=== PATIENT | female | born 1995 | race African-American/Black ===

== ENCOUNTER 2018-08-11 07:23 | Emergency (ER) | payer SELFPAY ==
[2018-08-11] MEDS ORDERED: KETOROLAC 30 MG/ML INJ ONE (07:48)
[2018-08-11] MEDS ORDERED: DEXAMETHASONE 10 MG/ML VIAL ONE (07:48)
[2018-08-11] MEDS ORDERED: CEFTRIAXONE/SWI 1gm 1 GM/10 ML SYR ONE (07:49)
[2018-08-11] MEDS ORDERED: CLINDAMYCIN 600MG/D5W 0 MG/0 ML BAG IV ONE (08:31)
[2018-08-11] MEDS ORDERED: CLINDAMYCIN 900MG/D5W 900 MG/50 ML BAG IV ONE (08:33)
[2018-08-11] MEDS ORDERED: LIDOCAINE VISCOUS 2% SOLN 15 ML UDC ONE (08:53)
--- NOTE | 2018-08-11 09:53 | EDPHYS ---
Physician Documentation [facility] Name: Dilma Royal Age: 23 yrs Sex: Female : 1995 Arrival Date: 08/11/2018 Time: 07:25 Bed 13 Private MD: None, None ED Physician Tai Pastrana HPI: 08/11 07:38 This 23 yrs old Black Female presents to ER via Ambulatory with complaints of Sore wa Throat. 07:38 The patient presents with sore throat. The patient describes throat pain as constant, wa the patient is unable to open their mouth due to pain worse on L side. Onset: The symptoms/episode began/occurred 2 day(s) ago. Severity of symptoms: At their worst the symptoms were moderate, in the emergency department the symptoms are actually worse, markedly. Modifying factors: The symptoms are alleviated by nothing, the symptoms are aggravated by swallowing. Associated signs and symptoms: Pertinent positives: Sore throat Pertinent negatives cough, fever, rhinorrhea, shortness of breath. The patient has experienced a previous episode, approximately 6 months ago. The patient has been recently seen by a physician: ER in [facility]. had abscess drained from the left side and given abx. 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 - Social history:: Smoking status: Patient/guardian denies using tobacco. - Ebola Screening: : No symptoms or risks identified at this time. - Family history:: not pertinent. - Hospitalizations: : No recent hospitalization is reported. ROS: 07:43 Constitutional: Negative for fever, chills, and weight loss, Eyes: Negative for injury, wa pain, redness, and discharge, Neck: Negative for injury, pain, and swelling, Cardiovascular: Negative for chest pain, palpitations, and edema, Respiratory: Negative for shortness of breath, cough, wheezing, and pleuritic chest pain, Abdomen/GI: Negative for abdominal pain, nausea, vomiting, diarrhea, and constipation, Back: Negative for injury and pain, : Negative for injury, bleeding, discharge, and swelling, MS/Extremity: Negative for injury and deformity, Skin: Negative for injury, rash, and discoloration, Neuro: Negative for headache, weakness, numbness, tingling, and seizure. 07:43 ENT: Positive for difficulty handling secretions, sore throat, mild trismus. . 07:43 All other systems are negative. Exam: 07:44 Constitutional: This is a well developed, well nourished patient who is awake, alert, wa and in no acute distress. Head/Face: Normocephalic, atraumatic. Eyes: Pupils equal round and reactive to light, extra-ocular motions intact. Lids and lashes normal. Conjunctiva and sclera are non-icteric and not injected. Cornea within normal limits. Periorbital areas with no swelling, redness, or edema. Neck: Trachea midline, no thyromegaly or masses palpated, and no cervical lymphadenopathy. Supple, full range of motion without nuchal rigidity, or vertebral point tenderness. No Meningismus. Chest/axilla: Normal chest wall appearance and motion. Nontender with no deformity. No lesions are appreciated. Cardiovascular: Regular rate and rhythm with a normal S1 and S2. No gallops, murmurs, or rubs. Normal PMI, no JVD. No pulse deficits. Respiratory: Lungs have equal breath sounds bilaterally, clear to auscultation and percussion. No rales, rhonchi or wheezes noted. No increased work of breathing, no retractions or nasal flaring. Abdomen/GI: Soft, non-tender, with normal bowel sounds. No distension or tympany. No guarding or rebound. No evidence of tenderness throughout. Back: No spinal tenderness. No costovertebral tenderness. Full range of motion. Skin: Warm, dry with normal turgor. Normal color with no rashes, no lesions, and no evidence of cellulitis. MS/ Extremity: Pulses equal, no cyanosis. Neurovascular intact. Full, normal range of motion. Neuro: Awake and alert, GCS 15, oriented to person, place, time, and situation. Cranial nerves II-XII grossly intact. Motor strength 5/5 in all extremities. Sensory grossly intact. Cerebellar exam normal. Normal gait. Psych: Awake, alert, with orientation to person, place and time. Behavior, mood, and affect are within normal limits. 07:44 ENT: External ear(s): are unremarkable, Ear canal(s): are normal, TM's: are normal, Mouth: drooling, that is mild, noted mild trismus, Posterior pharynx: Uvula: normal, erythema, that is marked, L side, peritonsillar mass, is noted on left, Dental exam: normal. Vital Signs: 07:36 BP 107 / 60; Pulse 98; Resp 16 S; Temp 99.4(O); Pulse Ox 100% on R/A; Pain 10/10; jl7 08:33 BP 112 / 74; Pulse 53; Resp 16 S; Pulse Ox 98% on R/A; jl7 10:00 BP 115 / 76; Pulse 78; Resp 16 S; Pulse Ox 100% on R/A; jl7 Procedures: 09:50 I \T\ D: Incision and drainage was performed for an abscess of the left peritonsillar wa area. Prepped with alcohol, Anesthetized with 1 ml's 1% Lidocaine w/ Epi. Incised with 18 gauge needle. Drained large amount purulent fluid. the patient tolerated the procedure well, 10 cc's. MDM: 07:30 Patient medically screened. wa 07:45 Differential diagnosis: exam consistent with re-accumulation of peritonsillar abscess. wa will treat. consider bedside I\T\D. 09:51 Data reviewed: vital signs, nurses notes. Special discussion: 100 cc's pus drained. pt wa tolerated well. speaking in full sentences. great relief. improved. 08/11 07:36 Order name: IV Start; Complete Time: 08:03 wa Administered Medications: 07:45 Drug: TORadol 30 mg Route: IVP; Site: right antecubital; [facility] 08:06 Follow up: Response: No adverse reaction; Pain is decreased jl 07:48 Drug: Rocephin - (cefTRIAXone) 1 grams {Note: Administered over 3 minutes per 7 protocol.} Route: IVPB; Infused Over: 30 mins; Site: right antecubital; 07:51 Follow up: Response: No adverse reaction; IV Status: Completed infusion [facility] 07:58 Drug: Decadron - Dexamethasone 10 mg Route: IVP; Site: right antecubital; 7 08:32 Follow up: Response: No adverse reaction; Pain is decreased jl 08:31 Drug: Clindamycin 900 mg Route: IVPB; Infused Over: 30 mins; Site: right antecubital; jl7 09:01 Follow up: Response: No adverse reaction; IV Status: Completed infusion jl7 Disposition: 08/11/18 09:53 Discharged to Home. Impression: Left Peritonsilar abscess. - Condition is Stable. - Discharge Instructions: Peritonsillar Abscess, [id number]. - Medication Reconciliation Form, Thank You Letter, Antibiotic Education, Prescription Opioid Use form. - Follow up: Lu Madrigal MD; When: 1 - 2 days; Reason: Recheck today's complaints. - Problem is new. - Symptoms have improved. - Notes: continue your antibiotic and pain medicines as prescribed. follow up with the ENT doctor as discussed Signatures: Josafat Houston RN RN jl7 Tai Pastrana MD MD wa Corrections: (The following items were deleted from the chart) 10:27 09:53 08/11/2018 09:53 Discharged to Home. Impression: Left Peritonsilar abscess. jl7 Condition is Stable. Forms are Medication Reconciliation Form, Thank You Letter, Antibiotic Education, Prescription Opioid Use. Follow up: Lu Madrigal; When: 1 - 2 days; Reason: Recheck today's complaints. Problem is new. Symptoms have improved. wa
--- NOTE | 2018-08-11 09:53 | ER ---
Nurse's Notes [facility] Name: Dilma Royal Age: 23 yrs Sex: Female : 1995 Arrival Date: 08/11/2018 Time: 07:25 Bed 13 Private MD: None, None Diagnosis: Left Peritonsilar abscess Presentation: 08/11 07:30 Presenting complaint: Patient states: Went to [place] [facility] 2 days ago, dx with strep and jl7 had an abscess drained from the left tonsil. C/o increased pain and swelling to the left side of throat. Transition of care: patient was not received from another setting of care. Onset of symptoms was August 09, 2018. Risk Assessment: Do you want to hurt yourself or someone else? Patient reports no desire to harm self or others. Initial Sepsis Screen: Does the patient meet any 2 criteria? No. Patient's initial sepsis screen is negative. Does the patient have a suspected source of infection? No. Patient's initial sepsis screen is negative. Care prior to arrival: None. 07:30 Method Of Arrival: Ambulatory [facility] 07:30 Acuity: GRANT 3 jl7 Triage Assessment: 07:36 General: Appears in no apparent distress. uncomfortable, Behavior is cooperative. Pain: jl7 Complains of pain in throat Pain does not radiate. Pain currently is 10 out of 10 on a pain scale. EENT: Throat is reddened has enlarged tonsils on left with gag reflex present. Neuro: Level of Consciousness is awake, alert, obeys commands. Cardiovascular: Patient's skin is warm and dry. Respiratory: Airway is patent Respiratory effort is even, unlabored, Respiratory pattern is regular, symmetrical. Derm: Skin is dry, Skin is normal, Skin temperature is warm. 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 - Social history:: Smoking status: Patient/guardian denies using tobacco. - Ebola Screening: : No symptoms or risks identified at this time. - Family history:: not pertinent. - Hospitalizations: : No recent hospitalization is reported. Screenin:39 Abuse screen: Denies threats or abuse. Denies injuries from another. Nutritional jl7 screening: No deficits noted. Tuberculosis screening: No symptoms or risk factors identified. Fall Risk IV access (20 points). Total [place] Fall Scale indicates No Risk (0-24 pts). Assessment: 07:39 General: See triage assessment. Respiratory: Airway is patent Respiratory effort is jl7 even, unlabored, Respiratory pattern is regular, symmetrical, Breath sounds are clear bilaterally. 08:34 Reassessment: Patient and/or family updated on plan of care and expected duration. Pain jl7 level reassessed. Patient is alert, oriented x 3, equal unlabored respirations, skin warm/dry/pink. Patient states feeling better. Patient states symptoms have improved. 09:52 Reassessment: Patient and/or family updated on plan of care and expected duration. Pain jl7 level reassessed. Patient is alert, oriented x 3, equal unlabored respirations, skin warm/dry/pink. Patient states symptoms have improved. Vital Signs: 07:36 BP 107 / 60; Pulse 98; Resp 16 S; Temp 99.4(O); Pulse Ox 100% on R/A; Pain 10/10; jl7 08:33 BP 112 / 74; Pulse 53; Resp 16 S; Pulse Ox 98% on R/A; jl7 10:00 BP 115 / 76; Pulse 78; Resp 16 S; Pulse Ox 100% on R/A; jl7 ED Course: 07:25 Patient arrived in ED. mr 07:25 None, None is Private Physician. mr 07:27 Josafat Houston RN is Primary Nurse. jl7 07:30 Tai Pastrana MD is Attending Physician. wa 07:30 Arm band placed on right wrist. Patient placed in an exam room, on a stretcher. jl7 07:36 Triage completed. jl7 07:39 Patient has correct armband on for positive identification. Bed in low position. Call jl7 light in reach. Side rails up X 1. Pulse ox on. Sitter at bedside. 08:06 Inserted saline lock: 22 gauge in right antecubital area, using aseptic technique. jl7 09:30 Assist provider with I \T\ D: of an abscess on left peritonsillar area Set up I\T\D tray. jl 7 Performed by Tai Pastrana MD Patient tolerated well. 09:52 Lu Madrigal MD is Referral Physician. wa 10:05 IV discontinued, intact, bleeding controlled, No redness/swelling at site. Pressure jl7 dressing applied. Administered Medications: 07:45 Drug: TORadol 30 mg Route: IVP; Site: right antecubital; jl7 08:06 Follow up: Response: No adverse reaction; Pain is decreased jl7 07:48 Drug: Rocephin - (cefTRIAXone) 1 grams {Note: Administered over 3 minutes per jl7 protocol.} Route: IVPB; Infused Over: 30 mins; Site: right antecubital; 07:51 Follow up: Response: No adverse reaction; IV Status: Completed infusion jl7 07:58 Drug: Decadron - Dexamethasone 10 mg Route: IVP; Site: right antecubital; jl7 08:32 Follow up: Response: No adverse reaction; Pain is decreased jl7 08:31 Drug: Clindamycin 900 mg Route: IVPB; Infused Over: 30 mins; Site: right antecubital; jl7 09:01 Follow up: Response: No adverse reaction; IV Status: Completed infusion jl7 Outcome: 09:53 Discharge ordered by . wa 10:05 Discharged to home ambulatory, with family. jl7 10:05 Condition: stable 10:05 Discharge instructions given to patient, family, Instructed on discharge instructions, follow up and referral plans. Demonstrated understanding of instructions, follow-up care. 10:15 Patient left the ED. jl7 Signatures: Tamica TatealJosafat RN RN jlTai Tran MD MD ga Corrections: (The following items were deleted from the chart) 10:27 10:27 Patient left the ED. jl7 jl7
[2018-08-11 10:34] VITALS: TEMP 99.4
[2018-08-11 10:36] VITALS: BP 115/76; O2SAT 100
== END 2018-08-11 10:27 | disposition home or self-care (01) ==
LOC: ER 07:23
PROC: 0C9PXZZ Drainage of Tonsils, External Approach (ICD-10-PCS; principal; 2018-08-11)
DX: J36 Peritonsillar abscess (principal)
CPT/HCPCS: 96365; 96375; 99284; J0696; J1100

== ENCOUNTER 2019-03-17 08:50 | Emergency (ER) | payer OTHER, SELFPAY ==
--- NOTE | 2019-03-17 09:51 | ER ---
Nurse's Notes [facility] Name: Dilma Royal Age: 23 yrs Sex: Female : 1995 Arrival Date: 03/17/2019 Time: 08:57 Bed 14 Private MD: None, None Diagnosis: Dental pain Presentation: 03/17 09:15 Presenting complaint: Patient states: Right lower molar pain 10/10 x 2 days. Transition hb of care: patient was not received from another setting of care. Onset of symptoms was March 16, 2019. Risk Assessment: Do you want to hurt yourself or someone else? Patient reports no desire to harm self or others. Initial Sepsis Screen: Does the patient meet any 2 criteria? No. Patient's initial sepsis screen is negative. Does the patient have a suspected source of infection? No. Patient's initial sepsis screen is negative. Care prior to arrival: None. 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 - Social history:: Smoking status: Patient/guardian denies using tobacco. - Ebola Screening: : No symptoms or risks identified at this time. Screenin:15 Abuse screen: Denies threats or abuse. Nutritional screening: No deficits noted. rb1 Tuberculosis screening: No symptoms or risk factors identified. Fall Risk None identified. Assessment: 09:15 General: Appears in no apparent distress. comfortable, obese, Behavior is calm, rb1 cooperative, Denies fever. Pain: Complains of pain in lower right second bicuspid (#29) Pain currently is 10 out of 10 on a pain scale. Pain began x 2 days. Neuro: Level of Consciousness is awake, alert, obeys commands, Oriented to person, place, time, situation. Cardiovascular: Capillary refill < 3 seconds is brisk in bilateral fingers. Respiratory: Airway is patent Respiratory effort is even, unlabored, Respiratory pattern is regular, symmetrical. GI: No signs and/or symptoms were reported involving the gastrointestinal system. : No signs and/or symptoms were reported regarding the genitourinary system. EENT: Reports pain in lower right second bicuspid (#29). Derm: Skin is dry, Skin is normal, Skin temperature is warm. Vital Signs: 09:14 BP 133 / 100; Pulse 69; Resp 16; Temp 98.2; Pulse Ox 99% on R/A; Pain 10/10; hb 10:08 BP 135 / 91; Pulse 73; Resp 16; Pulse Ox 100% on R/A; rb1 ED Course: 08:57 Patient arrived in ED. mr 08:57 None, None is Private Physician. mr 09:15 Patient has correct armband on for positive identification. Bed in low position. Call rb1 light in reach. Side rails up X 1. Pulse ox on. NIBP on. 09:16 Triage completed. hb 09:16 Warner Moulton PA is PHCP. cp 09:16 Warner Cottrell MD is Attending Physician. cp 09:16 Arm band placed on. hb 09:38 Kim Rooney, RN is Primary Nurse. rb1 09:50 Micky Paniagua DDS is Referral Physician. cp 10:09 No provider procedures requiring assistance completed. Patient did not have IV access rb1 during this emergency room visit. Administered Medications: 10:07 Drug: Tylenol 1000 mg Route: PO; rb1 10:08 Follow up: Response: Medication administered at discharge. rb1 10:07 Drug: Ibuprofen 800 mg Route: PO; rb1 10:07 Follow up: Response: Medication administered at discharge. rb1 Outcome: 09:51 Discharge ordered by MD. cp 10:09 Discharged to home ambulatory. rb1 10:09 Condition: stable 10:09 Discharge instructions given to patient, Instructed on discharge instructions, follow up and referral plans. medication usage, Demonstrated understanding of instructions, follow-up care, medications, Prescriptions given X 3. 10:10 Patient left the ED. rb1 Signatures: Kerry Tate mr Warner Moulton PA PA cp Kim Rooney, SHRADDHA RN rb1 Rosanna Wilburn RN RN
--- NOTE | 2019-03-17 09:52 | EDPHYS ---
Physician Documentation [facility] Name: Dilma Royal Age: 23 yrs Sex: Female : 1995 Arrival Date: 03/17/2019 Time: 08:57 Bed 14 Private MD: None, None ED Physician Warner Cottrell HPI: 03/17 09:30 This 23 yrs old Black Female presents to ER via Ambulatory with complaints of Toothache.cp 09:30 The patient presents with pain. cp 09:30 The problem is located in the right lower tooth. Onset: The symptoms/episode cp began/occurred yesterday. Duration: The symptoms are continuous. Associated signs and symptoms: Pertinent negatives: fever, inability to eat, swelling. Severity of symptoms: in the emergency department the symptoms are unchanged, despite home interventions. 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 - Social history:: Smoking status: Patient/guardian denies using tobacco. - Ebola Screening: : No symptoms or risks identified at this time. ROS: 09:30 Constitutional: Negative for body aches, chills, fever, poor PO intake. cp 09:30 Eyes: Negative for injury, pain, redness, and discharge. cp 09:30 ENT: Positive for dental pain, Negative for drainage from ear(s), ear pain, sinus pain, sore throat, difficulty swallowing, difficulty handling secretions. 09:30 Neck: Negative for pain with movement, pain at rest, stiffness. 09:30 Respiratory: Negative for cough, shortness of breath, wheezing. 09:30 Abdomen/GI: Negative for abdominal pain, nausea, vomiting, diarrhea. 09:30 Neuro: Negative for altered mental status, headache. 09:30 All other systems are negative. Exam: 09:30 Head/Face: Normocephalic, atraumatic. cp 09:30 Constitutional: The patient appears in no acute distress, alert, awake, non-toxic, well developed, well nourished. 09:30 Eyes: Periorbital structures: appear normal, Conjunctiva: normal, no exudate, no injection, Sclera: no appreciated abnormality, Lids and lashes: appear normal, bilaterally. 09:30 ENT: External ear(s): are unremarkable, Ear canal(s): are normal, clear, TM's: are normal, no evidence of bulging, no erythema, Nose: is normal, Mouth: Lips: moist, Oral mucosa: pink and intact, moist, Tongue: is normal, abscess, is not appreciated, drooling, is not appreciated, Posterior pharynx: Airway: no evidence of obstruction, patent, Tonsils: are normal in appearance, swelling, is not appreciated, erythema, is not appreciated, exudate, is not appreciated, Dental exam: dental caries, that is mild, diffusely, fractured teeth are noted, specifically the lower right second bicuspid (#29), gum swelling, not appreciated, pain, that is moderate, specifically in the lower right second bicuspid (#29), Voice: is normal. 09:30 Neck: ROM/movement: is normal, is supple, without pain, no range of motions limitations, no meningismus, no nuchal rigidity, Lymph nodes: no appreciated lymphadenopathy. 09:30 Chest/axilla: Inspection: normal. cp 09:30 Cardiovascular: Rate: normal. cp 09:30 Respiratory: the patient does not display signs of respiratory distress, Respirations: normal, no use of accessory muscles, no retractions, no splinting, no tachypnea, labored breathing, is not present. 09:30 Abdomen/GI: Inspection: abdomen appears normal. Vital Signs: 09:14 BP 133 / 100; Pulse 69; Resp 16; Temp 98.2; Pulse Ox 99% on R/A; Pain 10/10; hb 10:08 BP 135 / 91; Pulse 73; Resp 16; Pulse Ox 100% on R/A; rb1 MDM: 09:17 Patient medically screened. cp 09:40 Differential diagnosis: dental caries, dental abscess, pericoronitis. cp 09:50 Data reviewed: vital signs, nurses notes, and as a result, I will discharge patient. cp 09:50 Counseling: I had a detailed discussion with the patient and/or guardian regarding: the cp historical points, exam findings, and any diagnostic results supporting the discharge/admit diagnosis, the need for outpatient follow up, for definitive care, a dentist, maxillary facial surgery, to return to the emergency department if symptoms worsen or persist or if there are any questions or concerns that arise at home. Response to treatment: the patient's symptoms have mildly improved after treatment. Administered Medications: 10:07 Drug: Tylenol 1000 mg Route: PO; rb1 10:08 Follow up: Response: Medication administered at discharge. rb1 10:07 Drug: Ibuprofen 800 mg Route: PO; rb1 10:07 Follow up: Response: Medication administered at discharge. rb1 Disposition: 03/18 08:03 Co-signature as Attending Physician, Warner Cottrell MD I agree with the assessment and eloise plan of care. Disposition: 03/17/19 09:51 Discharged to Home. Impression: Dental pain. - Condition is Stable. - Discharge Instructions: Dental Pain. - Prescriptions for Amoxicillin 875 mg Oral Tablet - take 1 tablet by ORAL route every 12 hours for 10 days; 20 tablet. Ibuprofen 800 mg Oral Tablet - take 1 tablet by ORAL route every 8 hours As needed take with food; 30 tablet. Tramadol 50 mg Oral Tablet - take 1 tablet by ORAL route every 8 hours as needed; 12 tablet. - Medication Reconciliation Form, Thank You Letter, Antibiotic Education, Prescription Opioid Use, Work release form form. - Follow up: Micky Paniagua DDS; When: 2 - 3 days; Reason: tooth pain. - Problem is new. - Symptoms have improved. Signatures: Warner Cottrell MD MD cha Page, Corey, PA PA cp Barber, Rebecca, RN RN rb1 Rosanna Wilburn RN RN Corrections: (The following items were deleted from the chart) 03/17 10:10 09:51 03/17/2019 09:51 Discharged to Home. Impression: Dental pain. Condition is rb1 Stable. Forms are Medication Reconciliation Form, Thank You Letter, Antibiotic Education, Prescription Opioid Use. Follow up: Micky Paniagua; When: 2 - 3 days; Reason: tooth pain. Problem is new. Symptoms have improved. cp
[2019-03-17] MEDS ORDERED: ACETAMINOPHEN 500 MG TAB ONE (10:13)
[2019-03-17] MEDS ORDERED: IBUPROFEN 400 MG TAB ONE (10:13)
[2019-03-17 10:35] VITALS: TEMP 98.2
[2019-03-17 10:36] VITALS: BP 135/91; O2SAT 100
== END 2019-03-17 10:10 | disposition home or self-care (01) ==
LOC: ER 08:50
DX: K08.89 Other specified disorders of teeth and supporting structures (principal)
CPT/HCPCS: 99283

== ENCOUNTER 2019-06-10 03:58 | Emergency (ER) | payer OTHER ==
--- OUTSIDE RECORDS SUMMARY | 2019-06-10 04:00 | XMS REPORT ---
:1995 [facility] Address [address] [place] [address] Care Team Providers Name Role Phone Unavailable Unavailable Unavailable Problems This patient has no known problems. Allergies, Adverse Reactions, Alerts This patient has no known allergies or adverse reactions. Medications This patient has no known medications.
--- NOTE | 2019-06-10 04:17 | ER ---
Nurse's Notes [facility] Name: Dilma Royal Age: 23 yrs Sex: Female : 1995 Arrival Date: 06/10/2019 Time: 04:01 Bed 7 Private MD: Diagnosis: Dental pain Presentation: 06/10 04:07 Presenting complaint: Patient states: R lower toothache x 2 days. Transition of care: aa1 patient was not received from another setting of care. Onset of symptoms was June 08, 2019. Risk Assessment: Do you want to hurt yourself or someone else? Patient reports no desire to harm self or others. Initial Sepsis Screen: Does the patient meet any 2 criteria? No. Patient's initial sepsis screen is negative. Does the patient have a suspected source of infection? No. Patient's initial sepsis screen is negative. Care prior to arrival: None. 04:07 Method Of Arrival: Ambulatory aa1 04:07 Acuity: GRANT 4 aa1 Triage Assessment: 04:11 General: Appears in no apparent distress. comfortable, Behavior is calm, cooperative, aa1 appropriate for age. 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 - Social history:: Smoking status: Patient/guardian denies using tobacco. - Ebola Screening: : No symptoms or risks identified at this time. Screenin:11 Abuse screen: Denies threats or abuse. Denies injuries from another. Nutritional lp1 screening: No deficits noted. Tuberculosis screening: No symptoms or risk factors identified. Fall Risk None identified. Assessment: 04:10 General: Appears in no apparent distress. Behavior is appropriate for age. Pain: lp1 Complains of pain in lower right second bicuspid Pain currently is 8 out of 10 on a pain scale. Neuro: Level of Consciousness is awake, alert, obeys commands, Oriented to person, place, time, situation. Cardiovascular: Patient's skin is warm and dry. Respiratory: No deficits noted. GI: No signs and/or symptoms were reported involving the gastrointestinal system. : No signs and/or symptoms were reported regarding the genitourinary system. EENT: Oral mucosa is moist. Dental caries noted in lower right second bicuspid (#29) Reports pain in lower right second bicuspid. Derm: Skin is intact, Skin is dry, Skin is normal. Musculoskeletal: No deficits noted. 04:26 Reassessment: Patient states immediate relief after dental nerve block. lp1 Vital Signs: 04:11 BP 117 / 69; Pulse 74; Resp 18; Temp 98.4; Pulse Ox 99% on R/A; Weight 109.77 kg; aa1 Height 5 ft. 5 in. (165.10 cm); Pain 8/10; 04:11 Body Mass Index 40.27 (109.77 kg, 165.10 cm) aa1 ED Course: 04:01 Patient arrived in ED. ds1 04:08 Fabian Shultz MD is Attending Physician. ps1 04:10 Barbara Nolen RN is Primary Nurse. lp1 04:10 Triage completed. aa1 04:11 Arm band placed on right wrist. aa1 04:12 Patient has correct armband on for positive identification. lp1 04:26 Assist provider with nerve block (dental) Performed by Fabian Shultz MD. lp1 04:27 Patient did not have IV access during this emergency room visit. lp1 Administered Medications: 04:27 Drug: Bupivacaine (0.5 %) 10 ml Volume: 10 ml; Route: Infiltration; lp1 04:36 Follow up: Response: Marked relief of symptoms lp1 04:27 Drug: Lidocaine-Epinephrine -2 % (1:100,000) 10 ml Route: Infiltration; lp1 04:36 Follow up: Response: Marked relief of symptoms lp1 Outcome: 04:15 Discharge ordered by . ps1 04:37 Discharged to home ambulatory, with family. lp1 04:37 Condition: good 04:37 Discharge instructions given to patient, Instructed on discharge instructions, follow up and referral plans. medication usage, Demonstrated understanding of instructions, follow-up care, medications, Prescriptions given X 3. 04:37 Patient left the ED. lp1 Signatures: Luanne Gill RN RN aa1 Beronica Damon ds1 Barbara Nolen RN RN lp1 Fabain Shultz MD MD ps1 Corrections: (The following items were deleted from the chart) 04:13 04:10 EENT: Oral mucosa is moist. Dental caries noted in lower right second bicuspid lp1 (#29) lp1
--- NOTE | 2019-06-10 04:17 | EDPHYS ---
Physician Documentation [facility] Name: Dilma Royal Age: 23 yrs Sex: Female : 1995 Arrival Date: 06/10/2019 Time: 04:01 Bed 7 Private MD: ED Physician Fabian Shultz HPI: 06/10 04:08 This 23 yrs old Black Female presents to ER via Unassigned with complaints of Toothache ps1 - 8 Wks Preg. 04:08 onset was 2 days ago. No fever or abscess. Has known crown that fell out from tooth. No ps1 dentist appt. Took PCN from previous rx. Pain moderate to severe. Worst with hot and cold. . 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 - Social history:: Smoking status: Patient/guardian denies using tobacco. - Ebola Screening: : No symptoms or risks identified at this time. ROS: 04:08 Constitutional: Negative for fever, chills, and weight loss, Eyes: Negative for injury, ps1 pain, redness, and discharge, Cardiovascular: Negative for chest pain, palpitations, and edema, Respiratory: Negative for shortness of breath, cough, wheezing, and pleuritic chest pain, Abdomen/GI: Negative for abdominal pain, nausea, vomiting, diarrhea, and constipation, MS/Extremity: Negative for injury and deformity, Skin: Negative for injury, rash, and discoloration, Neuro: Negative for headache, weakness, numbness, tingling, and seizure. 04:08 ENT: Positive for dental pain. Exam: 04:08 Constitutional: This is a well developed, well nourished patient who is awake, alert, ps1 and in no acute distress. Head/Face: Normocephalic, atraumatic. Eyes: Pupils equal round and reactive to light, extra-ocular motions intact. Lids and lashes normal. Conjunctiva and sclera are non-icteric and not injected. Cardiovascular: Regular rate and rhythm. No gallops, murmurs, or rubs. Normal PMI, no JVD. No pulse deficits. Respiratory: Lungs have equal breath sounds bilaterally, clear to auscultation and percussion. No rales, rhonchi or wheezes noted. No increased work of breathing, no retractions or nasal flaring. Abdomen/GI: Soft, non-tender, with normal bowel sounds. No distension or tympany. No guarding or rebound. No evidence of tenderness throughout. Skin: Warm, dry with normal turgor. Normal color with no rashes, no lesions, and no evidence of cellulitis. MS/ Extremity: Pulses equal, no cyanosis. Neurovascular intact. Full, normal range of motion. 04:08 ENT: Mouth: is normal, Dental exam: abscess, is not appreciated, dental caries, that is mild. Vital Signs: 04:11 BP 117 / 69; Pulse 74; Resp 18; Temp 98.4; Pulse Ox 99% on R/A; Weight 109.77 kg; aa1 Height 5 ft. 5 in. (165.10 cm); Pain 8/10; 04:11 Body Mass Index 40.27 (109.77 kg, 165.10 cm) aa1 Procedures: 04:14 Nerve block: (dental) of left inferior alveolar nerve, periapical block, Medication: ps1 Lidocaine 2% with epinephrine, Marcaine 0.5%, Amount: 5 mls were injected, Effect: the patient has resolution of the pain, Performed by Fabian Shultz MD Patient tolerated well. MDM: 04:15 Patient medically screened. ps1 Administered Medications: 04:27 Drug: Bupivacaine (0.5 %) 10 ml Volume: 10 ml; Route: Infiltration; lp1 04:36 Follow up: Response: Marked relief of symptoms lp1 04:27 Drug: Lidocaine-Epinephrine -2 % (1:100,000) 10 ml Route: Infiltration; lp1 04:36 Follow up: Response: Marked relief of symptoms lp1 Disposition: 06/10/19 04:15 Discharged to Home. Impression: Dental pain. - Condition is Stable. - Discharge Instructions: Dental Caries, Adult. - Prescriptions for chlorhexidine gluconate 0.12 % Mucous Membrane mouthwash - place 15 milliliter by MUCOUS MEMBRANE route 2 times per day after brushing teeth, swish in mouth for 30 seconds then spit out; 1 bottle. Clindamycin HCl 150 mg Oral Capsule - take 1 capsule by ORAL route every 6 hours for 10 days; 40 capsule. Tylenol- Codeine #3 300-30 mg Oral Tablet - take 2 tablet by ORAL route every 6 hours As needed; 30 tablet. - Medication Reconciliation Form, Thank You Letter, Antibiotic Education, Prescription Opioid Use form. - Follow up: Private Physician; When: Tomorrow; Reason: Further diagnostic work-up, Recheck today's complaints, Continuance of care. Follow up: Emergency Department; When: As needed; Reason: Worsening of condition. - Problem is new. - Symptoms have improved. Signatures: Luanne Gill RN RN aa1 Barbara Nolen RN RN lp1 Harinder Carlton RN RN jd3 Fabian Shultz MD MD ps1 Corrections: (The following items were deleted from the chart) 04:37 04:15 06/10/2019 04:15 Discharged to Home. Impression: Dental pain. Condition is lp1 Stable. Forms are Medication Reconciliation Form, Thank You Letter, Antibiotic Education, Prescription Opioid Use. Follow up: Private Physician; When: Tomorrow; Reason: Further diagnostic work-up, Recheck today's complaints, Continuance of care. Follow up: Emergency Department; When: As needed; Reason: Worsening of condition. Problem is new. Symptoms have improved. ps1
[2019-06-10] MEDS ORDERED: BUPIVACAINE 0.5% PF 10 ML VIAL ONE (04:26)
[2019-06-10] MEDS ORDERED: LIDOCAINE 2% W/EPI 1:200,000 MPF 20 ML VIAL IM ONE (04:26)
[2019-06-10 05:13] VITALS: BP 117/69; TEMP 98.4; O2SAT 99
== END 2019-06-10 04:37 | disposition home or self-care (01) ==
LOC: ER 03:58
DX: O26.891 Other specified pregnancy related conditions, first trimester (principal); Z3A.08 8 weeks gestation of pregnancy
CPT/HCPCS: 99283

== ENCOUNTER 2019-06-12 02:14 | Emergency (ER) | payer OTHER ==
--- OUTSIDE RECORDS SUMMARY | 2019-06-12 02:16 | XMS REPORT ---
:1995 [facility] Address [address] [place] [address] Care Team Providers Name Role Phone Unavailable Unavailable Unavailable Problems This patient has no known problems. Allergies, Adverse Reactions, Alerts This patient has no known allergies or adverse reactions. Medications This patient has no known medications.
[2019-06-12] MEDS ORDERED: MEPERIDINE HCL 50 MG/ML AMP ONE (03:11)
[2019-06-12] MEDS ORDERED: ONDANSETRON 4 MG/2 ML VIAL ONE (03:12)
[2019-06-12] MEDS ORDERED: NA CHLORIDE 0.9% 1,000 ML ONE (03:12)
[2019-06-12] MEDS ORDERED: CLINDAMYCIN 900MG/D5W 900 MG/50 ML IVPB IV ONE (03:12)
[2019-06-12 03:56] LABS: Basophils % 0.9 % (0-1.3); Eosinophils % 0.8 % (0-4.4); Hematocrit 39.1 % (36.0-45.0); Lymphocytes % 18.5 % (15.3-44.8); RBC Red Blood Cell Count 4.38 M/uL (3.86-4.86)
--- NOTE | 2019-06-12 04:10 | EDPHYS ---
Physician Documentation [facility] Name: Dilma Royal Age: 23 yrs Sex: Female : 1995 Arrival Date: 06/12/2019 Time: 02:15 Bed 7 Private MD: ED Physician Pablo Galvan HPI: 06/12 02:51 This 23 yrs old Black Female presents to ER via Ambulatory with complaints of Toothache.pkl 02:51 The patient presents with pain, swelling. The problem is located in the right jaw. pkl Onset: The symptoms/episode began/occurred 3 day(s) ago. The patient has been recently seen at the [facility], last week, for similar complaints was given a prescription for antibiotics. 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 - Social history:: Smoking status: Patient/guardian denies using tobacco. - Ebola Screening: : No symptoms or risks identified at this time. ROS: 02:51 Eyes: Negative for injury, pain, redness, and discharge. pkl 02:51 ENT: Positive for dental pain, of the right molar. 02:51 Neck: Negative for stiffness. 02:51 Cardiovascular: Negative for chest pain. 02:51 Respiratory: Negative for cough, shortness of breath. 02:51 Abdomen/GI: Negative for abdominal pain, nausea, vomiting, and diarrhea. 02:51 Back: Negative for acute changes. 02:51 : Negative for urinary symptoms. 02:51 MS/extremity: Negative for acute changes. 02:51 Skin: Negative for rash. 02:51 Neuro: Negative for altered mental status. Exam: 02:51 Eyes: Pupils equal round and reactive to light, extra-ocular motions intact. Lids and pkl lashes normal. Conjunctiva and sclera are non-icteric and not injected. Cornea within normal limits. Periorbital areas with no swelling, redness, or edema. 02:51 Head/face: Noted is swelling, that is moderate, of the right jaw. 02:51 ENT: Dental exam: abscess, that is moderate, specifically in the right mandible, gum swelling, that is moderate, pain, that is moderate. 02:51 Neck: Exam negative for nuchal rigidity. 02:51 Chest/axilla: Exam negative for acute changes. 02:51 Cardiovascular: Rate: normal, Rhythm: regular. 02:51 Respiratory: the patient does not display signs of respiratory distress, Respirations: normal, Breath sounds: are clear throughout. 02:51 Abdomen/GI: Bowel sounds: normal, Palpation: abdomen is soft and non-tender, in all quadrants. 02:51 Back: Exam negative for acute changes. 02:51 : Exam negative for acute changes. 02:51 Musculoskeletal/extremity: Exam is negative for acute changes. 02:51 Skin: Exam negative for rash. 02:51 Neuro: Orientation: is normal, Mentation: is normal, Cranial nerves: grossly normal, Motor: is normal. Vital Signs: 02:26 BP 124 / 80; Pulse 83; Resp 20; Temp 99.3; Pulse Ox 100% ; Weight 108.86 kg; Height 5 aa1 ft. 5 in. (165.10 cm); Pain 10/10; 04:17 BP 118 / 57; Pulse 71; Resp 19; Pulse Ox 100% on R/A; tr5 02:26 Body Mass Index 39.94 (108.86 kg, 165.10 cm) aa1 MDM: 02:40 Patient medically screened. pkl 04:05 Data reviewed: vital signs, nurses notes, lab test result(s). ED course: Patient pkl feeling better. Advised to follow up with a dentist in the morning. Patient understood instructions.. 07 02:48 Order name: CBC with Diff; Complete Time: 04:02 pkl 07 02:48 Order name: Chem 7; Complete Time: 04:30 pkl 06/12 02:48 Order name: Quantitative Hcg; Complete Time: 04:30 pkl Administered Medications: 03:06 Drug: NS 0.9% 1000 ml Route: IV; Rate: 1000 ml; Site: right antecubital; aa1 04:00 Follow up: IV Status: Completed infusion; IV Intake: 1000ml tr5 03:07 Drug: Demerol 50 mg Route: IVP; Site: right antecubital; aa1 03:28 Follow up: Response: Pain is decreased tr5 03:07 Drug: Zofran 4 mg Route: IVP; Site: right antecubital; aa1 03:28 Follow up: Response: Nausea is decreased tr5 03:07 Drug: Clindamycin 900 mg Route: IVPB; Infused Over: 30 mins; Site: right antecubital; aa1 03:28 Follow up: Response: No adverse reaction; IV Status: Completed infusion tr5 04:24 Drug: Moore 5 mg-325 mg 1 tabs Route: PO; tr5 04:25 Follow up: Response: Medication administered at discharge. tr5 Disposition: 06/12/19 04:08 Discharged to Home. Impression: Dental abscess. Swelling right jaw. 1 st trimester . - Condition is Stable. - Prescriptions for Clindamycin HCl 300 mg Oral Capsule - take 1 capsule by ORAL route every 6 hours for 7 days; 28 capsule. - Medication Reconciliation Form, Thank You Letter, Antibiotic Education, Prescription Opioid Use form. - Follow up: Private Physician; When: Tomorrow; Reason: Re-evaluation by your physician. - Problem is new. - Symptoms are unchanged. Signatures: Dispatcher [employer] EDLuanne Teran RN RN aa1 Pablo Galvan MD MD pkl Jewel Hinds RN RN tr5 Corrections: (The following items were deleted from the chart) 04:27 04:08 06/12/2019 04:08 Discharged to Home. Impression: Dental abscess. Swelling right tr5 jaw. 1 st trimester . Condition is Stable. Forms are Medication Reconciliation Form, Thank You Letter, Antibiotic Education, Prescription Opioid Use. Follow up: Private Physician; When: Tomorrow; Reason: Re-evaluation by your physician. Problem is new. Symptoms are unchanged. pkl
--- NOTE | 2019-06-12 04:10 | ER ---
Nurse's Notes [facility] Name: Dilma Royal Age: 23 yrs Sex: Female : 1995 Arrival Date: 06/12/2019 Time: 02:15 Bed 7 Private MD: Diagnosis: Dental abscess. Swelling right jaw. 1 st trimester Presentation: 06/12 02:24 Presenting complaint: Mother states: pt was seen here 2 days ago for a toothache and aa1 was started on antibiotics but the pain and swelling has gotten significantly worse. States pt is also 8 weeks . Transition of care: patient was not received from another setting of care. Onset of symptoms was June 09, 2019. Risk Assessment: Do you want to hurt yourself or someone else? Patient reports no desire to harm self or others. Initial Sepsis Screen: Does the patient meet any 2 criteria? No. Patient's initial sepsis screen is negative. Does the patient have a suspected source of infection? No. Patient's initial sepsis screen is negative. Care prior to arrival: None. 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 - Social history:: Smoking status: Patient/guardian denies using tobacco. - Ebola Screening: : No symptoms or risks identified at this time. Screenin:27 Abuse screen: Denies threats or abuse. Denies injuries from another. Nutritional aa1 screening: No deficits noted. Tuberculosis screening: No symptoms or risk factors identified. Fall Risk None identified. Assessment: 02:27 General: Appears in no apparent distress. uncomfortable, Behavior is calm, cooperative, aa1 appropriate for age. Pain: Complains of pain in mouth Pain currently is 10 out of 10 on a pain scale. Is continuous. Neuro: Level of Consciousness is awake, alert, obeys commands, Oriented to person, place, time, situation, Gait is steady. Respiratory: Airway is patent Respiratory effort is even, unlabored, Respiratory pattern is regular, symmetrical. GI: No signs and/or symptoms were reported involving the gastrointestinal system. : No signs and/or symptoms were reported regarding the genitourinary system. EENT: Reports pain in mouth. Derm: Skin is intact, is healthy with good turgor, Skin is pink, warm \T\ dry. Musculoskeletal: Circulation, motion, and sensation intact. Capillary refill < 3 seconds. Musculoskeletal: Swelling present in right zygomatic area, right cheek and right mandible. 03:20 Reassessment: Patient appears in no apparent distress at this time. Patient is alert, tr5 oriented x 3, equal unlabored respirations, skin warm/dry/pink. Patient states feeling better. 04:18 Reassessment: Patient appears in no apparent distress at this time. Patient and/or tr5 family updated on plan of care and expected duration. Pain level reassessed. Patient is alert, oriented x 3, equal unlabored respirations, skin warm/dry/pink. Vital Signs: 02:26 BP 124 / 80; Pulse 83; Resp 20; Temp 99.3; Pulse Ox 100% ; Weight 108.86 kg; Height 5 aa1 ft. 5 in. (165.10 cm); Pain 10/10; 04:17 BP 118 / 57; Pulse 71; Resp 19; Pulse Ox 100% on R/A; tr5 02:26 Body Mass Index 39.94 (108.86 kg, 165.10 cm) aa1 ED Course: 02:15 Patient arrived in ED. ds1 02:26 Triage completed. aa1 02:26 Arm band placed on right wrist. aa1 02:27 Patient has correct armband on for positive identification. Bed in low position. Call aa1 light in reach. Pulse ox on. NIBP on. 02:40 Pablo Galvan MD is Attending Physician. pkl 03:05 Initial lab(s) drawn, by ED staff, sent to lab. Inserted saline lock: 22 gauge in right aa1 antecubital area, using aseptic technique. ,using aseptic technique. by Jewel Hinds RN Blood collected. 03:07 Jewel Hinds RN is Primary Nurse. tr5 04:25 No provider procedures requiring assistance completed. tr5 04:25 IV discontinued. tr5 Administered Medications: 03:06 Drug: NS 0.9% 1000 ml Route: IV; Rate: 1000 ml; Site: right antecubital; aa1 04:00 Follow up: IV Status: Completed infusion; IV Intake: 1000ml tr5 03:07 Drug: Demerol 50 mg Route: IVP; Site: right antecubital; aa1 03:28 Follow up: Response: Pain is decreased tr5 03:07 Drug: Zofran 4 mg Route: IVP; Site: right antecubital; aa1 03:28 Follow up: Response: Nausea is decreased tr5 03:07 Drug: Clindamycin 900 mg Route: IVPB; Infused Over: 30 mins; Site: right antecubital; aa1 03:28 Follow up: Response: No adverse reaction; IV Status: Completed infusion tr5 04:24 Drug: Lavon 5 mg-325 mg 1 tabs Route: PO; tr5 04:25 Follow up: Response: Medication administered at discharge. tr5 Intake: 04:00 IV: 1000ml; Total: 1000ml. tr5 Outcome: 04:08 Discharge ordered by . va 04:24 Discharged to home ambulatory. tr5 04:24 Condition: stable 04:24 Discharge instructions given to patient, Instructed on discharge instructions, follow up and referral plans. medication usage, Demonstrated understanding of instructions, follow-up care, medications, Prescriptions given X 1. 04:27 Patient left the ED. tr5 Signatures: Luanne Gill RN RN aa1 Pablo Galvan MD MD pkl Sanford, Demi ds1 Rodriguez, Tommie, RN RN tr5
[2019-06-12 04:15] LABS: BUN Blood Urea Nitrogen 4 mg/dL (7-18); Bicarbonate 26 mmol/L (21-32); Glucose Level 91 mg/dL (74-106); Potassium 3.9 mmol/L (3.5-5.1); Sodium Level 139 mmol/L (136-145)
[2019-06-12 04:22] LABS: HCG, Quantitative 64129 mIU/mL (1-3)
[2019-06-12] MEDS ORDERED: HYDROCODONE/APAP 5/325 MG TAB ONE (04:36)
[2019-06-12 04:40] VITALS: TEMP 99.3; O2SAT 100
[2019-06-12 04:42] VITALS: BP 118/57
== END 2019-06-12 04:27 | disposition home or self-care (01) ==
LOC: ER 02:14
DX: O26.891 Other specified pregnancy related conditions, first trimester (principal); K04.7 Periapical abscess without sinus; Z3A.00 Weeks of gestation of pregnancy not specified
CPT/HCPCS: 36415; 80048; 84702; 85025; 96361; 96365; 96375; 99284; J2175; J2405; J7030

== ENCOUNTER 2019-11-24 15:54 | Emergency (ER) | payer OTHER ==
--- OUTSIDE RECORDS SUMMARY | 2019-11-24 15:57 | XMS REPORT | Summary of Care ---
:1995 Author Organization [facility] Address [address] [place] [address] Care Team Providers Name Role Phone [facility] Reason for Referral (Routine) Status Reason Specialty Diagnoses / Referred By Referred To Procedures Contact Contact New Request Maternal Diagnoses Supervision of high risk in first trimester Carlota, Medicine Procedures CONSULT MATERNAL MEDICINE ULTRASOUND Preferred Location: BENITA Briceno [address] [place] [address] Reason for Visit Reason Comments Care Encounter Details Date Type Department Care Team Description 06/21/2019 Routine [facility]- [place], Supervision of high risk in first trimester (Primary Dx); Visit BENITA Briceno Obesity in [address] [facility] [address] [facility] [phone] [place] [id number] Allergies No Known Allergiesdocumented as of this encounter (statuses as of 06/21/2019) Medications Medication Sig Dispensed Refills Start Date End Date Status loratadine (CLARITIN) 10 Take 10 mg by 0 Active mg tablet mouth daily. ibuprofen 800 mg tablet Take 1 tablet by 21 tablet 0 06/21/2018 Active mouth every 8 (eight) hours as needed (PAIN). methylPREDNISolone Take by mouth 21 Each 0 08/09/2018 Active (MEDROL, JOSHUA,) 4 mg SEE-INSTRUCTIONS tablets . follow package directions acetaminophen-codeine Take 1 tablet by 20 tablet 0 08/09/2018 Active (TYLENOL-CODEINE #3) mouth every 4 300-30 mg tablet (four) hours as needed for Pain (scale 7-10). ondansetron 4 mg Take 1 tablet by 20 tablet 0 08/09/2018 Active disintegrating tablet mouth every 8 (eight) hours as needed for Nausea and Vomiting (N/V). chlorhexidine 0.12 % Swish and spit 473 mL 0 08/09/2018 Active mouthwash out 15 mL 2 (two) times daily. vit/iron Take by mouth. 0 Active fum/folic ac ( 1 + 1 ORAL) amoxicillin-clavulanate Take 1 tablet by 20 tablet 0 06/16/2019 Active (AUGMENTIN) 875-125 mg mouth 2 (two) 9 per tabletIndications: times daily for Abscess 10 days. documented as of this encounter (statuses as of 06/21/2019) Active Problems Problem Noted Date Supervision of high-risk 05/24/2019 Obesity in 05/24/2019 Chest pain 09/11/2013 Overview: ICD10 Diagnosis Term Documentation Consultant Utility Estimated Date of Delivery Comments Yes 01/17/2020 Based on last menstrual period of 04/12/2019 (Approximate) documented as of this encounter (statuses as of 06/21/2019) Resolved Problems Problem Noted Date Resolved Date Well woman exam 10/04/2018 05/24/2019 Contraception management 10/04/2018 05/24/2019 Obesity (BMI 30-39.9) 10/04/2018 05/24/2019 SOB (shortness of breath) 09/11/2013 05/24/2019 documented as of this encounter (statuses as of 06/21/2019) Immunizations Name Administration Dates Next Due HPV 06/03/2018, 02/01/2018, 12/04/2010 TDAP (ADACEL) VACCINE 06/15/2014 documented as of this encounter Social History Tobacco Use Types Packs/Day Years Used Date Never Smoker Smokeless Tobacco: Never Used Alcohol Use Drinks/Week oz/Week Comments No Estimated Date of Delivery Comments Yes 01/17/2020 Based on last menstrual period of 04/12/2019 (Approximate) Sex Assigned at Date Recorded Not on file Job Start Date Occupation Industry Not on file Not on file Not on file Travel History Travel Start Travel End No recent travel history available. documented as of this encounter Last Filed Vital Signs Vital Sign Reading Time Taken Comments Blood Pressure 119/83 06/21/2019 10:07 AM CDT Pulse 83 06/21/2019 10:07 AM CDT Temperature 36.9 C (98.5 F) 06/21/2019 10:07 AM CDT Respiratory Rate 16 06/21/2019 10:07 AM CDT Oxygen Saturation - - Inhaled Oxygen Concentration - - Weight 108.1 kg (238 lb 6 oz) 06/21/2019 10:07 AM CDT Height 165.1 cm (5' 5") 06/21/2019 10:07 AM CDT Body Mass Index 39.67 06/21/2019 10:07 AM CDT documented in this encounter Progress Notes Lina Van, WHCNP - 06/21/2019 9:45 AM CDT Chief complaint: Chief Complaint Patient presents with Care HPI CC: Follow Up Visit Dilma Royal is a 23 year old, , Black or female. Patient's last menstrual period was 04/12/2019 (approximate). She is 10w0d with an intrauterine . Her estimated date of delivery is 01/17/2020, by Last Menstrual Period. She has no complaints today. Histories OB History Para Term AB Living 1 0 0 0 0 0 SAB TAB Ectopic Multiple Live Births 0 0 0 0 0 # Outcome Date GA Lbr Amandeep/2nd Weight Sex Delivery Anes PTL Lv 1 Current Past Medical History: Diagnosis Date Family History Problem Relation Age of Onset Asthma Brother Asthma Maternal Uncle Diabetes Maternal Uncle Asthma Maternal Grandmother Arthritis NoFHx defects NoFHx Breast Cancer NoFHx Colon Cancer NoFHx Ovarian Cancer NoFHx Uterine Cancer NoFHx Cancer NoFHx Depression NoFHx Genetic NoFHx Heart NoFHx High cholesterol NoFHx Hypertension NoFHx Mental retardation NoFHx Neurological NoFHx Osteoporosis NoFHx Psychiatry NoFHx Family Status Relation Name Status Bro (Not Specified) MUnc (Not Specified) MGMo (Not Specified) NoFHx (Not Specified) No past surgical history on file. Social History Socioeconomic History Marital status: Single Spouse name: Not on file Number of children: Not on file Years of education: Not on file Highest education level: Not on file Occupational History Not on file Social Needs Financial resource strain: Not on file Food insecurity: Worry: Not on file Inability: Not on file Transportation needs: Medical: Not on file Non-medical: Not on file Tobacco Use Smoking status: Never Smoker Smokeless tobacco: Never Used Substance and Sexual Activity Alcohol use: No Drug use: No Sexual activity: Yes Partners: Male Comment: last sexual intercourse 05/22/2019 Lifestyle Physical activity: Days per week: Not on file Minutes per session: Not on file Stress: Not on file Relationships Social connections: Talks on phone: Not on file Gets together: Not on file Attends adventism service: Not on file Active member of club or organization: Not on file Attends meetings of clubs or organizations: Not on file Relationship status: Not on file Intimate partner violence: Fear of current or ex partner: Not on file Emotionally abused: Not on file Physically abused: Not on file Forced sexual activity: Not on file Other Topics Concern Not on file Social History Narrative Patient lives with boyfriend, patient feels safe at home. Patient has 2 cats, educated on cat litter. Social History Substance and Sexual Activity Sexual Activity Yes Partners: Male Comment: last sexual intercourse 05/22/2019 Labs No new labs and Admission on 06/15/2019, Discharged on 06/16/2019 Component Date Value NA 06/15/2019 138 K 06/15/2019 4.1 CL 06/15/2019 104 CO2 TOTAL 06/15/2019 25 AGAP 06/15/2019 9 BUN 06/15/2019 5* GLUCOSE 06/15/2019 110 CREATININE 06/15/2019 0.55 CALCIUM 06/15/2019 9.4 eGFR Calculation (Non-Af* 06/15/2019 138.2 eGFR Calculation (Shana* 06/15/2019 167.5 WBC 06/15/2019 9.97 RBC 06/15/2019 4.32 HGB 06/15/2019 12.6 HCT 06/15/2019 39.3 MCV 06/15/2019 91.0 MCH 06/15/2019 29.2 MCHC 06/15/2019 32.1 RDW-SD 06/15/2019 46.4 RDW-CV 06/15/2019 13.7 PLT 06/15/2019 422* MPV 06/15/2019 8.8* NRBC/100 WBC 06/15/2019 0.0 NRBC x10^3 06/15/2019 <0.01 GRAN MAT (NEUT) % 06/15/2019 69.6 IMM GRAN % 06/15/2019 0.20 LYMPH % 06/15/2019 21.8 MONO % 06/15/2019 7.4 EOS % 06/15/2019 0.7 BASO % 06/15/2019 0.3 GRAN MAT x10^3(ANC) 06/15/2019 6.94 IMM GRAN x10^3 06/15/2019 <0.03 LYMPH x10^3 06/15/2019 2.17 MONO x10^3 06/15/2019 0.74 EOS x10^3 06/15/2019 0.07 BASO x10^3 06/15/2019 0.03 Wound Culture 06/16/2019 1+ Streptococcus anginosus Gram stain 06/16/2019 No Organisms seen Gram stain 06/16/2019 No Polymorphonuclear leukocytes Gridcap Machine Operator Visit on 05/31/2019 Component Date Value BETA HCG 05/31/2019 16,127.00 Routine Visit on 05/29/2019 Component Date Value POCT U SP GRAV 05/29/2019 . POCT PH U 05/29/2019 . POCT U LEUK EST 05/29/2019 . POCT U NIT 05/29/2019 . POCT U PROT 05/29/2019 Trace POCT U GLU 05/29/2019 Neg POCT U KETONE 05/29/2019 . POCT U UROBILI 05/29/2019 . POCT U BILI 05/29/2019 . POCT U BLD 05/29/2019 . BETA HCG 05/29/2019 11,701.00 Initial Visit on 05/24/2019 Component Date Value GLUC 1 HR 05/24/2019 119* POCT PREG 05/24/2019 Positive On board controls accept* 05/24/2019 Yes POCT PH U 05/24/2019 6 POCT U LEUK EST 05/24/2019 Neg POCT U NIT 05/24/2019 Neg POCT U PROT 05/24/2019 Trace POCT U GLU 05/24/2019 Neg POCT U KETONE 05/24/2019 Small POCT U BLD 05/24/2019 Neg C. trachomatis Nucleic A* 05/24/2019 Negative N. gonorrhoeae Nucleic A* 05/24/2019 Negative HBsAg 05/24/2019 Negative HBsAg Semi-Quantitative 05/24/2019 0.06 ABO & RH 05/24/2019 O POSITIVE IAT 05/24/2019 Negative Rubella screen IgG 05/24/2019 Positive Syphilis IgG/IgM 05/24/2019 Non-reactive URINE CULTURE 05/24/2019 > 100,000 CFU/mL mixed aerobic organisms - suggests endogenous microbial contamination VZV IgG antibody 05/24/2019 Positive WBC 05/24/2019 7.26 RBC 05/24/2019 4.47 HGB 05/24/2019 12.8 HCT 05/24/2019 41.8 MCV 05/24/2019 93.5 MCH 05/24/2019 28.6 MCHC 05/24/2019 30.6* RDW-SD 05/24/2019 47.2 RDW-CV 05/24/2019 13.8 PLT 05/24/2019 414* MPV 05/24/2019 9.2* NRBC/100 WBC 05/24/2019 0.0 NRBC x10^3 05/24/2019 <0.01 GRAN MAT (NEUT) % 05/24/2019 67.3 IMM GRAN % 05/24/2019 0.10 LYMPH % 05/24/2019 24.9 MONO % 05/24/2019 5.9 EOS % 05/24/2019 1.4 BASO % 05/24/2019 0.4 GRAN MAT x10^3(ANC) 05/24/2019 4.88 IMM GRAN x10^3 05/24/2019 <0.03 LYMPH x10^3 05/24/2019 1.81 MONO x10^3 05/24/2019 0.43 EOS x10^3 05/24/2019 0.10 BASO x10^3 05/24/2019 0.03 SICKLE SCR 05/24/2019 Negative HIV 1/2 Ag-Ab with Reflex 05/24/2019 Negative HIV Semi-quantitative 05/24/2019 0.20 Radiology Radiology pending. Allergies Dilma has No Known Allergies. Medications Dilma has a current medication list which includes the following prescription( s): amoxicillin-clavulanate, vit/iron fum/folic ac, acetaminophen- codeine, chlorhexidine, methylprednisolone, ondansetron, ibuprofen, and loratadine. Review of Systems Constitutional: Negative. HENT: Negative. Eyes: Negative. Respiratory: Negative. Breasts: Negative. Cardiovascular: Negative. Gastrointestinal: Negative. Genitourinary: Negative. Musculoskeletal: Negative. Skin: Negative. Neurological: Negative. Psychiatric/Behavioral: Negative. Endocrine: Endocrine negative BP 119/83 (BP Location: Right arm, Patient Position: Sitting, BP CUFF SIZE: Adult Medium) | Pulse 83 | Temp 36.9 C (98.5 F) (Oral) | Resp 16 | Ht 5 ' 5" (1.651 m) | Wt 238 lb 6 oz (108.1 kg) |LMP 04/12/2019 (Approximate) | BMI 39.67 kg/m Pregravid BMI: Could not be calculated Physical Exam PHYSICAL: General Exam: Neurological: Normal Abdomen: Normal gravid Extremities: Normal Pelvic Exam: Uterus: 10 Weeks Assessment/Plan Return to clinic in 4 weeks. Denies zika virus risk, signs and symptoms such as fever,rash,joint pain, conjunctivitis (red eyes),muscle pain, headaches; outside [place] travel to areas affected by zika, and FOB exposure to zika. Educated on use of mosquito repellent. Supervision of high risk in first trimester (primary encounter diagnosis) Comment: routine Plan: POCT URINALYSIS W SPECIFIC GRAVITY, CYSTIC FIBROSIS GENE SEQUENCING, CONSULT MATERNAL MEDICINE ULTRASOUND Preferred Location: [place] Obesity in Comment: see bmi Plan: limit weight gain and sensible diet. This visit did not involve counseling and coordination that comprised more than 50% of the visit time. BENITA Nieto 06/21/2019 10:49 AM documented in this encounter Plan of Treatment Date Type Specialty Care Team Description 07/19/2019 Routine Visit OB Satellites Lina Van WHCNP [address] [place] [address] [phone] Name Type Priority Associated Diagnoses Date/Time CYSTIC FIBROSIS GENE LAB Routine Supervision of high risk 06/21/2019 10:12 AM SEQUENCING in first CDT trimester Health Maintenance Due Date Last Done Comments MENINGOCOCCAL B VACCINES (1 of 2006 2 - Risk Bexsero 2-dose series) INFLUENZA VACCINE 07/28/2019 CHLAMYDIA SCREENING 05/24/2020 05/24/2019, 10/04/2018, 10/06/2011 PAP SMEAR 10/04/2021 10/04/2018 DTaP,Tdap,and Td Vaccines (2 - 06/15/2024 06/15/2014 Td) HPV VACCINES Completed 06/03/2018, 02/01/2018, 12/04/2010 MENINGOCOCCAL VACCINE Aged Out No longer eligible based on patient's age to complete this topic PNEUMOCOCCAL 0-64 YEARS Aged Out No longer eligible based COMBINED SERIES on patient's age to complete this topic documented as of this encounter Procedures Procedure Name Priority Date/Time Associated Diagnosis Comments POCT URINALYSIS Routine 06/21/2019 10:15 AM Supervision of high Results for this CDT risk in procedure are in first trimester the results section. documented in this encounter Results POCT URINALYSIS W SPECIFIC GRAVITY (06/21/2019 10:15 AM CDT) POCT U SP GRAV . 1.005 - 1.025 mg/dl POCT PH U . 5 - 8 mg/dl POCT U LEUK EST . Negative - Negative POCT U NIT . Negative - Negative POCT U PROT Trace Negative - Negative POCT U GLU neg Negative - Negative POCT U KETONE . Negative - Negative POCT U UROBILI . 0.2 - 1 mg/dl POCT U BILI . Negative - Negative POCT U BLD . Negative - Negative POCT U COLOR POCT U APPEAR Specimen Urine - URINE, CLEAN CATCH documented in this encounter Visit Diagnoses Diagnosis Supervision of high risk in first trimester - Primary Unspecified high-risk Obesity in Obesity complicating , childbirth, or the puerperium, unspecified as to episode of care or not applicable documented in this encounter Insurance Payer Benefit Plan / Subscriber ID Effective Phone Address Type Group Dates [facility] xxxxxxxxx 2019-Cassy P.OMaame RAMOS Medicaid HEALTH CHOICE - HEALTH [employer] nt [id number] MANAGED MEDICAID [place], [place] MEDICA[place] [address] documented as of this encounter Advance Directives Name Relationship Healthcare Agent Communication Relationship Kasie Royal Mother Primary healthcare agent
--- OUTSIDE RECORDS SUMMARY | 2019-11-24 15:57 | XMS REPORT | Summary of Care ---
:1995 Author Organization [facility] Address [address] [place] [address] Care Team Providers Name Role Phone Lina Van [facility] Primary Care Provider Encounter Details Date Type Department Care Team Description 06/25/2019 Patient Secure [facility]- Lina Van, [facility] [address] [facility] [address] [place] [address] [facility] [phone] [place] [address] Allergies No Known Allergiesdocumented as of this encounter (statuses as of 06/25/2019) Medications Medication Sig Dispensed Refills Start Date [...] as of this encounter (statuses as of 06/25/2019) Active Problems Problem Noted Date Supervision of high-risk 05/24/2019 Obesity in 05/24/2019 Chest pain 09/11/2013 Overview: ICD10 Diagnosis Term Spring Winder Utility Estimated Date of Delivery Comments Yes 01/17/2020 Based on last menstrual period of 04/12/2019 (Approximate) documented as of this encounter (statuses as of 06/25/2019) Resolved Problems Problem Noted Date Resolved Date Well woman exam 10/04/2018 05/24/2019 Contraception management 10/04/2018 05/24/2019 Obesity (BMI 30-39.9) 10/04/2018 05/24/2019 SOB (shortness of breath) 09/11/2013 05/24/2019 documented as of this encounter (statuses as of 06/25/2019) Immunizations Name Administration Dates Next Due HPV [...] of this encounter Last Filed Vital Signs Not on filedocumented in this encounter Plan of Treatment Date Type Specialty Care Team Description 07/19/2019 Routine Visit OB Satellites Lina Van, WHCNP [address] [place] [address] [phone] 08/22/2019 Drum Tester Visit Maternal Medicine Health Maintenance Due Date Last Done Comments [...] this topic documented as of this encounter Results Not on filedocumented in this encounter Insurance Payer Benefit Plan / Subscriber ID Effective Phone Address Type Group [facility] xxxxxxxxx 2019-Cassy RAMOS Medicaid HEALTH CHOICE - HEALTH CHOICE nt [id number] [place] MEDICAID [place], [place] MEDICAID [phone] documented as of this encounter Advance Directives Name Relationship Healthcare Agent Communication Relationship Kasie Royal Mother Primary healthcare agent
--- OUTSIDE RECORDS SUMMARY | 2019-11-24 15:57 | XMS REPORT | Summary of Care ---
:1995 Author Organization [facility] Address [address] [place] [address] Care Team Providers Name Role Phone Lina Van [facility] Primary Care Provider Encounter Details Date Type Department Care Team Description 06/25/2019 Patient Secure [facility]- Lina Van, [facility] [address] [facility] [address] [place] [address] [facility] [phone] [place] [address] Allergies No Known Allergiesdocumented as [...] Chest pain 09/11/2013 Overview: ICD10 Diagnosis Term Wine Master Utility Estimated Date of Delivery Comments Yes [...] OB Satellites Lina Van, WHCNP [address] [place] [address] [phone] 08/22/2019 Airborne Weapons Technical Manager Visit Maternal Medicine Health Maintenance Due Date [...] Subscriber ID Effective Phone Address Type Group [facility] xxxxxxxxx 2019-Cassy RAMOS Medicaid HEALTH CHOICE - HEALTH CHOICE nt [id number] [facility] MEDICAID [place], [place] [phone] documented as of this encounter Advance Directives Name Relationship Healthcare Agent Communication Relationship Kasie Royal Mother Primary healthcare agent
--- OUTSIDE RECORDS SUMMARY | 2019-11-24 15:57 | XMS REPORT | Summary of Care ---
:1995 Author Organization [facility] Address [address] [place] [address] Care Team Providers Name Role Phone Lina Van [facility] Primary Care Provider Encounter Details Date Type Department Care Team Description 06/25/[address] [facility]- Lina Van, [facility] [address] [facility] [address] [place] [address] [facility] [phone] [place] [address] Allergies No Known Allergiesdocumented as [...] Chest pain 09/11/2013 Overview: ICD10 Diagnosis Term Infertility Nurse Utility Estimated Date of Delivery Comments Yes [...] OB Satellites Lina Van, WHCNP [address] [place] [address] [phone] 08/22/2019 Switchboard And Control Room Operator Visit Maternal Medicine Health Maintenance Due Date [...] Subscriber ID Effective Phone Address Type Group [facility] xxxxxxxxx 2019-Cassy RAMOS Medicaid HEALTH CHOICE - HEALTH CHOICE nt [id number] [facility] MEDICAID [place], [place] MEDICAID [phone] documented as of this encounter Advance Directives Name Relationship Healthcare Agent Communication Relationship Kasie Royal Mother Primary healthcare agent
--- OUTSIDE RECORDS SUMMARY | 2019-11-24 15:57 | XMS REPORT ---
:1995 Author Organization [facility] Address [address] [place] [address] Care Team Providers Name Role Phone Unavailable Unavailable Unavailable Problems This patient has no known problems. Allergies, Adverse Reactions, Alerts This patient has no known allergies or adverse reactions. Medications This patient has no known medications.
--- OUTSIDE RECORDS SUMMARY | 2019-11-24 15:57 | XMS REPORT | Summary of Care ---
:1995 Author Organization [facility] Address [address] [place] [address] Care Team Providers Name Role Phone Lina Van [facility] Primary Care Provider Encounter Details Date Type Department Care Team Description 06/25/2019 Patient Secure [facility]- Lina Van, [facility] [address] [facility] [address] [place] [address] [facility] [phone] [place] [address] Allergies No Known Allergiesdocumented as [...] Chest pain 09/11/2013 Overview: ICD10 Diagnosis Term Multimedia Programmer Utility Estimated Date of Delivery Comments Yes [...] OB Satellites Lina Van, WHCNP [address] [place] [address] [phone] 08/22/2019 Registered Nurse Renal Visit Maternal Medicine Health Maintenance Due Date [...] ID Effective Phone Address Type Group [facility] xxxxxxxxx 2019-Cassy RAMOS Medicaid HEALTH CHOICE - [place] [id number] [facility] MEDICAID [place], [place] MEDICA[place] [phone] documented as of this encounter Advance Directives Name Relationship Healthcare Agent Communication Relationship Kasie Royal Mother Primary healthcare agent
--- OUTSIDE RECORDS SUMMARY | 2019-11-24 15:57 | XMS REPORT | Summary of Care ---
:1995 Author Organization [facility] Address [address] [place] [address] Care Team Providers Name Role Phone Lina Van [facility] Primary Care Provider Encounter Details Date Type Department Care Team Description 06/25/2019 Patient Secure [facility]- Lina Van, [facility] [address] [facility] [address] [place] [address] [facility] [phone] [place] [address] Allergies No Known Allergiesdocumented as [...] Chest pain 09/11/2013 Overview: ICD10 Diagnosis Term 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 Utility Estimated Date of Delivery Comments Yes [...] OB Satellites Lina Van, WHCNP [address] [place] [address] [phone] 08/22/2019 Director Of Strategic Sourcing Visit Maternal Medicine Health Maintenance Due Date [...] Subscriber ID Effective Phone Address Type Group [facility] xxxxxxxxx 2019-Cassy RAMOS Medicaid HEALTH CHOICE - HEALTH CHOICE nt [id number] [facility] MEDICAID [place], [place] MEDICAID [phone] documented as of this encounter Advance Directives Name Relationship Healthcare Agent Communication Relationship Kasie Royal Mother Primary healthcare agent
--- OUTSIDE RECORDS SUMMARY | 2019-11-24 15:58 | XMS REPORT | Summary of Care ---
:1995 Author Organization [facility] Address [address] [place] [address] Care Team Providers Name Role Phone Lina Van [facility] Primary Care Provider Encounter Details Date Type Department Care Team Description 07/03/2019 Letter (Out) [facility]- Lina Van [facility] [address] [facility] [address] [place] [address] [facility] [phone] [place] [address] Allergies No Known Allergiesdocumented as of this encounter (statuses as of 07/03/2019) Medications Medication Sig Dispensed Refills Start Date [...] fum/folic ac ( 1 + 1 ORAL) documented as of this encounter (statuses as of 07/03/2019) Active Problems Problem Noted Date Supervision of high-risk 05/24/2019 Obesity in 05/24/2019 Chest pain 09/11/2013 Overview: ICD10 Diagnosis Term Medical Or Surgical Instrument Maker Utility Estimated Date of Delivery Comments Yes 01/17/2020 Based on last menstrual period of 04/12/2019 (Approximate) documented as of this encounter (statuses as of 07/03/2019) Resolved Problems Problem Noted Date Resolved Date Well woman exam 10/04/2018 05/24/2019 Contraception management 10/04/2018 05/24/2019 Obesity (BMI 30-39.9) 10/04/2018 05/24/2019 SOB (shortness of breath) 09/11/2013 05/24/2019 documented as of this encounter (statuses as of 07/03/2019) Immunizations Name Administration Dates Next Due HPV [...] OB Satellites Lina Van, WHCNP [address] [place] [address] [phone] 08/22/2019 Police Clerk Visit Maternal Medicine Health Maintenance Due Date [...] Subscriber ID Effective Phone Address Type Group [facility] xxxxxxxxx 2019-Cassy P.Anup RAMOS Medicaid HEALTH CHOICE - HEALTH CHOICE nt [id number] MANAGED MEDICAID [place], [place] [phone] documented as of this encounter Advance Directives Name Relationship Healthcare Agent Communication Relationship Kasie Roayl Mother Primary healthcare agent
--- OUTSIDE RECORDS SUMMARY | 2019-11-24 15:58 | XMS REPORT | Summary of Care ---
:1995 Author Organization [facility] Address [address] [place] [address] Care Team Providers Name Role Phone Lina Van [facility] Primary Care Provider Reason for Visit Reason Comments Letters Encounter Details Date Type Department Care Team Description 08/07/2019 Telephone [facility] [place], Letters [address] [place] [address] [address] [facility] [phone] [place] [address] Allergies No Known Allergiesdocumented as of this encounter (statuses as of 08/07/2019) Medications Medication Sig Dispensed Refills Start Date [...] as of this encounter (statuses as of 08/07/2019) Active Problems Problem Noted Date Supervision of high-risk 05/24/2019 Obesity in 05/24/2019 Chest pain 09/11/2013 Overview: ICD10 Diagnosis Term Director Of Operations For Therapy Utility Estimated Date of Delivery Comments Yes 01/17/2020 Based on last menstrual period of 04/12/2019 (Approximate) documented as of this encounter (statuses as of 08/07/2019) Resolved Problems Problem Noted Date Resolved Date Well woman exam 10/04/2018 05/24/2019 Contraception management 10/04/2018 05/24/2019 Obesity (BMI 30-39.9) 10/04/2018 05/24/2019 SOB (shortness of breath) 09/11/2013 05/24/2019 documented as of this encounter (statuses as of 08/07/2019) Immunizations Name Administration Dates Next Due HPV [...] Treatment Date Type Specialty Care Team Description 08/22/2019 Internet Sales Representative Visit Maternal Medicine 08/22/2019 Routine Visit OB Satellites Lina Van, CNP [address] [place] [address] [phone] Health Maintenance Due Date Last Done Comments MENINGOCOCCAL B VACCINES (1 of 2006 2 - Risk Bexsero 2-dose series) INFLUENZA VACCINE (#1) 2019 CHLAMYDIA SCREENING 05/24/2020 05/24/2019, 10/04/2018, 10/06/2011 PAP SMEAR 10/04/2021 10/04/2018 DTaP,Tdap,and Td Vaccines (2 - 06/15/2024 06/15/2014 Td) HPV VACCINES Completed 06/03/2018, 02/01/2018, 12/04/2010 PNEUMOCOCCAL 0-64 YEARS Aged Out No longer eligible based COMBINED SERIES on patient's age to complete this topic documented as of this encounter Results Not on filedocumented in this encounter Insurance Payer Benefit Plan / Subscriber ID Effective Phone Address Type Group [facility] xxxxxxxxx 2019-Cassy POksana RAMOS Medicaid HEALTH CHOICE - HEALTH Vtap nt [id number] [facility] MEDICAID [place] MEDICA[place] [address] documented as of this encounter Advance Directives Name Relationship Healthcare Agent Communication Relationship Kasie Royal Mother Primary healthcare agent
--- OUTSIDE RECORDS SUMMARY | 2019-11-24 15:58 | XMS REPORT | Summary of Care ---
:1995 Author Organization [facility] Address [address] [place] [address] Care Team Providers Name Role Phone Lina Van GONZALEZ Primary Care Provider Reason for Visit Reason Comments Forms pt needs proof of form and work restrictions Encounter Details Date Type Department Care Team Description [facility] Forms (pt needs proof BENITA Farias of form and [address] work restrictions) [facility] [address] [place], [place] [id number] Allergies No Known Allergiesdocumented as of this encounter (statuses as of 07/25/2019) Medications Medication Sig Dispensed Refills Start Date [...] as of this encounter (statuses as of 07/25/2019) Active Problems Problem Noted Date Supervision of high-risk 05/24/2019 Obesity in 05/24/2019 Chest pain 09/11/2013 Overview: ICD10 Diagnosis Term Grill Cook Utility Estimated Date of Delivery Comments Yes 01/17/2020 Based on last menstrual period of 04/12/2019 (Approximate) documented as of this encounter (statuses as of 07/25/2019) Resolved Problems Problem Noted Date Resolved Date Well woman exam 10/04/2018 05/24/2019 Contraception management 10/04/2018 05/24/2019 Obesity (BMI 30-39.9) 10/04/2018 05/24/2019 SOB (shortness of breath) 09/11/2013 05/24/2019 documented as of this encounter (statuses as of 07/25/2019) Immunizations Name Administration Dates Next Due HPV [...] Date Type Specialty Care Team Description 08/22/2019 Claim Representative Visit Maternal Medicine 08/22/2019 Routine Visit OB Satellites Lina Van, WHCNP [address] [place] [address] [phone] Health Maintenance Due Date Last Done Comments [...] Subscriber ID Effective Phone Address Type Group [facility] xxxxxxxxx 2019-Cassy [address] Medicaid HEALTH CHOICE - HEALTH CHOICE nt [id number] MANAGED MEDICAID [place] [address] documented as of this encounter Advance Directives Name Relationship Healthcare Agent Communication Relationship Kasie Royal Mother Primary healthcare agent
--- OUTSIDE RECORDS SUMMARY | 2019-11-24 15:58 | XMS REPORT | Summary of Care ---
:1996 Author Organization [facility] Address [address] [place] [address] Care Team Providers Name Role Phone Lina Van [facility] Primary Care Provider Reason for Visit Reason Comments Letters Encounter Details Date Type Department Care Team Description 08/08/2019 Telephone [facility] [place] Holcomb, Letters [address] [place] [address] [address] [facility] [phone] [place] [address] Allergies No Known Allergiesdocumented as of this encounter (statuses as of 08/08/2019) Medications Medication Sig Dispensed Refills Start Date [...] as of this encounter (statuses as of 08/08/2019) Active Problems Problem Noted Date Supervision of high-risk 05/24/2019 Obesity in 05/24/2019 Chest pain 09/11/2013 Overview: ICD10 Diagnosis Term Casing Grader Utility Estimated Date of Delivery Comments Yes 01/17/2020 Based on last menstrual period of 04/12/2019 (Approximate) documented as of this encounter (statuses as of 08/08/2019) Resolved Problems Problem Noted Date Resolved Date Well woman exam 10/04/2018 05/24/2019 Contraception management 10/04/2018 05/24/2019 Obesity (BMI 30-39.9) 10/04/2018 05/24/2019 SOB (shortness of breath) 09/11/2013 05/24/2019 documented as of this encounter (statuses as of 08/08/2019) Immunizations Name Administration Dates Next Due HPV [...] Date Type Specialty Care Team Description 08/22/2019 Logistics Engineer Visit Maternal Medicine 08/22/2019 Routine Visit OB Satellites Lina Van, CNP [address] [place] [address] [phone] Health Maintenance Due Date Last Done Comments [...] Subscriber ID Effective Phone Address Type Group [facility] xxxxxxxxx 2019-Cassy POksana RAMOS Medicaid HEALTH CHOICE - HEALTH [email or web address] nt [id number] [facility] MEDICAID [place] [phone] documented as of this encounter Advance Directives Name Relationship Healthcare Agent Communication Relationship Kasie Royal Mother Primary healthcare agent
--- OUTSIDE RECORDS SUMMARY | 2019-11-24 15:58 | XMS REPORT | Summary of Care ---
:1996 Author Organization [facility] Address [address] [place] [address] Care Team Providers Name Role Phone Lina Van [facility] Primary Care Provider Reason for Visit Reason Comments Letters Encounter Details Date Type Department Care Team Description 08/07/2019 Telephone [facility] [place], Letters [address] [place] [address] [address] [facility] [phone] [place] [address] Allergies No Known Allergiesdocumented as [...] Chest pain 09/11/2013 Overview: ICD10 Diagnosis Term Assistant Scientist Utility Estimated Date of Delivery Comments Yes [...] Date Type Specialty Care Team Description 08/22/2019 Vaccines Solutions Specialist Visit Maternal Medicine 08/22/2019 Routine Visit OB Satellites Lina Van, CNP [address] [place] [address] [phone] Health Maintenance Due Date Last Done Comments [...] Effective Phone Address Type Group [facility] xxxxxxxxx 2019-Cassy POksana RAMOS Medicaid HEALTH CHOICE - HEALTH Mashed jobs nt [id number] [facility] MEDICAID [place], [place] [phone] documented as of this encounter Advance Directives Name Relationship Healthcare Agent Communication Relationship Kasie Royal Mother Primary healthcare agent
--- OUTSIDE RECORDS SUMMARY | 2019-11-24 15:58 | XMS REPORT | Summary of Care ---
:1996 Author Organization [facility] Address [address] [place] [address] Care Team Providers Name Role Phone Lina Van [facility] Primary Care Provider Reason for Visit Reason Comments Letters Encounter Details Date Type Department Care Team Description 08/08/2019 Telephone [facility] [place], Letters [address] [place] [address] [address] [facility] [phone] [place] [address] Allergies No Known Allergiesdocumented as [...] Chest pain 09/11/2013 Overview: ICD10 Diagnosis Term Preparation Supervisor Utility Estimated Date of Delivery Comments Yes [...] Date Type Specialty Care Team Description 08/22/2019 Watch And Clock Repairer Visit Maternal Medicine 08/22/2019 Routine Visit OB Satellites Lina Van, CNP [address] [place] [address] [phone] Health Maintenance Due Date Last Done Comments [...] Subscriber ID Effective Phone Address Type Group [facility] xxxxxxxxx 2019-Cassy POksana RAMOS Medicaid HEALTH CHOICE - HEALTH ArtBinder nt [id number] [facility] MEDICAID [place], [place] [phone] documented as of this encounter Advance Directives Name Relationship Healthcare Agent Communication Relationship Kasie Royal Mother Primary healthcare agent
--- OUTSIDE RECORDS SUMMARY | 2019-11-24 15:58 | XMS REPORT | Summary of Care ---
:1996 Author Organization [facility] Address [address] [place] [address] Care Team Providers Name Role Phone Lina Van [facility] Primary Care Provider Reason for Visit Reason Comments Care Encounter Details Date Type Department Care Team Description 07/19/[address] [facility] [place], Supervision of high risk in second trimester (Primary Dx); Visit Dana Perez [facility] Obesity in [address] [facility] [address] [facility] [address] [facility] [phone] [place] [address] Allergies No Known Allergiesdocumented as of this encounter (statuses as of 07/19/2019) Medications Medication Sig Dispensed Refills Start Date [...] as of this encounter (statuses as of 07/19/2019) Active Problems Problem Noted Date Supervision of high-risk 05/24/2019 Obesity in 05/24/2019 Chest pain 09/11/2013 Overview: ICD10 Diagnosis Term Dean Of Admissions Utility Estimated Date of Delivery Comments Yes 01/17/2020 Based on last menstrual period of 04/12/2019 (Approximate) documented as of this encounter (statuses as of 07/19/2019) Resolved Problems Problem Noted Date Resolved Date Well woman exam 10/04/2018 05/24/2019 Contraception management 10/04/2018 05/24/2019 Obesity (BMI 30-39.9) 10/04/2018 05/24/2019 SOB (shortness of breath) 09/11/2013 05/24/2019 documented as of this encounter (statuses as of 07/19/2019) Immunizations Name Administration Dates Next Due HPV [...] Sign Reading Time Taken Comments Blood Pressure 115/76 07/19/2019 11:25 AM CDT Pulse 74 07/19/2019 11:25 AM CDT Temperature 36.4 C (97.6 F) 07/19/2019 11:25 AM CDT Respiratory Rate 16 07/19/2019 11:25 AM CDT Oxygen Saturation - - Inhaled Oxygen Concentration - - Weight 107.2 kg (236 lb 4 oz) 07/19/2019 11:25 AM CDT Height 165.1 cm (5' 5") 07/19/2019 11:25 AM CDT Body Mass Index 39.31 07/19/2019 11:25 AM CDT documented in this encounter Progress Notes Lina Van, WHCNP - 07/19/2019 11:00 AM CDT Chief complaint: Chief Complaint Patient presents with Care HPI CC: Follow Up Visit Dilma Royal is a 24 year old, , Black or female. Patient's last menstrual period was 04/12/2019 (approximate). She is 14w0d with an intrauterine . Her estimated date [...] file Gets together: Not on file Attends yazdanism service: Not on file Active member of [...] intercourse 05/22/2019 Labs No new labs and Routine Visit on 06/21/2019 Component Date Value POCT U SP GRAV 06/21/2019 . POCT PH U 06/21/2019 . POCT U LEUK EST 06/21/2019 . POCT U NIT 06/21/2019 . POCT U PROT 06/21/2019 Trace POCT U GLU 06/21/2019 neg POCT U KETONE 06/21/2019 . POCT U UROBILI 06/21/2019 . POCT U BILI 06/21/2019 . POCT U BLD 06/21/2019 . CFTR Sequencing 06/21/2019 Negative - See Comment CFTR INDICATIONS 06/21/2019 Obstetric carrier screening: report only CF- causing mutations. Admission on 06/15/2019, Discharged on 06/16/2019 Component [...] seen Gram stain 06/16/2019 No Polymorphonuclear leukocytes Buyer Grain Visit on 05/31/2019 Component Date Value BETA [...] 05/24/2019 Negative HIV Semi-quantitative 05/24/2019 0.20 Radiology No new radiology. Allergies Dilma has No Known Allergies. Medications Dilma has a current medication list which includes the following prescription( s): vit/iron fum/folic ac, acetaminophen-codeine, chlorhexidine, methylprednisolone, ondansetron, ibuprofen, andloratadine. Review of Systems Constitutional: Negative. HENT: Negative. Eyes: Negative. Respiratory: Negative. Breasts: Negative. Cardiovascular: Negative. Gastrointestinal: Negative. Genitourinary: Negative. Musculoskeletal: Negative. Skin: Negative. Neurological: Negative. Psychiatric/Behavioral: Negative. Endocrine: Endocrine negative BP 115/76 (BP Location: Right arm, Patient Position: Sitting, BP CUFF SIZE: Adult Medium) | Pulse 74 | Temp 36.4 C (97.6 F) (Oral) | Resp 16 | Ht 5 ' 5" (1.651 m) | Wt 236 lb 4 oz (107.2 kg) |LMP 04/12/2019 (Approximate) | BMI 39.31 kg/m Pregravid BMI: Could not be calculated Physical Exam PHYSICAL: General Exam: Neurological: Normal Abdomen: Normal gravid Extremities: Normal Pelvic Exam: Uterus: 14 Weeks Assessment/Plan Return to clinic in 4 weeks. Denies zika virus risk, signs and symptoms such as fever,rash,joint pain, conjunctivitis (red eyes),muscle pain, headaches; outside [place] travel to areas affected by zika, and FOB exposure to zika. Educated on use of mosquito repellent. Supervision of high risk in second trimester (primary encounter diagnosis) Comment: routine Plan: POCT URINALYSIS W SPECIFIC GRAVITY Obesity in Comment: see bmi Plan: limit weight gain and sensible diet. This visit did not involve counseling and coordination that comprised more than 50% of the visit time. BENITA Nieto 07/19/2019 11:56 AM documented in this encounter Plan of Treatment Date Type Specialty Care Team Description 08/22/2019 Buyer Grain Visit Maternal Medicine 08/22/2019 Routine Visit OB Satellites Lina Van WHCNP [address] [place] [address] [phone] Health Maintenance Due Date Last Done Comments [...] Date/Time Associated Diagnosis Comments POCT URINALYSIS Routine 07/19/2019 1:44 PM Supervision of high Results for this CDT risk in procedure are in second trimester the results section. documented in this encounter Results POCT URINALYSIS W SPECIFIC GRAVITY (07/19/2019 1:44 PM CDT) POCT U SP GRAV . 1.005 - 1.025 mg/dl POCT PH U . 5 - 8 mg/dl POCT U LEUK EST . Negative - Negative POCT U NIT . Negative - Negative POCT U PROT . Negative - Negative POCT U GLU . Negative - Negative POCT U KETONE . Negative - Negative POCT U UROBILI . 0.2 - 1 mg/dl POCT U BILI . Negative - Negative POCT U BLD .. Negative - Negative POCT U COLOR POCT U APPEAR Specimen Urine - URINE, CLEAN CATCH documented in this encounter Visit Diagnoses Diagnosis Supervision of high risk in second trimester - Primary Unspecified high-risk Obesity in Obesity complicating , childbirth, or the puerperium, unspecified as to episode of care or not applicable documented in this encounter Insurance Payer Benefit Plan / Subscriber ID Effective Phone Address Type Group [facility] xxxxxxxxx 2019-Cassy P.Anup RAMOS Medicaid HEALTH CHOICE - HEALTH [email or web address] nt [id number] MANAGED MEDICAID [place] [phone] documented as of this encounter Advance Directives Name Relationship Healthcare Agent Communication Relationship Kasie Royal Mother Primary healthcare agent
--- OUTSIDE RECORDS SUMMARY | 2019-11-24 15:59 | XMS REPORT | Summary of Care ---
:1995 Author Organization [facility] Address [address] [place] [address] Care Team Providers Name Role Phone [facility] Reason for Visit Reason Comments Forms needs a new letter Encounter Details Date Type Department Care Team Description 08/08/2019 Telephone [facility] Lina Van Forms (needs a new Dana Perez GONZALEZ letter) [address] [address] [place], [place] [address] Allergies No Known Allergiesdocumented as of this [...] Chest pain 09/11/2013 Overview: ICD10 Diagnosis Term Gasoline Catalyst Operator Utility Estimated Date of Delivery Comments [...] Date Type Specialty Care Team Description 08/22/2019 Music Library Assistant Visit Maternal Medicine 08/22/2019 Routine Visit OB Satellites Lina Van, WHCNP [address] [place] [address] [phone] Health Maintenance Due Date Last Done Comments [...] Subscriber ID Effective Phone Address Type Group [facility] xxxxxxxxx 2019-Cassy RAMOS Medicaid HEALTH CHOICE - HEALTH CHOICE nt [id number] MANAGED MEDICAID [place] [phone] documented as of this encounter Advance Directives Name Relationship Healthcare Agent Communication Relationship Kasie Royal Mother Primary healthcare agent
--- OUTSIDE RECORDS SUMMARY | 2019-11-24 15:59 | XMS REPORT | Summary of Care ---
:1996 Author Organization [facility] Address [address] [place] [address] Care Team Providers Name Role Phone Lina Van [facility] Primary Care Provider Encounter Details Date Type Department Care Team Description 08/09/2019 Patient Secure [facility] Lina Van, [facility] [address] [place] [facility] [address] [place] [address] [facility] [phone] [place] [address] Allergies No Known Allergiesdocumented as of this encounter (statuses as of 08/09/2019) Medications Medication Sig Dispensed Refills Start Date [...] as of this encounter (statuses as of 08/09/2019) Active Problems Problem Noted Date Supervision of high-risk 05/24/2019 Obesity in 05/24/2019 Chest pain 09/11/2013 Overview: ICD10 Diagnosis Term Neuropsychiatrist Utility Estimated Date of Delivery Comments Yes 01/17/2020 Based on last menstrual period of 04/12/2019 (Approximate) documented as of this encounter (statuses as of 08/09/2019) Resolved Problems Problem Noted Date Resolved Date Well woman exam 10/04/2018 05/24/2019 Contraception management 10/04/2018 05/24/2019 Obesity (BMI 30-39.9) 10/04/2018 05/24/2019 SOB (shortness of breath) 09/11/2013 05/24/2019 documented as of this encounter (statuses as of 08/09/2019) Immunizations Name Administration Dates Next Due HPV [...] Date Type Specialty Care Team Description 08/22/2019 Director Corporate Compliance Visit Maternal Medicine 08/22/2019 Routine Visit OB Satellites Lina Van, CNP [address] [place] [address] [phone] Health Maintenance Due Date Last Done Comments [...] Subscriber ID Effective Phone Address Type Group [facility] xxxxxxxxx 2019-Cassy RAMOS Medicaid HEALTH CHOICE - HEALTH CHOICE nt [id number] [facility] MEDICAID [place], [place] [phone] documented as of this encounter Advance Directives Name Relationship Healthcare Agent Communication Relationship Kasiekuldip Royal Mother Primary healthcare agent
--- OUTSIDE RECORDS SUMMARY | 2019-11-24 15:59 | XMS REPORT | Summary of Care ---
:1996 Author Organization [facility] Address [address] [place] [address] Care Team Providers Name Role Phone Lina Van [facility] Primary Care Provider Reason for Visit Reason Comments Letters Encounter Details Date Type Department Care Team Description 08/09/2019 Telephone [facility] [place] Holcomb, Letters [address] [place] [address] [address] [facility] [phone] [place] [address] Allergies No Known Allergiesdocumented as [...] Chest pain 09/11/2013 Overview: ICD10 Diagnosis Term Crepe Box Tender Utility Estimated Date of Delivery Comments Yes [...] Date Type Specialty Care Team Description 08/22/2019 Aircraft Electrician Visit Maternal Medicine 08/22/2019 Routine Visit OB Satellites Lina Van, CNP [address] [place] [address] [phone] Health Maintenance Due Date Last Done Comments [...] Phone Address Type Group [facility] xxxxxxxxx 2019-Cassy POksana RAMOS Medicaid HEALTH CHOICE - HEALTH Smule nt [id number] [place] MEDICAID [place] [phone] documented as of this encounter Advance Directives Name Relationship Healthcare Agent Communication Relationship Kasie Royal Mother Primary healthcare agent
--- OUTSIDE RECORDS SUMMARY | 2019-11-24 15:59 | XMS REPORT | Summary of Care ---
:1996 Author Organization [facility] Address [address] [place] [address] Care Team Providers Name Role Phone Lina Van [facility] Primary Care Provider Encounter Details Date Type Department Care Team Description 08/08/2019 Patient Secure [facility] Lina Van, [facility] [address] [facility] [address] [place] [address] [facility] [phone] [place] [address] Allergies No Known Allergiesdocumented as [...] Chest pain 09/11/2013 Overview: ICD10 Diagnosis Term Parts Counter Sales Person Utility Estimated Date of Delivery Comments Yes [...] Date Type Specialty Care Team Description 08/22/2019 Cloth Trimmer Hand Visit Maternal Medicine 08/22/2019 Routine Visit OB Satellites Lina Van, CNP [address] [place] [address] [phone] Health Maintenance Due Date Last Done Comments [...] Subscriber ID Effective Phone Address Type Group [facility] xxxxxxxxx 2019-Cassy RAMOS Medicaid HEALTH CHOICE - HEALTH CHOICE nt [id number] [facility] MEDICAID [place], [place] MED[place] [phone] documented as of this encounter Advance Directives Name Relationship Healthcare Agent Communication Relationship Kasiekuldip Royal Mother Primary healthcare agent
--- OUTSIDE RECORDS SUMMARY | 2019-11-24 15:59 | XMS REPORT | Summary of Care ---
:1996 Author Organization [facility] Address [address] [place] [address] Care Team Providers Name Role Phone Lina Van [facility] Primary Care Provider Encounter Details Date Type Department Care Team Description 08/09/2019 Patient Secure [facility] Lina Van, [facility] [address] [facility] [address] [place] [address] [facility] [phone] [place] [address] Allergies No Known Allergiesdocumented as [...] Chest pain 09/11/2013 Overview: ICD10 Diagnosis Term Transport Tech Utility Estimated Date of Delivery Comments Yes [...] Date Type Specialty Care Team Description 08/22/2019 Radiation Oncology Manager Visit Maternal Medicine 08/22/2019 Routine Visit OB Satellites Lina Van, CNP [address] [place] [address] [phone] Health Maintenance Due Date Last Done Comments [...] Phone Address Type Group [facility] xxxxxxxxx 2019-Cassy RAMOS Medicaid HEALTH CHOICE - HEALTH CHOICE nt [id number] [facility] MEDICAID [place], [place] [phone] documented as of this encounter Advance Directives Name Relationship Healthcare Agent Communication Relationship Kasiekuldip Royal Mother Primary healthcare agent
--- OUTSIDE RECORDS SUMMARY | 2019-11-24 15:59 | XMS REPORT | Summary of Care ---
:1995 Author Organization [facility] Address [address] [place] [address] Care Team Providers Name Role Phone Lina Van [facility] Primary Care Provider Encounter Details Date Type Department Care Team Description 08/09/2019 Patient Secure [facility] Lina Van, [facility] [address] [facility] [address] [place] [address] [facility] [phone] [place] [address] Allergies No Known Allergiesdocumented as [...] Chest pain 09/11/2013 Overview: ICD10 Diagnosis Term Education Nurse Utility Estimated Date of Delivery Comments [...] Date Type Specialty Care Team Description 08/22/2019 Hot Mill Shearer Visit Maternal Medicine 08/22/2019 Routine Visit OB Satellites Lina Van, CNP [address] [place] [address] [phone] Health Maintenance Due Date Last Done Comments [...] Effective Phone Address Type [facility] xxxxxxxxx 2019-Cassy RAMOS Medicaid HEALTH CHOICE - HEALTH CHOICE nt [id number] [facility] MEDICAID [place], [place] MEDICA[place] [phone] documented as of this encounter Advance Directives Name Relationship Healthcare Agent Communication Relationship Kasiekuldip Royal Mother Primary healthcare agent
--- OUTSIDE RECORDS SUMMARY | 2019-11-24 15:59 | XMS REPORT | Summary of Care ---
:1995 Author Organization [facility] Address [address] [place] [address] Care Team Providers Name Role Phone Lina Van [facility] Primary Care Provider Encounter Details Date Type Department Care Team Description 08/08/2019 Patient Secure [facility]- Lina Van, [facility] [address] [facility] [address] [place] [address] 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
--- NOTE | 2019-11-24 17:10 | ER ---
Nurse's Notes [facility] Name: Dilma Royal Age: 24 yrs Sex: Female : 1995 Arrival Date: 11/24/2019 Time: 15:55 Bed 7 Private MD: Diagnosis: state;Person with feared health complaint in whom no diagnosis is made Presentation: 11/24 16:44 Presenting complaint: Patient states: Bilateral leg numbness and pain 5/10 x 2 days. Pt rb1 is 32 weeks . Transition of care: patient was not received from another setting of care. Onset of symptoms was November 22, 2019. 16:44 Method Of Arrival: Ambulatory rb1 16:44 Acuity: GRANT 3 rb1 17:00 Risk Assessment: Do you want to hurt yourself or someone else? Patient reports no ca1 desire to harm self or others. Initial Sepsis Screen: Does the patient meet any 2 criteria? No. Patient's initial sepsis screen is negative. Does the patient have a suspected source of infection? No. Patient's initial sepsis screen is negative. Care prior to arrival: None. Triage Assessment: 16:49 Neuro: Level of Consciousness is awake, alert, obeys commands, Oriented to person, rb1 place, time, situation, Reports numbness in right leg and left leg. Respiratory: Airway is patent Respiratory effort is even, unlabored, Respiratory pattern is regular, symmetrical. Derm: Skin is dry, Skin is normal, Skin temperature is warm. Musculoskeletal: Range of motion: intact in all extremities. 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 pt. reports being 32 weeks rb1 Historical: - Allergies: 16:49 NKA; rb1 - Home Meds: 16:49 None [Active]; rb1 - PMHx: 16:49 None; rb1 - PSHx: 16:49 None; rb1 - Immunization history:: Adult Immunizations up to date. - Social history:: Smoking status: Patient/guardian denies using tobacco. - Ebola Screening: : Patient negative for fever greater than or equal to 101.5 degrees Fahrenheit, and additional compatible Ebola Virus Disease symptoms Patient denies exposure to infectious person Patient denies travel to an Ebola-affected area in the 21 days before illness onset No symptoms or risks identified at this time. Screenin:00 Abuse screen: Denies threats or abuse. Denies injuries from another. Nutritional ca1 screening: No deficits noted. Tuberculosis screening: No symptoms or risk factors identified. Fall Risk None identified. Assessment: 17:00 General: Appears in no apparent distress. comfortable, Behavior is calm, cooperative, ca1 appropriate for age. Pain: Complains of pain in right quadriceps and left quadriceps Pain currently is 3 out of 10 on a pain scale. Quality of pain is described as numb, Is intermittent. Pain: Aggravated by weight bearing. Neuro: Level of Consciousness is awake, alert, obeys commands, Oriented to person, place, time, situation. Cardiovascular: Heart tones S1 S2 present Capillary refill < 3 seconds Patient's skin is warm and dry. Cardiovascular: Pulses are all present. Respiratory: Airway is patent Trachea midline Respiratory effort is even, unlabored, Respiratory pattern is regular, symmetrical. GI: Abdomen is round non-distended, Bowel sounds present X 4 quads. Abd is soft and non tender X 4 quads. : No deficits noted. No signs and/or symptoms were reported regarding the genitourinary system. EENT: No deficits noted. No signs and/or symptoms were reported regarding the EENT system. Derm: Skin is intact, is healthy with good turgor, Skin is pink, warm \T\ dry. Musculoskeletal: Circulation, motion, and sensation intact. Capillary refill < 3 seconds, Range of motion: intact in all extremities. 17:24 Reassessment: Patient appears in no apparent distress at this time. Patient is alert, ca1 oriented x 3, equal unlabored respirations, skin warm/dry/pink. Vital Signs: 16:49 BP 143 / 81; Pulse 87; Resp 19; Temp 98.0(TE); Pulse Ox 100% on R/A; Weight 113.4 kg rb1 (R); Height 5 ft. 6 in. (167.64 cm) (R); Pain 5/10; 17:24 BP 145 / 83; Pulse 77; Resp 16 S; Pulse Ox 100% on R/A; ca1 16:49 Body Mass Index 40.35 (113.40 kg, 167.64 cm) rb1 Vitals: 17:41 Heart Tones 137. ca1 ED Course: 15:55 Patient arrived in ED. as 16:48 Triage completed. rb1 16:49 Arm band placed on right wrist. rb1 16:53 Kristina Yoder FNP-C is [facility]. kb 16:53 Warner Cottrell MD is Attending Physician. kb 17:00 Patient has correct armband on for positive identification. Bed in low position. Call ca1 light in reach. Side rails up X 1. Pulse ox on. NIBP on. Warm blanket given. 17:00 No provider procedures requiring assistance completed. ca1 17:00 Patient did not have IV access during this emergency room visit. ca1 17:19 Kacy Layton, RN is Primary Nurse. ca1 Administered Medications: No medications were administered Outcome: 17:10 Discharge ordered by MD. kb 17:46 Discharged to home ambulatory. ca1 17:46 Condition: stable 17:46 Discharge instructions given to patient, Instructed on discharge instructions, follow up and referral plans. Demonstrated understanding of instructions, follow-up care. 17:46 Patient left the ED. ca1 Signatures: Kristina Yoder FNP-C FNP-Ckb Martinez, Amelia as Barber, Rebecca RN RN rb1 Kacy Layton, SHRADDHA RN ca1 Corrections: (The following items were deleted from the chart) 17:24 17:00 Maintain EMS IV. ca1 ca1
--- NOTE | 2019-11-24 17:11 | EDPHYS ---
Physician Documentation [facility] Name: Dilma Royal Age: 24 yrs Sex: Female : 1995 Arrival Date: 11/24/2019 Time: 15:55 Bed 7 Private MD: BABAK Physician Warner Cottrell HPI: 11/24 17:05 This 24 yrs old Black Female presents to ER via Ambulatory with complaints of Leg kb Swelling, Feet Swelling, Numbness. 17:05 The patient presents with weakness. The complaints affect the left quadriceps, right kb quadriceps. Context: The problem was sustained at home, resulted from an unknown cause, the patient can fully bear weight, the patient is able to ambulate, without difficulty, Problem is a result from a previous injury: No. Onset: The symptoms/episode began/occurred 2 day(s) ago. Modifying factors: The symptoms are alleviated by nothing. the symptoms are aggravated by nothing. Associated signs and symptoms: The patient has no apparent associated signs or symptoms. Treatment prior to arrival includes: no previous treatment. Severity of symptoms: At their worst the symptoms were mild, in the emergency department the symptoms are unchanged. The patient has not experienced similar symptoms in the past. The patient has not recently seen a physician. Pt reports when she sits on something low or on the floor she has to have help to get up. "it's like my thighs are too weak to get me up." Pt is 32 weeks . Pt ambulates with steady gait, states she has no problem standing from higher sitting position. Moves legs up and down from stretcher without difficulty. Foot press equal and strong. Slight swelling to lower extremities noted. . 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 pt. reports being 32 weeks rb1 Historical: - Allergies: 16:49 NKA; rb1 - Home Meds: 16:49 None [Active]; rb1 - PMHx: 16:49 None; rb1 - PSHx: 16:49 None; rb1 - Immunization history:: Adult Immunizations up to date. - Social history:: Smoking status: Patient/guardian denies using tobacco. - Ebola Screening: : Patient negative for fever greater than or equal to 101.5 degrees Fahrenheit, and additional compatible Ebola Virus Disease symptoms Patient denies exposure to infectious person Patient denies travel to an Ebola-affected area in the 21 days before illness onset No symptoms or risks identified at this time. ROS: 17:08 Constitutional: Negative for fever, chills, and weight loss, ENT: Negative for injury, kb pain, and discharge, Neck: Negative for injury, pain, and swelling, Cardiovascular: Negative for chest pain, palpitations, and edema, Respiratory: Negative for shortness of breath, cough, wheezing, and pleuritic chest pain, Abdomen/GI: Negative for abdominal pain, nausea, vomiting, diarrhea, and constipation, Back: Negative for injury and pain, MS/Extremity: Negative for injury and deformity, Skin: Negative for injury, rash, and discoloration, Neuro: Negative for headache, weakness, numbness, tingling, and seizure. Exam: 17:08 Constitutional: This is a well developed, well nourished patient who is awake, alert, kb and in no acute distress. Head/Face: Normocephalic, atraumatic. ENT: Nares patent. No nasal discharge, no septal abnormalities noted. Tympanic membranes are normal and external auditory canals are clear. Oropharynx with no redness, swelling, or masses, exudates, or evidence of obstruction, uvula midline. Mucous membranes moist. Neck: Trachea midline, no thyromegaly or masses palpated, and no cervical lymphadenopathy. Supple, full range of motion without nuchal rigidity, or vertebral point tenderness. No Meningismus. Chest/axilla: Normal chest wall appearance and motion. Nontender with no deformity. No lesions are appreciated. Cardiovascular: Regular rate and rhythm with a normal S1 and S2. No gallops, murmurs, or rubs. Normal PMI, no JVD. No pulse deficits. Respiratory: Lungs have equal breath sounds bilaterally, clear to auscultation and percussion. No rales, rhonchi or wheezes noted. No increased work of breathing, no retractions or nasal flaring. Abdomen/GI: Soft, non-tender, with normal bowel sounds. No distension or tympany. No guarding or rebound. No evidence of tenderness throughout. Back: No spinal tenderness. No costovertebral tenderness. Full range of motion. Skin: Warm, dry with normal turgor. Normal color with no rashes, no lesions, and no evidence of cellulitis. MS/ Extremity: Pulses equal, no cyanosis. Neurovascular intact. Full, normal range of motion. Neuro: Awake and alert, GCS 15, oriented to person, place, time, and situation. Cranial nerves II-XII grossly intact. Motor strength 5/5 in all extremities. Sensory grossly intact. Cerebellar exam normal. Normal gait. Vital Signs: 16:49 BP 143 / 81; Pulse 87; Resp 19; Temp 98.0(TE); Pulse Ox 100% on R/A; Weight 113.4 kg rb1 (R); Height 5 ft. 6 in. (167.64 cm) (R); Pain 5/10; 17:24 BP 145 / 83; Pulse 77; Resp 16 S; Pulse Ox 100% on R/A; ca1 16:49 Body Mass Index 40.35 (113.40 kg, 167.64 cm) rb1 MDM: 16:54 Patient medically screened. kb 17:05 Data reviewed: vital signs, nurses notes. Data interpreted: Pulse oximetry: on room air kb is 100 %. Interpretation: normal. Counseling: I had a detailed discussion with the patient and/or guardian regarding: the historical points, exam findings, and any diagnostic results supporting the discharge/admit diagnosis, the need for outpatient follow up, an OB/Gyne specialist, to return to the emergency department if symptoms worsen or persist or if there are any questions or concerns that arise at home. 17:10 ED course: Physical exam normal. Pt ambulates with steady gait. Only complains of kb needing help getting up from low position. Educated on changes the body goes through during and that this is something that could be due to that. Educated on need to follow up with OB (next appt 11/28/19). 11/24 16:55 Order name: FHT's; Complete Time: 17:41 kb Administered Medications: No medications were administered Disposition: 11/24/19 17:10 Discharged to Home. Impression: state, Person with feared health complaint in whom no diagnosis is made. - Condition is Stable. - Discharge Instructions: Third Trimester of , [id number]. - Medication Reconciliation Form, Thank You Letter, Antibiotic Education, Prescription Opioid Use form. - Follow up: Emergency Department; When: As needed; Reason: Worsening of condition. Follow up: Private Physician; When: 2 - 3 days; Reason: Recheck today's complaints, Continuance of care, Re-evaluation by your physician. Addendum: 12/02/2019 11:12 Co-signature as Attending Physician, Warner Cottrell MD I agree with the assessment and c hollis plan of care. Signatures: Kristina Yoder, LULA-Ana MENDOZAP-Warner Aguiar MD MD cha Barber, Rebecca, RN RN rb1 Acob, Kacy RN RN ca1 Corrections: (The following items were deleted from the chart) 11/24 17:46 17:10 11/24/2019 17:10 Discharged to Home. Impression: state; Person with ca1 feared health complaint in whom no diagnosis is made. Condition is Stable. Discharge Instructions: Third Trimester of , [id number]. Forms are Medication Reconciliation Form, Thank You Letter, Antibiotic Education, Prescription Opioid Use. Follow up: Emergency Department; When: As needed; Reason: Worsening of condition. Follow up: Private Physician; When: 2 - 3 days; Reason: Recheck today's complaints, Continuance of care, Re-evaluation by your physician. kb
[2019-11-24 19:38] VITALS: TEMP 98; O2SAT 100
[2019-11-24 19:39] VITALS: BP 145/83
== END 2019-11-24 17:46 | disposition home or self-care (01) ==
LOC: ER 15:54
DX: Z71.1 Person with feared health complaint in whom no diagnosis is made (principal); Z3A.32 32 weeks gestation of pregnancy
CPT/HCPCS: 99283

== ENCOUNTER 2020-01-26 07:13 | Inpatient (IN) | payer OTHER ==
--- OUTSIDE RECORDS SUMMARY | 2020-01-26 07:15 | XMS REPORT ---
:1995 [facility] Address [address] [place] [address] Care Team Providers Name Role Phone Unavailable Unavailable Unavailable Problems This patient has no known problems. Allergies, Adverse Reactions, Alerts This patient has no known allergies or adverse reactions. Medications This patient has no known medications.
--- OUTSIDE RECORDS SUMMARY | 2020-01-26 07:20 | XMS REPORT | Summary of Care ---
:1995 Author Organization [facility] Address [address] [place] [address] Care Team Providers Name Role Phone Lina Van [facility] Primary Care Provider Encounter Details Date Type Department Care Team Description 12/13/2019 Abstract [facility] [place] Lina Van, [address] [place] [address] [address] [facility] [phone] [place] [address] Allergies No Known Allergiesdocumented as of this encounter (statuses as of 12/13/2019) Medications Medication Sig Dispensed Refills Start Date End Date Status loratadine (CLARITIN) Take 10 mg by 0 Active 10 mg tablet mouth daily. ondansetron 4 mg Take 1 tablet by 20 tablet 0 08/09/2018 Active disintegrating tablet mouth every 8 (eight) hours as needed for Nausea and Vomiting (N/V). KCL 10 mEq Take 1 tablet by 10 tablet 0 11/28/2019 Active tabletIndications: mouth daily. Hypokalemia magnesium oxide 420 mg Take 400 mg by 14 tablet 0 11/28/2019 Active TabIndications: mouth 2 (two) Hypokalemia times daily. vitamin w/FA Take 1 tablet by 30 tablet 4 11/29/2019 Active tabletIndications: mouth daily. 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 Date of Delivery Comments Yes 01/17/2020 Based on last menstrual period of 04/12/2019 (Approximate) documented as of this encounter (statuses as of 12/13/2019) Resolved Problems Problem Noted Date Resolved Date Well woman exam 10/04/2018 05/24/2019 Contraception management 10/04/2018 05/24/2019 Obesity (BMI 30-39.9) 10/04/2018 05/24/2019 SOB (shortness of breath) 09/11/2013 05/24/2019 documented as of this encounter (statuses as of 12/13/2019) Immunizations Name Administration Dates Next Due HPV 06/03/2018, 02/01/2018, 12/04/2010 TDAP (ADACEL) VACCINE 06/15/2014 Tdap 10/31/2019 documented as of this encounter Social History [...] Treatment Date Type Specialty Care Team Description 12/19/2019 Routine Visit OB Satellites Lina Van, WHCNP [address] [place] [address] [phone] Health Maintenance Due Date Last Done Comments CHLAMYDIA SCREENING 05/24/2020 05/24/2019, 10/04/2018, 10/06/2011 MENINGOCOCCAL B VACCINES (1 10/30/2020 Postponed from 2006 of 2 - Risk Bexsero 2-dose ( or series) ) INFLUENZA VACCINE (#1) 2020 Postponed from 07/28/2019 (Refused) PAP SMEAR 10/04/2021 10/04/2018 DTaP,Tdap,and Td Vaccines (3 10/31/2029 10/31/2019, - Td) 06/15/2014 HPV VACCINES Completed 06/03/2018, 02/01/2018, 12/04/2010 PNEUMOCOCCAL 0-64 YEARS Aged Out No longer eligible based COMBINED SERIES on patient's age to complete this topic documented as of this encounter Results Not on filedocumented in this encounter Insurance Payer Benefit Plan / Subscriber ID Effective Phone Address Type Group [facility] xxxxxxxxx 2019-Pres [address] Medicaid HEALTH CHOICE - HEALTH CHOICE [facility] [id number] MANAGED MEDICAID [place], [place] MEDICAID [id number] documented as of this encounter Advance Directives Name Relationship Healthcare Agent Communication Relationship Kasiekuldip Royal Mother Primary healthcare agent
--- OUTSIDE RECORDS SUMMARY | 2020-01-26 07:20 | XMS REPORT | Summary of Care ---
:1995 Author Organization [facility] [employer] Address [address] [place] [address] Care Team Providers Name Role Phone Lina Van [facility] Primary Care Provider Reason for Visit Reason Comments Care Encounter Details Date Type Department Care Team Description 12/19/2019 Routine [facility] RMP- Carlota, Supervision of high risk in third trimester (Primary Dx); [facility] ; [address] [place] [address] Elevated blood pressure reading without diagnosis of hypertension [facility] [phone] [facility] [phone] [place] [address] Allergies No Known Allergiesdocumented as of this encounter (statuses as of 12/19/2019) Medications Medication Sig Dispensed Refills Start Date [...] as of this encounter (statuses as of 12/19/2019) Active Problems Problem Noted Date Elevated blood pressure reading without diagnosis of hypertension 12/19/2019 32 week prematurity 11/25/2019 Weakness of both lower extremities 11/25/2019 Hypokalemia 11/25/2019 Weakness of both legs 11/25/2019 Echogenic bowel of fetus 08/22/2019 Overview: Noted on usg follow up scheduled for 08/2019 Resolved Supervision of high-risk 05/24/2019 Obesity in 05/24/2019 Chest pain 09/11/2013 Overview: ICD10 Diagnosis 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 Estimated Date of Delivery Comments Yes 01/17/2020 Based on last menstrual period of 04/12/2019 (Approximate) documented as of this encounter (statuses as of 12/19/2019) Resolved Problems Problem Noted Date Resolved Date Well woman exam 10/04/2018 05/24/2019 Contraception management 10/04/2018 05/24/2019 Obesity (BMI 30-39.9) 10/04/2018 05/24/2019 SOB (shortness of breath) 09/11/2013 05/24/2019 documented as of this encounter (statuses as of 12/19/2019) Immunizations Name Administration Dates Next Due HPV [...] Sign Reading Time Taken Comments Blood Pressure 127/88 12/19/2019 1:26 PM HYDRAMATIC SPECIALIST Pulse 91 12/19/2019 1:07 PM HYDRAMATIC SPECIALIST Temperature 36.1 C (97 F) 12/19/2019 1:07 PM HYDRAMATIC SPECIALIST Respiratory Rate 16 12/19/2019 1:07 PM HYDRAMATIC SPECIALIST Oxygen Saturation - - Inhaled Oxygen Concentration - - Weight 122.1 kg (269 lb 2 oz) 12/19/2019 1:07 PM HYDRAMATIC SPECIALIST Height 162.6 cm (5' 4") 12/19/2019 1:07 PM HYDRAMATIC SPECIALIST Body Mass Index 46.2 12/19/2019 1:07 PM HYDRAMATIC SPECIALIST documented in this encounter Progress Notes Barbara John RN - 12/19/2019 12:45 PM CSTPatient CD has been scheduled for IOL on 01/12/2020 @ 39.2wks, 0730. [facility] - 12/19/2019 12:45 PM CST Chief complaint: Chief Complaint Patient presents with Care HPI CC: Follow Up Visit Dilma Royal is a 24 year old, , Black or female. Patient's last menstrual period was 04/12/2019 (approximate). She is 35w6d with an intrauterine . Her estimated date of delivery is 01/17/2020, by Last Menstrual Period. She has no complaints today. She reports +FM and denies contractions, LOF and bleeding today. Histories OB History Para Term AB [...] file Gets together: Not on file Attends baptism service: Not on file Active member of [...] last sexual intercourse 05/22/2019 Labs No new labs, Labs are pending. and No results displayed because visit has over 200 results. Routine Visit on 10/31/2019 Component Date Value HIV 1/2 Ag-Ab with Reflex 10/31/2019 Negative HIV Semi-quantitative 10/31/2019 0.13 Syphilis IgG/IgM 10/31/2019 Non-reactive POCT U SP GRAV 10/31/2019 . POCT PH U 10/31/2019 . POCT U LEUK EST 10/31/2019 . POCT U NIT 10/31/2019 . POCT U PROT 10/31/2019 Trace POCT U GLU 10/31/2019 Neg POCT U KETONE 10/31/2019 . POCT U UROBILI 10/31/2019 . POCT U BILI 10/31/2019 . POCT U BLD 10/31/2019 . Routine Visit on 10/17/2019 Component Date Value POCT U SP GRAV 10/17/2019 . POCT PH U 10/17/2019 . POCT U LEUK EST 10/17/2019 . POCT U NIT 10/17/2019 . POCT U PROT 10/17/2019 Trace POCT U GLU 10/17/2019 Neg POCT U KETONE 10/17/2019 . POCT U UROBILI 10/17/2019 . POCT U BILI 10/17/2019 . POCT U BLD 10/17/2019 . GLUC 1 HR 10/17/2019 102* WBC 10/17/2019 10.23 RBC 10/17/2019 3.76* HGB 10/17/2019 11.0* HCT 10/17/2019 34.2* MCV 10/17/2019 91.0 MCH 10/17/2019 29.3 MCHC 10/17/2019 32.2 RDW-SD 10/17/2019 49.1 RDW-CV 10/17/2019 14.6 PLT 10/17/2019 342 MPV 10/17/2019 9.7 NRBC/100 WBC 10/17/2019 0.0 NRBC x10^3 10/17/2019 <0.01 GRAN MAT (NEUT) % 10/17/2019 75.4 IMM GRAN % 10/17/2019 0.70 LYMPH % 10/17/2019 15.9 MONO % 10/17/2019 7.2 EOS % 10/17/2019 0.5 BASO % 10/17/2019 0.3 GRAN MAT x10^3(ANC) 10/17/2019 7.71* IMM GRAN x10^3 10/17/2019 0.07* LYMPH x10^3 10/17/2019 1.63 MONO x10^3 10/17/2019 0.74 EOS x10^3 10/17/2019 0.05 BASO x10^3 10/17/2019 0.03 Routine Visit on 09/19/2019 Component Date Value POCT U SP GRAV 09/19/2019 . POCT PH U 09/19/2019 . POCT U LEUK EST 09/19/2019 . POCT U NIT 09/19/2019 . POCT U PROT 09/19/2019 Trace POCT U GLU 09/19/2019 Neg. POCT U KETONE 09/19/2019 . POCT U UROBILI 09/19/2019 . POCT U BILI 09/19/2019 . POCT U BLD 09/19/2019 . Radiology No new radiology. Allergies Dilma has No Known Allergies. Medications Dilma has a current medication list which includes the following prescription( s): kcl, magnesium oxide, vitamin w/fa, ondansetron, and loratadine. Review of Systems Constitutional: Negative. HENT: Negative. Eyes: Negative. Respiratory: Negative. Breasts: Negative. Cardiovascular: Negative. Gastrointestinal: Negative. Genitourinary: Negative. Musculoskeletal: Negative. Skin: Negative. Neurological: Negative. Psychiatric/Behavioral: Negative. Endocrine: Endocrine negative BP (!) 133/91 | Pulse 91 | Temp 36.1 C (97 F) (Oral) | Resp 16 | Ht 5' 4 " (1.626 m) | Wt 269 lb 2 oz (122.1 kg) | LMP 04/12/2019 (Approximate) | BMI 46.20 kg/m Pregravid BMI: 41.7 Physical Exam PHYSICAL: General Exam: Neurological: Normal Abdomen: Normal gravid Extremities: Normal Pelvic Exam: Uterus: 36 Weeks Assessment/Plan Return to clinic in 36 weeks. This visit did not involve counseling and coordination that comprised more than 50% of the visit time Supervision of high risk in third trimester (primary encounter diagnosis) Comment: routine Plan: POCT URINALYSIS GLUCOSE & PROTEIN Obesity in Comment: see bmi Plan: limit weight gain and sensible diet. Elevated blood pressure reading without diagnosis of hypertension Comment: bp elevated, asymptomatic Plan: continue to monitor BP, l&D warning signs given , patient verbalized understanding BENITA Nieto 12/19/2019 1:19 PM . documented in this encounter Plan of Treatment Date Type Specialty Care Team Description 12/26/2019 Routine Visit OB Satellites Lina Van WHCNP [address] [place] [address] [phone] Health Maintenance Due Date Last Done Comments [...] Date/Time Associated Diagnosis Comments POCT URINALYSIS Routine 12/19/2019 1:05 Supervision of high Results for this GLUCOSE & PROTEIN PM HYDRAMATIC SPECIALIST risk in procedure are in third trimester the results section. documented in this encounter Results POCT URINALYSIS GLUCOSE & PROTEIN (12/19/2019 1:05 PM HYDRAMATIC SPECIALIST) POCT U PROT neg Negative - Negative POCT U GLU neg Negative - Negative Specimen Urine - URINE, CLEAN CATCH documented in this encounter Visit Diagnoses Diagnosis Supervision of high risk in third trimester - Primary Unspecified high-risk Obesity in Obesity complicating , childbirth, or the puerperium, unspecified as to episode of care or not applicable Elevated blood pressure reading without diagnosis of hypertension documented in this encounter Insurance Payer Benefit Plan / Subscriber ID Effective Phone Address Type Group [facility] xxxxxxxxx 2019-Pres [address] Medicaid HEALTH CHOICE - HEALTH CHOICE ent [id number] MANAGED MEDICAID [place], [place] MEDICAID [phone] documented as of this encounter Advance Directives Name Relationship Healthcare Agent Communication Relationship Kasie Royal Mother Primary healthcare agent
--- OUTSIDE RECORDS SUMMARY | 2020-01-26 07:20 | XMS REPORT | Summary of Care ---
:1995 Author Organization [facility] Address [address] [place] [address] Care Team Providers Name Role Phone Robertokatyabaldev Lina Perez [facility] Primary Care Provider Encounter Details Date Type Department Care Team Description 11/14/2019 Orders Only [facility] Doctor Unassigned, No [address] [facility] [place] [address] [address] [place] [phone] Allergies No Known Allergiesdocumented as of this encounter (statuses as of 12/11/2019) Medications Medication Sig Dispensed Refills Start Date End Date Status loratadine (CLARITIN) Take 10 mg by 0 Active 10 mg tablet mouth daily. ondansetron 4 mg Take 1 tablet by 20 tablet 0 08/09/2018 Active disintegrating tablet mouth every 8 (eight) hours as needed for Nausea and Vomiting (N/V). 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 Estimated Date of Delivery Comments Yes 01/17/2020 Based on last menstrual period of 04/12/2019 (Approximate) documented as of this encounter (statuses as of 12/11/2019) Resolved Problems Problem Noted Date Resolved Date Well woman exam 10/04/2018 05/24/2019 Contraception management 10/04/2018 05/24/2019 Obesity (BMI 30-39.9) 10/04/2018 05/24/2019 SOB (shortness of breath) 09/11/2013 05/24/2019 documented as of this encounter (statuses as of 12/11/2019) Immunizations Name Administration Dates Next Due HPV [...] Treatment Date Type Specialty Care Team Description 12/12/2019 Instrument Maker And Repairer Visit Maternal Lina Van [facility]NP [address] [facility] [place] [place] [place], [place] [address] Medicine Willie Rodrigues MD [id number] [place], [place] [id number] 12/19/2019 Routine Visit OB Satellites Lina Van [facility]NP [address] [employer] [place], [place] [id number] Health Maintenance Due Date Last Done Comments [...] Procedure Name Priority Date/Time Associated Diagnosis Comments [id number] CONSENT Routine 11/14/2019 12:01 AM 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 Medicaid HEALTH CHOICE - HEALTH CHOICE [facility] [id number] MANAGED MEDICAID [place], [place] [phone] documented as of this encounter Advance Directives Name Relationship Healthcare Agent Communication Relationship Kasie Royal Mother Primary healthcare agent
--- OUTSIDE RECORDS SUMMARY | 2020-01-26 07:20 | XMS REPORT | Summary of Care ---
:1995 Author Organization [facility] Address [address] [place] [address] Care Team Providers Name Role Phone Lina Van [facility] Primary Care Provider Reason for Visit Reason Comments Assessment still having B/P issues after giving Rx Concern/Question medication given in hospital was working better, can patient get that? Encounter Details Date Type Department Care Team Description 01/06/2020 Telephone [facility]- Lina Van Assessment ( still Dana Perez [facility] having B/P issues [address] [place] [address] after giving ); [facility] A Rx Concern/Question [phone] [place] [address] (medication given in [phone] hospital was working better, can patient get that?) Allergies No Known Allergiesdocumented as of this encounter (statuses as of 01/06/2020) Medications Medication Sig Dispensed Refills Start Date End Date Status ondansetron 4 mg Take 1 tablet 20 tablet 0 08/09/2018 Active disintegrating tablet by mouth every 8 (eight) hours as needed for Nausea and Vomiting (N/V). magnesium oxide 420 mg Take 400 mg by 14 tablet 0 11/28/2019 Active TabIndications: mouth 2 (two) Hypokalemia times daily. vitamin w/FA Take 1 tablet 100 tablet 3 12/30/2019 Active tabletIndications: by mouth daily. Supervision of high risk in third trimester, Obesity in , 36 weeks gestation of , Hypokalemia, Pre-eclampsia, severe, antepartum, Morbid obesity with body mass index of 40.0-49.9, Hypomagnesemia, Liveborn infant, of zimmerman , born in hospital by vaginal delivery, Chorioamnionitis in third trimester, single or unspecified fetus docusate calcium 240 mg Take 1 capsule 30 capsule 1 12/30/2019 Active capsuleIndications: by mouth once Supervision of high daily as needed risk in third for trimester, Obesity in Constipation. , 36 weeks gestation of , Hypokalemia, Pre-eclampsia, severe, antepartum, Morbid obesity with body mass index of 40.0-49.9, Hypomagnesemia, Liveborn infant, of zimmerman , born in hospital by vaginal delivery, Chorioamnionitis in third trimester, single or unspecified fetus ferrous sulfate 325 mg Take 1 tablet 60 tablet 2 12/30/2019 Active (65 mg iron) by mouth 2 tabletIndications: (two) times Supervision of high daily. risk in third trimester, Obesity in , 36 weeks gestation of , Hypokalemia, Pre-eclampsia, severe, antepartum, Morbid obesity with body mass index of 40.0-49.9, Hypomagnesemia, Liveborn infant, of zimmerman , born in hospital by vaginal delivery, Chorioamnionitis in third trimester, single or unspecified fetus NIFEdipine ER 30 mg Take 1 tablet 42 tablet 0 12/30/2019 Active tabletIndications: by mouth daily. Pre-eclampsia, severe, antepartum butalbital-acetaminophe Take 1 tablet 20 tablet 0 01/04/2020 Active n-caff 50-325-40 mg by mouth every tabletIndications: 6 (six) hours Severe pre-eclampsia, as needed condition or (Headache). complication acetaminophen 325 mg Take 2 tablets 0 01/04/2020 01/03/2021 Active tabletIndications: by mouth every Severe pre-eclampsia, 6 (six) hours condition or as needed complication (headache). documented as of this encounter (statuses as of 01/06/2020) Active Problems Problem Noted Date Severe pre-eclampsia, condition or complication 01/03/2020 Morbid obesity with body mass index of 40.0-49.9 12/26/2019 documented as of this encounter (statuses as of 01/06/2020) Resolved Problems Problem Noted Date Resolved Date Pre-eclampsia 01/02/2020 01/03/2020 Liveborn , of zimmerman , born in hospital by 12/29/201901/03 vaginal delivery Chorioamnionitis in third trimester 12/29/2019 01/03/2020 Hypomagnesemia 12/26/2019 01/03/2020 Pre-eclampsia, severe, antepartum 12/19/2019 01/03/2020 37 weeks gestation of 11/25/2019 01/03/2020 Weakness of both lower extremities 11/25/2019 12/26/2019 Hypokalemia 11/25/2019 01/03/2020 Weakness of both legs 11/25/2019 12/26/2019 Echogenic bowel of fetus 08/22/2019 01/03/2020 Overview: Noted on usg follow up scheduled for 08/2019 Resolved Supervision of high-risk 05/24/2019 01/03/2020 Obesity in 05/24/2019 01/03/2020 Well woman exam 10/04/2018 05/24/2019 Contraception management 10/04/2018 05/24/2019 Obesity (BMI 30-39.9) 10/04/2018 05/24/2019 Chest pain 09/11/2013 01/03/2020 Overview: ICD10 Diagnosis Term 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 SOB (shortness of breath) 09/11/2013 05/24/2019 documented as of this encounter (statuses as of 01/06/2020) Immunizations Name Administration Dates Next Due HPV 06/03/2018, 02/01/2018, 12/04/2010 TDAP (ADACEL) VACCINE 06/15/2014 Tdap 10/31/2019 documented as of this encounter Social History Tobacco Use Types Packs/Day Years Used Date Never Smoker Smokeless Tobacco: Never Used Alcohol Use Drinks/Week oz/Week Comments No Sex Assigned at Date Recorded Not on file Job Start Date Occupation Industry Not on file Not on file Not on file Travel History Travel Start Travel End No recent travel history available. documented as of this encounter Last Filed Vital Signs Not on filedocumented in this encounter Plan of Treatment Date Type Specialty Care Team Description 01/13/2020 Office Visit Cardiology Дмитрий Allison MD [address] [place] [address] [place] [address] 01/20/2020 Routine Visit OB Satellites RobertokatyaLina de paz, CNP [address] [place] [address] [phone] Health Maintenance Due Date Last Done Comments [...] ID Effective Phone Address Type Group Dates [employer] xxxxxxxxx 2019-Pres [address] Medicaid HEALTH CHOICE - HEALTH CHOICE ent [id number] [facility] MEDICAID [place], [place] MEDICAID [phone] documented as of this encounter Advance Directives Name Relationship Healthcare Agent Communication Relationship Kasie Royal Mother Primary healthcare agent [email or web address]
--- OUTSIDE RECORDS SUMMARY | 2020-01-26 07:21 | XMS REPORT | Summary of Care ---
:1995 Author Organization [facility] [employer] Address [address] [place] [address] Care Team Providers Name Role Phone Lina Van [facility] Primary Care Provider Reason for Visit Reason Comments Care Encounter Details Date Type Department Care Team Description 12/19/2019 Routine [facility] RMP- Carlota, Supervision of high risk in third trimester (Primary Dx); [facility] ; [address] [place] [address] Elevated blood pressure reading without diagnosis of hypertension [facility] [address] [facility] [phone] [place] [address] Allergies No Known Allergiesdocumented as [...] Chest pain 09/11/2013 Overview: ICD10 Diagnosis Term Non Destructive Evaluation Specialist Utility Estimated Date of Delivery Comments Yes [...] Comments Blood Pressure 127/88 12/19/2019 1:26 PM JUICE STANDARDIZER Pulse 91 12/19/2019 1:07 PM JUICE STANDARDIZER Temperature 36.1 C (97 F) 12/19/2019 1:07 PM JUICE STANDARDIZER Respiratory Rate 16 12/19/2019 1:07 PM JUICE STANDARDIZER Oxygen Saturation - - Inhaled Oxygen Concentration - - Weight 122.1 kg (269 lb 2 oz) 12/19/2019 1:07 PM JUICE STANDARDIZER Height 162.6 cm (5' 4") 12/19/2019 1:07 PM JUICE STANDARDIZER Body Mass Index 46.2 12/19/2019 1:07 PM JUICE STANDARDIZER documented in this encounter Progress Notes Barbara John RN - 12/19/2019 12:45 PM CSTPatient CD has been scheduled for IOL on 01/12/2020 @ 39.2wks, 0730. [facility] - 12/19/2019 12:45 PM CST Chief [...] file Gets together: Not on file Attends worship service: Not on file Active member of [...] Visit OB Satellites Lina Van WHCNP [address] [place] [address] [phone] Health Maintenance Due Date Last Done Comments [...] Results for this GLUCOSE & PROTEIN PM JUICE STANDARDIZER risk in procedure are in third trimester the results section. documented in this encounter Results POCT URINALYSIS GLUCOSE & PROTEIN (12/19/2019 1:05 PM JUICE STANDARDIZER) POCT U PROT neg Negative - Negative [...] ID Effective Phone Address Type Group [facility] xxxxxxxxx 2019-Pres [address] Medicaid HEALTH CHOICE - HEALTH CHOICE ent [id number] MANAGED MEDICAID [place], [place] MED[place] [phone] documented as of this encounter Advance Directives Name Relationship Healthcare Agent Communication Relationship Kasie Royal Mother Primary healthcare agent
--- OUTSIDE RECORDS SUMMARY | 2020-01-26 07:23 | XMS REPORT | Summary of Care ---
:1995 Author Organization [facility] - [facility] Address [address] [place] [id number] Care Team Providers Name Role Phone Lina Van [facility] Primary Care Provider Reason for Referral (Routine) Status Reason Specialty Diagnoses / Referred By Referred To Procedures Contact Contact New Request Diagnoses Supervision of high risk in third trimester Obesity in 36 weeks gestation of Hypokalemia Pre-eclampsia, severe, antepartum Morbid obesity with body mass index of 40.0-49.9 Hypomagnesemia Sneha Galvan MD Liveborn infant, of zimmerman , born in hospital by vaginal delivery Chorioamnionitis in third trimester, single or unspecified fetus [address] [place] [address] Procedures DISCHARGE FOLLOW-UP: FOOD PREP [facility] [address] [place] [address] Reason for Visit Auth/Cert Status Reason Specialty Diagnoses / Procedures Referred By Contact Referred To Contact Obstetrics [facility] Labor And Delivery [address] [place] [address] Encounter Details Date Type Department Care Team Description 12/25/2019 - Hospital Encounter [facility] Labor and Sneha Galvan Liveborn , of 12/30/2019 Delivery Unit z[place]erman [address] [place] [address] , [facility] [place] [address] [facility] 208 delivery [phone] [place] [id number] Allergies No Known Allergiesdocumented as of this encounter (statuses as of 12/30/2019) Medications Medication Sig Dispensed Refills Start End Date Status Date loratadine (CLARITIN) 10 Take 10 mg 0 Active mg tablet by mouth daily. ondansetron 4 mg Take 1 20 tablet 0 Active disintegrating tablet tablet by 8 mouth every 8 (eight) hours as needed for Nausea and Vomiting (N/V). KCL 10 mEq Take 1 10 tablet 0 Active tabletIndications: tablet by 0 Hypokalemia mouth daily. magnesium oxide 420 mg Take 400 mg 14 tablet 0 Active TabIndications: by mouth 2 0 Hypokalemia (two) times daily. vitamin w/FA Take 1 100 tablet 3 Active tabletIndications: tablet by 0 Supervision of high risk mouth daily. in third trimester, Obesity in , 36 weeks gestation of , Hypokalemia, Pre-eclampsia, severe, antepartum, Morbid obesity with body mass index of 40.0-49.9, Hypomagnesemia, Liveborn , of zimmerman , born in hospital by vaginal delivery, Chorioamnionitis in third trimester, single or unspecified fetus docusate calcium 240 mg Take 1 30 capsule 1 Active capsuleIndications: capsule by 0 Supervision of high risk mouth once in third daily as trimester, Obesity in needed for , 36 weeks Constipation gestation of , . Hypokalemia, Pre-eclampsia, severe, antepartum, Morbid obesity with body mass index of 40.0-49.9, Hypomagnesemia, Liveborn infant, of zimmerman , born in hospital by vaginal delivery, Chorioamnionitis in third trimester, single or unspecified fetus ferrous sulfate 325 mg Take 1 60 tablet 2 Active (65 mg iron) tablet by 0 tabletIndications: mouth 2 Supervision of high risk (two) times in third daily. trimester, Obesity in , 36 weeks gestation of , Hypokalemia, Pre-eclampsia, severe, antepartum, Morbid obesity with body mass index of 40.0-49.9, Hypomagnesemia, Liveborn , of zimmerman , born in hospital by vaginal delivery, Chorioamnionitis in third trimester, single or unspecified fetus ibuprofen 600 mg Take 1 30 tablet 1 Active tabletIndications: tablet by 0 Supervision of high risk mouth every in third 6 (six) trimester, Obesity in hours as , 36 weeks needed gestation of , (Pain). Take Hypokalemia, with food or Pre-eclampsia, severe, milk. antepartum, Morbid obesity with body mass index of 40.0-49.9, Hypomagnesemia, Liveborn , of zimmerman , born in hospital by vaginal delivery, Chorioamnionitis in third trimester, single or unspecified fetus hydroCHLOROthiazide 25 Take 1 42 tablet 0 Active mg tabletIndications: tablet by 0 Supervision of high risk mouth daily. in third trimester, Obesity in , 36 weeks gestation of , Hypokalemia, Pre-eclampsia, severe, antepartum, Morbid obesity with body mass index of 40.0-49.9, Hypomagnesemia, Liveborn , of zimmerman , born in hospital by vaginal delivery, Chorioamnionitis in third trimester, single or unspecified fetus vitamin w/FA Take 1 30 tablet 4 12/30/19 Discontinued tabletIndications: tablet by 0 20 Hypokalemia mouth daily. documented as of this encounter (statuses as of 12/30/2019) Active Problems Problem Noted Date Liveborn , of zimmerman , born in hospital by vaginal 2019 delivery Chorioamnionitis in third trimester 12/29/2019 Morbid obesity with body mass index of 40.0-49.9 12/26/2019 Hypomagnesemia 12/26/2019 Pre-eclampsia, severe, antepartum 12/19/2019 36 weeks gestation of 11/25/2019 Hypokalemia 11/25/2019 Echogenic bowel of fetus 08/22/2019 Overview: Noted on usg follow up scheduled for 08/2019 Resolved Supervision of high-risk 05/24/2019 Obesity in 05/24/2019 Chest pain 09/11/2013 Overview: ICD10 Diagnosis 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 Yes documented as of this encounter (statuses as of 12/30/2019) Resolved Problems Problem Noted Date Resolved Date Weakness of both lower extremities 11/25/2019 12/26/2019 Weakness of both legs 11/25/2019 12/26/2019 Well woman exam 10/04/2018 05/24/2019 Contraception management 10/04/2018 05/24/2019 Obesity (BMI 30-39.9) 10/04/2018 05/24/2019 SOB (shortness of breath) 09/11/2013 05/24/2019 documented as of this encounter (statuses as of 12/30/2019) Immunizations Name Administration Dates Next Due HPV 06/03/2018, 02/01/2018, 12/04/2010 TDAP (ADACEL) VACCINE 06/15/2014 Tdap 10/31/2019 documented as of this encounter Social History Tobacco Use Types Packs/Day Years Used Date Never Smoker Smokeless Tobacco: Never Used Alcohol Use Drinks/Week oz/Week Comments No Comments Yes Sex Assigned at Date Recorded Not on file Job Start Date Occupation Industry Not on file Not on file Not on file Travel History Travel Start Travel End No recent travel history available. documented as of this encounter Last Filed Vital Signs Vital Sign Reading Time Taken Comments Blood Pressure 145/88 12/30/2019 11:30 AM PRIVATE INQUIRY AGENT Pulse 73 12/30/2019 11:30 AM PRIVATE INQU[employer]Y AGENT Temperature 36.8 C (98.3 F) 12/30/2019 11:30 AM PRIVATE INQUIRY AGENT Respiratory Rate 16 12/30/2019 11:30 AM PRIVATE INQUIRY AGENT Oxygen Saturation 100% 12/30/2019 11:30 AM PRIVATE INQUIRY AGENT Inhaled Oxygen Concentration - - Weight 121.1 kg (267 lb) 12/25/2019 10:23 PM PRIVATE INQUIRY AGENT Height 165.1 cm (5' 5") 12/25/2019 10:23 PM PRIVATE INQUIRY AGENT Body Mass Index 44.43 12/25/2019 10:23 PM PRIVATE INQUIRY AGENT documented in this encounter Discharge Instructions Va Eckert RN - 12/30/2019RETURN TO HOSPITAL FOR ANY CONCERNS 1. Follow up appointment scheduled on 01/20/[address] Daigle [phone] [facility] [address] 2. Follow up appointment scheduled on 01/13/[address] Allison (cardiology) [phone] [place] [address] [facility] NEW PARENT [employer]WNERS MANUAL GIVEN FOLLOW UP 3-5 DAYS FOR BP CHECK, THEN AGAIN IN 4-6 WEEKS WITH YOUR DOCTOR DISCUSS CONTROL OPTIONS WITH YOUR DOCTOR IF NEEDED NO SEX, NO TAMPONS, NO DOUCHING NO SWIMMING OR TUB BATHS, TAKE SHOWERS INSTEAD NO HEAVY LIFTING, PULLING, OR PUSHING (>10LBS) DRINK AT LEAST EIGHT (8oz) GLASSES WATER DAILY EAT HEALTHY DIET INCLUDING FRESH FRUITS, VEGETABLES, AND PROTEINS AVOID FRIED, GREASY, FATTY, SUGARY, AND SPICY FOODS TAKE MEDICATIONS PRESCRIBED AND FOLLOW LABEL PRECAUTIONS & INSTRUCTIONS DO NOT DRIVE WHILE TAKING PAIN MEDICINE TAKE OVER THE COUNTER STOOL SOFTENERS TO HELP PREVENT CONSTIPATION [facility] REFERRAL HANDOUT GIVEN [employer] TEACHING HANDOUTS GIVEN X8: DVT, POST CARE, , DEPRESSION, VAGINAL , HYPO MAGNESIUM, WHEN TO CALL THE DOCTOR, HYDROCHLOROTHIAZIDE AND MOTRIN AttachmentsThe following attachments cannot be sent through Care Everywhere.Deep Vein Thrombosis (DVT) (Dutch)When to Call the Healthcare Provider, After Delivery (Dutch)Vaginal , Incision Care After (Dutch) Vaginal , After a (Dutch) Depression, Understanding (Dutch) Problems - VIDEO (Dutch)Ibuprofen tablets and capsules (Dutch) Hypomagnesemia, Discharge Instructions (Dutch)Hydrochlorothiazide, HCTZ capsules or tablets (Dutch)documented in this encounter Progress Notes Sneha Galvan MD - 12/28/2019 8:54 AM CST INTRAPARTUM PROGRESS NOTE Subjective: Doing well without issues this morning. Denies chest pain, SOB, palpitations, dizziness, muscle weakness. Reports a yellowish productive that started yesterday evening. Objective: Labs: HCT (%) Date Value 12/28/2019 32.7 (L) HGB (g/dL) Date Value 12/28/2019 11.0 (L) PLT (10*3/L) Date Value 12/28/2019 282 ABO & RH (no units) Date Value 12/26/2019 O Positive Vital Signs: BP: (112-181)/(58-106) Temp: [36.7 C (98.1 F)-37.2 C (99 F)] Temp source: Temporal Artery (12/28 0400) Pulse: [67-103] Resp: [16-20] SpO2: [96 %-100 %] Height: -- Weight: -- BMI (calculated): -- NAD RRR CTAB Soft, NTTP, gravid No edema Heart Rate: Cat I strip Assessment/Plan: Dilma Royal is a 24 year [id number] 37w1d who presents with epigastric pain that has resolved but noted to have mild ranging BPs, HD#4 Pre-eclampsia without severe features - based on BPs and Pr/Cr 0.3 - asymptomatic - BP normal to mild ranging. She had severe range likely due to pain as decreased to normal or mildranging when not in pain Induction - s/p Cervidil and FB - Pit per protocol - GBS pending: On PCN G - AROM, clear without complications. IUPC placed without complications. Hypokalemia and Hypomagnesemia - patient was hospitalized at [facility] on 11/24-11/28/2019 for hypokalemia and rhabdomyolysis secondary to severe hypokalemia. Patient was seen by Neurology and Nephrology during her stay and workup for hypokalemia was negative including MR abdomen and pelvis. During her stay her symptoms improved and her electrolytes were replaced.Patient was discharged home on KCL 10 mEq tablet and magnesium oxide 400 mg tablet and to follow-up with nephrology outpatient. Have not seen nephrology outpatient - patient asymptomatic - potassium 3.1 and magnesium 1.5 this morning. Will replace Dysrhythmia - Telemetry overnight showed "4 sec run of Vtach, SR with occasional PVCs, and PJCs". Patient denies symptoms. - EKG obtained and Hospitalist consulted this am. We both think that the brief abnormal rhythm is due to electrolytes abnormalities. - will continue to monitor. Discussed all findings with patient and patient was given the option of continuing to proceed with delivery here versus transferring to [place] for delivery. Patient desires to stay here. Cephalic confirmed EFW 6# on 12/12/2019 care at [facility] Sneha Galvan MD 12/28/2019 9:23 AM neha Galvan MD - 12/27/2019 9:19 AM CST INTRAPARTUM PROGRESS NOTE Subjective: Denies PIH symptoms or muscle weakness. Objective: Labs: HCT (%) Date Value 12/26/2019 33.2 (L) HGB (g/dL) Date Value 12/26/2019 10.8 (L) PLT (10*3/L) Date Value 12/26/2019 287 ABO & RH (no units) Date Value 12/26/2019 O Positive Vital Signs: BP: (113-149)/(65-88) Temp: [36.5 C (97.7 F)-37 C (98.6 F)] Temp source: Oral (12/27 0145) Pulse: [70-92] Resp: [16-18] SpO2: [98 %-100 %] Height: -- Weight: -- BMI (calculated): -- NAD RRR CTAB Soft, NTTP, gravid SVE ft/th/high, cervidil in placed. No edema Heart Rate: Cat I [place]: quiescent Assessment/Plan: Dilma Royal is a 24 year old at 37w0d who presents with epigastric pain that has resolved but noted to have mild ranging BPs, HD#3 Pre-eclampsia without severe features - based on BPs and Pr/Cr 0.3 - asymptomatic - BP normal to mild ranging Induction - Cervidil placed at 0100 on 12/27/2019. Removed this morning. SVE ft/th/high. FB placed. Will start low dose pit 1 hr after cervidil removed - GBS pending Hypokalemia and Hypomagnesemia - patient was hospitalized at [facility] on 11/24-11/28/2019 for hypokalemia and rhabdomyolysis secondary to severe hypokalemia. Patient was seen by Neurology and Nephrology during her stay and workup for hypokalemia was negative including MR abdomen and pelvis. During her stay her symptoms improved and her electrolytes were replaced. Patient was discharged home on KCL 10 mEq tablet and magnesiumoxide 400 mg tablet and to follow-up with nephrology outpatient. Have not seen nephrology outpatient - potassium on presentation 2.9 and magnesium level 1.5. Replacements ordered. Patient placed on telemetry. - repeat potassium 2.8 and magnesium 1.6. KCl 40 mEq IV and 40 mEq PO and magnesium sulfate 2 gramsgiven. Will repeat BMP and magnesium level now - patient asymptomatic Cephalic confirmed EFW 6# on 12/12/2019 care at [facility] Sneha Galvan MD 12/27/2019 9:28 AM Katy Fernandez RN - 12/25/2019 10:46 PM [id number] 36w5d with complaints of epigastric pain since 1900 after eating Gumbo for dinner. She describes the pain as sharp and constant and states pain has now subsided since arriving here. Pt denies vaginal bleeding/LOF, +FM. Slighty elevated BPs noted. Pt denies CORBIN, Visual disturbances and Right upper quadrant pain. Cat 1 strip and 2 contractions noted. SVE closed/thick/high. Update given to Dr Galvan. O/R to keep patient overnight for 24 hours and monitor BPs q30 mins X4 hours. If BPs normalize then monitor q4h. Collect GBS swab for culture. Patient may have water. BPs normalized to 120s/60-70s. Pt states epigastric pain has not returned. Report given to oncoming shift.Electronically signed by Sneha Galvan MD at 8:38 PM PRIVATE INQUIRY AGENT Associated attestation - Sneha Galvan MD - 12/26/2019 8:38 PM CSTAgreed with RN Sneha Galvan MD 12/26/2019 8:38 PM documented in this encounter Plan of Treatment Date Type Specialty Care Team Description 01/13/2020 Office Visit Cardiology Дмитрий Allison MD [address] [place] [address] [place] [id number] Name Type Priority Associated Diagnoses Order Schedule EKG-12 LEAD ROUTINE HEART STATION STAT ONCE for 1 Occurrences starting 12/28/2019 until 12/28/2019 Health Maintenance Due Date Last Done Comments [...] encounter Procedures Procedure Name Priority Date/Time Associated Comments Diagnosis BASIC METABOLIC PANEL Routine 12/30/2019 4:21 Results for this (NA, K, CL, CO2, AM PRIVATE INQUIRY AGENT procedure are in GLUCOSE, BUN, the results CREATININE, CA) section. MAGNESIUM Routine 12/30/2019 4:21 Results for this AM [employer]IVATE INQUIRY AGENT procedure are in the results section. BASIC METABOLIC PANEL Routine 12/29/2019 4:35 Results for this (NA, K, CL, CO2, PM [employer]IVATE INQUIRY AGENT procedure are in GLUCOSE, BUN, the results CREATININE, CA) section. CBC WITH DIFFERENTIAL Routine 12/29/2019 5:07 Results for this AM PRIVATE INQUIRY AGENT procedure are in the results section. CBC WITH DIFFERENTIAL Routine 12/29/2019 5:07 Results for this AM PRIVATE INQUIRY AGENT procedure are in the results section. BASIC METABOLIC PANEL Routine 12/29/2019 5:07 Results for this (NA, K, CL, CO2, AM PRIVATE INQUIRY AGENT procedure are in GLUCOSE, BUN, the results CREATININE, CA) section. MAGNESIUM Routine 12/29/2019 5:07 Results for this AM PRIVATE INQUIRY AGENT procedure are in the results section. VENOUS CORD GAS Routine 12/28/2019 11:33 Results for this PM [employer]IVATE INQUIRY AGENT procedure are in the results section. ARTERIAL CORD GAS Routine 12/28/2019 11:33 Results for this PM [employer]IVATE INQUIRY AGENT procedure are in the results section. BASIC METABOLIC PANEL Routine 12/28/2019 7:55 Results for this (NA, K, CL, CO2, PM PRIVATE INQUIRY AGENT procedure are in GLUCOSE, BUN, the results CREATININE, CA) section. MAGNESIUM Routine 12/28/2019 7:55 Results for this PM PRIVATE INQUIRY AGENT procedure are in the results section. BASIC METABOLIC PANEL Routine 12/28/2019 2:20 Results for this (NA, K, CL, CO2, PM PRIVATE INQUIRY AGENT procedure are in GLUCOSE, BUN, the results CREATININE, CA) section. MAGNESIUM Routine 12/28/2019 12:38 Results for this PM PRIVATE INQUIRY AGENT procedure are in the results section. CBC WITH DIFFERENTIAL STAT 12/28/2019 8:21 Results for this AM PRIVATE INQUIRY AGENT procedure are in the results section. CBC WITH DIFFERENTIAL STAT 12/28/2019 8:21 Results for this AM PRIVATE INQUIRY AGENT procedure are in the results section. URIC ACID STAT 12/28/2019 8:21 Results for this AM PRIVATE INQUIRY AGENT procedure are in the results section. LACTATE DEHYDROGENASE STAT 12/28/2019 8:21 Results for this AM PRIVATE INQUIRY AGENT procedure are in the results section. EKG-12 LEAD Routine 12/28/2019 7:43 AM PRIVATE INQUIRY AGENT BASIC METABOLIC PANEL Routine 12/28/2019 6:06 Results for this (NA, K, CL, CO2, AM PRIVATE INQUIRY AGENT procedure are in GLUCOSE, BUN, the results CREATININE, CA) section. MAGNESIUM Routine 12/28/2019 6:06 Results for this AM PRIVATE INQUIRY AGENT procedure are in the results section. ALANINE AMINO STAT Add-On 12/28/2019 6:06 Results for this TRANSFERASE(SGPT AM PRIVATE INQUIRY AGENT procedure are in the results section. SGOT (ASPARTATE AMINO STAT Add-On 12/28/2019 6:06 Results for this TRANSFER) AM PRIVATE INQUIRY AGENT procedure are in the results section. BASIC METABOLIC PANEL Routine 12/27/2019 7:39 Results for this (NA, K, CL, CO2, PM PRIVATE INQUIRY AGENT procedure are in GLUCOSE, BUN, the results CREATININE, CA) section. MAGNESIUM Routine 12/27/2019 7:39 Results for this PM PRIVATE INQUIRY AGENT procedure are in the results section. BASIC METABOLIC PANEL Routine 12/27/2019 12:04 Results for this (NA, K, CL, CO2, PM PRIVATE INQUIRY AGENT procedure are in GLUCOSE, BUN, the results CREATININE, CA) section. MAGNESIUM Routine 12/27/2019 12:04 Results for this PM PRIVATE INQUIRY AGENT procedure are in the results section. BASIC METABOLIC PANEL JUAN 12/27/2019 2:25 Results for this (NA, K, CL, CO2, AM PRIVATE INQUIRY AGENT procedure are in GLUCOSE, BUN, the results CREATININE, CA) section. MAGNESIUM JUAN 12/27/2019 2:25 Results for this AM PRIVATE INQUIRY AGENT procedure are in the results section. PROTEIN CREAT RATIO STAT 12/26/2019 9:33 Results for this URINE RANDOM AM PRIVATE INQUIRY AGENT procedure are in the results section. URINALYSIS STAT 12/26/2019 9:33 Results for this AM PRIVATE INQUIRY AGENT procedure are in the results section. HIV 1/2 AG-AB WITH Routine 12/26/2019 8:42 Results for this REFLEX AM PRIVATE INQUIRY AGENT procedure are in the results section. CBC WITH DIFFERENTIAL STAT 12/26/2019 8:42 Results for this AM PRIVATE INQUIRY AGENT procedure are in the results section. ADC OR NITHIN ONLY - JUAN 12/26/2019 8:42 Results for this RPR AM PRIVATE INQUIRY AGENT procedure are in the results section. HEPATITIS B SURFACE JUAN 12/26/2019 8:42 Results for this ANTIGEN AM PRIVATE INQUIRY AGENT procedure are in the results section. CBC WITH DIFFERENTIAL STAT 12/26/2019 8:42 Results for this AM PRIVATE INQUIRY AGENT procedure are in the results section. BASIC METABOLIC PANEL Add-on 12/26/2019 8:42 Results for this (NA, K, CL, CO2, AM PRIVATE INQUIRY AGENT procedure are in GLUCOSE, BUN, the results CREATININE, CA) section. MAGNESIUM Add-on 12/26/2019 8:42 Results for this AM PRIVATE INQUIRY AGENT procedure are in the results section. URIC ACID STAT 12/26/2019 8:42 Results for this AM PRIVATE INQUIRY AGENT procedure are in the results section. LACTATE DEHYDROGENASE STAT 12/26/2019 8:42 Results for this AM PRIVATE INQUIRY AGENT procedure are in the results section. ALANINE AMINO STAT 12/26/2019 8:42 Results for this TRANSFERASE(SGPT AM PRIVATE INQUIRY AGENT procedure are in the results section. CREATININE STAT 12/26/2019 8:42 Results for this AM PRIVATE INQUIRY AGENT procedure are in the results section. SGOT (ASPARTATE AMINO STAT 12/26/2019 8:42 Results for this TRANSFER) AM PRIVATE INQUIRY AGENT procedure are in the results section. HB ABO GROUPING STAT 12/26/2019 8:40 Results for this AM PRIVATE INQUIRY AGENT procedure are in the results section. GROUP B STREPTOCOCCUS Routine 12/25/2019 11:28 Results for this BY PCR PM PRIVATE INQUIRY AGENT procedure are in the results section. ASSIGNMENT OF Routine 12/25/2019 10:10 BENEFITS PM PRIVATE INQUIRY AGENT CONSENT/REFUSAL FOR Routine 12/25/2019 10:10 DIAGNOSIS AND PM [employer]IVATE INQUIRY AGENT TREATMENT documented in this encounter Results BASIC METABOLIC PANEL (NA, K, CL, CO2, GLUCOSE, BUN, CREATININE, CA) (2019 4:21 AM PRIVATE INQUIRY AGENT) NA 136 135 - 145 [facility] mmol/L [facility] K 3.6 3.5 - 5.0 [facility] mmol/L [facility] CL 103 98 - 108 mmol/L [facility] CO2 TOTAL 27 23 - 31 mmol/L [facility] AGAP 6 2 - 16 [facility] BUN 2 (L) 7 - 23 mg/dL [facility] GLUCOSE 86 70 - 110 mg/dL [facility] CREATININE 0.45 (L) 0.50 - 1.04 [facility] mg/dL [facility] CALCIUM 8.4 (L) 8.6 - 10.6 [facility] mg/dL [facility] eGFR Calculation 172.7 mL/min/1.73m2 [facility] ([facility] [place]) eGFR Calculation 209.3 mL/min/1.73m2 [facility] ([facility]) [facility] Specimen Blood - VENOUS Narrative Performed At [facility] Glomerular Filtration Rate (GFR) [facility] and Staging of Kidney Disease* + + +- + | GFR (mL/min/1.73 m2) | With Kidney Damage | Without Kidney Damage + + +- + | >90 | Stage one | Normal + + +- + | 60-89 | Stage two | Decreased GFR + + +- + | 30-59 | Stage three | Stage three + + +- + | 15-29 | Stage four | Stage four + + +- + | <15 (or dialysis) | Stage five | Stage five + + +- + *Each stage assumes the associated GFR level has been in effect for at least three months. Stages 1 to 5, with or without kidney disease, indicate chronic kidney disease. Notes: Determination of stages one and two (with eGFR >59mL/min/1.73 m2) requires estimation of kidney damage for at least three months as defined by structural or functional abnormalities of the kidney, manifested by either: Pathological abnormalities or Markers of kidney damage (including abnormalities in the composition of the blood or urine or abnormalities in imaging tests). Performing Organization Address City/[facility]/Zipcode Phone Number [facility] CLIA: [id number], [address] [place] [address] MAGNESIUM (12/30/2019 4:21 AM PRIVATE INQUIRY AGENT) MAGNESIUM 2.3 1.7 - 2.4 mg/dL [facility] Specimen Blood - VENOUS Performing Organization Address City/[facility] Phone Number [facility] CLIA: [id number], [address] [place] [address] BASIC METABOLIC PANEL (NA, K, CL, CO2, GLUCOSE, BUN, CREATININE, CA) (2019 4:35 PM PRIVATE INQUIRY AGENT) NA 136 135 - 145 [facility] mmol/L [facility] K 3.5 3.5 - 5.0 [facility] mmol/L [facility] CL 104 98 - 108 mmol/L [facility] CO2 TOTAL 27 23 - 31 mmol/L [facility] AGAP 5 2 - 16 [facility] BUN 2 (L) 7 - 23 mg/dL [facility] GLUCOSE 99 70 - 110 mg/dL [facility] CREATININE 0.44 (L) 0.50 - 1.04 [facility] mg/dL [facility] CALCIUM 8.2 (L) 8.6 - 10.6 [facility] mg/dL HOSPITAL LABORATORY eGFR Calculation 177.2 mL/min/1.73m2 [facility] ([facility] [place]) eGFR Calculation 214.8 mL/min/1.73m2 [facility] () [facility] Specimen Blood - VENOUS Narrative Performed At [facility] Glomerular Filtration Rate (GFR) [facility] [facility] and Staging of Kidney Disease* + + +- + | GFR (mL/min/1.73 m2) | With Kidney Damage | Without Kidney Damage + + +- + | >90 | Stage one | Normal + + +- + | 60-89 | Stage two | Decreased GFR + + +- + | 30-59 | Stage three | Stage three + + +- + | 15-29 | Stage four | Stage four + + +- + | <15 (or dialysis) | Stage five | Stage five + + +- + *Each stage assumes the associated GFR level has been in effect for at least three months. Stages 1 to 5, with or without kidney disease, indicate chronic kidney disease. Notes: Determination of stages one and two (with eGFR >59mL/min/1.73 m2) requires estimation of kidney damage for at least three months as defined by structural or functional abnormalities of the kidney, manifested by either: Pathological abnormalities or Markers of kidney damage (including abnormalities in the composition of the blood or urine or abnormalities in imaging tests). Performing Organization Address City/State/Zipcode Phone Number [facility] CLIA: [id number], [address] [place] [address] CBC WITH DIFFERENTIAL (12/29/2019 5:07 AM PRIVATE INQUIRY AGENT) WBC 28.67 (H) 4.30 - 11.10 [facility] 10*3/L [facility] RBC 3.40 (L) 3.93 - 5.25 [facility] 10*6/L [facility] HGB 10.1 (L) 11.6 - 15.0 [facility] g/dL [facility] HCT 29.9 (L) 35.7 - 45.2 % [facility] MCV 87.9 80.6 - 95.5 fL [facility] MCH 29.7 25.9 - 32.8 pg [facility] MCHC 33.8 31.6 - 35.1 [facility] g/dL HOSPITAL [facility] RDW-SD 46.9 39.0 - 49.9 fL [facility] RDW-CV 14.6 12.0 - 15.5 % [facility] PLT 329 166 - 358 [facility] 10*3/L [facility] MPV 10.3 9.5 - 12.9 fL [facility] NRBC/100 WBC 0.0 0.0 - 10.0 /100 [facility] WBCs [facility] NRBC x10^3 <0.01 10*3/L [facility] GRAN MAT (NEUT) % 84.5 % [facility] IMM GRAN % 1.10 % [facility] LYMPH % 7.0 % [facility] MONO % 7.3 % [facility] EOS % 0.0 % [facility] BASO % 0.1 % [facility] GRAN MAT x10^3(ANC) 24.22 (H) 1.88 - 7.09 [facility] 10*3/uL [facility] IMM GRAN x10^3 0.31 (H) 0.00 - 0.06 [facility] 10*3/uL [facility] LYMPH x10^3 2.02 1.32 - 3.29 [facility] 10*3/uL [facility] MONO x10^3 2.08 (H) 0.33 - 0.92 [facility] 10*3/uL [facility] EOS x10^3 <0.03 (L) 0.03 - 0.39 [facility] 10*3/uL [facility] BASO x10^3 0.04 0.01 - 0.07 [facility] 10*3/uL [facility] Specimen Blood - ARM, LEFT Performing Organization Address City/State/Zipcode Phone Number [facility] CLIA: [id number], [address] [place] [address] MAGNESIUM (12/29/2019 5:07 AM PRIVATE INQUIRY AGENT) MAGNESIUM 3.6 (H) 1.7 - 2.4 mg/dL [facility] Specimen Blood - ARM, LEFT Performing Organization Address City/State/Zipcode Phone Number [facility] CLIA: [id number], [address] [place] [address] BASIC METABOLIC PANEL (NA, K, CL, CO2, GLUCOSE, BUN, CREATININE, CA) (2019 5:07 AM PRIVATE INQUIRY AGENT) NA 137 135 - 145 [facility] mmol/L [facility] K 3.5 3.5 - 5.0 [facility] mmol/L [facility] CL 107 98 - 108 mmol/L [facility] CO2 TOTAL 22 (L) 23 - 31 mmol/L [facility] AGAP 8 2 - 16 [facility] BUN <2 (L) 7 - 23 mg/dL [facility] GLUCOSE 156 (H) 70 - 110 mg/dL [facility] CREATININE 0.38 (L) 0.50 - 1.04 [facility] mg/dL [facility] CALCIUM 8.3 (L) 8.6 - 10.6 [facility] mg/dL [facility] eGFR Calculation 209.9 mL/min/1.73m2 [facility] ([facility] [place]) eGFR Calculation 254.4 mL/min/1.73m2 [facility] () [facility] Specimen Blood - ARM, LEFT Narrative Performed At [facility] of Glomerular Filtration Rate (GFR) [facility] and Staging of Kidney Disease* + + +- + | GFR (mL/min/1.73 m2) | With Kidney Damage | Without Kidney Damage + + +- + | >90 | Stage one | Normal + + +- + | 60-89 | Stage two | Decreased GFR + + +- + | 30-59 | Stage three | Stage three + + +- + | 15-29 | Stage four | Stage four + + +- + | <15 (or dialysis) | Stage five | Stage five + + +- + *Each stage assumes the associated GFR level has been in effect for at least three months. Stages 1 to 5, with or without kidney disease, indicate chronic kidney disease. Notes: Determination of stages one and two (with eGFR >59mL/min/1.73 m2) requires estimation of kidney damage for at least three months as defined by structural or functional abnormalities of the kidney, manifested by either: Pathological abnormalities or Markers of kidney damage (including abnormalities in the composition of the blood or urine or abnormalities in imaging tests). Performing Organization Address City/State/Zipcode Phone Number [facility] CLIA: [id number], [address] [place] [address] Venous Cord Gas (12/28/2019 11:33 PM PRIVATE INQUIRY AGENT) VENOUS BASE EXCESS, -1.8 mEq/L [facility] VENOUS PH, CORD 7.40 7.25 - 7.45 [facility] VENOUS PC02, CORD 38 27 - 49 mmHg [facility] VENOUS PO2, CORD 39 17 - 41 mmHg [facility] VENOUS BICARBONATE, 23 12 - 29 mEq/L [facility] Specimen Blood - VENOUS Performing Organization Address City/[facility]/Zipcode Phone Number [facility] CLIA: [id number], [address] [place] [address] Arterial Cord Gas (12/28/2019 11:33 PM PRIVATE INQUIRY AGENT) BASE EXCESS, CORD -1.5 mEq/L [facility] AC PH, CORD (BEAKER) 7.38 7.18 - 7.38 [facility] PC02, CORD 41 32 - 66 mmHg [facility] PO2, CORD 38 (H) 10 - 30 mmHg [facility] BICARBONATE, CORD 24 17 - 27 mEq/L [facility] Specimen Blood - VENOUS Performing Organization Address City/[facility] Phone Number [facility] CLIA: [id number], [address] [place] [address] BASIC METABOLIC PANEL (NA, K, CL, CO2, GLUCOSE, BUN, CREATININE, CA) (2019 7:55 PM PRIVATE INQUIRY AGENT) NA 140 135 - 145 [facility] mmol/L [facility] K 3.1 (L) 3.5 - 5.0 [facility] mmol/L [facility] CL 109 (H) 98 - 108 mmol/L [facility] CO2 TOTAL 25 23 - 31 mmol/L [facility] AGAP 6 2 - 16 [facility] BUN <2 (L) 7 - 23 mg/dL [facility] GLUCOSE 84 70 - 110 mg/dL [facility] CREATININE 0.45 (L) 0.50 - 1.04 [facility] mg/dL [facility] CALCIUM 8.7 8.6 - 10.6 [facility] mg/dL [facility] eGFR Calculation 172.7 mL/min/1.73m2 [facility] ([facility]ORY [place]) eGFR Calculation 209.3 mL/min/1.73m2 [facility] () [facility] Specimen Blood - ARM, LEFT Narrative Performed At Association of Glomerular Filtration Rate (GFR) [facility] and Staging of Kidney Disease* + + +- + | GFR (mL/min/1.73 m2) | With Kidney Damage | Without Kidney Damage + + +- + | >90 | Stage one | Normal + + +- + | 60-89 | Stage two | Decreased GFR + + +- + | 30-59 | Stage three | Stage three + + +- + | 15-29 | Stage four | Stage four + + +- + | <15 (or dialysis) | Stage five | Stage five + + +- + *Each stage assumes the associated GFR level has been in effect for at least three months. Stages 1 to 5, with or without kidney disease, indicate chronic kidney disease. Notes: Determination of stages one and two (with eGFR >59mL/min/1.73 m2) requires estimation of kidney damage for at least three months as defined by structural or functional abnormalities of the kidney, manifested by either: Pathological abnormalities or Markers of kidney damage (including abnormalities in the composition of the blood or urine or abnormalities in imaging tests). Performing Organization Address City/[facility]/Zipcode Phone Number [facility] CLIA: [id number], [address] [place] [address] MAGNESIUM (12/28/2019 7:55 PM PRIVATE INQUIRY AGENT) MAGNESIUM 2.8 (H) 1.7 - 2.4 mg/dL [facility] Specimen Blood - ARM, LEFT Performing Organization Address [facility]/Zipcode Phone Number [facility] CLIA: [id number], [address] [place] [address] [address] [facility] [address] BASIC METABOLIC PANEL (NA, K, CL, CO2, GLUCOSE, BUN, CREATININE, CA) (2019 2:20 PM PRIVATE INQUIRY AGENT) NA 142 135 - 145 [facility] mmol/L [facility] K 4.2 3.5 - 5.0 [facility] mmol/L [facility] CL 108 98 - 108 mmol/L [facility] CO2 TOTAL 28 23 - 31 mmol/L [facility] AGAP 6 2 - 16 [facility] BUN <2 (L) 7 - 23 mg/dL [facility] GLUCOSE 75 70 - 110 mg/dL [facility] CREATININE 0.45 (L) 0.50 - 1.04 [facility] mg/dL [facility] CALCIUM 9.1 8.6 - 10.6 [facility] mg/dL [facility] eGFR Calculation 172.7 mL/min/1.73m2 [facility] ([facility]ORY [place]) eGFR Calculation 209.3 mL/min/1.73m2 [facility] () [facility] Specimen Blood - VENOUS Narrative Performed At Association of Glomerular Filtration Rate (GFR) [facility] and Staging of Kidney Disease* + + +- + | GFR (mL/min/1.73 m2) | With Kidney Damage | Without Kidney Damage + + +- + | >90 | Stage one | Normal + + +- + | 60-89 | Stage two | Decreased GFR + + +- + | 30-59 | Stage three | Stage three + + +- + | 15-29 | Stage four | Stage four + + +- + | <15 (or dialysis) | Stage five | Stage five + + +- + *Each stage assumes the associated GFR level has been in effect for at least three months. Stages 1 to 5, with or without kidney disease, indicate chronic kidney disease. Notes: Determination of stages one and two (with eGFR >59mL/min/1.73 m2) requires estimation of kidney damage for at least three months as defined by structural or functional abnormalities of the kidney, manifested by either: Pathological abnormalities or Markers of kidney damage (including abnormalities in the composition of the blood or urine or abnormalities in imaging tests). Performing Organization Address City/[facility] Corporation[facility] Phone Number [facility] CLIA: [id number], [address] [place] [address] MAGNESIUM (12/28/2019 12:38 PM PRIVATE INQUIRY AGENT) MAGNESIUM 1.5 (L) 1.7 - 2.4 mg/dL [facility] Specimen Blood - VENOUS Performing Organization Address [facility]/Zipcode Phone Number [facility] CLIA: [id number], [address] [place] [address] CBC WITH DIFFERENTIAL (12/28/2019 8:21 AM PRIVATE INQUIRY AGENT) WBC 10.56 4.30 - 11.10 [facility] 10*3/L [facility] RBC 3.74 (L) 3.93 - 5.25 [facility] 10*6/L [facility] HGB 11.0 (L) 11.6 - 15.0 [facility] g/dL [facility] HCT 32.7 (L) 35.7 - 45.2 % [facility] MCV 87.4 80.6 - 95.5 fL [facility] MCH 29.4 25.9 - 32.8 pg [facility] MCHC 33.6 31.6 - 35.1 [facility] g/dL [facility] RDW-SD 46.8 39.0 - 49.9 fL [facility] RDW-CV 14.6 12.0 - 15.5 % [facility] PLT 282 166 - 358 [facility] 10*3/L [facility] MPV 10.0 9.5 - 12.9 fL [facility] NRBC/100 WBC 0.0 0.0 - 10.0 /100 [facility] WBCs [facility] NRBC x10^3 <0.01 10*3/L [facility] GRAN MAT (NEUT) % 70.9 % [facility] IMM GRAN % 0.50 % [facility] LYMPH % 18.6 % [facility] MONO % 8.7 % [facility] EOS % 1.1 % [facility] BASO % 0.2 % [facility] GRAN MAT x10^3(ANC) 7.49 (H) 1.88 - 7.09 [facility] 10*3/uL [facility]OSPITAL [facility] IMM GRAN x10^3 0.05 0.00 - 0.06 [facility] 10*3/uL [facility] LYMPH x10^3 1.96 1.32 - 3.29 [facility] 10*3/uL [facility] MONO x10^3 0.92 0.33 - 0.92 [facility] 10*3/uL [facility]ITAL [facility] EOS x10^3 0.12 0.03 - 0.39 [facility] 10*3/uL [facility] BASO x10^3 <0.03 0.01 - 0.07 [facility] 10*3/uL [facility] Specimen Blood - VENOUS Performing Organization Address [facility] Phone Number [facility] CLIA: [id number], [address] [place] [address] Lactate Dehydrogenase (12/28/2019 8:21 AM PRIVATE INQUIRY AGENT) LDH 419 300 - 600 U/L [facility] Specimen Blood - VENOUS Performing Organization Address [facility] Phone Number [facility] CLIA: [id number], [address] [place] [address] Uric Acid Serum (12/28/2019 8:21 AM PRIVATE INQUIRY AGENT) URIC ACID 5.9 2.9 - 6.0 mg/dL [facility] Specimen Blood - VENOUS Performing Organization Address [facility] Phone Number [facility] CLIA: [id number], [address] [place] [address] Alanine Amino Transferase (SGPT) (12/28/2019 6:06 AM PRIVATE INQUIRY AGENT) ALTv 11 5 - 35 U/L [facility] Specimen Blood - ARM, RIGHT Performing Organization Address [facility] Phone Number [facility] CLIA: [id number], [address] [place] [address] SGOT (Asparate Amino Transfer) (12/28/2019 6:06 AM PRIVATE INQUIRY AGENT) AST(SGOT) 20 13 - 40 U/L [facility] Specimen Blood - ARM, RIGHT Performing Organization Address [facility] Phone Number [facility] CLIA: [id number], [address] [place] [address] MAGNESIUM (12/28/2019 6:06 AM PRIVATE INQUIRY AGENT) MAGNESIUM 1.5 (L) 1.7 - 2.4 mg/dL [facility] Specimen Blood - ARM, RIGHT Performing Organization Address [facility] Phone Number [facility] CLIA: [id number], [address] [place] [address] BASIC METABOLIC PANEL (NA, K, CL, CO2, GLUCOSE, BUN, CREATININE, CA) (2019 6:06 AM PRIVATE INQUIRY AGENT) NA 139 135 - 145 [facility] mmol/L [facility] K 3.1 (L) 3.5 - 5.0 [facility] mmol/L [facility] CL 108 98 - 108 mmol/L [facility] CO2 TOTAL 25 23 - 31 mmol/L [facility] AGAP 6 2 - 16 [facility] BUN <2 (L) 7 - 23 mg/dL [facility] GLUCOSE 89 70 - 110 mg/dL [facility] CREATININE 0.41 (L) 0.50 - 1.04 [facility] mg/dL [facility] CALCIUM 8.3 (L) 8.6 - 10.6 [facility] mg/dL [facility] eGFR Calculation 192.2 mL/min/1.73m2 [facility] [place] eGFR Calculation 233.0 mL/min/1.73m2 [facility] () [facility] Specimen Blood - ARM, RIGHT Narrative Performed At Association of Glomerular Filtration Rate (GFR) [facility] and Staging of Kidney Disease* + + +- + | GFR (mL/min/1.73 m2) | With Kidney Damage | Without Kidney Damage + + +- + | >90 | Stage one | Normal + + +- + | 60-89 | Stage two | Decreased GFR + + +- + | 30-59 | Stage three | Stage three + + +- + | 15-29 | Stage four | Stage four + + +- + | <15 (or dialysis) | Stage five | Stage five + + +- + *Each stage assumes the associated GFR level has been in effect for at least three months. Stages 1 to 5, with or without kidney disease, indicate chronic kidney disease. Notes: Determination of stages one and two (with eGFR >59mL/min/1.73 m2) requires estimation of kidney damage for at least three months as defined by structural or functional abnormalities of the kidney, manifested by either: Pathological abnormalities or Markers of kidney damage (including abnormalities in the composition of the blood or urine or abnormalities in imaging tests). Performing Organization Address City/State/Zipcode Phone Number [facility] CLIA: [id number], [address] [place] [address] MAGNESIUM (12/27/2019 7:39 PM PRIVATE INQUIRY AGENT) MAGNESIUM 1.5 (L) 1.7 - 2.4 mg/dL [facility] Specimen Blood - ARM, RIGHT Performing Organization Address City/State/Zipcode Phone Number [facility] CLIA: [id number], [address] [place] [id number] [address] BASIC METABOLIC PANEL (NA, K, CL, CO2, GLUCOSE, BUN, CREATININE, CA) (2019 7:39 PM PRIVATE INQUIRY AGENT) NA 137 135 - 145 [facility] mmol/L [facility] K 3.5 3.5 - 5.0 [facility] mmol/L [facility] CL 108 98 - 108 mmol/L [facility] CO2 TOTAL 23 23 - 31 mmol/L [facility] AGAP 6 2 - 16 [facility] BUN <2 (L) 7 - 23 mg/dL [facility] GLUCOSE 106 70 - 110 mg/dL [facility] CREATININE 0.38 (L) 0.50 - 1.04 [facility] mg/dL [facility] CALCIUM 8.2 (L) 8.6 - 10.6 [facility] mg/dL [facility] eGFR Calculation 209.9 mL/min/1.73m2 [facility] ([facility] LABORATORY [place]) eGFR Calculation 254.4 mL/min/1.73m2 [facility] () [facility] Specimen Blood - ARM, RIGHT Narrative Performed At Association of Glomerular Filtration Rate (GFR) [facility] and Staging of Kidney Disease* + + +- + | GFR (mL/min/1.73 m2) | With Kidney Damage | Without Kidney Damage + + +- + | >90 | Stage one | Normal + + +- + | 60-89 | Stage two | Decreased GFR + + +- + | 30-59 | Stage three | Stage three + + +- + | 15-29 | Stage four | Stage four + + +- + | <15 (or dialysis) | Stage five | Stage five + + +- + *Each stage assumes the associated GFR level has been in effect for at least three months. Stages 1 to 5, with or without kidney disease, indicate chronic kidney disease. Notes: Determination of stages one and two (with eGFR >59mL/min/1.73 m2) requires estimation of kidney damage for at least three months as defined by structural or functional abnormalities of the kidney, manifested by either: Pathological abnormalities or Markers of kidney damage (including abnormalities in the composition of the blood or urine or abnormalities in imaging tests). Performing Organization Address City/[facility]/Zipcode Phone Number [facility] CLIA: [id number], [address] [place] [address] MAGNESIUM (12/27/2019 12:04 PM PRIVATE INQUIRY AGENT) MAGNESIUM 1.6 (L) 1.7 - 2.4 mg/dL [facility] Specimen Blood - VENOUS Performing Organization Address [facility] Phone Number [facility] CLIA: [id number], [address] [place] [address] BASIC METABOLIC PANEL (NA, K, CL, CO2, GLUCOSE, BUN, CREATININE, CA) (2019 12:04 PM PRIVATE INQUIRY AGENT) NA 143 135 - 145 [facility] mmol/L [facility] K 3.6 3.5 - 5.0 [facility] mmol/L [facility] CL 110 (H) 98 - 108 mmol/L [facility] CO2 TOTAL 28 23 - 31 mmol/L [facility] AGAP 5 2 - 16 [facility] BUN <2 (L) 7 - 23 mg/dL [facility] GLUCOSE 84 70 - 110 mg/dL [facility] CREATININE 0.50 0.50 - 1.04 [facility] mg/dL [facility] CALCIUM 9.3 8.6 - 10.6 [facility] mg/dL [facility] eGFR Calculation 152.9 mL/min/1.73m2 [facility] ([facility] [place]) eGFR Calculation 185.3 mL/min/1.73m2 [facility] () [facility] Specimen Blood - VENOUS Narrative Performed At [facility] of Glomerular Filtration Rate (GFR) [facility] and Staging of Kidney Disease* + + +- + | GFR (mL/min/1.73 m2) | With Kidney Damage | Without Kidney Damage + + +- + | >90 | Stage one | Normal + + +- + | 60-89 | Stage two | Decreased GFR + + +- + | 30-59 | Stage three | Stage three + + +- + | 15-29 | Stage four | Stage four + + +- + | <15 (or dialysis) | Stage five | Stage five + + +- + *Each stage assumes the associated GFR level has been in effect for at least three months. Stages 1 to 5, with or without kidney disease, indicate chronic kidney disease. Notes: Determination of stages one and two (with eGFR >59mL/min/1.73 m2) requires estimation of kidney damage for at least three months as defined by structural or functional abnormalities of the kidney, manifested by either: Pathological abnormalities or Markers of kidney damage (including abnormalities in the composition of the blood or urine or abnormalities in imaging tests). Performing Organization Address [facility] Corporationcode Phone Number [facility] CLIA: [id number], [address] [place] [address] MAGNESIUM (12/27/2019 2:25 AM PRIVATE INQUIRY AGENT) MAGNESIUM 1.6 (L) 1.7 - 2.4 mg/dL [facility] LABORATORY Specimen Blood - WRIST, RIGHT Performing Organization Address [facility] Corporationcomd Phone Number [facility] CLIA: [id number], [address] [place] [address] BASIC METABOLIC PANEL (NA, K, CL, CO2, GLUCOSE, BUN, CREATININE, CA) (2019 2:25 AM PRIVATE INQUIRY AGENT) NA 139 135 - 145 [facility] mmol/L [facility] LABORAT[facility] K 2.8 (LL) 3.5 - 5.0 [facility] mmol/L [facility] CL 107 98 - 108 mmol/L [facility] LABOR[facility]ORY CO2 TOTAL 26 23 - 31 mmol/L [facility] LAB[facility] AGAP 6 2 - 16 [facility] BUN <2 (L) 7 - 23 mg/dL [facility] GLUCOSE 87 70 - 110 mg/dL [facility] LAB[facility] CREATININE 0.42 (L) 0.50 - 1.04 [facility] mg/dL [facility] CALCIUM 8.8 8.6 - 10.6 [facility] mg/dL [facility] eGFR Calculation 187.0 mL/min/1.73m2 [facility] ([facility] LABORATORY Gu[place]an) eGFR Calculation 226.6 mL/min/1.73m2 [facility] () [facility]OR[facility] Specimen Blood - WRIST, RIGHT Narrative Performed At Association of Glomerular Filtration Rate (GFR) [facility] LABORATORY and Staging of Kidney Disease* + + +- + | GFR (mL/min/1.73 m2) | With Kidney Damage | Without Kidney Damage + + +- + | >90 | Stage one | Normal + + +- + | 60-89 | Stage two | Decreased GFR + + +- + | 30-59 | Stage three | Stage three + + +- + | 15-29 | Stage four | Stage four + + +- + | <15 (or dialysis) | Stage five | Stage five + + +- + *Each stage assumes the associated GFR level has been in effect for at least three months. Stages 1 to 5, with or without kidney disease, indicate chronic kidney disease. Notes: Determination of stages one and two (with eGFR >59mL/min/1.73 m2) requires estimation of kidney damage for at least three months as defined by structural or functional abnormalities of the kidney, manifested by either: Pathological abnormalities or Markers of kidney damage (including abnormalities in the composition of the blood or urine or abnormalities in imaging tests). Performing Organization Address [facility] CorporationcoConsortiEX Phone Number [facility] CLIA: [id number], [address] [place], [place] [address] LABORATORY [address] Urinalysis (12/26/2019 9:33 AM PRIVATE INQUIRY AGENT) APPEARANCE Clear Clear [facility] LABORATORY COLOR Yellow Yellow [facility] LAB[facility] PH 7.0 4.8 - 8.0 [facility] LABOR[facility] SP GRAVITY 1.004 1.003 - 1.030 [facility] LABORATORY GLU U QUAL Normal Normal [facility] BLOOD Negative Negative [facility] LAB[facility] KETONES 20 mg/dL (A) Negative [facility] LAB[facility] PROTEIN Negative Negative [facility] UROBILIN Normal Normal [facility] BILIRUBIN Negative Negative [facility] NITRITE Negative Negative [facility] LEUK INGE Negative Negative [facility] RBC/HPF 2 0 - 3 HPF [facility] LAB[facility] WBC/HPF 3 0 - 5 HPF [facility] LABORATORY BACTERIA Few (A) Negative [facility] LABORAT[facility] SQ EPITH 4 HPF [facility] LABORATORY Specimen Urine - URINE, CLEAN CATCH Performing Organization Address [facility]/[employer] Phone Number [facility] CLIA: [id number], [address] [place] [address] Protein CREAT Ratio Urine Random (12/26/2019 9:33 AM PRIVATE INQUIRY AGENT) T. PROT U 19 mg/dL [facility] LABORATORY CREAT U 56.7 mg/dL [facility] LAB[facility] Protein/Creatinine 0.3 0.0 - 2.0 [facility] Urine HOSPITAL LABORATORY Specimen Urine - URINE, CLEAN CATCH Narrative Performed At Random Urine Total Protein Reference Ranges [facility] LABORATORY Random Specimen: Less than 10 mg/dL First Morning Specimen: Less than 20 mg/dL Performing Organization Address [facility] Corporationcomd Phone Number [facility] CLIA: [id number], [address] [place] [address] HIV 1/2 AG-AB WITH REFLEX (12/26/2019 8:42 AM PRIVATE INQUIRY AGENT) HIV 1/2 Ag-Ab with Negative Negative [facility] Reflex [facility] LABOR[facility] HIV Semi-quantitative 0.10 [facility] LABORATORY Specimen Blood Narrative Performed At Non-reactive for HIV-1 antigen and HIV-1/HIV-2 [facility] LABORATORY antibodies. No laboratory evidence of HIV infection. Repeat in 2-4 weeks if acute HIV infection is suspected. Performing Organization Address [facility] Corporationcomd Phone Number [facility] CLIA: [id number], [address] [place] [address] [address] MAGNESIUM (12/26/2019 8:42 AM PRIVATE INQUIRY AGENT) MAGNESIUM 1.5 (L) 1.7 - 2.4 mg/dL [facility] LABORATORY Specimen Blood - VENOUS Performing Organization Address [facility] Corporationcode Phone Number [facility] CLIA: [id number], [address] [place] [address] [address] BASIC METABOLIC PANEL (NA, K, CL, CO2, GLUCOSE, BUN, CREATININE, CA) (2019 8:42 AM PRIVATE INQUIRY AGENT) NA 138 135 - 145 [facility] mmol/L [facility] K 2.9 (LL) 3.5 - 5.0 [facility] mmol/L [facility] CL 106 98 - 108 mmol/L [facility] LABORATORY CO2 TOTAL 24 23 - 31 mmol/L [facility] LABORATORY AGAP 8 2 - 16 [facility] LABORATORY BUN <2 (L) 7 - 23 mg/dL [facility] LABORATORY GLUCOSE 76 70 - 110 mg/dL [facility] LABORATORY CREATININE 0.42 (L) 0.50 - 1.04 [facility] mg/dL [facility] CALCIUM 8.9 8.6 - 10.6 [facility] mg/dL [facility] LAB[facility] eGFR Calculation 187.0 mL/min/1.73m2 [facility] ([facility] LABORATORY Gu[place]an) eGFR Calculation 226.6 mL/min/1.73m2 [facility] () [facility]OR[facility] Specimen Blood - VENOUS Narrative Performed At [facility] of Glomerular Filtration Rate (GFR) [facility] LABORATORY and Staging of Kidney Disease* + + +- + | GFR (mL/min/1.73 m2) | With Kidney Damage | Without Kidney Damage + + +- + | >90 | Stage one | Normal + + +- + | 60-89 | Stage two | Decreased GFR + + +- + | 30-59 | Stage three | Stage three + + +- + | 15-29 | Stage four | Stage four + + +- + | <15 (or dialysis) | Stage five | Stage five + + +- + *Each stage assumes the associated GFR level has been in effect for at least three months. Stages 1 to 5, with or without kidney disease, indicate chronic kidney disease. Notes: Determination of stages one and two (with eGFR >59mL/min/1.73 m2) requires estimation of kidney damage for at least three months as defined by structural or functional abnormalities of the kidney, manifested by either: Pathological abnormalities or Markers of kidney damage (including abnormalities in the composition of the blood or urine or abnormalities in imaging tests). Performing Organization Address City/State/Zipcode Phone Number [facility] CLIA: [id number], [address] [place] [address] [facility] [place] ADC OR NITHIN ONLY - RPR (12/26/2019 8:42 AM PRIVATE INQUIRY AGENT) RPR (Qualitative) Nonreactive Nonreactive [facility] LABORATORY Specimen Blood Performing Organization Address [facility]/Zipcode Phone Number [facility] CLIA: [id number], [address] [place] [address] Hepatitis B Surface Antigen (12/26/2019 8:42 AM PRIVATE INQUIRY AGENT) HBsAg Negative Negative [facility] LABORATORY SERVICES HBsAg 0.04 [facility] LABORATORY Semi-Quantitative SERVICES Specimen Blood - VENOUS Performing Organization Address City/State/Zipcode Phone Number [facility] LABORATORY SERVICES CLIA: [id number], [address] [place] [address] [phone] [facility] CBC WITH DIFFERENTIAL (12/26/2019 8:42 AM PRIVATE INQUIRY AGENT) WBC 8.54 4.30 - 11.10 [facility] 10*3/L HOSPITAL LABORATORY RBC 3.79 (L) 3.93 - 5.25 [facility] 10*6/L HOSPITAL LABORATORY HGB 10.8 (L) 11.6 - 15.0 [facility] g/dL [facility] HCT 33.2 (L) 35.7 - 45.2 % [facility] LABORATORY MCV 87.6 80.6 - 95.5 fL [facility] LABORATORY MCH 28.5 25.9 - 32.8 pg [facility] LABORATORY MCHC 32.5 31.6 - 35.1 [facility] g/dL [facility] RDW-SD 46.0 39.0 - 49.9 fL [facility] LABORATORY RDW-CV 14.4 12.0 - 15.5 % [facility] LABORATORY PLT 287 166 - 358 [facility] 10*3/L [facility] LABORATORY MPV 9.8 9.5 - 12.9 fL [facility] LABORATORY NRBC/100 WBC 0.0 0.0 - 10.0 /100 [facility] WBCs [facility] LABORATORY NRBC x10^3 <0.01 10*3/L [facility] LABORATORY GRAN MAT (NEUT) % 70.6 % [facility] LABORATORY IMM GRAN % 0.70 % [facility] LABORATORY LYMPH % 16.9 % [facility] LABORATORY MONO % 10.8 % [facility] LABORATORY EOS % 0.9 % [facility] LABORATORY BASO % 0.1 % [facility] LABORATORY GRAN MAT x10^3(ANC) 6.03 1.88 - 7.09 [facility] 10*3/uL HOSPITAL LABORATORY IMM GRAN x10^3 0.06 0.00 - 0.06 [facility] 10*3/uL HOSPITAL LABORATORY LYMPH x10^3 1.44 1.32 - 3.29 [facility] 10*3/uL HOSPITAL LABORATORY MONO x10^3 0.92 0.33 - 0.92 [facility] 10*3/uL [facility] LAB[facility] EOS x10^3 0.08 0.03 - 0.39 [facility] 10*3/uL [facility] LAB[facility] BASO x10^3 <0.03 0.01 - 0.07 [facility] 10*3/uL [facility] LABOR[facility] Specimen Blood - VENOUS Performing Organization Address [facility] Corporationcomd Phone Number [facility] CLIA: [id number], [address] [place] [address] Lactate Dehydrogenase (12/26/2019 8:42 AM PRIVATE INQUIRY AGENT) LDH 488 300 - 600 U/L [facility] LABORATORY Specimen Blood - VENOUS Performing Organization Address [facility] Phone Number [facility] CLIA: [id number], [address] [place] [address] Alanine Amino Transferase (SGPT) (12/26/2019 8:42 AM PRIVATE INQUIRY AGENT) ALTv 22 5 - 35 U/L [facility] LABORATORY Specimen Blood - VENOUS Performing Organization Address [facility] Phone Number [facility] CLIA: [id number], [address] [place] [address] SGOT (Asparate Amino Transfer) (12/26/2019 8:42 AM PRIVATE INQUIRY AGENT) AST(SGOT) 106 (H) 13 - 40 U/L [facility] LABORATORY Specimen Blood - VENOUS Performing Organization Address [facility] Phone Number [facility] CLIA: [id number], [address] [place] [address] Serum Creatinine (12/26/2019 8:42 AM PRIVATE INQUIRY AGENT) CREATININE 0.41 (L) 0.50 - 1.04 [facility] mg/dL [facility] LABORATORY eGFR Calculation 192.2 mL/min/1.73m2 [facility] ([facility] LABORATORY [place]an) eGFR Calculation 233.0 mL/min/1.73m2 [facility] () [facility] LABORATORY Specimen Blood - VENOUS Narrative Performed At [facility] of Glomerular Filtration Rate (GFR) [facility] LABORATORY and Staging of Kidney Disease* + + +- + | GFR (mL/min/1.73 m2) | With Kidney Damage | Without Kidney Damage + + +- + | >90 | Stage one | Normal + + +- + | 60-89 | Stage two | Decreased GFR + + +- + | 30-59 | Stage three | Stage three + + +- + | 15-29 | Stage four | Stage four + + +- + | <15 (or dialysis) | Stage five | Stage five + + +- + *Each stage assumes the associated GFR level has been in effect for at least three months. Stages 1 to 5, with or without kidney disease, indicate chronic kidney disease. Notes: Determination of stages one and two (with eGFR >59mL/min/1.73 m2) requires estimation of kidney damage for at least three months as defined by structural or functional abnormalities of the kidney, manifested by either: Pathological abnormalities or Markers of kidney damage (including abnormalities in the composition of the blood or urine or abnormalities in imaging tests). Performing Organization Address City/[facility]/Zipcode Phone Number [facility] CLIA: [id number], [address] [place] [address] Uric Acid Serum (12/26/2019 8:42 AM PRIVATE INQUIRY AGENT) URIC ACID 6.3 (H) 2.9 - 6.0 mg/dL [facility] LABORATORY Specimen Blood - VENOUS Performing Organization Address [facility] Corporationcode Phone Number [facility] CLIA: [id number], [address] [place] [address] Type and Screen - ONCE STAT (12/26/2019 8:40 AM PRIVATE INQUIRY AGENT) ABO & RH O Positive LAB Comment: Performed at [facility] Laboratory Services - [facility] Blood Bank [address] [place] [phone] Toll Free: [phone] CLIA No. [id number] IAT Negative LAB Comment: Performed at [facility] Laboratory Services - [facility] Blood Bank [address] [place] [phone] Toll Free: [phone] CLIA No. [id number] Specimen Blood - VENOUS Performing Organization Address [facility]/Zipcode Phone Number BLD LAB GROUP B STREPTOCOCCUS BY PCR (12/25/2019 11:28 PM PRIVATE INQUIRY AGENT) Group B Streptococcus by Negative Negative [facility] LABORATORY PCR SERVICES Specimen Swab - ANAL/VAGINAL Performing Organization Address City/State/Zipcode Phone Number [facility] LABOR[facility]ORY SERVICES CLIA: [id number], [address] [place] [address] [phone] [facility] documented in this encounter Visit Diagnoses Diagnosis Liveborn infant, of zimmerman , born in hospital by vaginal delivery - Primary Supervision of high risk in third trimester Unspecified high-risk Obesity in Obesity complicating , childbirth, or the puerperium, unspecified as to episode of care or not applicable 36 weeks gestation of state, incidental Hypokalemia Hypopotassemia Pre-eclampsia, severe, antepartum Severe pre-eclampsia, antepartum Morbid obesity with body mass index of 40.0-49.9 Hypomagnesemia Disorders of magnesium metabolism Chorioamnionitis in third trimester, single or unspecified fetus documented in this encounter Administered Medications Medication Order MAR Action Action Date Dose Rate Site acetaminophen (TYLENOL) tablet Given 12/30/2019 11:29 AM PRIVATE INQUIRY AGENT 650 mg 650 mg 650 mg, Oral, Q6HPRN, Starting 12/29/19 at 0201, Until Discontinued, Routine, Pain (scale 1-3) benzocaine-menthol (DERMOPLAST) 20-0.5 % topical spray Topical, PRN, Starting 12/29/19 at 0201, Until Discontinued, Routine, Perineum discomfort calcium gluconate 100 mg/mL (10%) injection 1,000 mg 1,000 mg, Slow IV Push, PRN - SEE INSTRUCTIONS, Starting 12/28/19 at 1834, Until Discontinued, Routine, magnesium toxicity D5W 0.45% NaCl (1/2NS) IV New Bag 12/28/2019 6:55 PM PRIVATE INQUIRY AGENT 1,000 mL 100 mL/ hr infusion 1,000 mL at 100 mL/hr, 1,000 mL, IV Infusion, CONTINUOUS, Starting 12/28/19 at 1845, Until Discontinued, JUAN D5W-LR IV infusion 1,000 mL New Bag 12/28/2019 2:33 AM PRIVATE INQUIRY AGENT 1,000 mL 125 mL/hr at 125 mL/hr, IV Infusion, CONTINUOUS, Starting Jennifer 12/26/19 at 1330, Until Discontinued, Routine New Bag 12/27/2019 5:43 PM PRIVATE INQUIRY AGENT 1,000 mL 125 mL/hr New Bag 12/27/2019 9:46 AM PRIVATE INQUIRY AGENT 1,000 mL 125 mL/hr diphenhydrAMINE (BENADRYL) 25 mg in NaCl 0.9% (NS) piggyback 25 mg, IV Piggyback, Q6HPRN, Starting 12/29/19 at 0201, Until Discontinued, 50 mL diphenhydrAMINE (BENADRYL) tablet 25 mg 25 mg, Oral, Q6HPRN, Starting 12/29/19 at 0201, Until Discontinued, Routine, Sleep, Itching docusate calcium (SURFAK) capsule 240 mg Given 12/30/2019 8:02 AM PRIVATE INQUIRY AGENT 240 mg 240 mg, Oral, QDAILYPRN, Starting 12/29/19 at 0201, Until Discontinued, Routine, Constipation hydroCHLOROthiazide (ESIDRIX) tablet 25 mg Given 12/30/2019 9:19 AM PRIVATE INQUIRY AGENT 25 mg 25 mg, Oral, DAILY, First dose on 12/29/19 at 1930, Until Discontinued, Routine Given 12/29/2019 8:36 PM PRIVATE INQUIRY AGENT 25 mg ibuprofen (IBU) tablet 600 mg Given 12/30/2019 8:02 AM PRIVATE INQUIRY AGENT 600 mg 600 mg, Oral, Q6HPRN, Starting 12/29/19 at 0201, Until Discontinued, Routine, Pain (scale 4-6) Given 12/29/2019 11:43 PM PRIVATE INQUIRY AGENT 600 mg Given 12/29/2019 4:54 PM PRIVATE INQUIRY AGENT 600 mg lactated ringers IV infusion 500 New Bag 12/29/2019 3:02 PM PRIVATE INQUIRY AGENT 500 mL 999 mL/hr mL at 999 mL/hr, 500 mL, IV Infusion, PRN - SEE INSTRUCTIONS, Starting Jennifer 12/26/19 at 1316, Until Discontinued, Routine lidocaine 1% (PF) (XYLOCAINE) injection 0.3 mL 0.3 mL, Infiltration, PRN - SEE INSTRUCTIONS, Starting Jennifer 12/26/19 at 1316, Until Discontinued, Routine, Local anesthesia, For IV line placement only as a local anesthetic. magnesium hydroxide (MILK OF MAGNESIA) 400 mg/5 mL suspension 30 mL 30 mL, Oral, QDAILYPRN, Starting 12/29/19 at 0201, Until Discontinued, Routine, Constipation magnesium sulfate 4 mEq/mL (50 %) injection 16 mEq 16 mEq (2 g), Slow IV Push, PRN - SEE INSTRUCTIONS, 2 doses, Starting Sat at 1834, Until Discontinued, Routine, For seizure activity (patient already on magnesium sulfate) magnesium sulfate 4 mEq/mL (50 %) injection 32 mEq 32 mEq (4 g), Slow IV Push, PRN - SEE INSTRUCTIONS, Starting 12/28/19 at 1834 , Until Discontinued, Routine, For seizure activity (patient not on magnesium sulfate) ondansetron (ZOFRAN (PF)) injection 4 mg 4 mg, Slow IV Push, Q8HPRN, Starting 12/29/19 at 0201, Until Discontinued, Routine, Nausea and Vomiting (N/V) vitamin w/FA (PRENATABS RX) Given 12/30/2019 9:19 AM PRIVATE INQUIRY AGENT 1 tablet tablet 1 tablet 1 tablet, Oral, DAILY, First dose on [place] 12/29/19 at 0900, Until Discontinued, Routine Given 12/29/2019 8:13 AM PRIVATE INQUIRY AGENT 1 tablet proMETHazine (PHENERGAN) 25 mg in NaCl 0.9% Given 12/27/2019 12:59 PM PRIVATE INQUIRY AGENT 25 mg (NS) 50 mL piggyback 25 mg, IV Piggyback, Q6HPRN, Starting Jennifer 12/26/19 at 1318, Until Discontinued, 50 mL Given 12/26/2019 8:00 PM PRIVATE INQUIRY AGENT 25 mg simethicone (GAS RELIEF (SIMETHICONE)) Given 12/30/2019 9:19 AM PRIVATE INQUIRY AGENT 160 mg chewable tablet 160 mg 160 mg, Oral, PC+HSPRN, Starting 12/29/19 at 0201, Until Discontinued, Routine, Gas sodium citrate-citric acid (BICITRA) 500-334 mg/5 mL solution 30 mL 30 mL, Oral, PRE-PROCEDURE ONCE, 1 dose, Starting Jennifer 12/26/19 at 1316, Until Discontinued, Routine, Surgery/Procedure Medication Order MAR Action Action Date Dose Rate Site ampicillin (POLYCILLIN-N) 2,000 Given 12/28/2019 11:06 PM PRIVATE INQUIRY AGENT 2,000 mg mg in NaCl 0.9% (NS) 100 mL MINI-BAG 2,000 mg (2 g), IV Piggyback, Q6H ABX, First dose on 12/28/19 at 2315, Until Discontinued, 100 mL, Reason for Anti-Infective: Empiric Therapy for Suspected Infection dinoprostone (CERVIDIL) vaginal insert 10 mg Given 12/27/2019 1:02 AM PRIVATE INQUIRY AGENT 10 mg 10 mg, Vaginal, ONCE, 1 dose, Mon12/27/19 at 0000, Routine, Restricted use approved by: ADC Provider FENTanyl PF (SUBLIMAZE (PF)) injection 100 Given 12/27/2019 6:16 PM PRIVATE INQUIRY AGENT 100 mcg mcg 100 mcg, Slow IV Push, Q1HPRN, Starting Jennifer 12/26/19 at 1318, Until 12/29/19 at 1250, Routine, contraction pain without an epidural and SVE < 8 cm and Cat I strip Given 12/27/2019 12:58 PM PRIVATE INQUIRY AGENT 100 mcg Given 12/27/2019 10:31 AM PRIVATE INQUIRY AGENT 100 mcg gentamicin 40 mg/mL 280 mg in NaCl 0.9% (NS) Given 12/29/2019 1:14 AM PRIVATE INQUIRY AGENT 280 mg 250 mL IV infusion 280 mg (rounded from 285 mg=5 mg/kg 57 kg [place] weight), IV Infusion, Q24H ABX, First dose on [place] 12/29/19 at 0030, Until Discontinued, 250 mL, Reason for Anti-Infective: Empiric Therapy for Suspected Infection KCL (KLOR-CON M10) tablet 10 mEq Given 12/27/2019 3:20 PM PRIVATE INQUIRY AGENT 10 mEq 10 mEq, Oral, ONCE, 1 dose, Mon12/27/19 at 1400, Routine KCL (KLOR-CON M10) tablet 10 mEq Given 12/27/2019 9:21 PM PRIVATE INQUIRY AGENT 10 mEq 10 mEq, Oral, DAILY AT 1700, First dose on Mon12/27/19 at 2115, Until Discontinued, Routine KCL (KLOR-CON M20) tablet 40 mEq Given 12/27/2019 6:34 AM PRIVATE INQUIRY AGENT 40 mEq 40 mEq, Oral, ONCE, 1 dose, Mon12/27/19 at 0645, Routine KCL (KLOR-CON M20) tablet 40 mEq Given 12/28/2019 9:30 AM PRIVATE INQUIRY AGENT 40 mEq 40 mEq, Oral, BID, First dose on 12/28/19 at 0930, Until Discontinued, Routine KCL (KLOR-CON M20) tablet 40 mEq Given 12/29/2019 8:13 AM PRIVATE INQUIRY AGENT 40 mEq 40 mEq, Oral, BID, First dose on 12/28/19 at 2115, Until Discontinued, Routine Given 12/28/2019 9:10 PM PRIVATE INQUIRY AGENT 40 mEq magnesium oxide (MAG-OX 400) tablet 400 mg Given 12/28/2019 9:24 AM PRIVATE INQUIRY AGENT 400 mg 400 mg, Oral, BID, First dose on Mon12/27/19 at 1300, Until Discontinued, Routine Given 12/27/2019 8:35 PM PRIVATE INQUIRY AGENT 400 mg Given 12/27/2019 12:58 PM PRIVATE INQUIRY AGENT 400 mg magnesium sulfate 2,000 mg in D5W New Bag 12/27/2019 4:30 AM PRIVATE INQUIRY AGENT 2,000 mg piggyback 2,000 mg, IV Infusion, ONCE, 1 dose, Mon12/27/19 at 0430, 100 mL magnesium sulfate in LR 40 gram/500 New Bag 12/28/2019 6:55 PM PRIVATE INQUIRY AGENT 2 g/hr 25 mL/hr mL IV Solution 2 g/hr (25 mL/hr), at 25 mL/hr, IV Infusion, CONTINUOUS, Starting 12/28/19 at 1845, Until 12/29/19 at 0644, JUAN magnesium sulfate in LR 40 Dose/Rate Verify 12/29/2019 8:34 PM PRIVATE INQUIRY AGENT 2 g/hr 25 mL/hr gram/500 mL IV Solution 2 g/hr (25 mL/hr), at 25 mL/hr, IV Infusion, CONTINUOUS, Starting 12/29/19 at 1400, Until 12/30/19 at 0159, JUAN New Bag 12/29/2019 12:00 PM PRIVATE INQUIRY AGENT 2 g/hr 25 mL/hr magnesium sulfate in water 2 gram/50 mL (4 %) New Bag 12/26/2019 3:20 PM PRIVATE INQUIRY AGENT 2 g 2 g piggyback 2 g, IV Infusion, ONCE, 1 dose, Jennifer 12/26/19 at 1545 magnesium sulfate in water 2 gram/50 mL New Bag 12/28/2019 10:44 AM PRIVATE INQUIRY AGENT 2, 000 mg (4 %) 2,000 mg piggyback 2,000 mg, IV Infusion, ONCE, 1 dose, 12/28/19 at 1000 oxytocin (PITOCIN) 20 Rate Change 12/28/2019 4:11 1.333 kyle-units/min 4 mL/hr Units in lactated AM PRIVATE INQUIRY AGENT ringers 1,000 mL IV infusion 4 kyle-units/min (12 mL/hr), at 12 mL/hr, IV Infusion, CONTINUOUS, Starting Mon12/27/19 at 1030, Until 12/28/19 at 0920 New Bag 12/28/2019 3:50 AM PRIVATE INQUIRY AGENT 0.667 kyle-units/min 2 mL/hr Dose/Rate Verify 12/27/2019 3:00 PM PRIVATE INQUIRY AGENT 4 kyle-units/min 12 mL/hr oxytocin (PITOCIN) 20 New Bag 12/28/2019 10:16 PM 40 kyle-units/min 120 mL /hr Units in lactated ringers PRIVATE INQUIRY AGENT 1,000 mL IV infusion 2 kyle-units/min (6 mL/hr), at 6 mL/hr, IV Infusion, TITRATE, Starting 12/28/19 at 0345, Until [place]ner 12/29/19 at 1250 Rate Change 12/28/2019 8:00 PM PRIVATE INQUIRY AGENT 40 kyle-units/min 120 mL/hr Rate Change 12/28/2019 7:40 PM PRIVATE INQUIRY AGENT 38 kyle-units/min 114 mL/hr penicillin g pot in dextrose Given 12/28/2019 9:25 AM PRIVATE INQUIRY AGENT 3 Million Units 50 mL/hr 3 million unit/50 mL RTU iv piggyback 3 Million Units 3 Million Units, IV Piggyback, Q4H ABX, First dose on [facility] 12/28/19 at 1000, Until Discontinued, 50 mL, Reason for Anti-Infective: Empiric Non-Surgical Prophylaxis penicillin g potassium 5 Million Given 12/28/2019 5:15 AM PRIVATE INQUIRY AGENT 5 Million Units Units in NaCl 0.9% (NS) 100 mL piggyback 5 Million Units, IV Piggyback, ONCE, 1 dose, 12/28/19 at 0515, 100 mL potassium chloride 10 mEq in 100 mL Given 12/26/2019 7:18 PM PRIVATE INQUIRY AGENT 10 mEq 100 mL/hr RTU 10 mEq, IV Piggyback, Q1H, 4 doses, First dose on Jennifer 12/26/19 at 1600, Last dose on Jennifer 12/26/19 at 1900, 100 mL Given 12/26/2019 5:35 PM PRIVATE INQUIRY AGENT 10 mEq 100 mL/hr Given 12/26/2019 4:29 PM PRIVATE INQUIRY AGENT 10 mEq 100 mL/hr potassium chloride 10 mEq in 100 mL Given 12/27/2019 8:36 AM PRIVATE INQUIRY AGENT 10 mEq 100 mL/hr RTU 10 mEq, IV Piggyback, Q1H, 4 doses, First dose on Mon12/27/19 at 0530, Last dose on Mon12/27/19 at 0800, 100 mL Given 12/27/2019 7:44 AM PRIVATE INQUIRY AGENT 10 mEq 100 mL/hr Given 12/27/2019 6:37 AM PRIVATE INQUIRY AGENT 10 mEq 100 mL/hr documented in this encounter Insurance Payer Benefit Plan / Subscriber ID Effective Phone Address Type Group Dates [facility] [place] 2019- [address] Medicaid HEALTH CHOICE - HEALTH CHOICE ent [id number] MANAGED MEDICAID [place], [place] MEDICA[place] [phone] (Home) [place] [address] documented as of this encounter Advance Directives Name Relationship Healthcare Agent Communication Relationship Kasie Royal Mother Primary healthcare agent [email or web address]
--- OUTSIDE RECORDS SUMMARY | 2020-01-26 07:24 | XMS REPORT | Summary of Care ---
:1995 Author Organization [facility] Address [address] [place] [id number] Care Team Providers Name Role Phone Lina Van [facility] Primary Care Provider Reason for Referral (Routine) Status Reason Specialty Diagnoses / Referred By Referred To Procedures Contact Contact New Request Cardiology Diagnoses Severe pre-eclampsia, condition or complication Дмитрий Allison MD Procedures ECHO ROUTINE W/DOPPLER COLOR Preferred Location: [address] [place] [address] Reason for Visit Reason Comments New Patient Hospital Follow up Encounter Details Date Type Department Care Team Description 01/13/2020 Office Visit [facility] Дмитрий Allison MD Secondary hypertension (Primary Dx); Cardiology- [address] Severe pre-eclampsia, condition or complication; [address] [place] [address] Obesity (BMI 30-39.9) [facility], [facility] [address] [place] [id number] [phone] Allergies No Known Allergiesdocumented as of this encounter (statuses as of 01/13/2020) Medications Medication Sig Dispensed Refills Start End Date Status Date vitamin w/FA Take 1 100 tablet 3 Active tabletIndications: tablet by 0 Supervision of high mouth daily. risk in third trimester, Obesity in , 36 weeks gestation of , Hypokalemia, Pre-eclampsia, severe, antepartum, Morbid obesity with body mass index of 40.0-49.9, Hypomagnesemia, Liveborn , of zimmerman , born in hospital by vaginal delivery, Chorioamnionitis in third trimester, single or unspecified fetus docusate calcium 240 Take 1 30 capsule 1 Active mg capsule by 0 capsuleIndications: mouth once Supervision of high daily as risk in needed for third trimester, Constipation Obesity in , . 36 weeks gestation of , Hypokalemia, Pre-eclampsia, severe, antepartum, Morbid obesity with body mass index of 40.0-49.9, Hypomagnesemia, Liveborn infant, of zimmerman , born in hospital by vaginal delivery, Chorioamnionitis in third trimester, single or unspecified fetus ferrous sulfate 325 Take 1 60 tablet 2 Active mg (65 mg iron) tablet by 0 tabletIndications: mouth 2 Supervision of high (two) times risk in daily. third trimester, Obesity in , 36 weeks gestation of , Hypokalemia, Pre-eclampsia, severe, antepartum, Morbid obesity with body mass index of 40.0-49.9, Hypomagnesemia, Liveborn infant, of zimmerman , born in hospital by vaginal delivery, Chorioamnionitis in third trimester, single or unspecified fetus NIFEdipine ER 30 mg Take 1 42 tablet 0 Active tabletIndications: tablet by 0 Pre-eclampsia, mouth daily. severe, antepartum acetaminophen 325 mg Take 2 0 01/03/20 Active tabletIndications: tablets by 0 21 Severe pre-eclampsia, mouth every condition 6 (six) or complication hours as needed (headache). ondansetron 4 mg Take 1 20 tablet 0 01/13/20 Discontinued disintegrating tablet tablet by 8 20 (Therapy mouth every completed) 8 (eight) hours as needed for Nausea and Vomiting (N/V). magnesium oxide 420 Take 400 mg 14 tablet 0 01/13/20 Discontinued mg TabIndications: by mouth 2 0 20 (Therapy Hypokalemia (two) times completed) daily. butalbital-acetaminop Take 1 20 tablet 0 01/13/20 Discontinued hen-caff 50-325-40 mg tablet by 0 20 (Therapy tabletIndications: mouth every completed) Severe pre-eclampsia, 6 (six) condition hours as or complication needed (Headache). 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 SOB (shortness of breath) 09/11/2013 05/24/2019 documented as of this encounter (statuses as of 01/13/2020) Immunizations Name Administration Dates Next Due HPV [...] Sign Reading Time Taken Comments Blood Pressure 111/75 01/13/2020 2:06 PM CONCRETE MASON Pulse 81 01/13/2020 2:06 PM CONCRETE MASON Temperature - - Respiratory Rate 20 01/13/2020 2:06 PM CONCRETE MASON Oxygen Saturation 99% 01/13/2020 2:06 PM CONCRETE MASON Inhaled Oxygen Concentration - - Weight 108.8 kg (239 lb 12.8 oz) 01/13/2020 2:06 PM CONCRETE MASON Height 165.1 cm (5' 5") 01/13/2020 2:06 PM CONCRETE MASON Body Mass Index 39.9 01/13/2020 2:06 PM CONCRETE MASON documented in this encounter Patient Instructions Patient InstructionsCaДмитрий serrano MD - 01/13/2020 2:00 PM CSTCall if > 140/ 90 RETE MASON documented in this encounter Progress Notes Дмитрий Allison MD - 01/13/2020 2:00 PM CST CARDIOLOGY CLINIC NOTE 01/13/2020 Reason for Referral/Presenting Complaint: high blood pressure PCP: Lina Van History of Present Illness: Dilma Royal is a 24 years old female with history of obesity. She gave a few weeks ago. Atthe end of her she was noted to have preeclampsia. She was given nifedipine. Her BP has improved. Today she did not take it because BP was 130/72. Her weight is back to baseline. Cardiovascular testing: EKG: Normal sinus rhythm Possible Left atrial enlargement Nonspecific T wave abnormality Prolonged QT Review of Systems: General: (-) fever, (-) chills, (-) weight change, (-) dizziness, (-) fatigue Skin: (-) rash HEENT: (-) headache, (-) change in vision Neck: (-) difficulty swallowing Heme: negative Resp: (-) cough, (-) dyspnea on exertion Cardio: (-) chest pain, (-) palpitations, (-) syncope GI: (-) vomiting, (-) diarrhea : negative Endo: (-) diabetes, (-) thyroid disease Neuro: (-) numbness, (-) tingling, (-) weakness Back: (-) pain ANGELINE: (-) muscle pain, (-) claudication Psych: (-) anxiety, (-) depression Past Medical History: Past Medical History: Diagnosis Date Pre-eclampsia, mild, antepartum Current Medications: Current Outpatient Medications Medication Sig Dispense Refill acetaminophen 325 mg tablet Take 2 tablets by mouth every 6 (six) hours as needed (headache). docusate calcium 240 mg capsule Take 1 capsule by mouth once daily as needed for Constipation. 30 capsule 1 ferrous sulfate 325 mg (65 mg iron) tablet Take 1 tablet by mouth 2 (two) times daily. 60 tablet2 NIFEdipine ER 30 mg tablet Take 1 tablet by mouth daily. 42 tablet 0 vitamin w/FA tablet Take 1 tablet by mouth daily. 100 tablet 3 No current facility-administered medications for this visit. Social History: Social History Socioeconomic History Marital status: Single [...] file Gets together: Not on file Attends protestant service: Not on file Active member of [...] has 2 cats, educated on cat litter. Family History Family History Problem Relation Age of Onset Asthma Brother Asthma Maternal Uncle Diabetes Maternal Uncle Asthma Maternal Grandmother Arthritis NoFHx defects NoFHx Breast Cancer NoFHx Colon Cancer NoFHx Ovarian Cancer NoFHx Uterine Cancer NoFHx Cancer NoFHx Depression NoFHx Genetic NoFHx Heart NoFHx High cholesterol NoFHx Hypertension NoFHx Mental retardation NoFHx Neurological NoFHx Osteoporosis NoFHx Psychiatry NoFHx Physical Examination: BP 111/75 (BP Location: Left arm, Patient Position: Sitting, BP CUFF SIZE: Adult Large) | Pulse 81| Resp 20 | Ht 5' 5" (1.651 m) | Wt 239 lb 12.8 oz ( 108.8 kg) | LMP 04/12/2019 (Approximate) | SpO2 99% | BMI 39.90 kg/m Constitutional: alert and oriented x 3 (person, place and date/time); no apparent distress, obese ENT: normocephalic atraumatic, supple, no lymphadenopathy, no bruits, no JVD Lungs: clear to auscultation bilaterally Cardiovascular: S1, S2 normal, regular; no murmurs, rubs or gallops GI: soft; non-tender; non-distended; normoactive bowel sounds : not examined Musculoskeletal: Extremities: no clubbing, cyanosis, or edema Skin: no rashes Neuro: no focal deficits Assessment/Plan: ICD-10-CM ICD-9-CM 1. Secondary hypertension I15.9 405.99 2. Severe pre-eclampsia, condition or complication O14.15 642.54 3. Obesity (BMI 30-39.9) E66.9 278.00 Her BP issue is related. Currently much improved. Today her BP was normal even without taking nifedipine. Advised to check BP daily. If < 140/90 , can stay off antihypertensives. Will get ECHO to rule out structural heart disease. Patient was counseled for lifestyle modifications including: diet, exercise and weight loss Thank you for allowing us to participate in the care of your patient. Please feel free to contact usfor any questions or if we can be of further assistance. Дмитрий Allison MD, FAC, ILDAE Service Girl, Division of Cardiology [facility] documented in this encounter Plan of Treatment Date Type Specialty Care Team Description 01/20/2020 Routine Visit OB Satellites Lina Van, [facility] [address] [place] [address] [phone] 01/22/2020 Laboratory Only Cardiology Pc, Adc Echo Room 1 - Health Maintenance Due Date Last Done Comments [...] Results Not on filedocumented in this encounter Visit Diagnoses Diagnosis Secondary hypertension - Primary Other secondary hypertension, unspecified Severe pre-eclampsia, condition or complication Obesity (BMI 30-39.9) Obesity, unspecified documented in this encounter Insurance Payer Benefit Plan / Subscriber ID Effective Phone Address Type Group Dates [employer] xxxxxxxxx 2019- P.OMaame RAMOS Medicaid HEALTH CHOICE - HEALTH CHOICE [facility] [id number] MANAGED MEDICAID [place], [place] MEDICAID [phone] documented as of this encounter Advance Directives Name Relationship Healthcare Agent Communication Relationship Kasie Royal Mother Primary healthcare agent [email or web address]
--- OUTSIDE RECORDS SUMMARY | 2020-01-26 07:24 | XMS REPORT | Summary of Care ---
:1995 Author Organization [facility] Address [address] [place] [address] Care Team Providers Name Role Phone Lina Van [facility] Primary Care Provider Reason for Referral (Routine) Status Reason Specialty Diagnoses / Referred By Referred To Procedures Contact Contact New Request Cardiology Diagnoses Severe pre-eclampsia, condition or complication Дмитрий Allison MD Procedures ECHO ROUTINE W/DOPPLER COLOR Preferred Location: [address] [place] [address] Reason for Visit Reason Comments New Patient Hospital Follow up Encounter Details Date Type Department Care Team Description 01/13/[address] [facility] Дмитрий Allison MD Secondary hypertension (Primary Dx); Cardiology- [address] Severe pre-eclampsia, condition or complication; [address] [place] [address] Obesity (BMI 30-39.9) 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 SOB (shortness of breath) 09/11/2013 05/24/2019 [...] Comments Blood Pressure 111/75 01/13/2020 2:06 PM BUSINESS RULES ANALYST Pulse 81 01/13/2020 2:06 PM BUSINESS RULES ANALYST Temperature - - Respiratory Rate 20 01/13/2020 2:06 PM BUSINESS RULES ANALYST Oxygen Saturation 99% 01/13/2020 2:06 PM BUSINESS RULES ANALYST Inhaled Oxygen Concentration - - Weight 108.8 kg (239 lb 12.8 oz) 01/13/2020 2:06 PM BUSINESS RULES ANALYST Height 165.1 cm (5' 5") 01/13/2020 2:06 PM BUSINESS RULES ANALYST Body Mass Index 39.9 01/13/2020 2:06 PM BUSINESS RULES ANALYST documented in this encounter Patient Instructions Patient InstructionsCaДмитрий serrano MD - 01/13/2020 2:00 PM CSTCall if > 140/ 90 NESS RULES ANALYST documented in this encounter Progress Notes Дмитрий [...] file Gets together: Not on file Attends hinduism service: Not on file Active member of [...] further assistance. Дмитрий Allison MD, FAC, ILDAE Benefits Advisor, Division of Cardiology [facility] documented in this encounter Plan of Treatment Date Type Specialty Care Team Description 01/20/2020 Routine Visit OB Satellites [facility], [facility] [address] [place] [address] [phone] 01/22/2020 Laboratory Only Cardiology Pc, Adc Echo [...] RAMOS Medicaid HEALTH CHOICE - HEALTH CHOICE [facility] [id number] MANAGED MEDICAID [place], [place] [phone] documented as of this encounter Advance Directives Name Relationship Healthcare Agent Communication Relationship Kasie Royal Mother Primary healthcare agent [email or web address]
--- OUTSIDE RECORDS SUMMARY | 2020-01-26 07:24 | XMS REPORT | Summary of Care ---
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 MD Chuy [address] F & CHILD [facility] [place] [id number] [address] Phone: [place] [phone] [place] [address] Encounter Details Date Type Department Care Team Description 01/20/2020 Routine [facility], care and Visit Dana Perez GONZALEZ examination of [address] [place] [address] lactating mother [facility] (Primary Dx) [id number] [place] A [phone] [place] [address] Allergies No Known Allergiesdocumented as of this encounter (statuses as of 01/20/2020) Medications Medication Sig Dispensed Refills Start Date End Date Status vitamin w/FA Take 1 tablet 100 tablet 3 12/30/2019 Active tabletIndications: by mouth Supervision of high daily. risk in third [...] Supervision of high daily as risk in third needed for trimester, Obesity in Constipation. , 36 [...] tablet 0 12/30/2019 Active tabletIndications: by mouth Pre-eclampsia, severe, daily. antepartum acetaminophen 325 mg Take 2 tablets 0 01/04/2020 01/03/2021 Active tabletIndications: by mouth every Severe pre-eclampsia, 6 (six) hours condition or as needed complication (headache). 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 Utility SOB (shortness of breath) 09/11/2013 05/24/2019 documented as of this encounter (statuses as of 01/20/2020) Immunizations Name Administration Dates Next Due HPV [...] Sign Reading Time Taken Comments Blood Pressure 115/72 01/20/2020 10:53 AM MICRO PALEONTOLOGIST Pulse 90 01/20/2020 10:53 AM MICRO PALEONTOLOGIST Temperature 37.2 C (99 F) 01/20/2020 10:53 AM MICRO PALEONTOLOGIST Respiratory Rate 16 01/20/2020 10:53 AM MICRO PALEONTOLOGIST Oxygen Saturation - - Inhaled Oxygen Concentration - - Weight 109 kg (240 lb 6 oz) 01/20/2020 10:53 AM MICRO PALEONTOLOGIST Height 165.1 cm (5' 5") 01/20/2020 10:53 AM MICRO PALEONTOLOGIST Body Mass Index 40 01/20/2020 10:53 AM MICRO PALEONTOLOGIST documented in this encounter Patient Instructions Patient InstructionsTsering Ortiz, SHRADDHA - 01/20/2020 10:30 AM CST How to Breastfeed Babies use their lips, gums, and tongue to take milk from the breast (suckle). Your baby is born with an instinct for suckling. But it takes time for you and your baby to learn how to breastfeed. Thereare steps you can take to support your babys natural instincts. [id number] If possible, hold your baby bare against your skin ([id number]) just after giving and for a few hours after. You can also continue to do this in the first few weeks after . How often should I feed my baby? Nurse your 8 to 12 times every 24 hours. Feed your baby whenever he or she shows signs of hunger. When your baby is hungry, he or she will appear more awake and might root. Rooting means turning his or her head toward you when you stroke your babys cheek. Your baby might also make a suckingsound or suck on his or her hand. Crying is a late sign of hunger. If your baby is crying, it may behard for him or her to calm down to breastfeed.Infants will often eat at irregular times. But feedings will usually become more regular over time. Sometimes your baby might eat several times in a row(cluster feeding) and then take a break. Ifyour baby seems sleepy or too fussy to nurse,undress him or her and place your baby bare against your skin.Don't keep your baby swaddled tightly. This may keep him or her too sleepy to feed. Change which breast you offer first with each feeding. For example, if you started nursing on the right side with the last feeding, offer the left side first with this feeding. Always offer the other breast after your baby stops nursing on the first side. Ask your baby's healthcare provider about waking the baby for feeding. You may need to wake your baby and offer to nurse if it has been 4 hours since your baby 's last feeding. Offering your breast Hold your breast with your thumb on top and fingers underneathin a loose clinical manager home care. Gentlystrokeyour nippleon your babys lower lip.When you see your baby open his or her mouth wide, quickly bring the baby to your breast. Latching on The way your baby connects with the breast is called the latch. When your baby attaches, you should see more of the darker skin around the nipple (areola) above the baby's upper lip than below the lower lip. The front of your baby's entire body should be touching you. Your baby's nose and chin should be against the breast. Your baby's cheeks should be full and not sinking inward. You should be able to see your baby's lips. They should be slightly flared outward. As your baby suckles, his or her jaw should open wide. It should not be "munching" as if chewing. Listen for swallowing. It should not hurt when your baby latches on and suckles. If it does, try releasing the latch and starting over. Releasing the latch Let your baby nurse until satisfied. In most cases, when your baby is finished nursing, he or she will let go on his or her own. This tells you that your baby is done feeding on that breast. But you may need to release the latch sooner if you feel pain or for some other reason. To do this, slip your finger into the corner of your baby's mouth. You should feel the suction break. Only when the seal is broken, move your baby off your breast. Don't take the baby off your breast until you've felt a decrease in suction. Burping your baby Breastfed babies don't need to burp as much as bottle-fed babies. Bottles flow faster, and babies tend to swallow more air.Tryto burp your baby after each breast: Hold the baby at your upper chest or slightly over your shoulder. Gently rub or pat the babys back. Or hold the baby sitting up on your lap. Support your baby's head and chest in front and in back.Slowly rock your baby back and forth. Dont worry if your baby doesn't burp. He or she may not need to. [employer]y last reviewed this educational content on 01/25/201719991912-7822 [employer]. [address] [place] [address], [place] [address]. All rights reserved. This information is not intended as a substitute for professional medical care. Always follow your healthcare professional's instructions. After a Vaginal After having a baby, your body may be very tired. It can take time to recover from a vaginal delivery. You may stay in the hospital or center from 1 to 4 days.In some cases, you may be able to go home the same day. Right after the delivery Your temperature and blood pressure will be taken until they are stable. A nurse or other healthcareprovider will observe you as you rest. You may have afterbirth pains. These are cramps caused by theuterus shrinking. Sanitary pads are used to soak up the discharge of the uterine lining. To make sure that you arent bleeding too much, the pad will be checked. And the firmness of your uterus will be checked. To do this, a nurse will gently push down on your stomach. If you had anesthesia, youll be watched closely until you can feel and move your toes. If you have perineal pain (pain between the vagina and anus) , an ice pack can help. care While still in the hospital or center, youll learn how to hold and feed your baby. You willalso be given instructions on how to care for your baby. This includes bathing and feeding. Preparing to go home You may be anxious to go home as soon as possible. Before you and your baby go home, a healthcare provider will check to be sure you are healthy enough to take care of your baby and yourself. Youre ready to go home when: You can walk to the bathroom and use the bathroom without help. You can eat solid food and swallow pills (if needed). You have no sign of infection or other health problems, including fever. You have adequate pain control. Your bleeding isn't excessive. You are able to care for your and are emotionally stable. Before leaving the hospital or center, youll be given written instructions for home self-care after vaginal delivery. Be sure to follow these instructions carefully. If you have questions or concerns, talk about them now. If you have stitches You may have received stitches in the skin near your vagina. The stitches might have closed an episiotomy (an incision that enlarges the opening of the vagina) . Or you may have needed stitches to repair torn skin. Either way, your stitches should dissolve within weeks. Until then, you can help reduce discomfort, aid healing, and reduce your risk of infection by keeping the stitches clean. These tips can help: Gently wipe from front to back after you urinate or have a bowel movement. After wiping, spray warm water on the area. Or you can have a sitz bath. This means sitting in a tub with a few inches of water in it. Then pat the area dry or use a hairdryer on a cool setting. Do not use soap or any solution except water on the area. You can take a shower unless told not to. Change sanitary pads at least every [address] cold or heat packs on the area as directed by your healthcare providers or nurses. Keep a thin towel between the pack and your skin. Sit on firm seats so the stitches pull less. follow-up Schedule a follow-up exam with your healthcare provider for about 6 weeks after delivery. During this exam, your uterus and vaginal area will be checked. Contact your healthcare provider if you think you or your baby are having any problems. When to call your healthcare provider Call your healthcare provider right away if you have: A fever of 100.4F (38.0C) or higher Bleeding that needs a new sanitary pad after an hour, or large blood clots Pain in your vagina that gets worse and isn't relieved with medicine Swelling, discharge, or increased pain from vaginal tear or episiotomy Burning, pain, red streaks, or lumpy areas in your breasts that may be accompanied by flu-like symptoms Cracks, blisters, or blood on your nipples Burning or pain when you urinate Nausea or vomiting Dizziness or fainting Feelings of extreme sadness or anxiety, or a feeling that you dont want to be with your baby Belly pain that isnt relieved with medicine Vaginal discharge that has a bad odor No bowel movement for 5 days Painful urination, or inability to control urination Redness, warmth, or pain in the lower leg Chest pain [employer] last reviewed this educational content on 10/27/201719990725-4491 [employer]. [address] [place] [address], [place] [address]. All rights reserved. This information is not intended as a substitute for professional medical care. Always follow your healthcare professional's instructions. Understanding Depression Youve just had a baby. You expected to be excited and happy. But instead you find yourself cryingfor no reason. You may have trouble coping with your daily tasks. You feel sad, tired, and hopeless most of the time. You may even feel ashamed or guilty. But what youre going through is not your fault and you can feel better. Talk to your healthcare provider. He or she can help. What is depression? Depression is a mood disorder that affects the way you think and feel. The most common symptom is a feeling of deep sadness. You may also feel as if you just cant cope with life. Other symptoms include: Gaining or losing a lot of weight Sleeping too much or too little Feeling tired all the time Feeling restless Crying a lot Having too little or too much appetite. Withdrawing from friends and family Having headaches, aches and pains, or stomach problems that won't go away. Fears of harming your baby Lack of interest in your baby Feeling worthless or guilty No longer finding pleasure in things you used to Having trouble thinking clearly or making decisions Thinking about or suicide Depression after childbirth You may be weepy and tired right after giving . These feelings are normal. Theyre sometimes called the baby blues. These blues go away after 1 to 2 weeks. However, (meaning after ) depression lasts much longer and is more severe than the "baby blues." It can make you feel sad and hopeless. You may also fear that your baby will be harmed and worry about being a bad mother. What causes depression? The exact cause of depression is unknown. Changes in brain chemistry or structure are believed to play a big role in depression.It may be due to changes in your hormones during and after childbirth. You may also be tired from caring for your baby and adjusting to being a mother. All thesefactors may make you feel depressed. In some cases, your genes may also play a role. Depression can be treated There are many ways to treat depression. Talking to your healthcare provider is the firststep toward feeling better. When to call your healthcare provider Call your healthcare provider if you: Cry for no clear reason Have trouble sleeping, eating, and making choices Questions whether you can handle caring for a baby Have intense feelings of sadness, anxiety, or despair that prevent you from being able to do yourdaily tasks Resources [facility] [place] of Mental [phone].[facility].nih.gov National [place] on Mental Icbvxis589-667-4615axe.ahmet.org Mental Health Wwnucfn215-969-9492pmf.[facility].org National Suicide Pdcjqul110-330-7025 (800-SUICIDE) Fidel last reviewed this educational content on 05/27/201719998450-0093 [employer]. [address] [place] [address], [place] [address]. All rights reserved. This information is not intended as a substitute for professional medical care. Always follow your healthcare professional's instructions. O PALEONTOLOGIST documented in this encounter Progress Notes Lina Van, CNP - 01/20/2020 10:30 AM CST Chief complaint: Chief Complaint Patient presents with Care 3WK HPI: The patient is here for a routine PP visit. She has no complaints today. She states that she isbreastfeeding her , is bonding well, and coping well with less sleep. She reports that she hasno pain, small lochia, and denies all s/s of PP depression. She wants nexplanon for PP contraception. Histories OB History Para Term AB Living 1 1 1 0 0 1 SAB TAB Ectopic Multiple Live Births 0 0 0 0 1 # Outcome Date GA Lbr Amandeep/2nd Weight Sex Delivery Anes PTL Lv 1 Term 12/28/19 37w1d 7 lb 1.2 oz (3.21 kg) M NORMAL SPONT EPI N EVELIN Complications: Chorioamnionitis Past Medical History: Diagnosis Date Pre-eclampsia, mild, antepartum Family History Problem Relation Age of Onset [...] Specified) MGMo (Not Specified) NoFHx (Not Specified) Past Surgical History: Procedure Laterality Date DILATION OF CERVICAL CANAL 12/27/2019 Social History Socioeconomic History Marital status: Single [...] file Gets together: Not on file Attends hoahaoism service: Not on file Active member of [...] Labs No new labs and Admission on 01/02/2020, Discharged on 01/04/2020 Component Date Value APPEARANCE 01/02/2020 Hazy* COLOR 01/02/2020 Red* PH 01/02/2020 7.0 SP GRAVITY 01/02/2020 1.011 GLU U QUAL 01/02/2020 Normal BLOOD 01/02/2020 3+* KETONES 01/02/2020 Negative PROTEIN 01/02/2020 Negative UROBILIN 01/02/2020 Normal BILIRUBIN 01/02/2020 Negative NITRITE 01/02/2020 Negative LEUK INGE 01/02/2020 500/uL* RBC/HPF 01/02/2020 152* WBC/HPF 01/02/2020 73* BACTERIA 01/02/2020 Moderate* MUCOUS 01/02/2020 Slight* SQ EPITH 01/02/2020 14 NA 01/02/2020 137 K 01/02/2020 3.7 CL 01/02/2020 104 CO2 TOTAL 01/02/2020 28 AGAP 01/02/2020 5 BUN 01/02/2020 6* GLUCOSE 01/02/2020 101 CREATININE 01/02/2020 0.45* CALCIUM 01/02/2020 9.1 eGFR Calculation (Non-Af* 01/02/2020 172.7 eGFR Calculation (Shana* 01/02/2020 209.3 TOTAL BILI 01/02/2020 <0.1* BILI UNCON 01/02/2020 0.0* BILI CONJ 01/02/2020 0.0 T PROTEIN 01/02/2020 6.7 ALBUMIN 01/02/2020 3.6 ALK PHOS 01/02/2020 112 ALTv 01/02/2020 15 AST(SGOT) 01/02/2020 26 APTT Patient 01/02/2020 28 PROTIME PATIENT 01/02/2020 12.0 INR 01/02/2020 0.9 MAGNESIUM 01/02/2020 1.7 WBC 01/02/2020 16.18* RBC 01/02/2020 3.08* HGB 01/02/2020 8.9* HCT 01/02/2020 27.6* MCV 01/02/2020 89.6 MCH 01/02/2020 28.9 MCHC 01/02/2020 32.2 RDW-SD 01/02/2020 47.8 RDW-CV 01/02/2020 15.1 PLT 01/02/2020 444* MPV 01/02/2020 9.3* NRBC/100 WBC 01/02/2020 0.1 NRBC x10^3 01/02/2020 0.02 GRAN MAT (NEUT) % 01/02/2020 69.4 IMM GRAN % 01/02/2020 3.60 LYMPH % 01/02/2020 16.4 MONO % 01/02/2020 8.5 EOS % 01/02/2020 1.9 BASO % 01/02/2020 0.2 GRAN MAT x10^3(ANC) 01/02/2020 11.21* IMM GRAN x10^3 01/02/2020 0.58* LYMPH x10^3 01/02/2020 2.66 MONO x10^3 01/02/2020 1.38* EOS x10^3 01/02/2020 0.31 BASO x10^3 01/02/2020 0.04 NA 01/03/2020 137 K 01/03/2020 3.7 CL 01/03/2020 101 CO2 TOTAL 01/03/2020 28 AGAP 01/03/2020 8 BUN 01/03/2020 3* GLUCOSE 01/03/2020 96 CREATININE 01/03/2020 0.40* TOTAL BILI 01/03/2020 0.2 CALCIUM 01/03/2020 8.9 T PROTEIN 01/03/2020 7.1 ALBUMIN 01/03/2020 3.6 ALK PHOS 01/03/2020 133* ALTv 01/03/2020 15 AST(SGOT) 01/03/2020 25 eGFR Calculation (Non-Af* 01/03/2020 197.8 eGFR Calculation (Shana* 01/03/2020 239.7 WBC 01/03/2020 12.86* RBC 01/03/2020 3.32* HGB 01/03/2020 9.6* HCT 01/03/2020 30.1* MCV 01/03/2020 90.7 MCH 01/03/2020 28.9 MCHC 01/03/2020 31.9 RDW-SD 01/03/2020 49.2 RDW-CV 01/03/2020 15.4 PLT 01/03/2020 497* MPV 01/03/2020 9.0* NRBC/100 WBC 01/03/2020 0.2 NRBC x10^3 01/03/2020 0.02 GRAN MAT (NEUT) % 01/03/2020 74.3 IMM GRAN % 01/03/2020 2.30 LYMPH % 01/03/2020 13.4 MONO % 01/03/2020 7.5 EOS % 01/03/2020 2.2 BASO % 01/03/2020 0.3 GRAN MAT x10^3(ANC) 01/03/2020 9.55* IMM GRAN x10^3 01/03/2020 0.30* LYMPH x10^3 01/03/2020 1.72 MONO x10^3 01/03/2020 0.97* EOS x10^3 01/03/2020 0.28 BASO x10^3 01/03/2020 0.04 No results displayed because visit has over 200 results. Routine Visit on 12/19/2019 Component Date Value POCT U PROT 12/19/2019 neg POCT U GLU 12/19/2019 neg No results displayed because visit has over [...] 10/31/2019 . POCT U BLD 10/31/2019 . Radiology No new radiology. Allergies Dilma has No Known Allergies. Medications Dilma has a current medication list which includes the following prescription( s): vitaminw/fa, acetaminophen, docusate calcium, ferrous sulfate, and nifedipine er. Review of Systems Constitutional: Negative. HENT: Negative. Eyes: Negative. Respiratory: Negative. Breasts: Negative. Cardiovascular: Negative. Gastrointestinal: Negative. Genitourinary: Positive for vaginal bleeding. Musculoskeletal: Negative. Skin: Negative. Neurological: Negative. Psychiatric/Behavioral: Negative. Endocrine: Endocrine negative BP 115/72 (BP Location: Right arm, Patient Position: Sitting, BP CUFF SIZE: Adult Large) | Pulse 90 | Temp 37.2 C (99 F) (Oral) | Resp 16 | Ht 5' 5" (1.651 m) | Wt 240 lb 6 oz (109 kg) | LMP 04/12/2019 (Approximate) | BMI 40.00 kg/m Pregravid BMI: 40.4 Physical Exam Vitals reviewed. Constitutional: She is oriented to person, place, and time. She appears well- developed, well-nourished and well-groomed. Cardiovascular: Regular rate and rhythm. No peripheral edema present. Pulmonary/Chest: Normal inspiratory effort. Abdominal: Abdomen is soft. Normal appearance. No mass palpated. No tenderness present. There is no hepatosplenomegaly, splenomegaly or hepatomegaly. There is no rigidity and no guarding. No hernia palpated or inspected. Fundus firm Neuro/Psychiatric: She has a normal mood and affect. She is oriented to person, place, and time. Skin: Skin normal. Breast: Right breast exhibits nipple discharge. Right breast exhibits no mass and no tenderness. Left breast exhibits nipple discharge. Left breast exhibits no mass and no tenderness. Breasts are symmetrical. Lactating Normal left breast and normal right breast Rectal: Rectal exam with normal anal tone. No mass, no external hemorrhoid and no internal hemorrhoid palpated or inspected. normal rectum External genitalia: Normal external genitalia appropriate for age. Normal hair distribution. No labial lesion. Vagina:No lesion inspected. Normal estrogen effect. Normal support. Vaginal discharge found. Lochia WNL small rubra Uterus: Uterus is normal size, normal contour, normal position and non-tender. Involution WNLNormal uterus Assessment/Plan Return to clinic in 3 weeks. for WWE care and examination of lactating mother (primary encounter diagnosis) Comment: routine Plan: return to clinic in 3 weeks This visit did not involve counseling and coordination that comprised more than 50% of the visit time. BENITA Nieto 01/20/2020 11:17 AM Tsering Brice RN - 01/20/2020 10:30 AM CSTPt in clinic today for 3 wk pp visit. 1) Delivery method Vaginal 2) Patient delivered on 12/28/2019 at [facility] 3) Patient is currently 4) Desired BCM: none 5) Patient denies pp depression TSERING ORTIZ RN 01/20/2020 10:58 AM documented in this encounter Plan of Treatment Date Type Specialty Care Team Description 01/22/2020 Laboratory Only Cardiology Дмитрий Allison MD [address] [place] [address] [place] [id number] Pc, Adc Echo Room 1 - Health [...] filedocumented in this encounter Visit Diagnoses Diagnosis care and examination of lactating mother - Primary documented in this encounter Insurance Payer Benefit Plan / Subscriber ID Effective Phone Address Type Group Dates [facility] xxxxxxxxx 2019-Pres [address] Medicaid HEALTH CHOICE - HEALTH CHOICE [facility] [id number] MANAGED MEDICAID [place], [place]ICA[place] [id number] documented as of this encounter Advance Directives Name Relationship Healthcare Agent Communication Relationship Kasie Royal Mother Primary healthcare agent [email or web address]
--- OUTSIDE RECORDS SUMMARY | 2020-01-26 07:24 | XMS REPORT | Summary of Care ---
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 Chuy [facility] MATERNAL [address] [facility] & CHILD [facility] [place] [address] [address] [facility] Phone: [employer] [phone] [place] [address] Reason for Visit Reason Comments Hypertension 150/93 Headache Auth/Cert Status Reason Specialty Diagnoses / Referred By Referred To Procedures Contact Contact Emergency Medicine [facility] Emergency Dept [address] [place] [address] [place] [address] Encounter Details Date Type Department Care Team Description 01/02/2020 - [facility] ADC Labor and Kyle Goodrich MD [address] [facility] [address] [place], [place] [id number] Severe 01/04/2020 Encounter Delivery Unit Chuy Crowder MD [address] [place] [address] pre-eclampsia, [address] [facility] [address] or complication [place] [id number] Allergies No Known Allergiesdocumented as of this encounter (statuses as of 01/04/2020) Medications Medication Sig Dispensed Refills Start Date End Date Status ondansetron 4 mg Take 1 tablet 20 tablet 0 08/09/2018 Active disintegrating tablet by mouth every 8 (eight) hours as needed for Nausea and Vomiting (N/V). magnesium oxide 420 Take 400 mg 14 tablet 0 11/28/2019 Active mg TabIndications: by mouth 2 Hypokalemia (two) times daily. vitamin w/FA Take 1 tablet [...] calcium 240 Take 1 30 capsule 1 12/30/2019 Active mg capsule by capsuleIndications: mouth once Supervision of high daily as risk in needed for third trimester, Constipation. Obesity in , 36 weeks gestation of , Hypokalemia, Pre-eclampsia, severe, antepartum, Morbid obesity with body mass index of 40.0-49.9, Hypomagnesemia, Liveborn infant, of zimmerman , born in hospital by vaginal delivery, Chorioamnionitis in third trimester, single or unspecified fetus ferrous sulfate 325 Take 1 tablet 60 tablet 2 12/30/2019 Active mg (65 mg iron) by mouth 2 tabletIndications: [...] 0 12/30/2019 Active tabletIndications: by mouth Pre-eclampsia, daily. severe, antepartum butalbital-acetaminop Take 1 tablet 20 tablet 0 01/04/2020 Active hen-caff 50-325-40 mg by mouth tabletIndications: every 6 (six) Severe pre-eclampsia, hours as condition needed or complication (Headache). acetaminophen 325 mg Take 2 0 01/04/2020 Active tabletIndications: tablets by 1 Severe pre-eclampsia, mouth every 6 condition (six) hours or complication as needed (headache). loratadine (CLARITIN) Take 10 mg by 0 Discontinued 10 mg tablet mouth daily. 0 KCL 10 mEq Take 1 tablet 10 tablet 0 11/28/2019 Discontinued tabletIndications: by mouth 0 Hypokalemia daily. ibuprofen 600 mg Take 1 tablet 30 tablet 1 12/30/2019 Discontinued tabletIndications: by mouth 0 Supervision of high every 6 (six) risk in hours as third trimester, needed Obesity in , (Pain). Take 36 weeks gestation of with food or , milk. Hypokalemia, Pre-eclampsia, severe, antepartum, Morbid obesity with body mass index of 40.0-49.9, Hypomagnesemia, Liveborn infant, of zimmerman , born in hospital by vaginal delivery, Chorioamnionitis in third trimester, single or unspecified fetus documented as of this encounter (statuses as of 01/04/2020) Active Problems Problem Noted Date Severe pre-eclampsia, condition or complication 01/03/2020 Morbid obesity with body mass index of 40.0-49.9 12/26/2019 documented as of this encounter (statuses as of 01/04/2020) Resolved Problems Problem Noted Date Resolved Date [...] pain 09/11/2013 01/03/2020 Overview: ICD10 Diagnosis Term Clarification Operator Utility SOB (shortness of breath) 09/11/2013 05/24/2019 documented as of this encounter (statuses as of 01/04/2020) Immunizations Name Administration Dates Next Due HPV [...] Sign Reading Time Taken Comments Blood Pressure 132/99 01/04/2020 8:10 AM GAS ENGINEER Pulse 95 01/04/2020 8:10 AM GAS ENGINEER Temperature 37.3 C (99.2 F) 01/04/2020 8:10 AM GAS ENGINEER Respiratory Rate 18 01/04/2020 8:10 AM GAS ENGINEER Oxygen Saturation 99% 01/04/2020 4:35 AM GAS ENGINEER Inhaled Oxygen Concentration - - Weight 120.7 kg (266 lb) 01/02/2020 9:50 PM GAS ENGINEER Height - - Body Mass Index 44.26 12/25/2019 10:23 PM GAS ENGINEER documented in this encounter Discharge Summaries Chuy Crowder MD - 01/04/2020 10:02 AM CST DISCHARGE SUMMARY - Date of Service: 01/04/2020 ADMIT DATE: 01/02/2020 DISCHARGE DATE: 01/04/2020 ATTENDING MD: Dr. Crowder ATTENDING MD AT DISCHARGE: Dr. Crowder PCP: Lina Van REASON FOR ADMISSION For: She was admitted PPD#4 for a headache and mildly elevated BP c/ w clinically with preeclampsia. She received 24hrs of magnesium and HCTZ 12.5 mg in addition to her Nifedipine 30 mg XL. She improved clinically, her CORBIN resolved and she was able to be discharged on HD#3. FINAL DIAGNOSIS: (the reason, after study, for admitting the patient to the hospital) preeclampsia SECONDARY DIAGNOSIS: (any diagnosis that, on this admission, required clinical evaluation, therapeutic treatment, diagnostic procedures, extended hospital stay , or additional nursing care/monitoring) Obesity Active Problems: Severe pre-eclampsia, condition or complication (01/03/2020) POA: Yes Assessment: She is doing well this morning. Plan: Discharge home, stop the HCTZ given her history of hypokalemia and continue the daily Nifedipine. PRINCIPAL PROCEDURE: none ADDITIONAL PROCEDURES: none SIGNIFICANT LAB/X-RAYS: HCT (%) Date Value 01/03/2020 30.1 (L) HGB (g/dL) Date Value 01/03/2020 9.6 (L) 01/02/2020 8.9 (L) Rubella: immune Type and Screen: O and RH postive HOSPITAL COURSE: See above CONDITION: good DIET: regular ACTIVITY: as tolerated DISCHARGE MEDICATIONS: Current Discharge Medication List START taking these medications Details nwxlglpryg-jhxfdegvltnli-enbn (ESGIC) 1 tablet Take 1 tablet by mouth every 6 ( six) hours as needed (Headache). Qty: 20 tablet, Refills: 0 Start date: 01/04/2020 Associated Diagnoses: Severe pre-eclampsia, condition or complication CONTINUE these medications which have NOT CHANGED Details docusate calcium (SURFAK) 240 mg Take 240 mg by mouth once daily as needed for Constipation. Qty: 30 capsule, Refills: 1 Associated Diagnoses: Supervision of high risk in third trimester; Obesity in ; 36 weeks gestation of ; Hypokalemia; Pre- eclampsia, severe, antepartum; Morbid obesity with body mass index of 40.0-49.9 ; Hypomagnesemia; Liveborn infant, of zimmerman , born in hospital by vaginal delivery; Chorioamnionitis in third trimester, single or unspecified fetus ferrous sulfate 325 mg Take 325 mg by mouth 2 (two) times daily. Qty: 60 tablet, Refills: 2 Associated Diagnoses: Supervision of high risk in third trimester; Obesity in ; 36 weeks gestation of ; Hypokalemia; Pre- eclampsia, severe, antepartum; Morbid obesity with body mass index of 40.0-49.9 ; Hypomagnesemia; Liveborn , of zimmerman , born in hospital by vaginal delivery; Chorioamnionitis in third trimester, single or unspecified fetus NIFEdipine ER (AFEDITAB CR) 30 mg Take 30 mg by mouth daily. Qty: 42 tablet, Refills: 0 Associated Diagnoses: Pre-eclampsia, severe, antepartum vitamin w/FA (PRENATABS RX) 1 tablet Take 1 tablet by mouth daily. Qty: 100 tablet, Refills: 3 Associated Diagnoses: Supervision of high risk in third trimester; Obesity in ; 36 weeks gestation of ; Hypokalemia; Pre- eclampsia, severe, antepartum; Morbid obesity with body mass index of 40.0-49.9 ; Hypomagnesemia; Liveborn infant, of zimmerman , born in hospital by vaginal delivery; Chorioamnionitis in third trimester, single or unspecified fetus Magnesium Oxide (MAOX) 400 mg Take 400 mg by mouth 2 (two) times daily. Qty: 14 tablet, Refills: 0 Associated Diagnoses: Hypokalemia ondansetron (ZOFRAN-ODT) 4 mg Take 4 mg by mouth every 8 (eight) hours as needed for Nausea and Vomiting (N/V). Qty: 20 tablet, Refills: 0 STOP taking these medications ibuprofen (IBU) 600 mg Comments: Reason for Stopping: KCL (KLOR-CON M10) 10 mEq Comments: Reason for Stopping: loratadine (CLARITIN) 10 mg Comments: Reason for Stopping: WOUND CARE: none DISCHARGE: Discharged: Home FOLLOW-UP APPOINTMENT: With Dana [facility] in week. Chuy Crowder MDElectronically signed by Chuy Crowder MD at 06/2020 10:09 AM CSTdocumented in this encounter Discharge Instructions Lelo Billingsley RN - 01/04/2020 Call [facility] Monday and make an appointment within the next 3 days Multidisciplinary Discharge Instructions (may include diet, dressing changes, activity limits, written materials given to patient: DIET: Eat a well balanced diet; drink 6-8 glasses of fluids daily; eat fruits and green, leafy vegetables. DAILY ACTIVITIES: 1. As much as you feel able to do. Rest when you are tired. 2. Limitations: Specify; No heavy lifting other than your baby for 4 weeks if you had surgery. TREATMENT AT HOME 1. Use a well-fitting bra to prevent breast engorgement 2. Resume intercourse as instructed by your physician. 3. Do not use douches or tampons for four weeks. 4. To help prevent urinary tract infection; after each urination and bowel movement, wipe and dry from front to back and change carl pad. 5. Follow discharge instructions regarding baby care. 6. Follow family planning instructions. IMMEDIATE TREATMENT - Call Clinic or Your Physician 1. Increase in pain and tenderness of uterus. 2. Increased vaginal bleeding (bright red blood which soaks 2 pads in 1 hour or pass large clots). 3. Foul smelling vaginal discharge. 4. Burning in the tube that empties the urine from the bladder. 5. Painful breast engorgement or cracked nipples. 6. Pain, discharges, or gaping incision. 7. Temperature greater than 38.0C or 100.4F 8. Pain and tenderness of calf or thigh muscles. 9. No bowel movements in 4 days. For Problems or Questions Call: OB Clinic Family Planning [phone] or Emergency: Go to the closest emergency room or call 911 High Blood Pressure: Return to Labor and Delivery if you have: 1. Swelling in your face, puffiness around your eyes, more than slight swelling of your hands, or excessive or sudden swelling of your feet or ankles. 2. Sudden weight gain (more than 4 pounds in a week). 3. Throbbing headaches that wont go away, even after taking hofg-dqu-achkvwd medicines as instructed by your care provider. 4. Changes in vision, including blurry vision, a sensation of flashing lights or spots, or temporaryloss of vision. 5. Severe pain or tenderness in your upper stomach area. This may include nausea and vomiting. AttachmentsThe following attachments cannot be sent through Care Everywhere.Nifedipine extended-release tablets (Dominican)documented in this encounter Plan of Treatment Date Type Specialty Care Team Description 01/13/2020 Office Visit Cardiology Дмитрий Allison MD [address] [place] [address] [place] [address] [place] [address] [phone] 01/20/2020 Routine Visit OB Satellites Lina Van, CNP [address] [facility] [place] [address] [phone] Health Maintenance Due Date Last Done Comments [...] Procedure Name Priority Date/Time Associated Diagnosis Comments CBC WITH DIFFERENTIAL Routine 01/03/2020 8:21 Results for this AM GAS ENGINEER procedure are in the results section. CBC WITH DIFFERENTIAL Routine 01/03/2020 8:21 Results for this AM GAS ENGINEER procedure are in the results section. COMP. METABOLIC PANEL Routine 01/03/2020 8:20 Results for this (01974) AM GAS ENGINEER procedure are in the results section. ACTIVATED PARTIAL STAT 01/02/2020 10:34 Hypertension, Results for this THRMPLAS SEAN PM GAS ENGINEER unspecified type procedure are in the results section. PROTHROMBIN TIME / STAT 01/02/2020 10:34 Hypertension, Results for this INR PM GAS ENGINEER unspecified type procedure are in the results section. URINALYSIS STAT 01/02/2020 10:15 Hypertension, Results for this PM GAS ENGINEER unspecified type procedure are in the results section. CBC WITH DIFFERENTIAL STAT 01/02/2020 10:07 Hypertension, Results for this PM GAS ENGINEER unspecified type procedure are in the results section. CBC WITH DIFFERENTIAL Routine 01/02/2020 10:07 Hypertension, Results for this PM GAS ENGINEER unspecified type procedure are in the results section. BASIC METABOLIC PANEL STAT 01/02/2020 10:07 Hypertension, Results for this (NA, K, CL, CO2, PM GAS ENGINEER unspecified type procedure are in GLUCOSE, BUN, the results CREATININE, CA) section. HEPATIC FUNCTION STAT 01/02/2020 10:07 Hypertension, Results for this PANEL (96370) PM GAS ENGINEER unspecified type procedure are in (ALB,T.PRO,BILI the results T,BU/BC,ALT,AST,ALK section. PHOS) MAGNESIUM STAT 01/02/2020 10:07 Hypertension, Results for this PM GAS ENGINEER unspecified type procedure are in the results section. documented in this encounter Results CBC WITH DIFFERENTIAL (01/03/2020 8:21 AM GAS ENGINEER) WBC 12.86 (H) 4.30 - 11.10 [facility] 10*3/L [facility] RBC 3.32 (L) 3.93 - 5.25 [facility] 10*6/L [facility] HGB 9.6 (L) 11.6 - 15.0 [facility] g/dL [facility] HCT 30.1 (L) 35.7 - 45.2 % [facility] MCV 90.7 80.6 - 95.5 fL [facility] MCH 28.9 25.9 - 32.8 pg [facility] MCHC 31.9 31.6 - 35.1 [facility] g/dL [facility] RDW-SD 49.2 39.0 - 49.9 fL [facility] RDW-CV 15.4 12.0 - 15.5 % [facility] [address] (H) 166 - 358 [facility] 10*3/L [facility] MPV 9.0 (L) 9.5 - 12.9 fL [facility] NRBC/100 WBC 0.2 0.0 - 10.0 /100 [facility] WBCs [facility] NRBC x10^3 0.02 10*3/L [facility] GRAN MAT (NEUT) % 74.3 % [facility] IMM GRAN % 2.30 % [facility] LYMPH % 13.4 % [facility] MONO % 7.5 % [facility] EOS % 2.2 % [facility] BASO % 0.3 % [facility] GRAN MAT x10^3(ANC) 9.55 (H) 1.88 - 7.09 [facility] 10*3/uL [facility] IMM GRAN x10^3 0.30 (H) 0.00 - 0.06 [facility] 10*3/uL HOSPITAL LAB[facility]ORY LYMPH x10^3 1.72 1.32 - 3.29 [facility] 10*3/uL [facility] MONO x10^3 0.97 (H) 0.33 - 0.92 [facility] 10*3/uL [facility] EOS x10^3 0.28 0.03 - 0.39 [facility] 10*3/uL [facility] BASO x10^3 0.04 0.01 - 0.[address]uL [facility] Specimen Blood - HAND, RIGHT Performing Organization Address City/State/Zipcode Phone Number [facility] CLIA: [id number], [address] [place] [address] COMP. METABOLIC PANEL ([id number]) (01/03/2020 8:20 AM GAS ENGINEER) NA 137 135 - 145 [facility] mmol/L [facility] K 3.7 3.5 - 5.0 [facility] mmol/L [facility] CL 101 98 - 108 mmol/L [facility] CO2 TOTAL 28 23 - 31 mmol/L [facility] AGAP 8 2 - 16 [facility] BUN 3 (L) 7 - 23 mg/dL [facility] GLUCOSE 96 70 - 110 mg/dL [facility] CREATININE 0.40 (L) 0.50 - 1.04 [facility] mg/dL [facility] TOTAL BILI 0.2 0.1 - 1.1 mg/dL [facility] CALCIUM 8.9 8.6 - 10.6 [facility] mg/dL [facility] T PROTEIN 7.1 6.3 - 8.2 g/dL [facility] ALBUMIN 3.6 3.5 - 5.0 g/dL [facility] ALK PHOS 133 (H) 34 - 122 U/L [facility] ALTv 15 5 - 35 U/L [facility] AST(SGOT) 25 13 - 40 U/L [facility] eGFR Calculation 197.8 mL/min/1.73m2 [facility] (Non[facility] LABORATORY Finnish) eGFR Calculation 239.7 mL/min/1.73m2 [facility] () [facility] Specimen Blood - HAND, RIGHT Narrative Performed At Association of Glomerular Filtration Rate (GFR) [facility] and Staging of Kidney Disease* + [...] Performing Organization Address City/State/Zipcode Phone Number [facility] CLIA: [id number], [address] [place] [address] Prothrombin Time (PT) / INR (01/02/2020 10:34 PM GAS ENGINEER) Pathologist [facility] PROTIME PATIENT 12.0 12.0 - 14.7 [facility] LABORATORY INR 0.9Comment: Normal [facility] INR <1.1; Warfarin [facility] Therapeutic range LABORATORY 2.0 to 3.0 or 2.5 to 3.5, depending upon the indications. Specimen Blood - VENOUS Performing Organization Address City/State/Zipcode Phone Number [facility] CLIA: [id number], [address] [place] [address] aPTT (01/02/2020 10:34 PM GAS ENGINEER) Pathologist [facility] APTT Patient 28 23 - 38 Seconds [facility] Specimen Blood - VENOUS Narrative Performed At The [facility] patient population mean normal value [facility] for aPTT is 30 seconds. Performing Organization Address City/[facility]/Zipcode Phone Number [facility] CLIA: [id number], [address] [place] [address] Urinalysis (01/02/2020 10:15 PM GAS ENGINEER) APPEARANCE Hazy (A) Clear [facility] COLOR Red (A) Yellow [facility] PH 7.0 4.8 - 8.0 [facility] SP GRAVITY 1.011 1.003 - 1.030 [facility] GLU U QUAL Normal Normal [facility] BLOOD 3+ (A) Negative [facility] KETONES Negative Negative [facility] PROTEIN Negative Negative [facility] UROBILIN Normal Normal [facility] BILIRUBIN Negative Negative [facility] NITRITE Negative Negative [facility] LEUK INGE 500/uL (A) Negative [facility] RBC/HPF 152 (H) 0 - 3 HPF [facility] WBC/HPF 73 (H) 0 - 5 HPF [facility] BACTERIA Moderate (A) Negative [facility] MUCOUS Slight (A) Negative LPF [facility] SQ EPITH 14 HPF [facility] Specimen Urine - URINE, CLEAN CATCH Performing Organization Address City/[facility]/Zipcode Phone Number [facility] CLIA: [id number], [address] [place] [address] CBC WITH DIFFERENTIAL (01/02/2020 10:07 PM GAS ENGINEER) Pathologist [facility] WBC 16.18 (H) 4.30 - 11.10 [facility] 10*3/L [facility] RBC 3.08 (L) 3.93 - 5.25 [facility] 10*6/L [facility] HGB 8.9 (L) 11.6 - 15.0 [facility] g/dL [facility] HCT 27.6 (L) 35.7 - 45.2 % [facility] MCV 89.6 80.6 - 95.5 fL [facility] MCH 28.9 25.9 - 32.8 pg [facility] MCHC 32.2 31.6 - 35.1 [facility] g/dL HOSPITAL LABORATORY RDW-SD 47.8 39.0 - 49.9 fL [facility] RDW-CV 15.1 12.0 - 15.5 % [facility] LABORATORY PLT 444 (H) 166 - 358 [facility] 10*3/L [facility] MPV 9.3 (L) 9.5 - 12.9 fL [facility] NRBC/100 WBC 0.1 0.0 - 10.0 /100 [facility] WBCs [facility] NRBC x10^3 0.02 10*3/L [facility] LABORATORY GRAN MAT (NEUT) % 69.4 % [facility] IMM GRAN % 3.60 % [facility] LYMPH % 16.4 % [facility] MONO % 8.5 % [facility] EOS % 1.9 % [facility] BASO % 0.2 % [facility] GRAN MAT x10^3(ANC) 11.21 (H) 1.88 - 7.09 [facility] 10*3/uL [facility]ORATORY IMM GRAN x10^3 0.58 (H) 0.00 - 0.06 [facility] 10*3/uL HOSPITAL LABORATORY LYMPH x10^3 2.66 1.32 - 3.29 [facility] 10*3/uL HOSPITAL LABORATORY MONO x10^3 1.38 (H) 0.33 - 0.92 [facility] 10*3/uL HOSPITAL LABORATORY EOS x10^3 0.31 0.03 - 0.39 [facility] 10*3/uL HOSPITAL LABORATORY BASO x10^3 0.04 0.01 - 0.07 [facility] 10*3/uL [facility] LABORATORY Specimen Blood - VENOUS Performing Organization Address City/State/Zipcode Phone Number [id number], [address] [place] [address] MAGNESIUM (01/02/2020 10:07 PM GAS ENGINEER) MAGNESIUM 1.7 1.7 - 2.4 mg/dL [facility]ORATORY Specimen Blood - VENOUS Performing Organization Address City/State/Zipcode Phone Number [facility] CLIA: [id number], [address] [place] [address] Hepatic Function Panel (ALB, T.PRO, BILI T, BU/BC, ALT, AST, ALK PHOS) (2019 10:07 PM GAS ENGINEER) TOTAL BILI <0.1 (L) 0.1 - 1.1 mg/dL [facility] LABORATORY BILI UNCON 0.0 (L) 0.1 - 1.1 mg/dL [facility] LABOR[facility]ORY BILI CONJ 0.0 0.0 - 0.3 mg/dL [facility] LABORATORY T PROTEIN 6.7 6.3 - 8.2 g/dL [facility]OR[facility]ORY ALBUMIN 3.6 3.5 - 5.0 g/dL [facility] LABOR[facility]ORY ALK PHOS 112 34 - 122 U/L [facility] ALTv 15 5 - 35 U/L [facility] AST(SGOT) 26 13 - 40 U/L [facility] Specimen Blood - VENOUS Performing Organization Address City/State/Zipcode Phone Number [facility] CLIA: [id number], [address] [place] [address] Basic Metabolic Panel (NA, K, CL, CO2, GLUCOSE, BUN, CREATININE, CA) (2019 10:07 PM GAS ENGINEER) Pathologist [facility] NA 137 135 - 145 [facility] mmol/L [facility] K 3.7 3.5 - 5.0 [facility] mmol/L [facility] CL 104 98 - 108 mmol/L [facility] CO2 TOTAL 28 23 - 31 mmol/L [facility] AGAP 5 2 - 16 [facility] BUN 6 (L) 7 - 23 mg/dL [facility] GLUCOSE 101 70 - 110 mg/dL [facility] CREATININE 0.45 (L) 0.50 - 1.04 [facility] mg/dL [facility] CALCIUM 9.1 8.6 - 10.6 [facility] mg/dL [facility] eGFR Calculation 172.7 mL/min/1.73m2 [facility] ([facility] LABORATORY Finnish) eGFR Calculation 209.3 mL/min/1.73m2 [facility] LABORATORY Specimen Blood - VENOUS Narrative Performed At [facility] of Glomerular Filtration Rate (GFR) [facility] LABORATORY and Staging of Kidney Disease* + [...] Performing Organization Address City/State/Zipcode Phone Number [facility] CLIA: [id number], [address] [place] [address] [facility] documented in this encounter Visit Diagnoses Diagnosis Hypertension, unspecified type - Primary Acute nonintractable headache, unspecified headache type Pre-eclampsia, antepartum Mild or unspecified pre-eclampsia, antepartum Severe pre-eclampsia, condition or complication documented in this encounter Administered Medications Medication Order MAR Action Action Date Dose Rate Site acetaminophen (TYLENOL) tablet Given 01/03/2020 12:10 AM GAS ENGINEER 650 mg 650 mg 650 mg, Oral, Q6HPRN, Starting Mon01/03/20 at 0002, Until Discontinued, Routine, Pain (scale 1-3) buogjqumrn-vwwjtpiadjiqp-hlsq (ESGIC) 50-325-40 mg tablet 1 tablet 1 tablet, Oral, Q6HPRN, Starting Mon01/03/20 at 0023, Until Discontinued, Routine, Headache hydroCHLOROthiazide (ESIDRIX) tablet 12.5 Given 01/04/2020 8:21 AM GAS ENGINEER 12.5 mg mg 12.5 mg, Oral, DAILY, First dose on Mon01/03/20 at 0900, Until Discontinued, Routine Given 01/03/2020 8:44 AM GAS ENGINEER 12.5 mg ketorolac (TORADOL) injection 30 mg Given 01/03/2020 10:48 AM GAS ENGINEER 30 mg 30 mg, Slow IV Push, Q6HPRN, 4 doses, Starting Mon01/03/20 at 1015, Until Discontinued, Routine, headache, 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 Restricted medication: CHUY CROWDER lactated ringers IV infusion New Bag 01/03/2020 12:06 PM GAS ENGINEER 1,000 mL 75 mL /hr 1,000 mL at 75 mL/hr, 1,000 mL, IV Infusion, CONTINUOUS, Starting Mon01/03/20 at 0030, Until Discontinued, Routine New Bag 01/02/2020 11:57 PM GAS ENGINEER 1,000 mL 75 mL/hr magnesium sulfate 4 mEq/mL (50 %) injection 16 mEq 16 mEq (2 g), Slow IV Push, PRN - SEE INSTRUCTIONS, 2 doses, Starting Jennifer at 2326, Until Discontinued, Routine, For seizure activity (patient already on magnesium sulfate) magnesium sulfate 4 mEq/mL (50 %) injection 32 mEq 32 mEq (4 g), Slow IV Push, PRN - SEE INSTRUCTIONS, Starting Jennifer 01/02/20 at 2326 , Until Discontinued, Routine, For seizure activity (patient not on magnesium sulfate) NIFEdipine ER (AFEDITAB CR) tablet 30 mg Given 01/04/2020 8:21 AM GAS ENGINEER 30 mg 30 mg, Oral, DAILY, First dose on Mon01/03/20 at 1030, Until Discontinued, Routine Given 01/03/2020 10:44 AM GAS ENGINEER 30 mg proMETHazine (PHENERGAN) 12.5 mg in NaCl Given 01/03/2020 10:51 AM GAS ENGINEER 12.5 mg 0.9% (NS) 50 mL piggyback 12.5 mg, IV Piggyback, Q6HPRN, Starting Mon01/03/20 at 1016, Until Discontinued, 50 mL Medication Order MAR Action Action Date Dose Rate Site hydroCHLOROthiazide (ESIDRIX) Given 01/02/2020 11:45 PM 12.5 mg capsule 12.5 mg GAS ENGINEER 12.5 mg, Oral, DAILY, First dose on Jennifer 01/02/20 at 2345, Until Discontinued, Routine magnesium sulfate in LR 40 gram/500 New Bag 01/03/2020 6:40 PM GAS ENGINEER 2 g/hr 25 mL/hr mL IV Solution 2 g/hr (25 mL/hr), at 25 mL/hr, IV Infusion, CONTINUOUS, Starting Jennifer 01/02/20 at 2345, Until 01/03/20 at 1144, JUAN Dose/Rate Verify 01/03/2020 7:29 AM GAS ENGINEER 2 g/hr 25 mL/hr New Bag 01/03/2020 12:08 AM GAS ENGINEER 2 g/hr 25 mL/hr documented in this encounter Insurance Payer Benefit Plan / Subscriber ID Effective Phone Address Type Group Dates [facility] xxxxxxxxx 2019-Pres [address] Medicaid HEALTH CHOICE - HEALTH CHOICE [facility] [id number] MANAGED MEDICAID [place], [place] [id number] documented as of this encounter Advance Directives Name Relationship Healthcare Agent Communication Relationship Kasie Lele Mother Primary healthcare agent [email or web address]"
[2020-01-26] MEDS ORDERED: MORPHINE 4 MG/ML SYR ONE (07:58)
[2020-01-26] MEDS ORDERED: NA CHLORIDE 0.9% 1,000 ML ONE (07:58)
[2020-01-26] MEDS ORDERED: FAMOTIDINE 20 MG/2 ML VIAL IV ONE (07:58)
[2020-01-26] MEDS ORDERED: ONDANSETRON 4 MG/2 ML VIAL ONE (07:58)
[2020-01-26] MEDS ORDERED: PIPER/TAZO/NS 3.375gm 3.375 GM/100 ML BAG ONE (07:59)
[2020-01-26 08:04] LABS: Absolute Lymphocytes (CBC) 1.7 K/uL (0.7-4.9); Basophils % 0.5 % (0-1.3); Hematocrit 37.9 % (36.0-45.0); Lymphocytes % 25.2 % (15.3-44.8); MPV 8.1 fL (7.6-11.3); RBC Red Blood Cell Count 4.29 M/uL (3.86-4.86)
[2020-01-26 08:14] LABS: ALT/SGPT 69 U/L (12-78); AST/SGOT 114 U/L (15-37); Albumin 3.6 g/dL (3.4-5.0); Alkaline Phosphatase 149 U/L (45-117); BUN Blood Urea Nitrogen 8 mg/dL (7-18); Bicarbonate 28 mmol/L (21-32); Bilirubin Direct 0.2 mg/dL (0-0.2); Bilirubin Total 0.3 mg/dL (0.2-1.0); Glucose Level 90 mg/dL (74-106); Lipase 150 U/L (73-393); Potassium 4.4 mmol/L (3.5-5.1); Protein, Total 8.1 g/dL (6.4-8.2); Sodium Level 142 mmol/L (136-145)
--- NOTE | 2020-01-26 08:36 | ER ---
Nurse's Notes [facility] Name: Dilma Royal Age: 24 yrs Sex: Female : 1995 Arrival Date: 01/26/2020 Time: 07:15 Bed 20 Private MD: Diagnosis: Abdominal tenderness;Cholecystitis;Cholelithiasis Presentation: 01/25 07:55 Chief complaint: Patient states: upper abd pain off and on for over a week, seems to iw get worse after eating spicy or greasy foods. Coronavirus screen: The patient has NOT traveled to [place] in the past 14 days. Proceed with normal triage procedures. Ebola Screen: Patient negative for fever greater than or equal to 101.5 degrees Fahrenheit, and additional compatible Ebola Virus Disease symptoms Patient denies exposure to infectious person. Patient denies travel to an Ebola-affected area in the 21 days before illness onset. No symptoms or risks identified at this time. Initial Sepsis Screen: Does the patient meet any 2 criteria? No. Patient's initial sepsis screen is negative. Does the patient have a suspected source of infection? No. Patient's initial sepsis screen is negative. Risk Assessment: Do you want to hurt yourself or someone else? Patient reports no desire to harm self or others. 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 - Social history:: Smoking status: Patient denies any tobacco usage or history of. - Family history:: not pertinent. Screenin:22 Abuse screen: Denies threats or abuse. Denies injuries from another. Nutritional iw screening: No deficits noted. Tuberculosis screening: No symptoms or risk factors identified. Fall Risk IV access (20 points). Assessment: 08:22 General: Appears in no apparent distress. Behavior is calm, cooperative. Pain: iw Complains of pain in right upper quadrant Pain currently is 0 out of 10 on a pain scale. at worst was 10 out of 10 on a pain scale. Quality of pain is described as. Neuro: No deficits noted. Level of Consciousness is awake, alert, obeys commands, Oriented to person, place, time, situation, Moves all extremities. Full function. Cardiovascular: Patient's skin is warm and dry. Respiratory: Respiratory effort is even, unlabored, Respiratory pattern is regular, symmetrical. GI: Bowel sounds present X 4 quads. Abd is soft X 4 quads Abdomen is tender to palpation in right upper quadrant. Derm: Skin is intact, is healthy with good turgor. Musculoskeletal: Range of motion: intact in all extremities. 09:30 Reassessment: Patient appears in no apparent distress at this time. Patient and/or jl7 family updated on plan of care and expected duration. Pain level reassessed. Patient is alert, oriented x 3, equal unlabored respirations, skin warm/dry/pink. Vital Signs: 08:17 BP 109 / 75; Pulse 92; Resp 16 S; Temp 98.6; Pulse Ox 98% ; Weight 107.05 kg; Height 5 iw ft. 5 in. (165.10 cm); Pain 0/10; 10:23 BP 112 / 65; Pulse 60; Resp 16 S; Pulse Ox 99% on R/A; jl7 08:17 Body Mass Index 39.27 (107.05 kg, 165.10 cm) iw ED Course: 07:15 Patient arrived in ED. rg4 07:21 Warner Cottrell MD is Attending Physician. eloise 07:45 Inserted saline lock: 22 gauge in right antecubital area, using aseptic technique. kj1 Blood collected. 07:53 Initial lab(s) drawn, by wi, sent to lab. kj1 08:05 Josafat Houston RN is Primary Nurse. jl7 08:17 Triage completed. iw 08:19 Arm band placed on. iw 08:30 Patient has correct armband on for positive identification. Placed in gown. Bed in low jl7 position. Call light in reach. Side rails up X 1. Pulse ox on. NIBP on. 08:35 Ezequiel Bhatti MD is Hospitalizing Provider. eloise 08:37 Chest Single View XRAY In Process Unspecified. EDMS 08:42 Ultrasound completed. Patient tolerated well. Notified ED Physician . sg3 08:43 US Abdomen Limited In Process Unspecified. EDMS 10:23 No provider procedures requiring assistance completed. Patient admitted, IV remains in jl7 place. intact, No redness/swelling at site. Administered Medications: 08:00 Drug: NS 0.9% 1000 ml Route: IV; Rate: 1 bolus; Site: right antecubital; iw 09:10 Follow up: Response: No adverse reaction; IV Status: Completed infusion; IV Intake: jl7 1000ml 08:05 Drug: morphine 4 mg Route: IVP; Site: right antecubital; iw 08:30 Follow up: Response: No adverse reaction; Pain is decreased jl7 08:05 Drug: Zofran (Ondansetron) 4 mg Route: IVP; Site: right antecubital; iw 10:22 Follow up: Response: No adverse reaction jl7 08:10 Drug: Pepcid 20 mg Route: IVP; Site: right antecubital; iw 10:21 Follow up: Response: No adverse reaction jl7 08:20 Drug: Zosyn 3.375 grams Route: IVPB; Infused Over: 60 mins; Site: right antecubital; iw 09:20 Follow up: Response: No adverse reaction; IV Status: Completed infusion jl Intake: 09:10 IV: 1000ml; Total: 1000ml. 7 Outcome: 08:35 Decision to Hospitalize by Provider. eloise 11:17 Admitted to Med/surg accompanied by tech, family with patient, via wheelchair, room jl7 224, with chart, Report called to SHRADDHA Michel 11:17 Condition: stable 11:17 Discharge instructions given to patient, family, Instructed on the need for admit, Demonstrated understanding of instructions. 11:18 Patient left the ED. 7 Signatures: Dispatcher [employer] EDME Warner Cottrell MD MD cha Williams, Irene, RN Cora Muñoz4 Josafat Houston RN RN jl7 Jasmina Kaufman 3 Luiza Yoder kj1 Corrections: (The following items were deleted from the chart) 08:22 08:17 Pulse 92bpm; Resp 16bpm; Spontaneous; Pulse Ox 98%; Temp 98.6F; 107.05 kg; Height iw 5 ft. 5 in.; BMI: 39.2; Pain 0/10; iw
--- NOTE | 2020-01-26 08:36 | EDPHYS ---
Physician Documentation [facility] Name: Dilma Royal Age: 24 yrs Sex: Female : 1995 Arrival Date: 01/26/2020 Time: 07:15 Bed 20 Private MD: ED Physician Warner Cottrell HPI: 01/25 07:43 This 24 yrs old Black Female presents to ER via Unassigned with complaints of Abdominal eloise Pain. 07:43 The patient presents with abdominal pain in the epigastric area, in the upper abdomen, eloise abdominal distention. Onset: The symptoms/episode began/occurred 2 day(s) ago. The symptoms do not radiate. Associated signs and symptoms: none. The symptoms are described as constant, crampy. Modifying factors: The symptoms are alleviated by nothing, the symptoms are aggravated by food. Severity of pain: At its worst the pain was severe in the emergency department the pain has resolved. The patient has experienced similar episodes in the past, a few times. 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 - Social history:: Smoking status: Patient denies any tobacco usage or history of. - Family history:: not pertinent. ROS: 07:43 Constitutional: Negative for fever, chills, and weight loss, Eyes: Negative for injury, eloise pain, redness, and discharge, ENT: Negative for injury, pain, and discharge, Neck: Negative for injury, pain, and swelling, Cardiovascular: Negative for chest pain, palpitations, and edema, Respiratory: Negative for shortness of breath, cough, wheezing, and pleuritic chest pain, Back: Negative for injury and pain, : Negative for injury, bleeding, discharge, and swelling, MS/Extremity: Negative for injury and deformity, Skin: Negative for injury, rash, and discoloration, Neuro: Negative for headache, weakness, numbness, tingling, and seizure, Psych: Negative for depression, anxiety, suicide ideation, homicidal ideation, and hallucinations, Allergy/Immunology: Negative for hives, rash, and allergies, Endocrine: Negative for neck swelling, polydipsia, polyuria, polyphagia, and marked weight changes, Hematologic/Lymphatic: Negative for swollen nodes, abnormal bleeding, and unusual bruising. 07:43 Abdomen/GI: Positive for abdominal pain, abdominal distension, of the right upper quadrant. Exam: 07:43 Constitutional: This is a well developed, well nourished patient who is awake, alert, eloise and in no acute distress. Head/Face: Normocephalic, atraumatic. Eyes: Pupils equal round and reactive to light, extra-ocular motions intact. Lids and lashes normal. Conjunctiva and sclera are non-icteric and not injected. Cornea within normal limits. Periorbital areas with no swelling, redness, or edema. ENT: Nares patent. No nasal discharge, no septal abnormalities noted. Tympanic membranes are normal and external auditory canals are clear. Oropharynx with no redness, swelling, or masses, exudates, or evidence of obstruction, uvula midline. Mucous membranes moist. Neck: Trachea midline, no thyromegaly or masses palpated, and no cervical lymphadenopathy. Supple, full range of motion without nuchal rigidity, or vertebral point tenderness. No Meningismus. Chest/axilla: Normal chest wall appearance and motion. Nontender with no deformity. No lesions are appreciated. Cardiovascular: Regular rate and rhythm with a normal S1 and S2. No gallops, murmurs, or rubs. Normal PMI, no JVD. No pulse deficits. Respiratory: Lungs have equal breath sounds bilaterally, clear to auscultation and percussion. No rales, rhonchi or wheezes noted. No increased work of breathing, no retractions or nasal flaring. Back: No spinal tenderness. No costovertebral tenderness. Full range of motion. Skin: Warm, dry with normal turgor. Normal color with no rashes, no lesions, and no evidence of cellulitis. MS/ Extremity: Pulses equal, no cyanosis. Neurovascular intact. Full, normal range of motion. Neuro: Awake and alert, GCS 15, oriented to person, place, time, and situation. Cranial nerves II-XII grossly intact. Motor strength 5/5 in all extremities. Sensory grossly intact. Cerebellar exam normal. Normal gait. Psych: Awake, alert, with orientation to person, place and time. Behavior, mood, and affect are within normal limits. 07:43 Abdomen/GI: Inspection: distension, Bowel sounds: normal, Palpation: mild abdominal tenderness, moderate abdominal tenderness, in the right upper quadrant, Liver: no appreciated palpable abnormalities, Hernia: not appreciated, tenderness, that is moderate. Vital Signs: 08:17 BP 109 / 75; Pulse 92; Resp 16 S; Temp 98.6; Pulse Ox 98% ; Weight 107.05 kg; Height 5 iw ft. 5 in. (165.10 cm); Pain 0/10; 10:23 BP 112 / 65; Pulse 60; Resp 16 S; Pulse Ox 99% on R/A; jl7 08:17 Body Mass Index 39.27 (107.05 kg, 165.10 cm) iw MDM: 07:35 Patient medically screened. [facility] 07:46 Data reviewed: vital signs, nurses notes, lab test result(s), radiologic studies, plain eloise films. 01/25 07:43 Order name: Basic Metabolic Panel; Complete Time: 08:[address] [facility] 01/25 07:43 Order name: CBC with Diff; Complete Time: 08:[address] [facility] 01/25 07:43 Order name: Creatinine for Radiology; Complete Time: 08:[address] [facility] 01/25 07:43 Order name: Hepatic Function; Complete Time: 08:[address] [facility] 01/25 07:43 Order name: Lipase; Complete Time: 08:[address] [facility] 01/25 09:07 Order name: Urine Dipstick--Ancillary (enter results) ms 01/25 07:43 Order name: US Abdomen Limited [facility] 01/25 07:47 Order name: Chest Single View XRAY [facility] 01/25 09:07 Order name: Urine --Ancillary (enter results) ut 01/25 07:43 Order name: IV Saline Lock; Complete Time: 07:[address] [facility] 01/25 07:43 Order name: Labs collected and sent; Complete Time: 07:[address] [facility] 01/25 07:43 Order name: Urine Dipstick-Ancillary (obtain specimen); Complete Time: 10:[address] [facility] 01/25 07:43 Order name: Urine Test (obtain specimen); Complete Time: 10:[address] [facility] Administered Medications: 08:00 Drug: NS 0.9% 1000 ml Route: IV; Rate: 1 bolus; Site: right antecubital; iw 09:10 Follow up: Response: No adverse reaction; IV Status: Completed infusion; IV Intake: jl7 1000ml 08:05 Drug: morphine 4 mg Route: IVP; Site: right antecubital; iw 08:30 Follow up: Response: No adverse reaction; Pain is decreased 08:05 Drug: Zofran (Ondansetron) 4 mg Route: IVP; Site: right antecubital; iw 10:22 Follow up: Response: No adverse reaction jl7 08:10 Drug: Pepcid 20 mg Route: IVP; Site: right antecubital; iw 10:21 Follow up: Response: No adverse reaction jl7 08:20 Drug: Zosyn 3.375 grams Route: IVPB; Infused Over: 60 mins; Site: right antecubital; iw 09:20 Follow up: Response: No adverse reaction; IV Status: Completed infusion jl7 Disposition: 01/26/20 08:35 Hospitalization ordered by Ezequiel Bhatti for Inpatient Admission. Preliminary diagnosis are Abdominal tenderness, Cholecystitis, Cholelithiasis. - Bed requested for Telemetry/MedSurg (Inpatient). - Status is Inpatient Admission. jl7 - Condition is Fair. - Problem is new. - Symptoms have improved. Signatures: Dispatcher [employer] EDWarner Solomon MD MD cha Williams, Irene, SHRADDHA LLANES Tamica Kaur ms, Jahala, RN RN jl7 Corrections: (The following items were deleted from the chart) 10:07 08:35 Hospitalization Ordered by Ezequiel Bhatti MD for Inpatient Admission. Preliminary ms diagnosis is Abdominal tenderness; Cholecystitis; Cholelithiasis. Bed requested for Telemetry/MedSurg (Inpatient). Status is Inpatient Admission. Condition is Fair. Problem is new. Symptoms have improved. eloise 11:18 10:07 01/26/2020 08:35 Hospitalization Ordered by Ezequiel Bhatti MD for Inpatient jl7 Admission. Preliminary diagnosis is Abdominal tenderness; Cholecystitis; Cholelithiasis. Bed requested for Telemetry/MedSurg (Inpatient). Status is Inpatient Admission. Condition is Fair. Problem is new. Symptoms have improved. ms
[2020-01-26] MEDS ORDERED: ACETAMINOPHEN 325 MG TABLET PO PRN (11:23)
[2020-01-26] MEDS ORDERED: MORPHINE 4 MG/ML SYR IV PRN (11:23)
[2020-01-26] MEDS ORDERED: HYDROCODONE/APAP 7.5/325 MG TAB PO PRN (11:23)
[2020-01-26] MEDS ORDERED: ONDANSETRON 4 MG/2 ML VIAL IV PRN (11:23)
[2020-01-26] MEDS: D5 0.45 NS 1,000 ML IV SCH ×2 (11:23→19:23)
[2020-01-26 11:34] VITALS: BMI 40.1
--- NOTE | 2020-01-26 12:13 | RAD REPORT ---
EXAM DESCRIPTION: RAD - Chest Single View - 01/26/2020 8:36 am CLINICAL HISTORY: ABDOMINAL DISTENTION Chest pain. COMPARISON: CHEST PA AND LAT 2 VIEW dated 07/31/2013 FINDINGS: Portable technique limits examination quality. The lungs are grossly clear. The heart is normal in size. No displaced fractures. IMPRESSION: No acute intrathoracic process suspected.
--- NOTE | 2020-01-26 12:13 | RAD REPORT ---
EXAM DESCRIPTION: US - Abdomen Exam Limited - 01/26/2020 8:42 am CLINICAL HISTORY: ABD PAIN COMPARISON: No comparisons FINDINGS: The gallbladder demonstrates small shadowing gallstones. No pericholecystic fluid or gallb ladder wall thickening. The common bile duct is normal measuring 4 mm. The liver demonstrates no findings of intrahepatic biliary dilatation. IMPRESSION: Cholelithiasis.
[2020-01-26] MEDS: FAMOTIDINE 20 MG/2 ML VIAL IV SCH ×2 (12:33→20:54)
[2020-01-26] MEDS: Ringers Lactate 1,000 ML IV SCH ×2 (12:33→20:55)
[2020-01-26 16:53] LABS: Urine Appearance CLEAR; Urine Bilirubin NEGATIVE (NEG); Urine Blood 1+ (NEG); Urine Color YELLOW; Urine Glucose NEGATIVE (NEG); Urine Protein NEGATIVE (NEG); Urine Specific Gravity 1.015 (1.005-1.030); Urine Urobilinogen 0.2 mg/dL (0.2-1.0)
[2020-01-26 17:05] LABS: Urine Microscopic Reflex ORDER UMIC
[2020-01-26] MEDS: PIPER/TAZO/NS 3.375gm 3.375 GM/100 ML BAG IVPB SCH (17:08)
[2020-01-26 18:22] LABS: Urine Bacteria <20 /HPF (<20); Urine Culture Reflex Order NOT NEEDED; Urine RBC <5 /HPF (NONE SEEN)
--- NOTE | 2020-01-26 19:12 | HP ---
Date of Admission: 01/26/2020 Brief History Of Present Illness: Patient is a 24-year-old black female who presents to the ER statu s post vaginal delivery of her baby 1 month ago, who has had intermittent episodes of epigastric righ t upper quadrant abdominal pain beginning during her . Her last episode prior to this admis og was approximately 2 weeks ago. She states that she eats a predominantly fatty diet and had epis odes of right upper quadrant abdominal pain with epigastric abdominal pain, which lasts for several h ours, but ultimately resolves. On this particular occasion, she had a similar episode where she was eating a cheeseburger last night. Ultimately, around 5 o'clock this morning, she developed epigastri c and right upper quadrant abdominal pain was not associated with nausea, vomiting, and no change in bowel or bladder habits. No sick contacts. No recent travel. As described, she had a baby approxim ately 1 month ago and she noted that since being here in the hospital, her pain significantly improve d with pain medication as she is essentially pain free at this point. Past Medical History: She had hypertension during her , but otherwise she states that she h as no other medical problems. Allergies: NO KNOWN DRUG ALLERGIES. Medications: None. Past Surgical History: None. Social History: She denies smoking, alcohol, or recreational drug use. Physical Examination: Vital Signs: At time of my examination, blood pressure was 109/75, pulse 92, respiratory rate 16. S he is 107 kg. She is 5 feet 5 inches with a BMI of approximately 40. Laboratory Data: She had laboratory exam reveals a white blood cell count 6.9, hemoglobin 12.2, poli tocrit of 37.9, platelet count is 353. Her sodium 142, potassium 4.4, chloride 108, carbon dioxide 2 8, BUN 8, creatinine 0.79, total bilirubin 0.3, direct component 0.2, AST 114, ALT 69, alkaline phosp hatase of 149. Her lipase is 150. Her UA is currently pending. She had imaging performed. The off icial dictation is currently pending. However, preliminary impression is currently pending as well I have visualized her ultrasound myself and find that she has a normal CBD. No pericholecystic fluid and what appears to be layering small stones in the gallbladder. Her CBD appears normal in size by m y interpretation. I will await the official dictation prior to proceeding with any further discussio n of the next step of the plan. Assessment And Plan: This is a 24-year-old female who is 1 month status post delivery of a baby, who presents with signs of biliary colic. 1.IV fluid hydration. 2.Serial exams. 3.I have explained that while the patient has received pain medication, she should pump and dump for 24-48 hours before breast-feeding her child. 4.We will recheck labs in a.m. as patient was not n.p.o. today. 5.I have explained the risks, benefits, alternatives laparoscopic possible open cholecystectomy incl uding but not limited to bleeding, infection, damage to surrounding tissues, injury to bile ducts and intestines, need for further operation and procedures, the patient agrees to consider surgery and kirsten montgomery wishes to think about this prior to any proceeding with surgery at this point, and we will revisit the conversation in the morning to decide how to proceed. Therefore, we will make her n.p.o. after m idnight in preparation. TIM/BHARATH Voice ID: [id number]
[2020-01-27] MEDS: PIPER/TAZO/NS 3.375gm 3.375 GM/100 ML BAG IVPB SCH ×2 (00:04→09:00)
[2020-01-27 01:44] VITALS: O2SAT 100
[2020-01-27] MEDS: D5 0.45 NS 1,000 ML IV SCH (03:23)
[2020-01-27 05:39] LABS: Absolute Lymphocytes (CBC) 1.8 K/uL (0.7-4.9); Basophils % 0.7 % (0-1.3); Lymphocytes % 35.1 % (15.3-44.8); MPV 8.1 fL (7.6-11.3); RBC Red Blood Cell Count 4.18 M/uL (3.86-4.86)
[2020-01-27 06:04] LABS: ALT/SGPT 64 U/L (12-78); AST/SGOT 46 U/L (15-37); Albumin 3.5 g/dL (3.4-5.0); Alkaline Phosphatase 146 U/L (45-117); BUN Blood Urea Nitrogen 7 mg/dL (7-18); Bicarbonate 27 mmol/L (21-32); Bilirubin Direct 0.2 mg/dL (0-0.2); Bilirubin Total 0.4 mg/dL (0.2-1.0); Glucose Level 83 mg/dL (74-106); Lipase 100 U/L (73-393); Potassium 4.2 mmol/L (3.5-5.1); Protein, Total 7.7 g/dL (6.4-8.2); Sodium Level 141 mmol/L (136-145)
[2020-01-27] MEDS: Ringers Lactate 1,000 ML IV SCH (07:23)
[2020-01-27] MEDS: FAMOTIDINE 20 MG/2 ML VIAL IV SCH (09:00)
[2020-01-27 09:54] VITALS: BP 100/59; TEMP 97.4
--- NOTE | 2020-03-02 14:16 | P.DS ---
Admission Date: 01/26/20 Discharge Date: 03/02/20 Disposition: ROUTINE DISCHARGE Discharge Condition: GOOD Brief History of Present Illness: Patient is a 24 year old woman who present with symptomatic cholelithiasis Hospital Course: Patient made NPO, responded to medical management, and she recently had a child , and would like to pursue non-op management at this time, and perhaps coordinate surgery as outpatient, and as she is asymptomatic she tolerated diet , and felt well, she will be DC home. Vital Signs/Physical Exam: Temp Pulse Resp BP Pulse Ox 97.4 F 57 20 100/59 L 100 01/27/20 08:00 01/27/20 08:00 01/27/20 08:00 01/27/20 08:00 01/27/20 08:00 General: Alert, In no apparent distress, Cooperative HEENT: Mucous membr. moist/pink Respiratory: Clear to auscultation bilaterally, Normal air movement Cardiovascular: Normal S1 S2 Gastrointestinal: Soft and benign, Non-distended, No ascites, No tenderness, No masses, No rebound, No guarding Musculoskeletal: No clubbing Integumentary: No rashes, No breakdown Neurological: Normal gait, Normal speech Laboratory Data at Discharge: WBC 5.1 K/uL (4.3-10.9) D 01/27/20 05:15 Hgb 11.9 g/dL (12.0-15.0) L 01/27/20 05:15 Hct 37.0 % (36.0-45.0) 01/27/20 05:15 Plt Count 341 K/uL (152-406) 01/27/20 05:15 Sodium 141 mmol/L (136-145) 01/27/20 05:15 Potassium 4.2 mmol/L (3.5-5.1) 01/27/20 05:15 BUN 7 mg/dL (7-18) 01/27/20 05:15 Creatinine 0.87 mg/dL (0.55-1.3) 01/27/20 05:15 Glucose 83 mg/dL (74-106) 01/27/20 05:15 Total Bilirubin 0.4 mg/dL (0.2-1.0) 01/27/20 05:15 AST 46 U/L (15-37) H 01/27/20 05:15 ALT 64 U/L (12-78) 01/27/20 05:15 Alkaline Phosphatase 146 U/L (45-117) H 01/27/20 05:15 Lipase 100 U/L (73-393) 01/27/20 05:15 Home Medications: Amoxicillin [Amoxil Cap] 500 mg PO Q6HR 02/14/20 Diet: Stark Activity: No lifting more than 10 lbs Followup: Ezequiel Bhatti MD [ACTIVE - CAN ADMIT] - (call physician's office to schedule follow up appointment)
== END 2020-01-27 10:12 | disposition home or self-care (01) | DRG 776 ==
LOC: ER 07:13 → ERHOLD 08:37 → 2ND 11:09
PROVIDERS: ADMIT Surgery; ATTEND Surgery
DX: O99.63 Diseases of the digestive system complicating the puerperium (principal)
CPT/HCPCS: 36415; 71045; 76705; 80048; 80053; 80076; 81003; 81015; 83690; 85025; 96365; 96375; 99285; J2405; J2543; J7030; J7120

== ENCOUNTER 2020-02-17 08:38 | Day surgery (SDC) | payer OTHER ==
[~2020-02-17 08:38] MED LIST: CEFOXITIN/SWI 2gm 2 GM/20 ML SYR IV ONE; FENTANYL CITR 100 MCG/2 ML ONE; LIDOCAINE 2% MPF 5 ML VIAL ONE; MIDAZOLAM HCL 2 MG/2 ML INJ ONE; ONDANSETRON 4 MG/2 ML VIAL ONE; ROCURONIUM 50 MG/5 ML VIAL IV ONE; dexAMETHasone 10 MG/ML VIAL ONE; propofoL 200 MG/20 ML VIAL IV ONE
--- OUTSIDE RECORDS SUMMARY | 2020-02-17 08:41 | XMS REPORT ---
:1995 Author Organization [facility] Address [address] [place] [address] Dr. Perez [address] [place] [id number] Care Team Providers Name Role Phone Unavailable Unavailable Unavailable Problems This patient has no known problems. Allergies, Adverse Reactions, Alerts This patient has no known allergies or adverse reactions. Medications This patient has no known medications.
--- OUTSIDE RECORDS SUMMARY | 2020-02-17 08:48 | XMS REPORT | Summary of Care ---
:1995 Author Organization [facility] Address [address] [place] [address] Care Team Providers Name Role Phone Lina Van [facility] Primary Care Provider Reason for Visit Reason Comments Well Woman Exam Encounter Details Date Type Department Care Team Description 02/12/2020 Office Visit [facility]- Lina Van general counseling and advice for contraceptive management (Primary Dx); Dana Perez [facility] Well woman exam [address] [facility] [address] [facility] [id number] [place] [address] [phone] Allergies No Known Allergiesdocumented as of this encounter (statuses as of 02/12/2020) Medications Medication Sig Dispensed Refills Start Date End Date Status vitamin w/FA Take 1 tablet 100 tablet 3 12/30/2019 Active tabletIndications: by mouth Supervision of high daily. risk in third trimester, Obesity in , 36 weeks gestation of , Hypokalemia, Pre-eclampsia, severe, antepartum, Morbid obesity with body mass index of 40.0-49.9, Hypomagnesemia, Liveborn , of zimmeramn , born in hospital by vaginal delivery, [...] hours condition or as needed complication (headache). PENICILLIN V POTASSIUM Take by 0 Active ORAL mouth. documented as of this encounter (statuses as of 02/12/2020) Active Problems Problem Noted Date Well woman exam 02/12/2020 Other general counseling and advice for contraceptive management 02/12/2020 care and examination of lactating mother 01/20/2020 Morbid obesity with body mass index of 40.0-49.9 12/26/2019 documented as of this encounter (statuses as of 02/12/2020) Resolved Problems Problem Noted Date Resolved Date Severe pre-eclampsia, condition or complication 01/03/20202019 Pre-eclampsia 01/02/2020 01/03/2020 Liveborn infant, of zimmerman , born in [...] pain 09/11/2013 01/03/2020 Overview: ICD10 Diagnosis Term 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) 09/11/2013 05/24/2019 documented as of this encounter (statuses as of 02/12/2020) Immunizations Name Administration Dates Next Due HPV [...] Sign Reading Time Taken Comments Blood Pressure 102/68 02/12/2020 9:43 AM CDT Pulse 77 02/12/2020 9:43 AM CDT Temperature 36.9 C (98.5 F) 02/12/2020 9:43 AM CDT Respiratory Rate 16 02/12/2020 9:43 AM CDT Oxygen Saturation - - Inhaled Oxygen Concentration - - Weight 111.2 kg (245 lb 1 oz) 02/12/2020 9:43 AM CDT Height 165.1 cm (5' 5") 02/12/2020 9:43 AM CDT Body Mass Index 40.78 02/12/2020 9:43 AM CDT documented in this encounter Patient Instructions Patient InstructionsNahed Lam LVN - 02/12/2020 9:00 AM CDT Patient Education Clinical Breast Exam Many health organizations recommend a yearly clinical breast exam. This exam may be done by a major assembly inspector, family healthcare provider, nurse practitioner, nurse director blood bank, or specially trained nurse. Yearly breast exams help tomake surethat breast conditions are found early. Your healthcare providers role A healthcare professional knows the tests and follow-up care needed if a problem is found. Your clinical exam is also a great time to ask questions about breast self-exams. You can find out if yourechecking your breasts in the best way. Or you may want to ask how , breast implants, or breast reduction surgery affect the way you should check your breasts. Diagnostic tests If a clinical exam reveals a breast change, you may have other tests to find out more. These tests may include: Mammography. A low-dose X-ray of your breast tissue. Ultrasound. An imaging test that uses sound waves to create images of your breast. Biopsy. A small amount of breast tissue is removed by needle or by a cut ( incision). The tissue is then checked under a microscope. Guidelines for having clinical breast exams The [employer] recommends that starting at age 29, you should have a clinical breast exam every 1 to 3 years. After age 40, have a clinical breast exam each year. If youre at higher risk for breast cancer, you may need exams more often. Risk factors for breast cancer may include: Being over 50 or postmenopausal Having a family history of breast cancer Having the BRCA1 or BRCA2 gene mutation or certain other gene mutations Having more menstrual periods due to starting menstruation early(before age 12) or having a late menopause (after age 55) Having no pregnancies Having a first after age 30 Being obese Having a history of radiation treatment to your chest area Exposure to MITCHELL during your mother's Not being active Drinking too much alcohol Having dense breast tissue Taking hormone therapy after menopause Other health organizations have different recommendations. Talk with your healthcare provider about what is best for you. [employer] last reviewed this educational content on 06/27/201719999837-5022 [employer]. [address] [place] [address], [place] [address]. All rights reserved. This information is not intended as a substitute for professional medical care. Always follow your healthcare professional's instructions. Patient Education Breast Health: Breast Self-Awareness What is breast self-awareness? Breast self-awareness is knowing how your breasts normally look and feel. Your breasts change as yougo through different stages of your life. So its important to learn what is normal for your breasts. Knowing about your breasts helps you spot any changes in them right away. Tell your healthcare provider about any changes. Why is breast self-awareness important? Many experts now say that women should focus on breast self-awareness instead of doing a breast self-examination (BSE). These experts include the [employer] and the [place] [employer]. Some experts even advise not teaching women to do a BSE. Thats because research hasnt shown a clear benefit to doing BSEs. Breast self-awareness is different than a BSE. It isnt about following a certain method and schedule. Its about knowing what's normal for your breasts. That way you can spot even small changes right away. If you see any changes, tell your healthcare provider. Changes to look for Call your healthcare provider if you find any changes in your breasts that worry you. These changes may be: A lump Nipple discharge other than breastmilk, especially if it's bloody Swelling A change in size or shape Skin changes, such as redness, thickening, or dimpling of the skin Swollen lymph nodes in the armpit Nipple problems, such as pain or redness If you find a lump Call your provider if you find lumpiness in one breast. Also call if you feel something different inthe tissue or feel a definite lump. Sometimes lumpiness may be due to menstrual changes. But there may be reason for concern. Your provider may want to see you right away if you have: Nipple discharge that is bloody Skin changes on your breast, such as dimpling or puckering Its okay to be upset if you find a lump. Be sure to call your provider right away. Remember that most breast lumps are benign. This means they are not cancer. [employer] last reviewed this educational content on 06/27/201719990735-6747 [employer]. [address] [place] [address], [place] [address]. All rights reserved. This information is not intended as a substitute for professional medical care. Always follow your healthcare professional's instructions. Patient Education Prevention Guidelines,Women Ages 18 to 39 Screening tests and vaccines are an important part of managing your health. A screening test is doneto find possible disorders or diseases in people who don' t have any symptoms. The goal is to find a disease early so lifestyle changes can be made and you can be watched more closely to reduce the riskof disease, or to detect it early enough to treat it most effectively. Screening tests are not considered diagnostic, but are used to determine if more testing is needed. Health counseling is essential, too. Below are guidelines for these, for women ages 18 to 39. Talk with your healthcare provider tomake sure youre up-to- date on what you need. Screening Who needs it How often Alcohol misuse All women in this age group At routine exams Blood pressure All women in this age group Yearly checkup if your blood pressure is normal Normal blood pressure is less than 120/80 mm Hg If your blood pressure reading is higher than normal, follow the advice of your healthcare provider Breast cancer All women in this age group should talk with their healthcare providers about the needfor clinical breast exams (CBE)1 Clinical breast exam every 3 years1 Cervical cancer Women ages 21 and older Women between ages 21 and 29 should have a Pap test every 3 years; women between ages 30 and 65 are advised to have a Pap test plus an HPV test every 5 years Chlamydia Sexually active women ages 25 and younger, and women at increased risk for infection (suchas having multiple sex partners) Every year if you're at risk or have symptoms Depression All women in this age group At routine exams Type 2 diabetes, prediabetes All women with no symptoms who are overweight or obese and have 1 or more other risk factors for diabetes At least every 3 years. Also, testing for diabetes during after the 24th week. Type 2 diabetes, prediabetes All women diagnosed with gestational diabetes Lifelong testing every 3 years Type 2 diabetes All women with prediabetes Every year Gonorrhea Sexually active women at increased risk for infection At routine exams Hepatitis C Anyone at increased risk At routine exams HIV All women should be tested at least once for HIV between the ages of 13 and 64 At routine exams.Those with risk factors for HIV should be tested at least annually. Obesity All women in this age group At routine exams Syphilis Women at increased risk for infection should talk with their healthcare provider At routineexams Tuberculosis Women at increased risk for infection should talk with their healthcare provider Ask your healthcare provider Vision All women in this age group At least 1 complete exam in your 20s, and 2 in your 30s Vaccine2 Who needs it How often Chickenpox (varicella) All women in this age group who have no record of this infection or vaccine 2doses; the second dose should be given 4 to 8 weeks after the first dose Hepatitis A Women at increased risk for infection should talk with their healthcare provider 2 dosesgiven at least 6 months apart Hepatitis B Women at increased risk for infection should talk with their healthcare provider 3 dosesover 6 months; second dose should be given 1 month after the first dose; the third dose should be given at least 2 months after the second dose and at least 4 months after the first dose Haemophilus influenzaeType B (HIB) Women at increased risk for infection should talk with their healthcare provider 1 to 3 doses Human papillomavirus (HPV) All women in this age group up to age 26 3 doses; the second dose should be given 1 to 2 months after the first dose and the third dose given 6 months after the first dose Influenza (flu) All women in this age group Once a year Measles, mumps, rubella (MMR) All women in this age group who have no record of these infections or vaccines 1 or 2 doses Meningococcal Women at increased risk for infection should talk with their healthcare provider 1 or more doses Pneumococcal conjugate vaccine (PCV13)and pneumococcal polysaccharide vaccine(PPSV23) Women at increased risk for infection should talk with their healthcare provider PCV13: 1 dose ages 19 to 65 (protects against 13 types of pneumococcal bacteria) PPSV23: 1 to2 doses through age 64, or 1 dose at 65 or older (protects against 23 types of pneumococcal bacteria) Tetanus/diphtheria/pertussis (Td/Tdap) booster All women in this age group Td every 10 years, or a one-time dose of Tdap instead of a Td booster after age 18 , then Td every 10 years Counseling Who needs it How often BRCA gene mutation testing for breast and ovarian cancer susceptibility Women with increased risk for having gene mutation When your risk is known Breast cancer and chemoprevention Women at high risk for breast cancer When your risk is known Diet and exercise Women who are overweight or obese When diagnosed, and then at routine exams Domestic violence Women at the age in which they are able to have children At routine exams Sexually transmitted infection prevention Women who are sexually active At routine exams Skin cancer Prevention of skin cancer in fair-skinned adults At routine exams Use of tobacco and the health effects it can cause All women in this age group Every visit 1 According to the ACS, women ages 20 to 39 years should have a clinical breast exam (CBE) as part of their routine health exam every 3 years. Breast self- exams are an option for women starting in their 20s.But the USPSTF does not recommend CBE. [employer] last reviewed this educational content on 08/27/201719999588-6060 [employer]. [address] [place] [address]. All rights reserved. This information is not intended as a substitute for professional medical care. Always follow your healthcare professional's instructions. Patient Education Understanding STDs When it comes to sex, nothing is risk-free. Any sexual contact with the penis, vagina, anus, or mouth can spread a sexually transmitted disease (STD). The only sure way to prevent STDs is abstinence (not having sex). But there are ways to make sex safer. Use a latex condom each time you have sex. And choose your partner wisely. Use condoms for safer sex If you have sex, latex condoms provide the best protection against STDs. Latex condoms stop the exchange of body fluids that carry certain STDs. They also limit contact with affected skin. Be aware though, a condom doesnt cover all skin. So, affected skin that is not covered can still transfer disease. But you re safer with a condom than without one. Use a condom even if you use other control. While control methods like the pill or IUD help prevent , they do not protect against STDs. Choose the right condom Condoms made of latex prevent disease best. If youre allergic to latex, use polyurethane condoms instead. Male condoms fit over the penis. Female condoms line the vagina. Before buying a condom, read the label to be sure it prevents disease. Some novelty condoms dont. The right lubricant helps Buy lubricated condoms or use lubricant. This provides greater comfort and reduces the risk of condom breakage. Use only water-based lubricants. Dont use oil, lotion, or petroleum jelly. They can weaken the condom, causing breakage. Also, you may want to choose lubricants without nonoxynol-9. Its now known that this spermicide does not prevent disease and may cause irritation. Use condoms correctly For condoms to work, they must be used the right way. Keep these tips in mind: Use a new latex condom each time you have sex. Slip the condom on the penis before any contact ismade. When ready to withdraw, hold the rim of the condom as the penis pulls out. This prevents the condom from slipping off. Check the expiration date before using a condom. Dont store condoms in places that can get hot, such as a car or a wallet that is carried in a back pocket. Get to know your partner Safer sex is a process. It involves getting to know your partner and making informed choices. Ask each other how many partners you have had in the past, and how many you have now. Find out if either ofyou has an STD. If you decide to have sex, use a condom each time. Dont stop using condoms unlessyoure sure neither of you has other partners and youve both been tested to confirm you donthave STDs. Then stay free of disease by having sex only with each other (monogamy). Keep your cool Dont let alcohol or drugs cloud your judgment. They could lead you to have sex with someone you wouldnt have chosen if you were sober. Or, you might forget to use a condom. If you do plan to havesex, keep a latex condom with you. Dont wait until youre in the heat of passion to try to findone. Consider abstinence The only way to be sure you wont get an STD is to abstain from sex. Abstinence is a choice that many people make at some point in their lives. Maybe you want to wait until you are sure youre ready before you have sex. Maybe youd like a break from the responsibilities of sex for a while. Or maybe you just want to know your partner better before taking the next step. Abstinence is a choice youcan make now to protect your future. [employer] last reviewed this educational content on 10/27/201619998234-3287 [employer]. [address] [place] [address], [place] [address]. All rights reserved. This information is not intended as a substitute for professional medical care. Always follow your healthcare professional's instructions. Patient Education Understanding HIV and AIDS It's important to know how HIV can get into your body and what happens once it s there. Then youll be better prepared to protect yourself or others against this virus. A person with HIV can look and feel perfectly healthy. But that person can give HIV to others as soon as he or she is infected with the virus. Having unsafe or unprotected sex or sharing needles puts you at risk for HIV. Talk with your healthcare provider about ways to protect yourself or a loved one from getting HIV. How HIV infection progresses After HIV enters the body, it attacks the immune system in the stages below. A person with HIV can infect others once the virus gets into the blood. HIV with no symptoms. A person with HIV may have no symptoms for years. The only sign of infection may be a positive blood test for HIV 2 weeks to 3 months or later after HIV enters the body. HIV with symptoms. Some people develop an illness similar to mono ( mononucleosis) 2 to 4 weeks after the virus enters the body. This is called acute retroviral syndrome. Symptoms may include swollen lymph glands, chills, fever, night sweats, weakness, weight loss, skin rashes, mouth ulcers, or sore throat. Symptoms may be mild or the person can feel quite sick. Even without treatment the symptoms almost always go away in a few days or up to 2 to 3 weeks. Then the person has no symptoms, often for years. But over time the immune system starts to get weaker and symptoms start appearing. People at this stage may have a yeast infection in the mouth (oral thrush), shingles, skin problems, pneumonia, diarrhea that keeps coming back, or weight loss. AIDS. AIDS is the most advanced stage of HIV infection, when the immune system is severely weakened.Certain rare diseases and cancers that normally would not occur, now can occur because the body can no longer fight them well enough. It is often these diseases that cause in people with AIDS. HIV may also directly attack the brain and nervous system. This causes seizures and loss of memory and body movement. It also affects many other parts of the body. This leads to problems such as anemia, low white blood cell count, diarrhea, belly pain, skin problems, and many others. How HIV enters the body HIV is carried in semen, vaginal fluid, blood, and breastmilk. During sex, HIV can enter the body. It gets in through the fragile tissue and linings, sores, or cuts in or around the vagina, penis, anus, and mouth. During drug use, tattooing, or body piercing, the virus can enter the blood through an infected needle. A mother who has HIV can infect her child during , childbirth, and . [employer] last reviewed this educational content on 04/27/201919994223-97[address] [employer]. [address] [place] [address], [place] [address]. All rights reserved. This information is not intended as a substitute for professional medical care. Always follow your healthcare professional's instructions. Patient Education Eating Heart-Healthy Foods Eating has a big impact on your heart health. In fact, eating healthier can improve several of your heart risks at once. For instance, it helps you manage weight, cholesterol, and blood pressure. Here are ideas to help you make heart- healthy changes without giving up allthe foods and flavors you love. Getting started Talk with your healthcare provider about eating plans, such as the DASH or Mediterranean diet. You may also be referred to a dietitian. Change a few things at a time. Give yourself time to get used to a few eating changes before adding more. Work to create a tasty, healthy eating plan that you can stick to for the rest of your life. Goals for healthy eating Below are some tips to improve your eating habits: Limit saturated fats and trans fats. Saturated fats raise your levels of cholesterol, so keep these fats to a minimum. They are found in foods such as fatty meats, whole milk, cheese, and palm and coconut oils. Avoid trans fats because they lower good cholesterol as well as raise bad cholesterol. Trans fats are most often found in processed foods. Reduce sodium (salt) intake. Eating too much salt may increase your blood pressure. Limit your sodium intake to 2,300 milligrams (mg) per day(the amount in 1 teaspoon of salt), or less if your healthcare provider recommends it. Dining out less often and eating fewer processed foods are two great ways to decrease the amount of salt you consume. Managing calories. A calorie is a unit of energy. Your body crowley calories for fuel, but if you eat more calories than your body crowley, the extras are stored as fat. Your healthcare provider can help you create a diet plan to manage your calories. This will likely include eating healthier foods as well as exercising regularly. To help you track your progress, keep a diary to record what you eat and how often you exercise. Choose the right foods Aim to make these foods vidal of your diet. If you have diabetes, you may have different recommendations than what is listed here: Fruits and vegetables provide plenty of nutrients without a lot of calories. At meals, fill half your plate with these foods. Split the other half of your plate between whole grains and lean protein. Whole grains are high in fiber and rich in vitamins and nutrients. Good choices include whole-wheat bread, pasta, and brown rice. Lean proteins give you nutrition with less fat. Good choices include fish, skinless chicken, and beans. Low-fat or nonfat dairy provides nutrients without a lot of fat. Try low-fat or nonfat milk, cheese, or yogurt. Healthy fats can be good for you in small amounts. These are unsaturated fats , such as olive oil,nuts, and fish. Try to have at least 2 servings per week of fatty fish, such as salmon, sardines, mackerel, rainbow trout, and albacore tuna. These contain omega-3 fatty acids, which are good for your heart. Flaxseed is another source of a heart-healthy fat. More on heart-healthy eating Read food labels Healthy eating starts at the grocery store. Be sure to pay attention to food labels on packaged foods. Look for products that are high in fiber and protein, and low in saturated fat, cholesterol, and sodium. Avoid products that contain trans fat. And pay close attention to serving size. For instance, if you plan to eat two servings, double all the numbers on the label. Prepare food right A stern part of healthy cooking is cutting down on added fat and salt. Look on the internet for lower-fat, lower-sodium recipes. Also, try these tips: Remove fat from meat and skin from poultry before cooking. Skim fat from the surface of soups and sauces. Broil, boil, bake, steam, grill, and microwave food without added fats. Choose ingredients that spice up your food without adding calories, fat, or sodium. Try these items: horseradish, hot sauce, lemon, mustard, nonfat salad dressings, and vinegar. For salt-free herbs and spices, try basil, cilantro, cinnamon, pepper, and purvi. [employer] last reviewed this educational content on 08/27/201719996269-8731 [employer]. [address] [place] [address], [place] [address]. All rights reserved. This information is not intended as a substitute for professional medical care. Always follow your healthcare professional's instructions. Patient Education Understanding USDA MyPlate The USDA (U.S. Department of Agriculture) has guidelines to help you make healthy food choices. These are called MyPlate. MyPlate shows the food groups that make up healthy meals using the image of a place setting. Before you eat, think about the healthiest choices for what to put onto your plate or into your cup or bowl. To learn more about building a healthy plate, visit www.choosemyplate.gov. The food groups Fruits. Any fruit or 100% fruit juice counts as part of the Fruit Group. Fruits may be fresh, canned, frozen, or dried, and may be whole, cut-up, or pureed. Make half your plate fruits and vegetables. Vegetables. Any vegetable or 100% vegetable juice counts as a member of the Vegetable Group. Vegetables may be fresh, frozen, canned, or dried. They can be served raw or cooked and may be whole, cut-up, or mashed. Make half your plate fruits and vegetables. Grains. All foods made from grains are part of the Grains Group. These include wheat, rice, oats,cornmeal, and barley such as bread, pasta, oatmeal, cereal, tortillas, and grits. Grains should be no more than a quarter of your plate. At least half of your grains should be whole grains. Protein. This group includes meat, poultry, seafood, beans and peas, eggs, processed soy products(like tofu), nuts (including nut butters), and seeds. Make protein choices no more than a quarter ofyour plate. Meat and poultry choices should be lean or low fat. Dairy. All fluid milk products and foods made from milk that contain calcium , like yogurt and cheese, are part of the Dairy Group. (Foods that have little calcium, such as cream, butter, and cream cheese, are not part of the group.) Most dairy choices should be low-fat or fat-free. Oils. These are fats that are liquid at room temperature. They include canola , corn, olive, soybean, and sunflower oil. Foods that are mainly oil include mayonnaise, certain salad dressings, and soft margarines. You should have only 5 to 7 teaspoons of oils a day. You probably already get this muchfrom the food you eat. Fidel last reviewed this educational content on 06/27/201719996261-3200 The [employer]. [address] [place] [address], [place] [address]. All rights reserved. This information is not intended as a substitute for professional medical care. Always follow your healthcare professional's instructions. documented in this encounter Progress Notes Lina Van, CNP - 02/12/2020 9:00 AM CDT Chief complaint: Chief Complaint Patient presents with Well Woman Exam HPI: the patient is here today for WWE and contraceptive management. She reports she is doing well with no issues or concerns today. She reports she is currently and does not desires control on todays visit. She agrees to STI testing today but declines the need for HIV testing today. Pt (denies) current or past physical, sexual or emotional abuse. Histories OB History Para Term AB Living [...] file Gets together: Not on file Attends yazidism service: Not on file Active member of [...] displayed because visit has over 200 results. Radiology No new radiology. Allergies Dilma has No Known Allergies. Medications Dilma has a current medication list which includes the following prescription( s): penicillin v potassium, acetaminophen, docusate calcium, ferrous sulfate, nifedipine er, and vitamin w/fa. Review of Systems Constitutional: Negative. HENT: Negative. Eyes: Negative. Respiratory: Negative. Breasts: Negative. Cardiovascular: Negative. Gastrointestinal: Negative. Genitourinary: Negative. Musculoskeletal: Negative. Skin: Negative. Neurological: Negative. Psychiatric/Behavioral: Negative. Endocrine: Endocrine negative BP 102/68 (BP Location: Right arm, Patient Position: Sitting, BP CUFF SIZE: Adult Medium) | Pulse 77 | Temp 36.9 C (98.5 F) (Oral) | Resp 16 | Ht 5 ' 5" (1.651 m) | Wt 245 lb 1 oz (111.2 kg) |LMP 12/28/2019 (Approximate) | No | BMI 40.78 kg/m Pregravid BMI: 40.4 Physical Exam Vitals reviewed. Constitutional: She is oriented to person, place, and time. She appears well- developed. Her body habitus is normal. Neck: No tenderness and no mass. No thyroid nodules and no thyromegaly palpated. No neck adenopathy. Cardiovascular: Regular rate and rhythm. No gallop, no friction rub and no murmur auscultated. No peripheral edema present. Pulmonary/Chest: Breath sounds clear to auscultation. Normal inspiratory effort. Abdominal: Abdomen is soft. No mass palpated. No tenderness present. There is no hepatosplenomegaly,splenomegaly or hepatomegaly. There is no rigidity. No hernia palpated or inspected. Neuro/Psychiatric: She has a normal mood and affect. She is oriented to person, place, and time. Skin: No lesion, no rash and no ulceration present. Lymphadenopathy: No neck adenopathy present. No axillary adenopathy present. No inguinal adenopathy present. Breast: Right breast exhibits no mass, no nipple discharge and no tenderness. Left breast exhibits no mass, no nipple discharge and no tenderness. Breasts are symmetrical. Normal left breast and normalright breast Rectal: Rectal exam with normal anal tone. No mass, no external hemorrhoid and no internal hemorrhoid palpated or inspected. External genitalia: Normal external genitalia appropriate for age. Normal hair distribution. No labial lesion. Urethral meatus: Normal urethral meatus size, location and no lesion. No prolapse present. Normal urethral meatus Urethra: Normal urethra. No urethral tenderness, no mass and no urethral scarring palpated. Bladder: Bladder has no fullness, no mass palpated and no tenderness. Normal bladder Vagina:Normal vagina. No lesion inspected. Normal estrogen effect. Normal support. No abnormal vaginal discharge found. Cervix: Normal cervix. No lesion. No tenderness and no discharge present. Uterus: Uterus is normal size, normal contour, normal position and non-tender. Normal uterus Adnexa: Right adnexa without tenderness, ovary enlargement or mass. Left adnexa without tenderness, ovary enlargement or mass. Normal left adnexa and normal right adnexa Anus/perineum: Normal perineum and normal anus. Assessment/Plan Return to clinic in 1 year for WWE or sooner as needed Other general counseling and advice for contraceptive management (primary encounter diagnosis) Comment: condoms Plan: pleased with method Well woman exam Comment: routine Plan: GC & CHLAMYDIA AMPLIFIED ASSAY This visit did not involve counseling and coordination that comprised more than 50% of the visit time. BENITA Nieto 02/12/2020 10:58 AM Tsering Lai RN - 02/12/2020 9:00 AM CDT24 year old presents to the clinic for WWE. 1) Previous BCM: NONE 2) Desired BCM: NONE 3) LMP: 12/28/2019 4) Last [place]: 2018 5) Last Pap: 10/04/2018 Results: NEG 6) Tdap: 2019 7) Gardasil: Completed 8) C/O: Patient denies any complaints 9) Patient denies history of physical, emotional, or sexual abuse. Patient states that she currently feels safe at home. TSERING ORTIZ RN 02/12/2020 9:55 AM documented in this encounter Plan of Treatment Date Type Specialty Care Team Description 02/18/2020 Laboratory Only Cardiology P[facility], Adc Echo Room 1 - Name Type Priority Associated Diagnoses Date/Time GC & CHLAMYDIA AMPLIFIED LAB Routine Well woman exam 02/12/2020 11:02 AM CDT ASSAY Health Maintenance Due Date Last Done Comments [...] filedocumented in this encounter Visit Diagnoses Diagnosis Other general counseling and advice for contraceptive management - Primary Well woman exam Routine general medical examination at a health care facility documented in this encounter Insurance Payer Benefit Plan / Subscriber ID Effective Phone Address Type Group Dates [facility] xxxxxxxxx 2019-Pres [address] Medicaid HEALTH CHOICE - HEALTH CHOICE [facility] [id number] MANAGED MEDICAID [place], [place] MEDICAID [phone] documented as of this encounter Advance Directives Name Relationship Healthcare Agent Communication Relationship Kasie Royal Mother Primary healthcare agent [email or web address]
--- OUTSIDE RECORDS SUMMARY | 2020-02-17 08:49 | XMS REPORT | Summary of Care ---
:1995 Author Organization [facility] Address [address] [place] [id number] Care Team Providers Name Role Phone Lina Van [facility] Primary Care Provider Reason for Visit Reason Comments Well Woman Exam Encounter Details Date Type Department Care Team Description 02/12/2020 Office Visit [facility]- Lina Van general counseling and advice for contraceptive management (Primary Dx); Dana Perez [facility] Well woman exam [address] [facility] [address] 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 Yearly breast exams [...] Guidelines for having clinical breast exams The [place] [employer]ians and Gynec[employer] recommends that [...] provider about what is best for you. [employer]Zoom last reviewed this educational content on 06/27/201719993744-5005 [employer]. [address] [place] [address], [place] [address]. All rights reserved. This information is not [...] breast self-examination (BSE). These experts include the [place] [employer] and the [place] [employer] of [employer]stetricians and Gynecologists. Some experts [...] benign. This means they are not cancer. [employer] last reviewed this educational content on 06/27/201719997632-0890 [employer]. [address] [place] [address], [place] [address]. All rights reserved. This information is not [...] 20s.But the USPSTF does not recommend CBE. [employer] last reviewed this educational content on 08/27/201719998011-6685 [employer]. [address] [place] [address]. All rights reserved. This information is not [...] youcan make now to protect your future. [employer] last reviewed this educational content on 10/27/201619999027-6090 [employer]. [address] [place] [address], [place] [address]. All rights reserved. This information is not [...] her child during , childbirth, and . [employer] last reviewed this educational content on 04/27/201919994216-2795 [employer]. [address] [place] [address], [place] [address]. All rights reserved. This information is not [...] try basil, cilantro, cinnamon, pepper, and purvi. [employer] last reviewed this educational content on 08/27/201719996728-6218 [employer]. [address] [place] [address], [place] [address]. All rights reserved. This information is not [...] Fidel last reviewed this educational content on 06/27/201719990862-7632 [employer]. [address] [place] [address], [place] [address]. All rights reserved. This information is not [...] file Gets together: Not on file Attends tenriism service: Not on file Active member of [...] BCM: NONE 3) LMP: 12/28/2019 4) Last [place]: 2018 5) Last Pap: 10/04/2018 Results: NEG [...] ID Effective Phone Address Type Group Dates [facility] xxxxxxxxx 2019-Pres [address] Medicaid HEALTH CHOICE - HEALTH CHOICE [facility] [id number] MANAGED MEDICAID [place], [place] [phone] documented as of this encounter Advance Directives Name Relationship Healthcare Agent Communication Relationship Kasie Royal Mother Primary healthcare agent [email or web address]
[2020-02-17] MEDS ORDERED: Ringers Lactate 1,000 ML IV ONE (08:50)
[2020-02-17] MEDS ORDERED: CEFOXITIN/SWI 1gm 1 GM/10 ML SYR ONE ×2 (08:51→09:31)
[2020-02-17] MEDS: BUPIVACA 0.25%/EPI 0.0005%/PF 30 ML VIAL ONE ×2 (09:04→09:45)
[2020-02-17] MEDS ORDERED: FENTANYL CITR 100 MCG/2 ML ONE (09:47)
--- NOTE | 2020-02-17 10:24 | P.OP ---
Preoperative diagnosis: Acute cholercystitis with cholelithiasis Postoperative diagnosis: Acute cholercystitis with cholelithiasis Primary procedure: Laparoscopic Cholecystectomy Anesthesia: GETA + Local Estimated blood loss: <5cc Specimen: Gallbladder Findings: Inflammation of GB, gallstones Complications: None Transferred to: Recovery Room Condition: Good
[2020-02-17] MEDS ORDERED: KETOROLAC 30 MG/ML INJ ONE (10:26)
[2020-02-17] MEDS ORDERED: MORPHINE 10 MG/ML VIAL ONE (10:34)
[2020-02-17 11:42] VITALS: BP 136/93; TEMP 96.2; O2SAT 98
[2020-02-17] MEDS ORDERED: HYDROCODONE/APAP 5/325 MG TAB ONE (11:59)
--- NOTE | 2020-02-17 12:11 | OP ---
Date of Procedure: 02/17/2020 Surgeon: Ezequiel Bhatti MD, Preoperative Diagnosis: Acute cholecystitis with cholelithiasis. Postoperative Diagnosis: Acute cholecystitis with cholelithiasis. Procedure Performed: Laparoscopic cholecystectomy. Anesthesia: General endotracheal plus local with 0.25% Marcaine with epinephrine. Estimated Blood Loss: Less than 5 mL. Specimen: Gallbladder. Findings: Inflammation of the gallbladder, gallstones. Complications: None. Transferred to recovery room in good condition. Procedure In Detail: After informed consent was obtained, patient was brought to the operating room, prepped and draped in the usual sterile fashion. After adequate anesthesia was achieved, a supraumb ilical area was anesthetized with 0.25% Marcaine and sharply incised. A 5 mm trocar was introduced i n the abdomen without complication. Insufflation was obtained to 15 mmHg at this time. There was no injury to vital structure upon entry into the abdomen. The area was inspected and there was inflamm atory change of the right upper quadrant. Three additional trocars were placed, 1 in the epigastrium , 2 in the right upper quadrant. All of these were 5 mm trocars placed under direct visualization wi thout evidence of complication. After appropriately anesthetizing the tract, the umbilical trocar wa s then up-sized to a 12 mm under direct visualization without evidence of complication. The patient was positioned head up right-side up position. A ratcheted grasper was used to grasp the patient's g allbladder and placed towards to patient's right shoulder. Two additional graspers were used to gras p the patient's gallbladder, it was found to be inflamed with a somewhat shorten cystic duct and plac ed it laterally. Dissection continued down to dissect 2 structures entering the gallbladder, identif ied as the cystic duct and cystic artery. Both of these structures were ligated doubly on the proxim al side with titanium clips and singly on the distal side. These were both cut with Endo Hayder at t his point, and the gallbladder was removed from the hepatic fossa with the electrocautery with minima l spillage of bile. No additional hemostatic maneuvers required. The gallbladder was then placed in EndoCatch bag, removed the umbilical trocar and sent off for pathologic examination. The area was t hen re-insufflated. The area was copiously irrigated multiple times until completely clear and sucti oned out until completely dry. Patient was positioned in neutral position. All clips were found to be in good anatomic position. There was no additional hemostatic maneuvers and the trocars were amelie socorro. The trocar site was then inspected and closed with a Norberto suture passer with a 0 Tu ryl in interrupted fashion. Good approximation of tissues. The remaining trocar was then removed un moy direct visualization without evidence of complication. After completely desufflating the abdomen , all skin incisions were copiously irrigated and closed with a 4-0 Monocryl in a running fashion. D ermabond was placed over top. Patient tolerated the procedure well without evidence of complication and transferred to the PACU in good condition. All counts were correct at the end of the case. TIM/BHARATH Voice ID: [id number] Report ID: [id number]
== END 2020-02-17 13:30 | disposition home or self-care (01) ==
LOC: OR 08:38
PROVIDERS: ATTEND Surgery
PROC: 0FT44ZZ Resection of Gallbladder, Percutaneous Endoscopic Approach (ICD-10-PCS; principal; 2020-02-17 10:30)
DX: K80.00 Calculus of gallbladder with acute cholecystitis without obstruction (principal); E78.00 Pure hypercholesterolemia, unspecified; E66.9 Obesity, unspecified; Z68.41 Body mass index [BMI] 40.0-44.9, adult
CPT/HCPCS: 81025; 88304; 47562; J2704; J2250; J3010 ×2; J1100; J7120; J2405; J0694

== ENCOUNTER 2020-04-13 06:47 | Emergency (ER) | payer OTHER ==
--- OUTSIDE RECORDS SUMMARY | 2020-04-13 06:49 | XMS REPORT ---
:1995 Author Organization [facility] t Address [address] [place] [address] Care Team Providers Name Role Phone Ana Herman Attending Clinician Problems This patient has no known problems. Allergies, Adverse Reactions, Alerts This patient has no known allergies or adverse reactions. Medications This patient has no known medications. Procedures This patient has no known procedures. Encounters Start End Encounter Admission Attending Care Care Encounter Source Date/Time Date/Time Type Type Clinicians Facility Department ID 2020-02-12 2020-02-12 Office LI Van [id number] 09:22:02 10:09:12 Visit Lina Perez HELP DESK CONSULTANT [id number] [facility] [id number] MATERNAL [id number] & CHILD [address] [place] [address] Results This patient has no known results.
[2020-04-13] MEDS ORDERED: MORPHINE 2 MG/ML SYR ONE (07:12)
[2020-04-13] MEDS ORDERED: NA CHLORIDE 0.9% 1,000 ML ONE (07:12)
[2020-04-13] MEDS ORDERED: FAMOTIDINE 20 MG/2 ML VIAL IV ONE (07:12)
[2020-04-13] MEDS ORDERED: ONDANSETRON 4 MG/2 ML VIAL ONE (07:12)
[2020-04-13 07:57] LABS: Absolute Lymphocytes (CBC) 2.3 K/uL (0.7-4.9); Basophils % 0.6 % (0-1.3); Hematocrit 38.8 % (36.0-45.0); Lymphocytes % 26.6 % (15.3-44.8); MPV 7.9 fL (7.6-11.3); RBC Red Blood Cell Count 4.49 M/uL (3.86-4.86)
[2020-04-13 08:17] LABS: ALT/SGPT 83 U/L (12-78); AST/SGOT 84 U/L (15-37); Albumin 3.4 g/dL (3.4-5.0); Alkaline Phosphatase 135 U/L (45-117); BUN Blood Urea Nitrogen 11 mg/dL (7-18); Bicarbonate 26 mmol/L (21-32); Bilirubin Direct < 0.1 mg/dL (0-0.2); Bilirubin Total 0.2 mg/dL (0.2-1.0); Glucose Level 104 mg/dL (74-106); Lipase 101 U/L (73-393); Potassium 3.8 mmol/L (3.5-5.1); Protein, Total 7.8 g/dL (6.4-8.2); Sodium Level 142 mmol/L (136-145)
[2020-04-13 09:02] LABS: Urine Blood NEGATIVE (NEG); Urine Glucose NEGATIVE (NEG); Urine Protein NEGATIVE (NEG); Urine Specific Gravity >1.030 (1.005-1.030)
[2020-04-13 09:13] LABS: Barbiturates NEGATIVE (NEGATIVE); Benzodiazepines NEGATIVE (NEGATIVE); Cocaine NEGATIVE (NEGATIVE); METHAMPHETAM NEGATIVE (NEGATIVE); Methadone NEGATIVE (NEGATIVE); Opiates NEGATIVE (NEGATIVE); Phencyclidine NEGATIVE (NEGATIVE); THC Cannibis NEGATIVE (NEGATIVE)
--- NOTE | 2020-04-13 09:31 | RAD REPORT ---
EXAM DESCRIPTION: CT - Abdomen Pelvis W Contrast - 04/13/2020 9:07 am CLINICAL HISTORY: Abd pain;Nausea / vomiting COMPARISON: Abdomen Exam Limited dated 01/26/2020 TECHNIQUE: Biphasic, helical CT imaging of the abdomen and pelvis was performed following 100 ml non -ionic IV contrast. No oral contrast. All CT scans are performed using dose optimization technique as appropriate and may include automated exposure control or mA/KV adjustment according to patient size. FINDINGS: No suspicious findings in the lung bases. No focal liver lesions identified. Liver attenuation is decreased relative to the spleen. No portal v ein abnormality. No splenomegaly or focal splenic finding. Pancreatic and peripancreatic tissues with in normal limits for age. Cholecystectomy clips are present. No biliary tree dilatation. Symmetric renal function is seen with no hydronephrosis or suspicious renal mass. No pyelonephritis o r acute parenchymal process. Bladder is contracted which limits assessment. No bladder calculi or boris dder abnormality suspected. No adrenal abnormalities. Uterus and ovaries show no suspicious findings. No dilated bowel loops or bowel wall thickening. No appendicitis. No free air, free fluid or inflamma tory stranding. No hernia, mass or bulky lymphadenopathy. No suspicious bony findings. IMPRESSION: Gallbladder is absent. No biliary tree dilatation. No stomach or pancreatic abnormalitie s identified. As detailed above, no acute or active process identifiable.
--- NOTE | 2020-04-13 11:05 | EDPHYS ---
Physician Documentation [facility] Name: Dilma Royal Age: 24 yrs Sex: Female : 1995 Arrival Date: 04/13/2020 Time: 06:48 Bed 13 Private MD: ED Physician Everette Wild HPI: 04/13 07:05 This 24 yrs old Black Female presents to ER via Ambulatory with complaints of Abdominal cp Pain, Vomiting. 07:05 The patient presents with abdominal pain in the epigastric area, nausea. Onset: The cp symptoms/episode began/occurred this morning. The symptoms do not radiate. Associated signs and symptoms: Pertinent negatives: diarrhea, fever, vomiting. Severity of pain: in the emergency department the pain is unchanged despite home interventions. 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 tw2 Historical: - Allergies: 07:00 NKA; ea - Home Meds: 07:00 None [Active]; ea - PMHx: 08:18 None; tw2 - PSHx: 07:34 Cholecystectomy; tw2 - Immunization history:: Adult Immunizations up to date. - Social history:: Smoking status: Patient denies any tobacco usage or history of. ROS: 07:15 Constitutional: Negative for body aches, chills, fever. cp 07:15 Eyes: Negative for injury, pain, redness, and discharge. cp 07:15 ENT: Negative for ear pain, sore throat, difficulty swallowing, difficulty handling secretions. 07:15 Cardiovascular: Negative for chest pain. 07:15 Respiratory: Negative for cough, shortness of breath, wheezing. 07:15 Abdomen/GI: Positive for abdominal pain, nausea, Negative for vomiting, diarrhea, constipation. 07:15 Back: Negative for radiated pain. 07:15 : Negative for urinary symptoms. 07:15 Neuro: Negative for headache. 07:15 All other systems are negative. Exam: 07:20 Constitutional: The patient appears in no acute distress, alert, awake, non-toxic, well cp developed, well nourished, obese, uncomfortable. 07:20 Head/Face: Normocephalic, atraumatic. cp 07:20 Eyes: Periorbital structures: appear normal, Conjunctiva: normal, no exudate, no injection, Sclera: no appreciated abnormality, Lids and lashes: appear normal, bilaterally. 07:20 ENT: External ear(s): are unremarkable, Nose: is normal, Mouth: Lips: moist, Oral mucosa: moist, Posterior pharynx: is normal, airway is patent, no erythema, no exudate. 07:20 Chest/axilla: Inspection: normal, Palpation: is normal, no crepitus, no tenderness. 07:20 Cardiovascular: Rate: normal, Rhythm: regular. 07:20 Respiratory: the patient does not display signs of respiratory distress, Respirations: normal, no use of accessory muscles, no retractions, labored breathing, is not present, Breath sounds: are clear throughout, no decreased breath sounds. 07:20 Abdomen/GI: Inspection: obese Bowel sounds: active, all quadrants, Palpation: soft, in all quadrants, moderate abdominal tenderness, in the epigastric area and right upper quadrant, rebound tenderness, is not appreciated, voluntary guarding, is elicited in the epigastric area and right upper quadrant. Vital Signs: 06:56 BP 120 / 82; Pulse 75; Resp 18; Temp 97.5; Pulse Ox 100% on R/A; Weight 108.86 kg; ea Height 5 ft. 6 in. (167.64 cm); Pain 9/10; 07:56 BP 110 / 67; Pulse 77; Resp 17; Pulse Ox 100% on R/A; tw2 09:00 BP 119 / 79; Pulse 80; Resp 17; Pulse Ox 100% on R/A; tw2 09:57 BP 115 / 71; Pulse 68; Resp 17; Pulse Ox 99% on R/A; tw2 06:56 Body Mass Index 38.74 (108.86 kg, 167.64 cm) ea MDM: 06:59 Patient medically screened. cp 07:40 Differential diagnosis: appendicitis, gastritis, pancreatitis, Peptic Ulcer Disease, cp Perf. Duodenal Ulcer, Perf. Gastric Ulcer, Pyelonephritis, Ureterolithiasis, urinary tract infection, choledocholithiasis. 11:03 Data reviewed: vital signs, nurses notes, lab test result(s), radiologic studies, CT cp scan. 11:03 Counseling: I had a detailed discussion with the patient and/or guardian regarding: the cp historical points, exam findings, and any diagnostic results supporting the discharge/admit diagnosis, lab results, radiology results, to return to the emergency department if symptoms worsen or persist or if there are any questions or concerns that arise at home. Response to treatment: the patient's symptoms have markedly improved after treatment, VSS. Pain and nausea improved, and as a result, I will discharge patient. Special discussion: Based on the patient's Hx, exam, and Dx evaluation, there is no indication for emergent surgery or inpatient Tx. It is understood by the patient/guardian that if the Sx's persist or worsen they need to return immediately for re-evaluation. 04/13 07:01 Order name: Basic Metabolic Panel; Complete Time: 08:27 04/13 08:27 Interpretation: Normal except: CL 108. 04/13 07:01 Order name: CBC with Diff; Complete Time: 08:27 04/13 08:27 Interpretation: Normal except: RDW 15.6. 04/13 07:01 Order name: Hepatic Function; Complete Time: 08:27 04/13 08:27 Interpretation: Normal except: AST 84; ALT 83; ALK 135; GLOB 4.4; A/G 0.8. 04/13 07:01 Order name: Lipase; Complete Time: 08:27 04/13 08:28 Interpretation: Within normal limits: LIP 101. 04/13 07:01 Order name: UDS; Complete Time: 09:27 04/13 09:27 Interpretation: Reviewed. 04/13 08:55 Order name: Urine Dipstick--Ancillary (enter results); Complete Time: 09:27 04/13 09:27 Interpretation: Reviewed. 04/13 07:35 Order name: CT Abd/Pelvis - IV Contrast Only; Complete Time: 10:04 04/13 10:04 Interpretation: Report reviewed. 04/13 08:55 Order name: Urine --Ancillary (enter results); Complete Time: 09:27 04/13 09:27 Interpretation: Reviewed. 04/13 07:01 Order name: IV Saline Lock; Complete Time: 07:50 04/13 07:01 Order name: Labs collected and sent; Complete Time: 07:50 04/13 07:01 Order name: Urine Dipstick-Ancillary (obtain specimen); Complete Time: 08:58 04/13 07:01 Order name: Urine Test (obtain specimen); Complete Time: 08:58 04/13 10:04 Order name: PO challenge; Complete Time: 11:10 cp Administered Medications: 07:45 Drug: morphine 2 mg {Note: RASS 0 .} Route: IVP; Site: left antecubital; tw2 07:53 Drug: NS 0.9% 1000 ml Route: IV; Rate: 1 bolus; Site: left antecubital; tw2 07:53 Drug: Zofran (Ondansetron) 4 mg Route: IVP; Site: left antecubital; tw2 11:09 Follow up: Response: No adverse reaction; Nausea is decreased tw2 07:56 Drug: Pepcid 20 mg Route: IVP; Site: left antecubital; tw2 11:09 Follow up: Response: No adverse reaction tw2 11:13 Drug: Bentyl 20 mg Route: PO; tw2 Disposition: 04/13/20 11:04 Discharged to Home. Impression: Upper abdominal pain, unspecified. - Condition is Stable. - Discharge Instructions: Abdominal Pain, Adult. - Prescriptions for Bentyl 20 mg Oral Tablet - take 2 tablets by ORAL route every 6 hours As needed; 30 tablet. Pepcid 20 mg Oral Tablet - take 1 tablet by ORAL route every 12 hours for 10 days; 20 tablet. Zofran 4 mg Oral Tablet - take 1 tablet by ORAL route every 12 hours As needed; 20 tablet. - Medication Reconciliation Form, Thank You Letter, Antibiotic Education, Prescription Opioid Use form. - Follow up: Private Physician; When: 1 - 2 days; Reason: Worsening of condition. - Problem is new. - Symptoms have improved. Addendum: 04/20/2020 07:06 Co-signature as Attending Physician, Everette Wild MD. r n Signatures: Dispatcher [employer] [facility] Everette Wild MD MD rn Page, Corey, PA PA cp Amy Aguirre RN RN tw2 Sherita Irwin RN RN ea Corrections: (The following items were deleted from the chart) 04/13 07:30 07:01 Abdomen Limited+US.RAD.BRZ ordered. [facility] 07:53 07:00 PSHx: None; ea tw2 11:16 11:04 04/13/2020 11:04 Discharged to Home. Impression: Upper abdominal pain, tw2 unspecified. Condition is Stable. Forms are Medication Reconciliation Form, Thank You Letter, Antibiotic Education, Prescription Opioid Use. Follow up: Private Physician; When: 1 - 2 days; Reason: Worsening of condition. Problem is new. Symptoms have improved. cp
--- NOTE | 2020-04-13 11:05 | ER ---
Nurse's Notes [facility] Name: Dilma Royal Age: 24 yrs Sex: Female : 1995 Arrival Date: 04/13/2020 Time: 06:48 Bed 13 Private MD: Diagnosis: Upper abdominal pain, unspecified Presentation: 04/13 06:56 Chief complaint: Patient states: Reports epigastric pain that started at 0615 this ea morning, pt reports having some nausea but denies vomiting or diarrhea. Coronavirus screen: Proceed with normal triage. Ebola Screen: No symptoms or risks identified at this time. Initial Sepsis Screen: Does the patient meet any 2 criteria? No. Patient's initial sepsis screen is negative. Does the patient have a suspected source of infection? No. Patient's initial sepsis screen is negative. Risk Assessment: Do you want to hurt yourself or someone else? Patient reports no desire to harm self or others. Onset of symptoms was April 13, 2020. 06:56 Method Of Arrival: Ambulatory ea 06:56 Acuity: GRANT 3 ea Triage Assessment: 07:00 General: Appears uncomfortable, Behavior is appropriate for age. Pain: Complains of ea pain in epigastric area. GI: Abdomen is non-distended. 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 tw2 Historical: - Allergies: 07:00 NKA; ea - Home Meds: 07:00 None [Active]; ea - PMHx: 08:18 None; tw2 - PSHx: 07:34 Cholecystectomy; tw2 - Immunization history:: Adult Immunizations up to date. - Social history:: Smoking status: Patient denies any tobacco usage or history of. Screenin:58 Abuse screen: Denies threats or abuse. Nutritional screening: No deficits noted. ea Tuberculosis screening: No symptoms or risk factors identified. Fall Risk None identified. Assessment: 07:00 General: Appears uncomfortable, obese, unkempt, Behavior is cooperative, appropriate tw2 for age, anxious, fussy. Pain: Complains of pain in epigastric area. Neuro: Level of Consciousness is awake, alert, obeys commands, Oriented to person, place, time, situation. Cardiovascular: Heart tones S1 S2 Patient's skin is warm and dry. Respiratory: Airway is patent Respiratory effort is even, unlabored, Respiratory pattern is regular, symmetrical, Breath sounds are clear bilaterally. GI: Abdomen is round non-distended, obese, Bowel sounds present X 4 quads. Abd is soft and non tender X 4 quads. GI: Reports upper abdominal pain, nausea, since this morning. : No signs and/or symptoms were reported regarding the genitourinary system. EENT: No signs and/or symptoms were reported regarding the EENT system. Derm: No signs and/or symptoms reported regarding the dermatologic system. Musculoskeletal: Range of motion: intact in all extremities. 07:57 Reassessment: Patient appears in no apparent distress at this time. Patient and/or tw2 family updated on plan of care and expected duration. Pain level reassessed. Patient is alert, oriented x 3, equal unlabored respirations, skin warm/dry/pink. 08:21 Reassessment: Patient appears in no apparent distress at this time. Patient states tw2 feeling better. Patient states symptoms have improved. 09:00 Reassessment: Patient appears in no apparent distress at this time. Patient and/or tw2 family updated on plan of care and expected duration. Pain level reassessed. Patient is alert, oriented x 3, equal unlabored respirations, skin warm/dry/pink. Patient states symptoms have improved. 09:57 Reassessment: Patient appears in no apparent distress at this time. No changes from tw2 previously documented assessment. Patient and/or family updated on plan of care and expected duration. Pain level reassessed. Patient is alert, oriented x 3, equal unlabored respirations, skin warm/dry/pink. Vital Signs: 06:56 BP 120 / 82; Pulse 75; Resp 18; Temp 97.5; Pulse Ox 100% on R/A; Weight 108.86 kg; ea Height 5 ft. 6 in. (167.64 cm); Pain 9/10; 07:56 BP 110 / 67; Pulse 77; Resp 17; Pulse Ox 100% on R/A; tw2 09:00 BP 119 / 79; Pulse 80; Resp 17; Pulse Ox 100% on R/A; tw2 09:57 BP 115 / 71; Pulse 68; Resp 17; Pulse Ox 99% on R/A; tw2 06:56 Body Mass Index 38.74 (108.86 kg, 167.64 cm) ED Course: 06:48 Patient arrived in ED. ds1 06:54 Warner Moulton PA is PHCP. cp 06:54 Efren Montoya MD is Attending Physician. cp 06:58 Triage completed. ea 06:58 Patient has correct armband on for positive identification. Bed in low position. Call ea light in reach. 06:59 Arm band placed on right wrist. Patient placed in an exam room, on a stretcher, on ea pulse oximetry. 07:01 Everette Wild MD is Attending Physician. cp 07:03 Amy Aguirre RN is Primary Nurse. tw2 07:29 Missed attempt(s): 20 gauge in right antecubital area. notified SHRADDHA Dolan for need of tw2 IV at this time.. Bleeding controlled, band aid applied, catheter tip intact. 07:45 Inserted saline lock: 22 gauge in left antecubital area, using aseptic technique. tw2 ,using aseptic technique. US guided. Pt tolerated well. Blood collected. 08:58 UDS Sent. 5 08:59 Urine --Ancillary (enter results) Sent. 5 08:59 Urine Dipstick--Ancillary (enter results) Sent. mh5 08:59 Urine collected: clean catch specimen, clear. mh5 09:07 CT Abd/Pelvis - IV Contrast Only In Process Unspecified. EDMS 11:16 No provider procedures requiring assistance completed. IV discontinued, intact, tw2 bleeding controlled, No redness/swelling at site. Pressure dressing applied. Administered Medications: 07:45 Drug: morphine 2 mg {Note: RASS 0 .} Route: IVP; Site: left antecubital; tw2 07:53 Drug: NS 0.9% 1000 ml Route: IV; Rate: 1 bolus; Site: left antecubital; tw2 07:53 Drug: Zofran (Ondansetron) 4 mg Route: IVP; Site: left antecubital; tw2 11:09 Follow up: Response: No adverse reaction; Nausea is decreased tw2 07:56 Drug: Pepcid 20 mg Route: IVP; Site: left antecubital; tw2 11:09 Follow up: Response: No adverse reaction tw2 11:13 Drug: Bentyl 20 mg Route: PO; tw2 Outcome: 11:04 Discharge ordered by . cp 11:16 Patient left the ED. tw2 11:16 Discharged to home ambulatory. tw2 11:16 Condition: stable 11:16 Discharge instructions given to patient, Instructed on discharge instructions, follow up and referral plans. medication usage, Demonstrated understanding of instructions, follow-up care, medications, Prescriptions given X 3. Signatures: Dispatcher [employer] Beronica Childs Sakina Portillo RN RN Warner Sotelo PA PA cp Wise, Tara, RN RN tw2 Tamica Banerjee [facility] Sherita Irwin RN RN ea Corrections: (The following items were deleted from the chart) 07:32 07:29 Missed attempt(s): 20 gauge in right antecubital area. Bleeding controlled, band tw2 aid applied, catheter tip intact. tw2 07:53 07:00 PSHx: None; ea tw2 07:54 07:50 Inserted saline lock: 22 gauge in left antecubital area, using aseptic technique. tw2 ,using aseptic technique. US guided. Pt tolerated well. Blood collected. ss
[2020-04-13] MEDS ORDERED: DICYCLOMINE HCL 10 MG CAP ONE (11:18)
[2020-04-13 11:20] VITALS: TEMP 97.5
[2020-04-13 11:24] VITALS: BP 115/71; O2SAT 99
== END 2020-04-13 11:16 | disposition home or self-care (01) ==
LOC: ER 06:47
DX: R10.10 Upper abdominal pain, unspecified (principal)
CPT/HCPCS: 85025; 80048; 36415; 81025; 80076; 80307 ×8; 81003; 83690; 74177; 96375; 96374; 99284; Q9967; J2270; J7030; J2405

== ENCOUNTER 2021-06-10 13:28 | Emergency (ER) | payer OTHER ==
--- OUTSIDE RECORDS SUMMARY | 2021-06-10 13:30 | XMS REPORT | Continuity of Care Document ---
:1995 Author Organization [facility] t Address [address] [place] [address] Care Team Providers Name Role Phone Scott Galvan MD Attending Clinician Vani SANCHEZ Attending Clinician Cleve SANCHEZ M Attending Clinician Doctor Unassigned, Name Attending Clinician Unavailable Only, Test Attending Clinician Unavailable Scott Galvan MD Admitting Clinician Problems This patient has no known problems. Allergies, Adverse Reactions, Alerts This patient has no known allergies or adverse reactions. Medications This patient has no known medications. Procedures This patient has no known procedures. Encounters Start End Encounter Admission Attending Care Care Encounter Source Date/Time Date/Time Type Type Clinicians Facility Department ID 2021-05-10 2021-05-10 Telephone Sneha Galvan [facility] [id number] 00:00:00 00:00:00 Scott Cortez [id number] [place] [id number] Elis [id number] [address] 2021-05-05 2021-05-05 Routine Sneha Galvan [facility] [id number] 11:11:53 12:09:03 Cam Dana [id number] Visit Effie [id number] [facility] [id number] [address] 2021-04-19 2021-04-20 Hospital Sneha Galvan [facility] [id number] 03:57:00 17:25:00 Encounter Cam Gordon [id number] Effie [id number] Riley [id number] 2021-04-19 2021-04-19 Anesthesia Viktoria Ludwig [facility] [id number] 08:17:00 15:20:00 Event Mack Poon [id number] Effie [id number] Riley [id number] 2021-04-19 2021-04-19 Orders Doctor MACK [id number] 00:00:00 00:00:00 Only Unassigned, ANDRÉS [id number] [place] [id number] 2021-04-16 2021-04-16 Laboratory Only, [facility] [id number] 11:41:52 11:56:52 Only Test Gordon [id number] Effie [id number] Riley [id number] 2021-04-13 2021-04-13 Office Sneha Galvan [facility] [id number] 14:30:32 15:00:32 Visit Cam Dana [id number] Effie [id number] [facility] [id number] [address] 2021-04-13 2021-04-13 Orders Doctor MACK [id number] 00:00:00 00:00:00 Only Unassigned, ANDRÉS [id number] [place] [id number] [id number] Results This patient has no known results.
--- NOTE | 2021-06-10 14:54 | ER ---
Nurse's Notes [facility] Name: Dilma Royal Age: 25 yrs Sex: Female : 1995 Arrival Date: 06/10/2021 Time: 13:30 Bed 15 Private MD: Diagnosis: Acute pharyngitis, unspecified Presentation: 06/10 13:38 Chief complaint: Patient states: "I have a sore throat and a cold for a few days now". aa5 Coronavirus screen: At this time, the client does not indicate any symptoms associated with coronavirus-19. Ebola Screen: Patient negative for fever greater than or equal to 101.5 degrees Fahrenheit, and additional compatible Ebola Virus Disease symptoms. Initial Sepsis Screen: Does the patient meet any 2 criteria? No. Patient's initial sepsis screen is negative. Does the patient have a suspected source of infection? No. Patient's initial sepsis screen is negative. Risk Assessment: Do you want to hurt yourself or someone else? Patient reports no desire to harm self or others. Onset of symptoms was May 2021. 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 Flu vaccine is not up to date. - Social history:: Smoking status: Patient/guardian denies using tobacco. Screenin:49 Abuse screen: Denies threats or abuse. Denies injuries from another. Nutritional kg screening: No deficits noted. Tuberculosis screening: No symptoms or risk factors identified. Fall Risk No fall in past 12 months (0 pts). No secondary diagnosis (0 pts). No IV (0 pts). Ambulatory Aid- None/Bed Rest/Nurse Assist (0 pts). Gait- Normal/Bed Rest/Wheelchair (0 pts) Mental Status- Oriented to own ability (0 pts). Total [place] Fall Scale indicates No Risk (0-24 pts). Assessment: 13:47 General: Appears in no apparent distress. Behavior is calm, cooperative, appropriate kg for age, quiet. Pain: Complains of pain in neck Pain does not radiate. Pain currently is 5 out of 10 on a pain scale. at worst was 5 out of 10 on a pain scale. level that patient reports is acceptable is 3 out of 10 on a pain scale. Quality of pain is described as aching, soreness Pain began gradually. Neuro: No deficits noted. Cardiovascular: No deficits noted. Respiratory: Reports cough that is productive, Airway is patent Respiratory effort is even, unlabored, relaxed, Breath sounds are clear bilaterally. GI: No deficits noted. : No deficits noted. EENT: Throat is reddened has enlarged tonsils Reports difficulty swallowing. Vital Signs: 13:38 BP 112 / 73; Pulse 98; Resp 18 S; Temp 98.0(TE); Pulse Ox 100% on R/A; Weight 123.83 kg aa5 (R); Height 5 ft. 5 in. (165.10 cm) (R); 14:00 BP 119 / 84; Pulse 108; Resp 20; Pulse Ox 99% on R/A; kg 14:45 BP 109 / 89; Pulse 95; Resp 20; Pulse Ox 98% ; kg 15:00 BP 122 / 78; Pulse 89; Resp 20; Pulse Ox 96% on R/A; kg 13:38 Body Mass Index 45.43 (123.83 kg, 165.10 cm) aa5 ED Course: 13:30 Patient arrived in ED. mr 13:38 Arm band placed on. aa5 13:39 Triage completed. aa5 13:42 Mackenzie Iraheta, SHRADDHA is Primary Nurse. kg 13:43 Warner Moulton PA is PHCP. cp 13:43 Yonas Davis MD is Attending Physician. cp 13:50 Patient has correct armband on for positive identification. Bed in low position. Call kg light in reach. Side rails up X 1. 15:21 No provider procedures requiring assistance completed. Patient did not have IV access kg during this emergency room visit. Administered Medications: No medications were administered Outcome: 14:53 Discharge ordered by . cp 15:21 Discharged to home ambulatory. kg 15:21 Condition: good 15:21 Discharge instructions given to patient, Instructed on discharge instructions, follow up and referral plans. Demonstrated understanding of instructions, follow-up care. 15:21 Patient left the ED. kg Signatures: TateKerry Audri, RN RN aa5 Warner Moulton PA PA cp Graham, Kristen, RN RN kg
--- NOTE | 2021-06-10 14:54 | EDPHYS ---
Physician Documentation [facility] Name: Dilma Royal Age: 25 yrs Sex: Female : 1995 Arrival Date: 06/10/2021 Time: 13:30 Bed 15 Private MD: ED Physician Yonas Davis HPI: 06/10 14:00 This 25 yrs old Black Female presents to ER via Ambulatory with complaints of Sore cp Throat. 14:00 The patient presents with sore throat. cp 14:00 The patient describes throat pain as constant. Onset: The symptoms/episode cp began/occurred 3 day(s) ago. 14:00 Associated signs and symptoms: Pertinent positives: rhinorrhea, slight cough, Pertinent cp negatives diarrhea, dysphagia, earache, fever, vomiting. 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 Flu vaccine is not up to date. - Social history:: Smoking status: Patient/guardian denies using tobacco. ROS: 14:05 Constitutional: Negative for body aches, chills, fever, poor PO intake. cp 14:05 Eyes: Negative for injury, pain, redness, and discharge. cp 14:05 ENT: Positive for rhinorrhea, Negative for drainage from ear(s), ear pain, difficulty swallowing, difficulty handling secretions. 14:05 Respiratory: Positive for cough, Negative for shortness of breath, wheezing. 14:05 Abdomen/GI: Negative for vomiting, diarrhea, constipation. 14:05 Skin: Negative for rash. 14:05 All other systems are negative. Exam: 14:10 Constitutional: The patient appears in no acute distress, alert, awake, non-toxic, well cp developed, well nourished. 14:10 Head/Face: Normocephalic, atraumatic. cp 14:10 Eyes: Periorbital structures: appear normal, Conjunctiva: normal, no exudate, no injection, Sclera: no appreciated abnormality, Lids and lashes: appear normal, bilaterally. 14:10 ENT: External ear(s): are unremarkable, Ear canal(s): are normal, clear, TM's: dullness, bilaterally, Nose: is normal, Mouth: Lips: moist, Oral mucosa: moist, Posterior pharynx: Airway: no evidence of obstruction, patent, Tonsils: no enlargement, no exudate, Uvula: midline, erythema, that is mild, exudate, is not appreciated. 14:10 Neck: ROM/movement: Meningeal signs: are not present, Lymph nodes: no appreciated lymphadenopathy. 14:10 Chest/axilla: Inspection: normal. 14:10 Cardiovascular: Rate: tachycardic. 14:10 Respiratory: the patient does not display signs of respiratory distress, Respirations: normal, no use of accessory muscles, no retractions, labored breathing, is not present, Breath sounds: are clear throughout, no decreased breath sounds, no stridor, no wheezing. Vital Signs: 13:38 BP 112 / 73; Pulse 98; Resp 18 S; Temp 98.0(TE); Pulse Ox 100% on R/A; Weight 123.83 kg aa5 (R); Height 5 ft. 5 in. (165.10 cm) (R); 14:00 BP 119 / 84; Pulse 108; Resp 20; Pulse Ox 99% on R/A; kg 14:45 BP 109 / 89; Pulse 95; Resp 20; Pulse Ox 98% ; kg 15:00 BP 122 / 78; Pulse 89; Resp 20; Pulse Ox 96% on R/A; kg 13:38 Body Mass Index 45.43 (123.83 kg, 165.10 cm) aa5 MDM: 13:50 Patient medically screened. cp 14:15 Differential diagnosis: apthous stomatitis, group A strep tonsillitis, cassandra's angina, cp mononucleosis, pharyngitis, retropharyngeal abcess. 14:53 Data reviewed: vital signs, nurses notes, lab test result(s). cp 14:53 Counseling: I had a detailed discussion with the patient and/or guardian regarding: the cp historical points, exam findings, and any diagnostic results supporting the discharge/admit diagnosis, lab results, to return to the emergency department if symptoms worsen or persist or if there are any questions or concerns that arise at home. Special discussion: I discussed with the patient/guardian that the patient's current presentation does not indicate dosing of antibiotics. They should follow-up with their primary care provider and return if the symptoms persist or progress. 06/10 13:49 Order name: Strep cp 06/10 14:28 Order name: Throat Culture EDMS Administered Medications: No medications were administered Disposition: 06/11 07:26 Co-signature as Attending Physician, Yonas Davis MD I agree with the assessment and kdr plan of care. Disposition Summary: 06/10/21 14:53 Discharge Ordered Location: Home cp Problem: new cp Symptoms: are unchanged cp Condition: Stable cp Diagnosis - Acute pharyngitis, unspecified cp Followup: cp - With: Private Physician - When: 2 - 3 days - Reason: Worsening of condition Discharge Instructions: - Discharge Summary Sheet cp - Pharyngitis cp - Sore Throat cp Forms: - Medication Reconciliation Form cp - Thank You Letter cp - Antibiotic Education cp - Prescription Opioid Use cp Signatures: Dispatcher [employer] EDMS Yonas Davis MD MD [facility] Suzie Diaz RN RN aa5 Warner [place], PA PA cp
[2021-06-10 15:35] VITALS: TEMP 98
[2021-06-10 15:46] VITALS: BP 122/78; O2SAT 96
== END 2021-06-10 15:21 | disposition home or self-care (01) ==
LOC: ER 13:28
DX: J02.9 Acute pharyngitis, unspecified (principal)
CPT/HCPCS: 87070; 87081; 99281

== ENCOUNTER 2022-06-24 08:01 | Emergency (ER) | payer OTHER ==
--- NOTE | 2022-06-24 09:05 | ER ---
Nurse's Notes [facility] Name: Dilma Royal Age: 26 yrs Sex: Female : 1995 Arrival Date: 06/24/2022 Time: 08:07 Bed Waiting Private MD: Diagnosis: Streptococcal pharyngitis Presentation: 06/24 08:18 Chief complaint: Patient states: thinks she has strep throat, has fever and sore iw throat, sees pus pockets in back of throat. Coronavirus screen: Client presents with at least one sign or symptom that may indicate coronavirus-19. Ebola Screen: Patient negative for fever greater than or equal to 101.5 degrees Fahrenheit, and additional compatible Ebola Virus Disease symptoms Patient denies exposure to infectious person. Patient denies travel to an Ebola-affected area in the 21 days before illness onset. No symptoms or risks identified at this time. Initial Sepsis Screen: Does the patient meet any 2 criteria? No. Patient's initial sepsis screen is negative. Does the patient have a suspected source of infection? No. Patient's initial sepsis screen is negative. Risk Assessment: Do you want to hurt yourself or someone else? Patient reports no desire to harm self or others. 08:18 Method Of Arrival: Ambulatory iw 08:18 Acuity: GRANT 4 iw Historical: - Allergies: 08:21 NKA; iw - Home Meds: 08:21 None [Active]; iw - PMHx: 08:21 None; iw - PSHx: 08:21 Cholecystectomy; iw - Social history:: Smoking status: Patient denies any tobacco usage or history of. Screenin:36 Abuse screen: Denies threats or abuse. Denies injuries from another. Nutritional iw screening: No deficits noted. Tuberculosis screening: No symptoms or risk factors identified. Fall Risk None identified. Assessment: 08:35 General: Appears in no apparent distress. Behavior is calm, cooperative. Pain: iw Complains of pain in throat. Neuro: Level of Consciousness is awake, alert, obeys commands, Oriented to person, place, time, situation. Respiratory: Airway is patent Respiratory effort is even, unlabored, Breath sounds are clear bilaterally. EENT: Throat is reddened has patchy exudate has enlarged tonsils bilaterally with gag reflex present. 08:36 General: Reports fever for feeling ill for. iw Vital Signs: 08:18 BP 111 / 67; Pulse 108; Resp 16 S; Temp 97.6; Pulse Ox 100% on R/A; iw ED Course: 08:07 Patient arrived in ED. rg4 08:10 [facility] jh[facility] 08:10 Warner Cottrell MD is Attending Physician. jh7 08:11 Warner Cottrell MD is Attending Physician. 7 08:20 Triage completed. iw 08:21 Arm band placed on. iw 08:36 No provider procedures requiring assistance completed. Patient did not have IV access iw during this emergency room visit. 08:48 Palmira Arana, RN is Primary Nurse. iw Administered Medications: No medications were administered Medication: 08:38 VIS not applicable for this client. iw Outcome: 09:05 Discharge ordered by . 7 09:35 Patient left the ED. iw Signatures: Palmira Arana RN RN Cora Go rg4 Lu Davey FNP [place] [id number]
--- NOTE | 2022-06-24 09:05 | EDPHYS ---
Physician Documentation [facility] Name: Dilma Royal Age: 26 yrs Sex: Female : 1995 Arrival Date: 06/24/2022 Time: 08:07 Bed Waiting Private MD: ED Physician Warner Cottrell HPI: 06/24 08:20 This 26 yrs old Black Female presents to ER via Ambulatory with complaints of Fever, jh7 Sore Throat. 08:20 Onset: The symptoms/episode began/occurred 2 day(s) ago. Patient presents with sore jh7 throat, white patches on the throat, and fever for 2 days. States that she believes that she has strep and has had strep multiple times as an adult. No other symptoms at this time.. Historical: - Allergies: 08:21 NKA; iw - Home Meds: 08:21 None [Active]; iw - PMHx: 08:21 None; iw - PSHx: 08:21 Cholecystectomy; iw - Social history:: Smoking status: Patient denies any tobacco usage or history of. ROS: 08:20 Eyes: Negative for injury, pain, redness, and discharge, Neck: Negative for injury, jh7 pain, and swelling, Cardiovascular: Negative for chest pain, palpitations, and edema, Respiratory: Negative for shortness of breath, cough, wheezing, and pleuritic chest pain, Abdomen/GI: Negative for abdominal pain, nausea, vomiting, diarrhea, and constipation, Back: Negative for injury and pain, Skin: Negative for injury, rash, and discoloration, Neuro: Negative for headache, weakness, numbness, tingling, and seizure. 08:20 Constitutional: Positive for fever, Negative for body aches, chills, poor PO intake. 08:20 ENT: Positive for sore throat, Negative for ear pain, nasal discharge, sinus congestion. 08:20 All other systems are negative. Exam: 08:20 Constitutional: This is a well developed, well nourished patient who is awake, alert, jh7 and in no acute distress. Eyes: Pupils equal round and reactive to light, extra-ocular motions intact. Lids and lashes normal. Conjunctiva and sclera are non-icteric and not injected. Cornea within normal limits. Periorbital areas with no swelling, redness, or edema. Neck: Trachea midline, no thyromegaly or masses palpated, and no cervical lymphadenopathy. Supple, full range of motion without nuchal rigidity, or vertebral point tenderness. No Meningismus. Cardiovascular: Regular rate and rhythm with a normal S1 and S2. No gallops, murmurs, or rubs. Normal PMI, no JVD. No pulse deficits. Respiratory: Lungs have equal breath sounds bilaterally, clear to auscultation and percussion. No rales, rhonchi or wheezes noted. No increased work of breathing, no retractions or nasal flaring. Abdomen/GI: Soft, non-tender, with normal bowel sounds. No distension or tympany. No guarding or rebound. No evidence of tenderness throughout. Back: No spinal tenderness. No costovertebral tenderness. Full range of motion. Skin: Warm, dry with normal turgor. Normal color with no rashes, no lesions, and no evidence of cellulitis. Neuro: Awake and alert, GCS 15, oriented to person, place, time, and situation. Sensory grossly intact. Normal gait. 08:20 ENT: TM's: are normal, Posterior pharynx: Tonsils: bilaterally enlarged, with erythema, with exudate, erythema, that is moderate, Voice: is normal. Vital Signs: 08:18 BP 111 / 67; Pulse 108; Resp 16 S; Temp 97.6; Pulse Ox 100% on R/A; iw MDM: 08:21 [facility] medically screened. [facility] 09:14 Differential diagnosis: viral Infection, bacterial infection. Data reviewed: vital [facility] signs, nurses notes, lab test result(s). Data interpreted: Pulse oximetry: is 100 %. Interpretation: normal. Counseling: I had a detailed discussion with the patient and/or guardian regarding: the historical points, exam findings, and any diagnostic results supporting the discharge/admit diagnosis, to return to the emergency department if symptoms worsen or persist or if there are any questions or concerns that arise at home. 06/24 08:29 Order name: Strep; Complete Time: 09:04 iw Administered Medications: No medications were administered Disposition Summary: 06/24/22 09:05 Discharge Ordered Location: Home [facility] Problem: new [facility] Symptoms: are unchanged [facility] Condition: Stable [facility] Diagnosis - Streptococcal pharyngitis [facility] - With: Private Physician - When: 2 - 3 days - Reason: Recheck today's complaints Discharge Instructions: - Discharge Summary Sheet 7 - Strep Throat, Adult [facility] Forms: - Medication Reconciliation Form [facility] - Thank You Letter [facility] - Antibiotic Education [facility] Prescriptions: - Amoxicillin 875 mg Oral Tablet - take 1 tablet by ORAL route every 12 hours for 10 days; 20 tablet; Refills: 0, jh7 Product Selection Permitted Signatures: Dispatcher [employer] Palmira Dubon RN RN Lu Bass FNP [employer] [facility]
[2022-06-24 09:57] VITALS: BP 111/67; TEMP 97.6; O2SAT 100
== END 2022-06-24 09:35 | disposition home or self-care (01) ==
LOC: ER 08:01
DX: J02.0 Streptococcal pharyngitis (principal)
CPT/HCPCS: 87081; 99281

== ENCOUNTER 2023-06-25 22:04 | Emergency (ER) | payer OTHER ==
--- OUTSIDE RECORDS SUMMARY | 2023-06-25 22:16 | XMS REPORT | Continuity of Care Document ---
:1995 Author Organization [facility] t Address [address] [place] [place] [address] Care Team Providers Name Role Phone PCP, PATIENT DOES NOT HAVE A Primary Care Physician Unavaila CASSI Mccray Attending Clinician Unavailable MARLENA WANG Attending Clinician Unavailable Marlena Wang DO Attending Clinician Cassi Blanco MD Attending Clinician Nurse, [facility] Attending Clinician Unavailable Leanna Dominguez MD Attending Clinician Sudhakar Henriquez MD Attending Clinician FABIAN SHULTZ Attending Clinician Unavailable Fabian Shultz DO Attending Clinician Doctor Unassigned, [place] Attending Clinician Unavailable Ultrasound, Adc Mf Attending Clinician Unavailable Austin Little MD Attending Clinician [phone] AUSTIN LITTLE Attending Clinician Unavailable JENN FUENTES Attending Clinician Unavailable Jenn Fuentes PA-C Attending Clinician 2, Adc Lab Attending Clinician Unavailable Ultrasound, Ang-Mfm Attending Clinician Unavailable Sd Macias MD Attending Clinician [phone] SD MACIASBOGIAlexander Attending Clinician Unavailable Yang SANCHEZ, Delicia Enriquez Attending Clinician DELICIA GARNICA Attending Clinician Unavailable BERNARDINO TODD Attending Clinician Unavailable HENRI CHEEMA Attending Clinician Unavailable Oswaldo SANCHEZ, Henri Perez Attending Clinician Bernardino Todd MD Attending Clinician Annie SANCHEZ, Lisa Attending Clinician JONNIE GOODRICH Attending Clinician Unavailable Kp SANCHEZ, Jonnie Attending Clinician Vani SANCHEZ, Viktoria Attending Clinician Mack Poon MD Attending Clinician Only, Adc Test Attending Clinician Unavailable Doroteo SANCHEZ, Chuy Attending Clinician Castro RN, Maryjo L Attending Clinician Unavailable Dory SANCHEZ, Carolin Hatfield Attending Clinician Isra Goodrich DO Attending Clinician Hunter Madrigal MD Attending Clinician Akinsibaldev WHPAna Attending Clinician [phone] AKINSIDANYEL SNOWANA C Attending Clinician Unavailable Keegan SANCHEZ, Дмитрий Attending Clinician Chuy Crowder MD Attending Clinician HUNTER MADRIGAL Attending Clinician Unavailable HUNTER MADRIGAL Attending Clinician Unavailable CASSI BLANCO Admitting Clinician Unavailable CAROLIN CONNORS Admitting Clinician Unavailable DELGADO KOWALSKI Admitting Clinician Unavailable Alberto SANCHEZ, Leanna Admitting Clinician Lisa Eldridge MD Admitting Clinician LISA ELDRIDGE Admitting Clinician Unavailable Cassi Blanco MD Admitting Clinician Carolin Connors MD Admitting Clinician Chuy Crowder MD Admitting Clinician HUNTER MADRIGAL Admitting Clinician Unavailable Payers Payer Name Policy Type Policy Number Effective Date Expiration Date Zaira viera [facility] [id number] 2019 [facility] 00:00:00 Problems Condition Condition Condition Status Onset Resolution Last Treating Co mments Source Name Details Category Date Date Treatment Clinician Date Nexplanon Nexplanon Disease Active Uni vers in place in place 5-11 ity of 00:00: [place] 00 Medical Branch Disease Active Univers (spontaneo (spontaneo 4-15 [place] delivery[place] 00 [facility] Preeclamps Preeclamps Disease Active U nivers ia, third ia, third 4-14 ity of trimester trimester 00:00: Gerardo sood 00 Medical Branch History of History of Disease Active U nivers herpes herpes 4-05 ity of labialis labialis 00:00: [place] [facility] Pain of Pain of Disease Active Univers round round 3-20 ity of ligament ligament 00:00: [place] during during 00 Medical Bran ch Uterine Uterine Disease Active Univers size-date size-date 2-20 ity of discrepanc discrepanc 00:[place] y in third y in third 00 Me dical trimester trimester Bran ch High risk High risk Disease Active Uni vers , , 9-14 it y of antepartum antepartum 00:00: [place] 00 [place] History of History of Disease Active U nivers pre-eclamp pre-eclamp 9-14 it y of robert robert 00:00: [place] 00 Medical Branch Encounter Encounter Disease Active Uni vers for for 6-09 ity of screening screening 00:00: Ger[place] sood for for 00 Medical maternal maternal Branch depression depression Morbid Morbid Disease Active Univers obesity obesity 1-30 ity of with body with body 00:00: [place] so[place] mass index mass index 00 Me dical of of Branch 40.0-49.9 40.0-49.9 Hypomagnes Hypomagnes Disease Active U nivers emia emia 1-30 ity of 00:00: [place] [facility] Obesity in Obesity in Disease Active U nivers 6-28 ity of 00:00: [address] Allergies, Adverse Reactions, Alerts Allergy Allergy Status Severity Reaction(s) Onset Inactive Treating Comm ents Source Name Type Date Date Clinician NO KNOWN Drug Active Univers ALLERGIE Class ity of S [facility] Social History Social Habit Start Date Stop Date Quantity Comments Source ASSERTION 2022-07-08 [facility] 00:00:00 [facility] History of Passive smoker [facility] tobacco use [facility] Exposure to 2023-03-29 2023-04-08 Not sure [facility] SARS-CoV-2 00:00:00 15:14:00 [facility] (event) [place] Alcohol intake 2023-04-08 2023-04-08 Ex-drinker [facility] 00:00:00 00:00:00 (finding) [facility] Tobacco use and 2022-08-10 2022-08-10 Smokeless tobacco Un iversity of exposure 00:00:00 00:00:00 non-user [facility] Sex Assigned At [birth year] Universit y of 00:00:00 00:00:00 [facility] Smoking Status Start Date Stop Date Source Never smoked tobacco [facility] Medications Ordered Filled Start Stop Current Ordering Indication Dosage Frequency Signature Comments Components Source Medication Medication Date Date Medication? Clinician (SIG) Name Name etonogestre 2022- No [id number] 68mg Univers L 04-06- ity of (NEXPLANON) 16:30: 15:41 [place] implant 68 00 :00 Medical mg Branch etonogestre 2022- No [id number] 68mg 68 mg, Univers L 04-06- Subdermal, ity of (NEXPLANON) 16:30: 15:41 ONCE NOW, [place] implant 68 00 :00 1 dose, On Med ical mg Jennifer [place] 04/06/23 at 1130, Routine
Use approved by: NETWORK CONSULTANT etonogestre 2022- No [id number] 68mg Univers L 04-06-11 ity of (NEXPLANON) 16:30: 15:41 [place] implant 68 00 :00 Medical mg Branch etonogestre 2022- No [id number] 68mg 68 mg, Univers L 5-11 05-11 Subdermal, ity of (NEXPLANON) 16:30: 15:41 ONCE NOW, [place] implant 68 00 :00 1 dose, On Med ical mg Jennifer Branch 04/06/23 at 1130, Routine
Use approved by: NETWORK CONSULTANT PNV 2022-0 2022- No Take by Univers no.95/dean 4-16 04-16 mouth. ity o f us 07:00: 00:00 [place] fum/folic 18 :00 Medical ac Branch ( ORAL) 2022-0 Yes [id number] 1{tbl} Take 1 Univers vitamin 4-16 tablet by ity of w/FA tablet 00:00: mouth in [place] 00 the Medical morning. Branch docusate 0 Yes [id number] 200mg Take 2 U nivers 100 mg 4-16 capsules ity of capsule 00:00: by mouth [place] 00 once daily Medical as needed Branch for Constipati on. ferrous 2022-0 Yes [id number] 325mg Take 1 Un jad sulfate 325 4-16 tablet by ity of mg (65 mg 00:00: [place] iron[place] 00 the Medical tablet morning Branch and 1 tablet in the evening. ibuprofen 2022-0 Yes [id number] 600mg Take 1 Univers 600 mg 4-16 tablet by ity of tablet 00:00: mouth [place] 00 every 6 Medical (six) Branch hours as needed (Pain). Take with food or milk. 2022-0 Yes [id number] 1{tbl} Take 1 Univers vitamin 4-16 tablet by ity of w/FA tablet 00:00: mouth in [place] 00 the Medical morning. Branch docusate 0 Yes [id number] 200mg Take 2 U nivers 100 mg 4-16 capsules ity of capsule 00:00: by mouth [place] 00 once daily Medical as needed Branch for Constipati on. ferrous 2022-0 Yes [id number] 325mg Take 1 Un jad sulfate 325 4-16 tablet by ity of mg (65 mg 00:00: [place] iron[place] 00 the Medical tablet morning Branch and 1 tablet in the evening. ibuprofen 2022-0 Yes [id number] 600mg Take 1 Univers 600 mg 4-16 tablet by ity of tablet 00:00: mouth [place] 00 every 6 Medical (six) Branch hours as needed (Pain). Take with food or milk. 2022-0 Yes [id number] 1{tbl} Take 1 Univers vitamin 4-16 tablet by ity of w/FA tablet 00:00: mouth in [place] 00 the Medical morning. Branch docusate 2022-0 Yes [id number] 200mg Take 2 U nivers 100 mg 4-16 capsules ity of capsule 00:00: by mouth [place] 00 once daily Medical as needed Branch for Constipati on. ferrous 2022-0 Yes [id number] 325mg Take 1 Un jad sulfate 325 4-16 tablet by ity of mg (65 mg 00:00: [place] iron) 00 the Medical tablet morning Branch and 1 tablet in the evening. ibuprofen 2022-0 Yes [id number] 600mg Take 1 Univers 600 mg 4-16 tablet by ity of tablet 00:00: mouth [place] 00 every 6 Medical (six) Branch hours as needed (Pain). Take with food or milk. 2022-0 Yes [id number] 1{tbl} Take 1 Univers vitamin 4-16 tablet by ity of w/FA tablet 00:00: mouth in [place] 00 the Medical morning. Branch docusate 2022-0 Yes [id number] 200mg Take 2 U nivers 100 mg 4-16 capsules ity of capsule 00:00: by mouth [place] 00 once daily Medical as needed Branch for Constipati on. ferrous 2022-0 Yes [id number] 325mg Take 1 Un jad sulfate 325 4-16 tablet by ity of mg (65 mg 00:00: [place] iron[place] 00 the Medical tablet morning Branch and 1 tablet in the evening. ibuprofen 2022-0 Yes [id number] 600mg Take 1 Univers 600 mg 4-16 tablet by ity of tablet 00:00: mouth [place] 00 every 6 Medical (six) Branch hours as needed (Pain). Take with food or milk. 2022-0 Yes [id number] 1{tbl} Take 1 Univers vitamin 4-16 tablet by ity of w/FA tablet 00:00: mouth in [place] 00 the Medical morning. Branch docusate 2022-0 Yes [id number] 200mg Take 2 U nivers 100 mg 4-16 capsules ity of capsule 00:00: by mouth [place] 00 once daily Medical as needed Branch for Constipati on. ferrous 2023-0 Yes [id number] 325mg Take 1 Un jad sulfate 325 4-16 tablet by ity of mg (65 mg 00:00: [place] iron[place] 00 the Medical tablet morning Branch and 1 tablet in the evening. ibuprofen Yes [id number] 600mg Take 1 Univers 600 mg 4-16 tablet by ity of tablet 00:00: mouth [place] 00 every 6 Medical (six) Branch hours as needed (Pain). Take with food or milk. Yes [id number] 1{tbl} Take 1 Univers vitamin 4-16 tablet by ity of w/FA tablet 00:00: mouth in [place] 00 the Medical morning. Branch docusate Yes [id number] 200mg Take 2 U nivers 100 mg 4-16 capsules ity of capsule 00:00: by mouth [place] 00 once daily Medical as needed Branch for Constipati on. ferrous Yes [id number] 325mg Take 1 Un jad sulfate 325 4-16 tablet by ity of mg (65 mg 00:00: [place] iron) 00 the Medical tablet morning Branch and 1 tablet in the evening. ibuprofen Yes [id number] 600mg Take 1 Univers 600 mg 4-16 tablet by ity of tablet 00:00: mouth [place] 00 every 6 Medical (six) Branch hours as needed (Pain). Take with food or milk. Yes [id number] 1{tbl} Take 1 Univers vitamin 4-16 tablet by ity of w/FA tablet 00:00: mouth in [place] 00 the Medical morning. Branch 0 Yes [id number] 1{tbl} Take 1 Univers vitamin 4-16 tablet by ity of w/FA tablet 00:00: mouth in [place] 00 the Medical morning. Branch 0 Yes [id number] 1{tbl} Take 1 Univers vitamin 4-16 tablet by ity of w/FA tablet 00:00: mouth in [place] 00 the Medical morning. Branch docusate 0 2022- No [id number] 200mg Take 2 Univers 100 mg 4-16 05-11 capsules ity of capsule 00:00: 00:00 by mouth [place] 00 :00 once daily Medical as needed Branch for Constipati on. ferrous 20232022- No [id number] 325mg Take 1 U nivers sulfate 325 -16 05-11 tablet by it y of mg (65 mg 00:00: 00:00 mouth in [place] iron) 00 :00 the Medical tablet morning Branch and 1 tablet in the evening. ibuprofen 2022- No [id number] 600mg Take 1 Univers 600 mg 4-16 05-11 tablet by ity of tablet 00:00: 00:00 mouth [place] 00 :00 every 6 Medical (six) Branch hours as needed (Pain). Take with food or milk. docusate 2022- No [id number] 200mg Take 2 Univers 100 mg 4-16 05-11 capsules ity of capsule 00:00: 00:00 by mouth [place] 00 :00 once daily Medical as needed Branch for Constipati on. ferrous 2022- No [id number] 325mg Take 1 U nivers sulfate 325 -16 05-11 tablet by it y of mg (65 mg 00:00: 00:00 mouth in [place] iron) 00 :00 the Medical tablet morning Branch and 1 tablet in the evening. ibuprofen 2022- No [id number] 600mg Take 1 Univers 600 mg -16 05-11 tablet by ity of tablet 00:00: 00:00 mouth [place] 00 :00 every 6 Medical (six) Branch hours as needed (Pain). Take with food or milk. rho(D) Yes 300ug 300 mcg, Univer s immune 4-15 Intramuscu ity of globulin 20:24: lar, ONCE, [place] as (RHOGAM) 29 For 1 Medical syringe 300 dose, Branch mcg Conditiona l, Routine HYDROcodone Yes 1{tbl} 1 tablet, Univers -acetaminop 4-15 Oral, ity of hen (NORCO 20:23: Q6HPRN, [place] 5) 5-325 mg 33 Starting Medi adrián tablet 1 on Sat Branch tablet 03/11/23 at 1523, Until Discontinu ed, Routine, Pain (scale 7-10) ibuprofen Yes 600mg 600 mg, Univ ers (IBU) 4-15 Oral, ity of tablet 600 20:23: Q6HPRN, [place] mg 33 Starting Medical on Sat Branch 03/11/23 at 1523, Until Discontinu ed, Routine, Pain (scale 4-6) acetaminoph 2023-0 Yes 650mg 650 mg, Un jad en 4-15 Oral, ity of (TYLENOL) 20:23: Q6HPRN, [place] tablet 650 32 Starting Medic al mg on [facility] Branch 03/11/23 at 1523, Until Discontinu ed, Routine, Pain (scale 1-3) diphenhydrA 3-0 Yes 25mg 25 mg, Univ ers MINE 4-15 Oral, ity of (BENADRYL) 20:23: Q6HPRN, [place] tablet 25 32 Starting Medica l mg on [facility] Branch 03/11/23 at 1523, Until Discontinu ed, Routine, Sleep, Itching ondansetron 2022-0 Yes 4mg 4 mg, Slow Univers (ZOFRAN 4-15 IV Push, ity of (PF)) 20:23: Q8HPRN, [place] injection 4 32 Starting Medi adrián mg on [facility] Branch 03/11/23 at 1523, Until Discontinu ed, Routine, Nausea and Vomiting (N/V) simethicone 2022-0 Yes 160mg 160 mg, Un jad (GAS RELIEF 4-15 Oral, ity of (SIMETHICON 20:23: PC+HSPRN, [place] E)) 32 Starting Medical chewable on [facility] Branch tablet 160 03/11/23 at mg 1523, Until Discontinu ed, Routine, Gas docusate 2022-0 Yes 200mg 200 mg, Unive rs (COLACE) 4-15 Oral, ity of capsule 200 20:23: QDAILYPRN, [place] mg 32 Starting Medical on [facility] Branch 03/11/23 at 1523, Until Discontinu ed, Routine, Constipati on magnesium 2022-0 Yes 30mL 30 mL, Univer s hydroxide 4-15 Oral, ity of (MILK OF 20:23: QDAILYPRN, [place] MAGNESIA) 32 Starting Medica l 400 mg/5 mL on [facility] Branch suspension 03/11/23 at 30 mL 1523, Until Discontinu ed, Routine, Constipati on benzocaine- 3-0 Yes Topical, Un jad menthol 4-15 PRN, ity of (DERMOPLAST 20:23: Starting [place] ) 20-0.5 % 32 on [facility] Medical topical 03/11/23 at Branch spray 1523, Until Discontinu ed, Routine, Perineum discomfort fentaNYL 2 2022-2022- No Intra-op Un jad mcg/mL + 4-15 04-15 ity of bupivacaine 18:42: 21:22 [place] 0.1% in NS 00 :50 Medical 250 mL Branch epidural bag fentaNYL 2 2022-2022- No Intra-op Un jad mcg/mL + -15 04-15 ity of bupivacaine 18:42: 21:22 [place] 0.1% in NS 00 :50 Medical 250 mL Branch epidural bag lidocaine-e 2022- No Epidural, Univers pinephrine 03-11-15 ONCE INTRA it y of (XYLOCAINE 18:35: 21:22 PROCEDURE, [place] W/EPINEPHRI 00 :50 Starting Medi adrián NE) 1.5 on Sat Branch %-1:200,000 03/11/23 at injection 1335, Until 03/11/23 at 1622, Routine, Intra-op oxytocin 2022- No 2mU/min at 2-40 Un jad (PITOCIN) 03-11-15 mL/hr, IV ity of 30 units in 15:22: 20:24 Infusion, [place] NS 500 mL 51 :28 TITRATE, Medica l IV infusion Starting Bran ch on 03/11/23 at 1022, Until 03/11/23 at 1524, JUAN FENTanyl PF 2022- No 100ug 100 mcg, Univers (SUBLIMAZE 03-11-15 Slow IV ity o f (PF)) 14:21: 20:24 Push, [place] injection 36 :28 Q2HPRN, Medical 100 mcg Starting Branch on 03/11/23 at 0921, Until 03/11/23 at 1524, Routine, Pain (scale 4-6) misoprostol 2022- No 25ug 25 mcg, Un jad (CYTOTEC) 03-11-15 Vaginal, ity o f quarter-tab 03:30: 12:33 Q4H, 3 [place] let 25 mcg 00 :00 doses, Medical First dose Branch (after last modificati on) on Mon03/10/23 at 2230, Last dose on 03/11/23 at 0400, Routine lactated 2022- No 500mL at 999 Unive rs ringers IV 03-11 04-15 mL/hr, 500 it y of infusion 00:33: 20:24 mL, IV [place] 500 mL 33 :28 Infusion, Medical PRN - SEE Branch INSTRUCTIO NS, Starting on Mon03/10/23 at 1933, Until 03/11/23 at 1524, Routine D5W-LR IV 2022- No 1000mL at 1-125 U nivers infusion 03-11 04-15 mL/hr, IV ity o f 1,000 mL 00:33: 20:24 Infusion, [place] 33 :28 TITRATE, Medical Starting Branch on Mon03/10/23 at 1933, Until 03/11/23 at 1524, Routine PNV Yes Take by Univers no.95/dean 4-14 mouth. ity of 20:07: [facility]/folic [address] [place] [address] ( ORAL) PNV Yes Take by Univers no.95/dean 4-14 mouth. ity of us 20:07: [place] fum/folic [address] [place] [address] ( ORAL) acyclovir 2022- No [id number] 400mg Take 1 Univers 400 mg 4-05 05-06 tablet by ity of tablet 00:00: 04:59 mouth in [place] 00 :00 [facility] and 1 tablet at noon and 1 tablet in the evening. Do all this for 30 days. acyclovir 2022- No [id number] 400mg Take 1 Univers 400 mg 4-05 05-06 tablet by ity of tablet 00:00: 04:59 mouth in [place] 00 :00 [facility] and 1 tablet at noon and 1 tablet in the evening. Do all this for 30 days. acyclovir 2022- No [id number] 400mg Take 1 Univers 400 mg 4-05 05-06 tablet by ity of tablet 00:00: 04:59 mouth in [place] 00 :00 [facility] and 1 tablet at noon and 1 tablet in the evening. Do all this for 30 days. acyclovir 2022- No [id number] 400mg Take 1 Univers 400 mg 4-05 05-06 tablet by ity of tablet 00:00: 04:59 mouth in [place] 00 :00 the Medical morning Branch and 1 tablet at noon and 1 tablet in the evening. Do all this for 30 days. acyclovir 2022-0 3- No [id number] 400mg Take 1 Univers 400 mg 4-05 05-06 tablet by ity of tablet 00:00: 04:59 mouth in [place] 00 :00 the Medical morning Branch and 1 tablet at noon and 1 tablet in the evening. Do all this for 30 days. acyclovir 2022-0 3- No [id number] 400mg Take 1 Univers 400 mg 4-05 05-06 tablet by ity of tablet 00:00: 04:59 mouth in [place] 00 :00 the Medical morning Branch and 1 tablet at noon and 1 tablet in the evening. Do all this for 30 days. acyclovir 2022-0 3- No [id number] 400mg Take 1 Univers 400 mg 4-05 05-06 tablet by ity of tablet 00:00: 04:59 mouth in [place] 00 :00 the Medical morning Branch and 1 tablet at noon and 1 tablet in the evening. Do all this for 30 days. acyclovir 2022-0 3- No [id number] 400mg Take 1 Univers 400 mg 4-05 05-06 tablet by ity of tablet 00:00: 04:59 mouth in [place] 00 :00 the Medical morning Branch and 1 tablet at noon and 1 tablet in the evening. Do all this for 30 days. acyclovir 3-0 3- No [id number] 400mg Take 1 Univers 400 mg 4-05 04-16 tablet by ity of tablet 00:00: 00:00 mouth in [place] 00 :00 the Medical morning Branch and 1 tablet at noon and 1 tablet in the evening. Do all this for 30 days. magnesium 2023-0 Yes [id number] 400mg Take 1 Univers oxide 400 2-21 tablet by ity o f mg (241.3 00:00: mouth [place] mg 00 the Medical magnesium) morning Branch tablet and 1 tablet in the evening. magnesium 2023-0 Yes [id number] 400mg Take 1 Univers oxide 400 2-21 tablet by ity o f mg (241.3 00:00: mouth [place] mg 00 the Medical magnesium) morning Branch tablet and 1 tablet in the evening. magnesium 2023-0 Yes [id number] 400mg Take 1 Univers oxide 400 2-21 tablet by ity o f mg (241.3 00:00: mouth [place] mg 00 the Medical magnesium) morning Branch tablet and 1 tablet in the evening. magnesium 2023-0 Yes [id number] 400mg Take 1 Univers oxide 400 2-21 tablet by ity o f mg (241.3 00:00: mouth [place] mg 00 the Medical magnesium) morning Branch tablet and 1 tablet in the evening. magnesium 2023-0 Yes [id number] 400mg Take 1 Univers oxide 400 2-21 tablet by ity o f mg (241.3 00:00: mouth [place] mg 00 the Medical magnesium) morning Branch tablet and 1 tablet in the evening. magnesium 2023-0 Yes [id number] 400mg Take 1 Univers oxide 400 2-21 tablet by ity o f mg (241.3 00:00: mouth [place] mg 00 the Medical magnesium) morning Branch tablet and 1 tablet in the evening. magnesium 2023-0 Yes [id number] 400mg Take 1 Univers oxide 400 2-21 tablet by ity o f mg (241.3 00:00: mouth [place] mg 00 the Medical magnesium) morning Branch tablet and 1 tablet in the evening. magnesium 2023-0 Yes [id number] 400mg Take 1 Univers oxide 400 2-21 tablet by ity o f mg (241.3 00:00: mouth [place] mg 00 the Medical magnesium) morning Branch tablet and 1 tablet in the evening. magnesium 2023-0 Yes [id number] 400mg Take 1 Univers oxide 400 2-21 tablet by ity o f mg (241.3 00:00: mouth [place] mg 00 the Medical magnesium) morning Branch tablet and 1 tablet in the evening. magnesium 2023-0 Yes [id number] 400mg Take 1 Univers oxide 400 2-21 tablet by ity o f mg (241.3 00:00: mouth [place] mg 00 the Medical magnesium) morning Branch tablet and 1 tablet in the evening. magnesium 2023-0 Yes [id number] 400mg Take 1 Univers oxide 400 2-21 tablet by ity o f mg (241.3 00:00: mouth [place] mg 00 the Medical magnesium) morning Branch tablet and 1 tablet in the evening. magnesium 2023-0 Yes [id number] 400mg Take 1 Univers oxide 400 2-21 tablet by ity o f mg (241.3 00:00: mouth [place] mg 00 the Medical magnesium) morning Branch tablet and 1 tablet in the evening. magnesium 2023-0 Yes [id number] 400mg Take 1 Univers oxide 400 2-21 tablet by ity o f mg (241.3 00:00: mouth [place] mg 00 the Medical magnesium) morning Branch tablet and 1 tablet in the evening. magnesium 2023-0 Yes [id number] 400mg Take 1 Univers oxide 400 2-21 tablet by ity o f mg (241.3 00:00: mouth [place] mg 00 the Medical magnesium) morning Branch tablet and 1 tablet in the evening. magnesium 3-0 2023- No [id number] 400mg Take 1 Univers oxide 400 2-21 04-16 tablet by ity of mg (241.3 00:00: 00:00 mouth in [place] mg 00 :00 the Medical magnesium) morning Branch tablet and 1 tablet in the evening. magnesium 3-0 Yes [id number] 400mg Take 1 Univers oxide 400 1-04 tablet by ity o f mg (241.3 00:00: [place] mg 00 the Medical magnesium) morning Branch tablet and 1 tablet in the evening. magnesium 2023-0 Yes [id number] 400mg Take 1 Univers oxide 400 1-04 tablet by ity o f mg (241.3 00:00: [place] mg 00 the Medical magnesium) morning Branch tablet and 1 tablet in the evening. magnesium 2023-0 Yes [id number] 400mg Take 1 Univers oxide 400 1-04 tablet by ity o f mg (241.3 00:00: mouth [place] mg 00 the Medical magnesium) morning Branch tablet and 1 tablet in the evening. magnesium 2023-0 Yes [id number] 400mg Take 1 Univers oxide 400 1-04 tablet by ity o f mg (241.3 00:00: mouth [place] mg 00 the Medical magnesium) morning Branch tablet and 1 tablet in the evening. magnesium 2023-0 Yes [id number] 400mg Take 1 Univers oxide 400 1-04 tablet by ity o f mg (241.3 00:00: [place] mg 00 the Medical magnesium) morning Branch tablet and 1 tablet in the evening. magnesium 2022- No [id number] 400mg Take 1 Univers oxide 400 11-30 tablet by ity of mg (241.3 00:00: 00:00 mouth in [place] mg 00 :00 the Medical magnesium) morning Branch tablet and 1 tablet in the evening. magnesium 2022- No [id number] 400mg Take 1 Univers oxide 400 11-30 tablet by ity of mg (241.3 00:00: 00:00 mouth in [place] mg 00 :00 the Medical magnesium) morning Branch tablet and 1 tablet in the evening. magnesium 2022- No [id number] 400mg Take 1 Univers oxide 400 11-30 tablet by ity of mg (241.3 00:00: 00:00 mouth in [place] mg 00 :00 the Medical magnesium) morning Branch tablet and 1 tablet in the evening. aspirin 81 2021-11 Yes [id number] 81mg Take 1 Univers mg EC 0-22 9100 tablet by ity of tablet 00:00: mouth in [place] 00 the Medical morning. [place] aspirin 2021-11 Yes [id number] 81mg Take 1 Univers mg EC 0-22 9100 tablet by ity of tablet 00:00: mouth in [place] the Medical morning. [place] aspirin 81 2021-11 Yes [id number] 81mg Take 1 Univers mg EC 0-22 9100 tablet by ity of tablet 00:00: mouth in [place] 00 the Medical morning. [place] aspirin 81 2021-11 Yes [id number] 81mg Take 1 [facility] 0-22 9100 tablet by [facility] tablet 00:00: mouth in [place] 00 the Medical morning. [place] aspirin 81 2021-11 Yes [id number] 81mg Take 1 [facility] mg EC 0-22 9100 tablet by [facility] of tablet 00:00: mouth in [place] 00 the Medical morning. [place] aspirin 81 2021-11 Yes [id number] 81mg Take 1 [facility] mg EC 0-22 9100 tablet by [facility] of tablet 00:00: mouth in [place] 00 the Medical morning. [place] aspirin 81 2021-11 Yes [id number] 81mg Take 1 [facility] mg EC 0-22 9100 tablet by [facility] of tablet 00:00: mouth in [place] 00 the Medical morning. Branch aspirin 81 2021-11 Yes [id number] 81mg Take 1 [facility] mg EC 0-22 9100 tablet by [facility] of tablet 00:00: mouth in [place] the Medical morning. Branch aspirin 81 2021-11 Yes [id number] 81mg Take 1 [facility] mg EC 0-22 9100 tablet by [facility] of tablet 00:00: mouth in [place] the Medical morning. Branch aspirin 81 2021-11 Yes [id number] 81mg Take 1 [facility] mg EC 0-22 9100 tablet by [facility] of tablet 00:00: mouth in [place] the Medical morning. Branch aspirin 81 2021-11 Yes [id number] 81mg Take 1 [facility] mg EC 0-22 9100 tablet by [facility] of tablet 00:00: mouth in [place] the Medical morning. Branch aspirin 81 2021-11 Yes [id number] 81mg Take 1 [facility] mg EC 0-22 9100 tablet by [facility] of tablet 00:00: mouth in [place] the Medical morning. Branch aspirin 81 2021-11 Yes [id number] 81mg Take 1 [facility] mg EC 0-22 9100 tablet by [facility] of tablet 00:00: mouth in [place] the Medical morning. Branch aspirin 81 2021-11 Yes [id number] 81mg Take 1 [facility] mg EC 0-22 9100 tablet by [facility] of tablet 00:00: mouth in [place] the Medical morning. Branch aspirin 81 2021-11 Yes [id number] 81mg Take 1 [facility] mg EC 0-22 9100 tablet by [facility] of tablet 00:00: mouth in [place] the Medical morning. Branch aspirin 81 2021-11 Yes [id number] 81mg Take 1 [facility] mg EC 0-22 9100 tablet by [facility] of tablet 00:00: mouth in [place] the Medical morning. Branch aspirin 81 2021-11 Yes [id number] 81mg Take 1 [facility] mg EC 0-22 9100 tablet by [facility] of tablet 00:00: mouth in [place] the Medical morning. Branch aspirin 81 2021-11 Yes [id number] 81mg Take 1 [facility] mg EC 0-22 9100 tablet by [facility] of tablet 00:00: mouth in [place] 00 the Medical morning. Branch aspirin 81 2021-11 Yes [id number] 81mg Take 1 [facility] mg EC 0-22 9100 tablet by [facility] of tablet 00:00: mouth in [place] 00 the Medical morning. Branch aspirin 81 2021-11 Yes [id number] 81mg Take 1 [facility] mg EC 0-22 9100 tablet by [facility] of tablet 00:00: mouth in [place] the Medical morning. Branch aspirin 81 2021-11 Yes [id number] 81mg Take 1 [facility] mg EC 0-22 9100 tablet by [facility] of tablet 00:00: mouth in [place] the Medical morning. Branch aspirin 81 2021-11 Yes [id number] 81mg Take 1 [facility] mg EC 0-22 9100 tablet by [facility] tablet 00:00: mouth in [place] the Medical morning. Branch aspirin 81 2021-11 Yes [id number] 81mg Take 1 [facility] mg EC 0-22 9100 tablet by [facility] of tablet 00:00: mouth in [place] the Medical morning. Branch aspirin 81 2021-11 Yes [id number] 81mg Take 1 [facility] mg EC 0-22 9100 tablet by [facility] of tablet 00:00: mouth in [place] the Medical morning. Branch aspirin 81 2021-11 Yes [id number] 81mg Take 1 [facility] mg EC 0-22 9100 tablet by [facility] of tablet 00:00: mouth in [place] the Medical morning. Branch aspirin 81 2021-11 Yes [id number] 81mg Take 1 [facility] mg EC 0-22 9100 tablet by [facility] of tablet 00:00: mouth in [place] the Medical morning. Branch aspirin 81 2021-11 Yes [id number] 81mg Take 1 [facility] mg EC 0-22 9100 tablet by [facility] of tablet 00:00: mouth in [place] the Medical morning. Branch aspirin 81 2021-11 Yes [id number] 81mg Take 1 [facility] mg EC 0-22 9100 tablet by [facility] of tablet 00:00: mouth in [place] the Medical morning. Branch aspirin 81 2021-11 Yes [id number] 81mg Take 1 [facility] mg EC 0-22 9100 tablet by [facility] of tablet 00:00: mouth in [place] 00 the Medical morning. Branch aspirin 81 2021-11 Yes [id number] 81mg Take 1 [facility] mg EC 0-22 9100 tablet by [facility] of tablet 00:00: mouth in [place] 00 the Medical morning. Branch aspirin 81 2021-11 Yes [id number] 81mg Take 1 [facility] mg EC 0-22 9100 tablet by [facility] of tablet 00:00: mouth in [place] 00 the Medical morning. Branch aspirin 81 2021-11 Yes [id number] 81mg Take 1 [facility] mg EC 0-22 9100 tablet by [facility] of tablet 00:00: mouth in [place] 00 the Medical morning. Branch aspirin 81 2021- Yes [id number] 81mg Take 1 [facility] mg EC 0-22 9100 tablet by [facility] tablet 00:00: mouth in [place] 00 the Medical morning. Branch aspirin 81 2021- Yes [id number] 81mg Take 1 [facility] mg EC 0-22 9100 tablet by [facility] of tablet 00:00: mouth in [place] 00 the Medical morning. Branch aspirin 81 2021- Yes [id number] 81mg Take 1 [facility] mg EC 0-22 9100 tablet by [facility] tablet 00:00: mouth in [place] 00 the Medical morning. Branch aspirin 81 2021- Yes [id number] 81mg Take 1 [facility] mg EC 0-22 9100 tablet by [facility] of tablet 00:00: mouth in [place] 00 the Medical morning. Branch aspirin 81 2021-11 2023- No [id number] 81mg Take 1 [facility] mg EC 0-22 04-16 9100 tablet by [facility] of tablet 00:00: 00:00 mouth in [place] 00 :00 the Medical morning. Branch PNV 2021-11 Yes Take by [facility] no.95/dean 0-12 mouth. [facility] of us 11:14: [place] fum/folic 30 Medical ac Branch ( ORAL) PNV 2021- Yes Take by [facility] no.95/dean 0-12 mouth. [facility] of us 11:14: [place] fum/folic 30 Medical ac Branch ( ORAL) PNV 2021- Yes Take by [facility] no.95/dean 0-12 mouth. [facility] of us 11:14: [place] fum/folic 30 Medical ac Branch ( ORAL) PNV 2021- Yes Take by [facility] no.95/dean 0-12 mouth. [facility] of us 11:14: [place] fum/folic 30 Medical ac Branch ( ORAL) PNV 2021-11 Yes Take by [facility] no.95/dean 0-12 mouth. [facility] us 11:14: [place] fum/folic 30 Medical ac Branch ( ORAL) PNV 2021-11 Yes Take by [facility] no.95/dean 0-12 mouth. [facility] of us 11:14: [place] fum/folic 30 Medical ac Branch ( ORAL) PNV 2021- Yes Take by [facility] no.95/dean 0-12 mouth. [facility] of us 11:14: [place] fum/folic 30 Medical ac Branch ( ORAL) PNV 2021- Yes Take by [facility] no.95/dean 0-12 mouth. [facility] of us 11:14: [place] fum/folic 30 Medical ac Branch ( ORAL) PNV 2021- Yes Take by [facility] no.95/dean 0-12 mouth. [facility] of us 11:14: [place] fum/folic 30 Medical ac Branch ( ORAL) PNV 2021- Yes Take by [facility] no.95/dean 0-12 mouth. [facility] of us 11:14: [place] fum/folic 30 Medical ac Branch ( ORAL) PNV 2021- Yes Take by [facility] no.95/dean 0-12 mouth. [facility] of us 11:14: [place] fum/folic 30 Medical ac Branch ( ORAL) PNV 2021-11 Yes Take by [facility] no.95/dean 0-12 mouth. [facility] us 11:14: [place] fum/folic 30 Medical ac Branch ( ORAL) PNV 2021- Yes Take by [facility] no.95/dean 0-12 mouth. [facility] of us 11:14: [place] fum/folic 30 Medical ac Branch ( ORAL) PNV 2021- Yes Take by [facility] no.95/dean 0-12 mouth. [facility] of us 11:14: [place] fum/folic 30 Medical ac Branch ( ORAL) PNV 2021- Yes Take by [facility] no.95/dean 0-12 mouth. [facility] of us 11:14: [place] fum/folic 30 Medical ac Branch ( ORAL) PNV 2021- Yes Take by [facility] no.95/dean 0-12 mouth. [facility] of us 11:14: [place] fum/folic 30 Medical ac Branch ( ORAL) PNV 2021- Yes Take by [facility] no.95/dean 0-12 mouth. [facility] of us 11:14: [place] fum/folic 30 Medical ac Branch ( ORAL) PNV 2021- Yes Take by [facility] no.95/dean 0-12 mouth. [facility] of us 11:14: [place] fum/folic 30 Medical ac Branch ( ORAL) PNV 2021- Yes Take by [facility] no.95/dean 0-12 mouth. [facility] of us 11:14: [place] fum/folic 30 Medical ac Branch ( ORAL) PNV 2021- Yes Take by [facility] no.95/dean 0-12 mouth. [facility] of us 11:14: [place] fum/folic 30 Medical ac Branch ( ORAL) PNV 2021- Yes Take by [facility] no.95/dean 0-12 mouth. [facility] of us 11:14: [place] fum/folic 30 Medical ac Branch ( ORAL) PNV 2021- Yes Take by [facility] no.95/dean 0-12 mouth. [facility] of us 11:14: [place] fum/folic 30 Medical ac Branch ( ORAL) PNV 2021- Yes Take by [facility] no.95/dean 0-12 mouth. [facility] of us 11:14: [place] fum/folic 30 Medical ac Branch ( ORAL) PNV 2021- Yes Take by [facility] no.95/dean 0-12 mouth. [facility] of us 11:14: [place] fum/folic 30 Medical ac Branch ( ORAL) PNV 2021- Yes Take by [facility] no.95/dean 0-12 mouth. [facility] of us 11:14: [place] fum/folic 30 Medical ac Branch ( ORAL) PNV 2021- Yes Take by [facility] no.95/dean 0-12 mouth. [facility] of us 11:14: [place] fum/folic 30 Medical ac Branch ( ORAL) PNV 2021- Yes Take by [facility] no.95/dean 0-12 mouth. [facility] of us 11:14: [place] fum/folic 30 Medical ac Branch ( ORAL) PNV 2021- Yes Take by [facility] no.95/dean 0-12 mouth. [facility] of us 11:14: [place] fum/folic 30 Medical ac Branch ( ORAL) PNV 2021- Yes Take by [facility] no.95/dean 0-12 mouth. [facility] of us 11:14: [place] fum/folic 30 Medical ac Branch ( ORAL) PNV 2021- Yes Take by [facility] no.95/dean 0-12 mouth. [facility] of us 11:14: [place] fum/folic 30 Medical ac Branch ( ORAL) PNV 2021- Yes Take by [facility] no.95/dean 0-12 mouth. [facility] of us 11:14: [place] fum/folic 30 Medical ac Branch ( ORAL) PNV 2021-11 Yes Take by [facility] no.95/dean 0-12 mouth. [facility] of us 11:14: [place] fum/folic 30 Medical ac Branch ( ORAL) PNV 2021-11 Yes Take by [facility] no.95/dean 0-12 mouth. ity of 11:14: [place] fum/folic 30 Medical ac Branch ( ORAL) amoxicillin 2021- No [id number] 500mg Take 1 [facility] 500 mg 08-12 09-24 capsule by [facility] of capsule 00:00: 04:59 mouth in [place] 00 :00 the Medical morning Branch and 1 capsule at noon and 1 capsule in the evening. Do all this for 7 days. doxylamine Yes [id number] 25mg Take 1 [facility] (UNISOM, 9-14 tablet by [facility] of DOXYLAMINE, 00:00: mouth at [place] ) 25 mg 00 bedtime as Medica l tablet needed for Branch Nausea and Vomiting (N/V). pyridoxine, Yes [id number] 25mg Take 1 [facility] VITAMIN 9-14 tablet by ity of B-6, 00:00: mouth [place] (VITAMIN 00 every 6 Medical B-6) 25 mg (six) Branch tablet hours as needed for Nausea and Vomiting (N/V). doxylamine Yes [id number] 25mg Take 1 [facility] (UNISOM, 9-14 tablet by ity of DOXYLAMINE, 00:00: mouth at [place] ) 25 mg 00 bedtime as Medica l tablet needed for Branch Nausea and Vomiting (N/V). pyridoxine, Yes [id number] 25mg Take 1 [facility] VITAMIN 9-14 tablet by ity of B-6, 00:00: mouth [place] (VITAMIN 00 every 6 Medical B-6) 25 mg (six) Branch tablet hours as needed for Nausea and Vomiting (N/V). doxylamine Yes [id number] 25mg Take 1 [facility] (UNISOM, 9-14 tablet by ity of DOXYLAMINE, 00:00: mouth at [place] ) 25 mg 00 bedtime as Medica l tablet needed for Branch Nausea and Vomiting (N/V). pyridoxine, 2021-0 Yes [id number] 25mg Take 1 [facility] VITAMIN 9-14 tablet by ity of B-6, 00:00: mouth [place] (VITAMIN 00 every 6 Medical B-6) 25 mg (six) Branch tablet hours as needed for Nausea and Vomiting (N/V). doxylamine 2021-0 Yes [id number] 25mg Take 1 [facility] (UNISOM, 9-14 tablet by ity of DOXYLAMINE, 00:00: mouth at [place] ) 25 mg 00 bedtime as Medica l tablet needed for Branch Nausea and Vomiting (N/V). pyridoxine, 2021-0 Yes [id number] 25mg Take 1 [facility] VITAMIN 9-14 tablet by ity of B-6, 00:00: mouth [place] (VITAMIN 00 every 6 Medical B-6) 25 mg (six) Branch tablet hours as needed for Nausea and Vomiting (N/V). doxylamine 2021-0 Yes [id number] 25mg Take 1 [facility] (UNISOM, 9-14 tablet by ity of DOXYLAMINE, 00:00: mouth at [place] ) 25 mg 00 bedtime as Medica l tablet needed for Branch Nausea and Vomiting (N/V). pyridoxine, 2021-0 Yes [id number] 25mg Take 1 [facility] VITAMIN 9-14 tablet by ity of B-6, 00:00: mouth [place] (VITAMIN 00 every 6 Medical B-6) 25 mg (six) Branch tablet hours as needed for Nausea and Vomiting (N/V). doxylamine 2021-0 Yes [id number] 25mg Take 1 [facility] (UNISOM, 9-14 tablet by ity of DOXYLAMINE, 00:00: mouth at [place] ) 25 mg 00 bedtime as Medica l tablet needed for Branch Nausea and Vomiting (N/V). pyridoxine, 2021-0 Yes [id number] 25mg Take 1 [facility] VITAMIN 9-14 tablet by ity of B-6, 00:00: mouth [place] (VITAMIN 00 every 6 Medical B-6) 25 mg (six) Branch tablet hours as needed for Nausea and Vomiting (N/V). doxylamine 2021-0 Yes [id number] 25mg Take 1 [facility] (UNISOM, 9-14 tablet by ity of DOXYLAMINE, 00:00: mouth at [place] ) 25 mg 00 bedtime as Medica l tablet needed for Branch Nausea and Vomiting (N/V). pyridoxine, 0 Yes [id number] 25mg Take 1 [facility] VITAMIN 9-14 tablet by ity of B-6, 00:00: mouth [place] (VITAMIN 00 every 6 Medical B-6) 25 mg (six) Branch tablet hours as needed for Nausea and Vomiting (N/V). doxylamine 0 Yes [id number] 25mg Take 1 [facility] (UNISOM, 9-14 tablet by ity of DOXYLAMINE, 00:00: mouth at [place] ) 25 mg 00 bedtime as Medica l tablet needed for Branch Nausea and Vomiting (N/V). pyridoxine, 0 Yes [id number] 25mg Take 1 [facility] VITAMIN 9-14 tablet by ity of B-6, 00:00: mouth [place] (VITAMIN 00 every 6 Medical B-6) 25 mg (six) Branch tablet hours as needed for Nausea and Vomiting (N/V). doxylamine 0 Yes [id number] 25mg Take 1 [facility] (UNISOM, 9-14 tablet by ity of DOXYLAMINE, 00:00: mouth at [place] ) 25 mg 00 bedtime as Medica l tablet needed for Branch Nausea and Vomiting (N/V). pyridoxine, 0 Yes [id number] 25mg Take 1 [facility] VITAMIN 9-14 tablet by ity of B-6, 00:00: mouth [place] (VITAMIN 00 every 6 Medical B-6) 25 mg (six) Branch tablet hours as needed for Nausea and Vomiting (N/V). doxylamine 0 Yes [id number] 25mg Take 1 [facility] (UNISOM, 9-14 tablet by ity of DOXYLAMINE, 00:00: mouth at [place] ) 25 mg 00 bedtime as Medica l tablet needed for Branch Nausea and Vomiting (N/V). pyridoxine, 0 Yes [id number] 25mg Take 1 [facility] VITAMIN 9-14 tablet by ity of B-6, 00:00: mouth [place] (VITAMIN 00 every 6 Medical B-6) 25 mg (six) Branch tablet hours as needed for Nausea and Vomiting (N/V). doxylamine 2-0 Yes [id number] 25mg Take 1 [facility] (UNISOM, 9-14 tablet by ity of DOXYLAMINE, 00:00: mouth at [place] ) 25 mg 00 bedtime as Medica l tablet needed for Branch Nausea and Vomiting (N/V). pyridoxine, 2021-0 Yes [id number] 25mg Take 1 [facility] VITAMIN 9-14 tablet by ity of B-6, 00:00: mouth [place] (VITAMIN 00 every 6 Medical B-6) 25 mg (six) Branch tablet hours as needed for Nausea and Vomiting (N/V). doxylamine 2021-0 Yes [id number] 25mg Take 1 [facility] (UNISOM, 9-14 tablet by ity of DOXYLAMINE, 00:00: mouth [place] ) 25 mg 00 bedtime as Medica l tablet needed for Branch Nausea and Vomiting (N/V). pyridoxine, 2021-0 Yes [id number] 25mg Take 1 [facility] VITAMIN 9-14 tablet by ity of B-6, 00:00: mouth [place] (VITAMIN 00 every 6 Medical B-6) 25 mg (six) Branch tablet hours as needed for Nausea and Vomiting (N/V). doxylamine 2021-0 Yes [id number] 25mg Take 1 [facility] (UNISOM, 9-14 tablet by ity of DOXYLAMINE, 00:00: mouth [place] ) 25 mg 00 bedtime as Medica l tablet needed for Branch Nausea and Vomiting (N/V). pyridoxine, 2021-0 Yes [id number] 25mg Take 1 [facility] VITAMIN 9-14 tablet by ity of B-6, 00:00: mouth [place] (VITAMIN 00 every 6 Medical B-6) 25 mg (six) Branch tablet hours as needed for Nausea and Vomiting (N/V). doxylamine 2-0 Yes [id number] 25mg Take 1 [facility] (UNISOM, 9-14 tablet by ity of DOXYLAMINE, 00:00: mouth at [place] ) 25 mg 00 bedtime as Medica l tablet needed for Branch Nausea and Vomiting (N/V). pyridoxine, 2022-0 Yes [id number] 25mg Take 1 [facility] VITAMIN 9-14 tablet by ity of B-6, 00:00: mouth [place] (VITAMIN 00 every 6 Medical B-6) 25 mg (six) Branch tablet hours as needed for Nausea and Vomiting (N/V). doxylamine 2021-0 Yes [id number] 25mg Take 1 [facility] (UNISOM, 9-14 tablet by ity of DOXYLAMINE, 00:00: mouth at [place] ) 25 mg 00 bedtime as Medica l tablet needed for Branch Nausea and Vomiting (N/V). pyridoxine, 2021-0 Yes [id number] 25mg Take 1 [facility] VITAMIN 9-14 tablet by ity of B-6, 00:00: mouth [place] (VITAMIN 00 every 6 Medical B-6) 25 mg (six) Branch tablet hours as needed for Nausea and Vomiting (N/V). doxylamine 2021-0 Yes [id number] 25mg Take 1 [facility] (UNISOM, 9-14 tablet by ity of DOXYLAMINE, 00:00: mouth [place] ) 25 mg 00 bedtime as Medica l tablet needed for Branch Nausea and Vomiting (N/V). pyridoxine, 2021-0 Yes [id number] 25mg Take 1 [facility] VITAMIN 9-14 tablet by ity of B-6, 00:00: mouth [place] (VITAMIN 00 every 6 Medical B-6) 25 mg (six) Branch tablet hours as needed for Nausea and Vomiting (N/V). doxylamine 2021-0 Yes [id number] 25mg Take 1 [facility] (UNISOM, 9-14 tablet by ity of DOXYLAMINE, 00:00: mouth at [place] ) 25 mg 00 bedtime as Medica l tablet needed for Branch Nausea and Vomiting (N/V). pyridoxine, 2021-0 Yes [id number] 25mg Take 1 [facility] VITAMIN 9-14 tablet by ity of B-6, 00:00: mouth [place] (VITAMIN 00 every 6 Medical B-6) 25 mg (six) Branch tablet hours as needed for Nausea and Vomiting (N/V). doxylamine 2021-0 Yes [id number] 25mg Take 1 [facility] (UNISOM, 9-14 tablet by ity of DOXYLAMINE, 00:00: mouth at [place] ) 25 mg 00 bedtime as Medica l tablet needed for Branch Nausea and Vomiting (N/V). pyridoxine, 2021-0 Yes [id number] 25mg Take 1 [facility] VITAMIN 9-14 tablet by ity of B-6, 00:00: mouth [place] (VITAMIN 00 every 6 Medical B-6) 25 mg (six) Branch tablet hours as needed for Nausea and Vomiting (N/V). doxylamine 2021-0 Yes [id number] 25mg Take 1 [facility] (UNISOM, 9-14 tablet by ity of DOXYLAMINE, 00:00: mouth at [place] ) 25 mg 00 bedtime as Medica l tablet needed for Branch Nausea and Vomiting (N/V). pyridoxine, 0 Yes [id number] 25mg Take 1 [facility] VITAMIN 9-14 tablet by ity of B-6, 00:00: mouth [place] (VITAMIN 00 every 6 Medical B-6) 25 mg (six) Branch tablet hours as needed for Nausea and Vomiting (N/V). doxylamine 2021-0 Yes [id number] 25mg Take 1 [facility] (UNISOM, 9-14 tablet by ity of DOXYLAMINE, 00:00: mouth at [place] ) 25 mg 00 bedtime as Medica l tablet needed for Branch Nausea and Vomiting (N/V). pyridoxine, 2021-0 Yes [id number] 25mg Take 1 [facility] VITAMIN 9-14 tablet by ity of B-6, 00:00: mouth [place] (VITAMIN 00 every 6 Medical B-6) 25 mg (six) Branch tablet hours as needed for Nausea and Vomiting (N/V). doxylamine 2021-0 Yes [id number] 25mg Take 1 [facility] (UNISOM, 9-14 tablet by ity of DOXYLAMINE, 00:00: mouth at [place] ) 25 mg 00 bedtime as Medica l tablet needed for Branch Nausea and Vomiting (N/V). pyridoxine, 2021-0 Yes [id number] 25mg Take 1 [facility] VITAMIN 9-14 tablet by ity of B-6, 00:00: mouth [place] (VITAMIN 00 every 6 Medical B-6) 25 mg (six) Branch tablet hours as needed for Nausea and Vomiting (N/V). doxylamine 2021-0 Yes [id number] 25mg Take 1 [facility] (UNISOM, 9-14 tablet by ity of DOXYLAMINE, 00:00: mouth at [place] ) 25 mg 00 bedtime as Medica l tablet needed for Branch Nausea and Vomiting (N/V). pyridoxine, 2021-0 Yes [id number] 25mg Take 1 [facility] VITAMIN 9-14 tablet by ity of B-6, 00:00: mouth [place] (VITAMIN 00 every 6 Medical B-6) 25 mg (six) Branch tablet hours as needed for Nausea and Vomiting (N/V). doxylamine 2021-0 Yes [id number] 25mg Take 1 [facility] (UNISOM, 9-14 tablet by ity of DOXYLAMINE, 00:00: mouth at [place] ) 25 mg 00 bedtime as Medica l tablet needed for Branch Nausea and Vomiting (N/V). pyridoxine, 2021-0 Yes [id number] 25mg Take 1 [facility] VITAMIN 9-14 tablet by ity of B-6, 00:00: mouth [place] (VITAMIN 00 every 6 Medical B-6) 25 mg (six) Branch tablet hours as needed for Nausea and Vomiting (N/V). doxylamine 2021-0 Yes [id number] 25mg Take 1 [facility] (UNISOM, 9-14 tablet by ity of DOXYLAMINE, 00:00: mouth at [place] ) 25 mg 00 bedtime as Medica l tablet needed for Branch Nausea and Vomiting (N/V). pyridoxine, 2021-0 Yes [id number] 25mg Take 1 [facility] VITAMIN 9-14 tablet by ity of B-6, 00:00: mouth [place] (VITAMIN 00 every 6 Medical B-6) 25 mg (six) Branch tablet hours as needed for Nausea and Vomiting (N/V). doxylamine 2021-0 Yes [id number] 25mg Take 1 [facility] (UNISOM, 9-14 tablet by ity of DOXYLAMINE, 00:00: mouth at [place] ) 25 mg 00 bedtime as Medica l tablet needed for Branch Nausea and Vomiting (N/V). pyridoxine, 2021-0 Yes [id number] 25mg Take 1 [facility] VITAMIN 9-14 tablet by ity of B-6, 00:00: mouth [place] (VITAMIN 00 every 6 Medical B-6) 25 mg (six) Branch tablet hours as needed for Nausea and Vomiting (N/V). doxylamine 2021-0 Yes [id number] 25mg Take 1 [facility] (UNISOM, 9-14 tablet by ity of DOXYLAMINE, 00:00: mouth at [place] ) 25 mg 00 bedtime as Medica l tablet needed for Branch Nausea and Vomiting (N/V). pyridoxine, 2021-0 Yes [id number] 25mg Take 1 [facility] VITAMIN 9-14 tablet by ity of B-6, 00:00: mouth [place] (VITAMIN 00 every 6 Medical B-6) 25 mg (six) Branch tablet hours as needed for Nausea and Vomiting (N/V). doxylamine 2021-0 Yes [id number] 25mg Take 1 [facility] (UNISOM, 9-14 tablet by ity of DOXYLAMINE, 00:00: mouth at [place] ) 25 mg 00 bedtime as Medica l tablet needed for Branch Nausea and Vomiting (N/V). pyridoxine, 2021-0 Yes [id number] 25mg Take 1 [facility] VITAMIN 9-14 tablet by ity of B-6, 00:00: mouth [place] (VITAMIN 00 every 6 Medical B-6) 25 mg (six) Branch tablet hours as needed for Nausea and Vomiting (N/V). doxylamine 2021-0 Yes [id number] 25mg Take 1 [facility] (UNISOM, 9-14 tablet by ity of DOXYLAMINE, 00:00: mouth at [place] ) 25 mg 00 bedtime as Medica l tablet needed for Branch Nausea and Vomiting (N/V). pyridoxine, 2021-0 Yes [id number] 25mg Take 1 [facility] VITAMIN 9-14 tablet by ity of B-6, 00:00: mouth [place] (VITAMIN 00 every 6 Medical B-6) 25 mg (six) Branch tablet hours as needed for Nausea and Vomiting (N/V). doxylamine 2-0 Yes [id number] 25mg Take 1 [facility] (UNISOM, 9-14 tablet by ity of DOXYLAMINE, 00:00: mouth at [place] ) 25 mg 00 bedtime as Medica l tablet needed for Branch Nausea and Vomiting (N/V). pyridoxine, 2021-0 Yes [id number] 25mg Take 1 [facility] VITAMIN 9-14 tablet by ity of B-6, 00:00: mouth [place] (VITAMIN 00 every 6 Medical B-6) 25 mg (six) Branch tablet hours as needed for Nausea and Vomiting (N/V). doxylamine 2021-0 Yes [id number] 25mg Take 1 [facility] (UNISOM, 9-14 tablet by ity of DOXYLAMINE, 00:00: mouth at [place] ) 25 mg 00 bedtime as Medica l tablet needed for Branch Nausea and Vomiting (N/V). pyridoxine, 2021-0 Yes [id number] 25mg Take 1 [facility] VITAMIN 9-14 tablet by ity of B-6, 00:00: mouth [place] (VITAMIN 00 every 6 Medical B-6) 25 mg (six) Branch tablet hours as needed for Nausea and Vomiting (N/V). doxylamine 2021-0 Yes [id number] 25mg Take 1 [facility] (UNISOM, 9-14 tablet by ity of DOXYLAMINE, 00:00: mouth at [place] ) 25 mg 00 bedtime as Medica l tablet needed for Branch Nausea and Vomiting (N/V). pyridoxine, 2021-0 Yes [id number] 25mg Take 1 [facility] VITAMIN 9-14 tablet by ity of B-6, 00:00: mouth [place] (VITAMIN 00 every 6 Medical B-6) 25 mg (six) Branch tablet hours as needed for Nausea and Vomiting (N/V). doxylamine 2021-0 Yes [id number] 25mg Take 1 [facility] (UNISOM, 9-14 tablet by ity of DOXYLAMINE, 00:00: mouth at [place] ) 25 mg 00 bedtime as Medica l tablet needed for Branch Nausea and Vomiting (N/V). pyridoxine, 2021-0 Yes [id number] 25mg Take 1 [facility] VITAMIN 9-14 tablet by ity of B-6, 00:00: mouth [place] (VITAMIN 00 every 6 Medical B-6) 25 mg (six) Branch tablet hours as needed for Nausea and Vomiting (N/V). doxylamine 2021-0 Yes [id number] 25mg Take 1 [facility] (UNISOM, 9-14 tablet by ity of DOXYLAMINE, 00:00: mouth at [place] ) 25 mg 00 bedtime as Medica l tablet needed for Branch Nausea and Vomiting (N/V). pyridoxine, 2021-0 Yes [id number] 25mg Take 1 [facility] VITAMIN 9-14 tablet by ity of B-6, 00:00: mouth [place] (VITAMIN 00 every 6 Medical B-6) 25 mg (six) Branch tablet hours as needed for Nausea and Vomiting (N/V). doxylamine 2021-0 Yes [id number] 25mg Take 1 [facility] (UNISOM, 9-14 tablet by ity of DOXYLAMINE, 00:00: mouth at [place] ) 25 mg 00 bedtime as Medica l tablet needed for Branch Nausea and Vomiting (N/V). pyridoxine, 0 Yes [id number] 25mg Take 1 [facility] VITAMIN 9-14 tablet by ity of B-6, 00:00: mouth [place] (VITAMIN 00 every 6 Medical B-6) 25 mg (six) Branch tablet hours as needed for Nausea and Vomiting (N/V). doxylamine 0 Yes [id number] 25mg Take 1 [facility] (UNISOM, 9-14 tablet by ity of DOXYLAMINE, 00:00: mouth at [place] ) 25 mg 00 bedtime as Medica l tablet needed for Branch Nausea and Vomiting (N/V). pyridoxine, 0 Yes [id number] 25mg Take 1 [facility] VITAMIN 9-14 tablet by ity of B-6, 00:00: mouth [place] (VITAMIN 00 every 6 Medical B-6) 25 mg (six) Branch tablet hours as needed for Nausea and Vomiting (N/V). doxylamine 2021-0 Yes [id number] 25mg Take 1 [facility] (UNISOM, 9-14 tablet by ity of DOXYLAMINE, 00:00: mouth at [place] ) 25 mg 00 bedtime as Medica l tablet needed for Branch Nausea and Vomiting (N/V). pyridoxine, 2021-0 Yes [id number] 25mg Take 1 [facility] VITAMIN 9-14 tablet by ity of B-6, 00:00: mouth [place] (VITAMIN 00 every 6 Medical B-6) 25 mg (six) Branch tablet hours as needed for Nausea and Vomiting (N/V). doxylamine 2022- No [id number] 25mg Take 1 [facility] (UNISOM, 08-10 tablet by floyd o f DOXYLAMINE, 00:00: 00:00 [place] ) 25 mg 00 :00 bedtime as Medica l tablet needed for Branch Nausea and Vomiting (N/V). pyridoxine, 2022- No [id number] 25mg Take 1 [facility] VITAMIN 08-10 tablet by itbrian of B-6, 00:00: 00:00 mouth [place] (VITAMIN 00 :00 every 6 Medical B-6) 25 mg (six) Branch tablet hours as needed for Nausea and Vomiting (N/V). Immunizations Ordered Filled Immunization Date Status Comments [facility] e Immunization Name Name [facility] 2023-01-30 Completed [facility] of 00:00:00 [facility] TDAP 2023-01-30 Completed [facility] of 00:00:00 [facility] TDAP 2023-01-30 Completed [facility] of 00:00:00 [facility] TDAP 2023-01-30 Completed [facility] of 00:00:00 [facility] TDAP 2023-01-30 Completed [facility] of 00:00:00 [facility] TDAP 2023-01-30 Completed [facility] of 00:00:00 [facility] TDAP 2023-01-30 Completed [facility] of 00:00:00 [facility] TDAP 2023-01-30 Completed [facility] 00:00:00 [facility] TDAP 2023-01-30 Completed [facility] 00:00:00 [facility] TDAP 2023-01-30 Completed [facility] of 00:00:00 [facility] TDAP 2023-01-30 Completed [facility] of 00:00:00 [facility] TDAP 2023-01-30 Completed [facility] 00[facility]00:00 [facility] TDAP 2023-01-30 Completed [facility] of 00:00:00 [facility] TDAP 2023-01-30 Completed [facility] of 00:00:00 [facility] TDAP 2023-01-30 Completed [facility] of 00:00:00 [facility] TDAP 2023-01-30 Completed [facility] of 00:00:00 [facility] TDAP 2023-01-30 Completed [facility] of 00:00:00 [facility] TDAP 2023-01-30 Completed [facility] of 00:00:00 [facility] TDAP 2023-01-30 Completed [facility] of 00:00:00 [facility] TDAP 2023-01-30 Completed [facility] of 00:00:00 [facility] SARS-COV-2 COVID-19 2021-10-26 Completed Unive rsity of MODERNA 12+ YRS 00:00:00 [place] [facility] VACC[facility] SARS-COV-2 COVID-19 2021-10-26 Completed Unive rsity of MODERNA 12+ YRS 00:00:00 [place] [facility] V[facility] SARS-COV-2 COVID-19 2021-10-26 Completed Unive rsity of MODERNA 12+ YRS 00:00:00 [place] [facility] VACC[facility] SARS-COV-2 COVID-19 2021-10-26 Completed Unive rsity of MODERNA 12+ YRS 00:00:00 [place] [facility] VACCINE [facility] SARS-COV-2 COVID-19 2021-10-26 Completed Unive rsity of MODERNA 12+ YRS 00:00:00 [place] [facility] VACCINE [facility] SARS-COV-2 COVID-19 2021-10-26 Completed Unive rsity of MODERNA 12+ YRS 00:00:00 [place] [facility] VACCINE [facility] SARS-COV-2 COVID-19 2021-10-26 Completed Unive rsity of MODERNA 12+ YRS 00:00:00 [place] [facility] VACCINE [facility] SARS-COV-2 COVID-19 2021-10-26 Completed Unive rsity of MODERNA 12+ YRS 00:00:00 [place] [facility] VACCINE [facility] SARS-COV-2 COVID-19 2021-10-26 Completed Unive rsity of MODERNA 12+ YRS 00:00:00 [place] [facility] VACCINE [facility] SARS-COV-2 COVID-19 2021-10-26 Completed Unive rsity of MODERNA 12+ YRS 00:00:00 [place] [facility] VACCINE [facility] SARS-COV-2 COVID-19 2021-10-26 Completed Unive rsity of MODERNA 12+ YRS 00:00:00 [place] [facility] VACCINE [facility] SARS-COV-2 COVID-19 2021-10-26 Completed Unive rsity of MODERNA 12+ YRS 00:00:00 [place] [facility] VACCINE [facility] SARS-COV-2 COVID-19 2021-10-26 Completed Unive rsity of MODERNA 12+ YRS 00:00:00 [place] [facility] VACCINE [facility] SARS-COV-2 COVID-19 2021-10-26 Completed Unive rsity of MODERNA 12+ YRS 00:00:00 [place] [facility] VACCINE [facility] SARS-COV-2 COVID-19 2021-10-26 Completed Unive rsity of MODERNA 12+ YRS 00:00:00 [place] [facility] VACCINE [facility] SARS-COV-2 COVID-19 2021-10-26 Completed Unive rsity of MODERNA 12+ YRS 00:00:00 [place] [facility] VACCINE [facility] SARS-COV-2 COVID-19 2021-10-26 Completed Unive rsity of MODERNA 12+ YRS 00:00:00 [place] [facility] VACCINE [facility] SARS-COV-2 COVID-19 2021-10-26 Completed Unive rsity of MODERNA 12+ YRS 00:00:00 [place] [facility] VACCINE [facility] SARS-COV-2 COVID-19 2021-10-26 Completed Unive rsity of MODERNA 12+ YRS 00:00:00 [place] [facility] VACCINE [facility] SARS-COV-2 COVID-19 2021-10-26 Completed Unive rsity of MODERNA 12+ YRS 00:00:00 [place] [facility] VACCINE [facility] SARS-COV-2 COVID-19 2021-10-26 Completed Unive rsity of MODERNA 12+ YRS 00:00:00 [place] [facility] VACCINE [facility] SARS-COV-2 COVID-19 2021-10-26 Completed Unive rsity of MODERNA 12+ YRS 00:00:00 [place] [facility] VACCINE [facility] SARS-COV-2 COVID-19 2021-10-26 Completed Unive rsity of MODERNA 12+ YRS 00:00:00 [place] [facility] VACCINE [facility] SARS-COV-2 COVID-19 2021-10-26 Completed Unive rsity of MODERNA 12+ YRS 00:00:00 [place] [facility] VACCINE [facility] SARS-COV-2 COVID-19 2021-10-26 Completed Unive rsity of MODERNA 12+ YRS 00:00:00 [place] [facility] VACCINE [facility] SARS-COV-2 COVID-19 2021-10-26 Completed Unive rsity of MODERNA 12+ YRS 00:00:00 [place] [facility] VACCINE [facility] SARS-COV-2 COVID-19 2021-10-26 Completed Unive rsity of MODERNA 12+ YRS 00:00:00 [place] [facility] VACCINE [facility] SARS-COV-2 COVID-19 2021-10-26 Completed Unive rsity of MODERNA 12+ YRS 00:00:00 [place] [facility] VACCINE [facility] SARS-COV-2 COVID-19 2021-10-26 Completed Unive rsity of MODERNA 12+ YRS 00:00:00 [place] [facility] VACCINE [facility] SARS-COV-2 COVID-19 2021-10-26 Completed Unive rsity of MODERNA 12+ YRS 00:00:00 [place] [facility] VACCINE [facility] SARS-COV-2 COVID-19 2021-10-26 Completed Unive rsity of MODERNA 12+ YRS 00:00:00 [place] [facility] VACCINE [facility] SARS-COV-2 COVID-19 2021-10-26 Completed Unive rsity of MODERNA 12+ YRS 00:00:00 [place] [facility] VACCINE [facility] SARS-COV-2 COVID-19 2021-10-26 Completed Unive rsity of MODERNA 12+ YRS 00:00:00 [place] [facility] VACCINE [facility] SARS-COV-2 COVID-19 2021-10-26 Completed Unive rsity of MODERNA 12+ YRS 00:00:00 [place] [facility] VACCINE [facility] SARS-COV-2 COVID-19 2021-10-26 Completed Unive rsity of MODERNA 12+ YRS 00:00:00 [place] [facility] VACCINE [facility] SARS-COV-2 COVID-19 2021-10-26 Completed Unive rsity of MODERNA 12+ YRS 00:00:00 [place] [facility] VACCINE [facility] SARS-COV-2 COVID-19 2021-10-26 Completed Unive rsity of MODERNA 12+ YRS 00:00:00 [place] [facility] VACCINE [facility] SARS-COV-2 COVID-19 2021-10-26 Completed Unive rsity of MODERNA 12+ YRS 00:00:00 [place] [facility] VACCINE [facility] SARS-COV-2 COVID-19 2021-10-26 Completed Unive rsity of MODERNA 12+ YRS 00:00:00 [facility] ical VACCINE Branch SARS-COV-2 COVID-19 2021-10-26 Completed Unive rsity of MODERNA 12+ YRS 00:00:00 [facility] ical VACCINE Branch SARS-COV-2 COVID-19 2021-10-26 Completed Unive rsity of MODERNA 12+ YRS 00:00:00 [facility] ical VACCINE Branch SARS-COV-2 COVID-19 2021-10-26 Completed Unive rsity of MODERNA 12+ YRS 00:00:00 [facility] ical VACCINE Branch SARS-COV-2 COVID-19 2021-10-26 Completed Unive rsity of MODERNA 12+ YRS 00:00:00 [facility] ical VACCINE Branch SARS-COV-2 COVID-19 2021-10-26 Completed Unive rsity of MODERNA 12+ YRS 00:00:00 [facility] ica VACCINE Branch SARS-COV-2 COVID-19 2021-10-26 Completed Unive rsity of MODERNA 12+ YRS 00:00:00 [facility] VACCINE Branch SARS-COV-2 COVID-19 2021-09-30 Completed Unive rsity of VACCINE - (MODERNA) 00:00:00 [facility] SARS-COV-2 COVID-19 2021-09-30 Completed Unive rsity of VACCINE - (MODERNA) 00:00:00 [facility] SARS-COV-2 COVID-19 2021-09-30 Completed Unive rsity of VACCINE - (MODERNA) 00:00:00 [facility] SARS-COV-2 COVID-19 2021-09-30 Completed Unive rsity of VACCINE - (MODERNA) 00:00:00 [facility] SARS-COV-2 COVID-19 2021-09-30 Completed Unive rsity of VACCINE - (MODERNA) 00:00:00 [facility] SARS-COV-2 COVID-19 2021-09-30 Completed Unive rsity of VACCINE - (MODERNA) 00:00:00 [facility] SARS-COV-2 COVID-19 2021-09-30 Completed Unive rsity of VACCINE - (MODERNA) 00:00:00 [facility] SARS-COV-2 COVID-19 2021-09-30 Completed Unive rsity of VACCINE - (MODERNA) 00:00:00 [facility] SARS-COV-2 COVID-19 2021-09-30 Completed Unive rsity of VACCINE - (MODERNA) 00:00:00 [facility] SARS-COV-2 COVID-19 2021-09-30 Completed Unive rsity of VACCINE - (MODERNA) 00:00:00 [facility] SARS-COV-2 COVID-19 2021-09-30 Completed Unive rsity of VACCINE - (MODERNA) 00:00:00 [facility] SARS-COV-2 COVID-19 2021-09-30 Completed Unive rsity of VACCINE - (MODERNA) 00:00:00 [facility] SARS-COV-2 COVID-19 2021-09-30 Completed Unive rsity of VACCINE - (MODERNA) 00:00:00 [facility] SARS-COV-2 COVID-19 2021-09-30 Completed Unive rsity of VACCINE - (MODERNA) 00:00:00 [facility] SARS-COV-2 COVID-19 2021-09-07 Completed Unive rsity of MODERNA 12+ YRS 00:00:00 [place] [facility] VACCINE [facility] SARS-COV-2 COVID-19 2021-09-07 Completed Unive rsity of MODERNA 12+ YRS 00:00:00 [place] [facility] VACCINE [facility] SARS-COV-2 COVID-19 2021-09-07 Completed Unive rsity of MODERNA 12+ YRS 00:00:00 [place] [facility] VACCINE [facility] SARS-COV-2 COVID-19 2021-09-07 Completed Unive rsity of MODERNA 12+ YRS 00:00:00 [place] [facility] VACCINE [facility] SARS-COV-2 COVID-19 2021-09-07 Completed Unive rsity of MODERNA 12+ YRS 00:00:00 [place] [facility] VACCINE [facility] SARS-COV-2 COVID-19 2021-09-07 Completed Unive rsity of MODERNA 12+ YRS 00:00:00 [place] [facility] VACCINE [facility] SARS-COV-2 COVID-19 2021-09-07 Completed Unive rsity of MODERNA 12+ YRS 00:00:00 [place] [facility] VACCINE [facility] SARS-COV-2 COVID-19 2021-09-07 Completed Unive rsity of MODERNA 12+ YRS 00:00:00 [place] [facility] VACCINE [facility] SARS-COV-2 COVID-19 2021-09-07 Completed Unive rsity of MODERNA 12+ YRS 00:00:00 [place] [facility] VACCINE [facility] SARS-COV-2 COVID-19 2021-09-07 Completed Unive rsity of MODERNA 12+ YRS 00:00:00 [place] [facility] VACCINE [facility] SARS-COV-2 COVID-19 2021-09-07 Completed Unive rsity of MODERNA 12+ YRS 00:00:00 [place] [facility] VACCINE [facility] SARS-COV-2 COVID-19 2021-09-07 Completed Unive rsity of MODERNA 12+ YRS 00:00:00 [place] [facility] VACCINE [facility] SARS-COV-2 COVID-19 2021-09-07 Completed Unive rsity of MODERNA 12+ YRS 00:00:00 [place] [facility] VACCINE Branch SARS-COV-2 COVID-19 2021-09-07 Completed Unive rsity of MODERNA 12+ YRS 00:00:00 [place] [facility] VACCINE [facility] SARS-COV-2 COVID-19 2021-09-07 Completed Unive rsity of MODERNA 12+ YRS 00:00:00 [place] [facility] VACCINE [facility] SARS-COV-2 COVID-19 2021-09-07 Completed Unive rsity of MODERNA 12+ YRS 00:00:00 [place] [facility] VACCINE [facility] SARS-COV-2 COVID-19 2021-09-07 Completed Unive rsity of MODERNA 12+ YRS 00:00:00 [place] [facility] VACCINE [facility] SARS-COV-2 COVID-19 2021-09-07 Completed Unive rsity of MODERNA 12+ YRS 00:00:00 [place] [facility] VACCINE [facility] SARS-COV-2 COVID-19 2021-09-07 Completed Unive rsity of MODERNA 12+ YRS 00:00:00 [place] [facility] VACCINE [facility] SARS-COV-2 COVID-19 2021-09-07 Completed Unive rsity of MODERNA 12+ YRS 00:00:00 [place] [facility] VACCINE [facility] SARS-COV-2 COVID-19 2021-09-07 Completed Unive rsity of MODERNA 12+ YRS 00:00:00 [place] [facility] VACCINE [facility] SARS-COV-2 COVID-19 2021-09-07 Completed Unive rsity of MODERNA 12+ YRS 00:00:00 [place] [facility] VACCINE [facility] SARS-COV-2 COVID-19 2021-09-07 Completed Unive rsity of MODERNA 12+ YRS 00:00:00 [place] [facility] VACCINE [facility] SARS-COV-2 COVID-19 2021-09-07 Completed Unive rsity of MODERNA 12+ YRS 00:00:00 [place] [facility] VACCINE [facility] SARS-COV-2 COVID-19 2021-09-07 Completed Unive rsity of MODERNA 12+ YRS 00:00:00 [place] [facility] VACCINE [facility] SARS-COV-2 COVID-19 2021-09-07 Completed Unive rsity of MODERNA 12+ YRS 00:00:00 [place] [facility] VACCINE [facility] SARS-COV-2 COVID-19 2021-09-07 Completed Unive rsity of MODERNA 12+ YRS 00:00:00 [place] [facility] VACCINE [facility] SARS-COV-2 COVID-19 2021-09-07 Completed Unive rsity of MODERNA 12+ YRS 00:00:00 [place] [facility] VACCINE [facility] SARS-COV-2 COVID-19 2021-09-07 Completed Unive rsity of MODERNA 12+ YRS 00:00:00 [place] [facility] VACCINE [facility] SARS-COV-2 COVID-19 2021-09-07 Completed Unive rsity of MODERNA 12+ YRS 00:00:00 [place] [facility] VACCINE [facility] SARS-COV-2 COVID-19 2021-09-07 Completed Unive rsity of MODERNA 12+ YRS 00:00:00 [place] [facility] VACCINE [facility] SARS-COV-2 COVID-19 2021-09-07 Completed Unive rsity of MODERNA 12+ YRS 00:00:00 [place] [facility] VACCINE [facility] SARS-COV-2 COVID-19 2021-09-07 Completed Unive rsity of MODERNA 12+ YRS 00:00:00 [place] [facility] VACCINE [facility] SARS-COV-2 COVID-19 2021-09-07 Completed Unive rsity of MODERNA 12+ YRS 00:00:00 [place] [facility] VACCINE [facility] SARS-COV-2 COVID-19 2021-09-07 Completed Unive rsity of MODERNA 12+ YRS 00:00:00 [place] [facility] VACCINE [facility] SARS-COV-2 COVID-19 2021-09-07 Completed Unive rsity of MODERNA 12+ YRS 00:00:00 [place] [facility] VACCINE [facility] SARS-COV-2 COVID-19 2021-09-07 Completed Unive rsity of MODERNA 12+ YRS 00:00:00 [place] [facility] VACCINE [facility] SARS-COV-2 COVID-19 2021-09-07 Completed Unive rsity of MODERNA 12+ YRS 00:00:00 [place] [facility] VACCINE [facility] SARS-COV-2 COVID-19 2021-09-07 Completed Unive rsity of MODERNA 12+ YRS 00:00:00 [place] [facility] VACCINE [facility] SARS-COV-2 COVID-19 2021-09-07 Completed Unive rsity of MODERNA 12+ YRS 00:00:00 [place] [facility] VACCINE [facility] SARS-COV-2 COVID-19 2021-09-07 Completed Unive rsity of MODERNA 12+ YRS 00:00:00 [place] [facility] VACCINE [facility] SARS-COV-2 COVID-19 2021-09-07 Completed Unive rsity of MODERNA 12+ YRS 00:00:00 [place] [facility] VACCINE [facility] SARS-COV-2 COVID-19 2021-09-07 Completed Unive rsity of MODERNA 12+ YRS 00:00:00 [place] [facility] VACCINE [facility] SARS-COV-2 COVID-19 2021-09-07 Completed Unive rsity of MODERNA 12+ YRS 00:00:00 [place] [facility] VACCINE [facility] SARS-COV-2 COVID-19 2021-09-07 Completed Unive rsity of MODERNA 12+ YRS 00:00:00 [facility] ical VACCINE Branch SARS-COV-2 COVID-19 2021-08-19 Completed Unive rsity of VACCINE - (MODERNA) 00:00:00 [facility] SARS-COV-2 COVID-19 2021-08-19 Completed Unive rsity of VACCINE - (MODERNA) 00:00:00 [facility] SARS-COV-2 COVID-19 2021-08-19 Completed Unive rsity of VACCINE - (MODERNA) 00:00:00 [facility] SARS-COV-2 COVID-19 2021-08-19 Completed Unive rsity of VACCINE - (MODERNA) 00:00:00 [facility] SARS-COV-2 COVID-19 2021-08-19 Completed Unive rsity of VACCINE - (MODERNA) 00:00:00 [facility] SARS-COV-2 COVID-19 2021-08-19 Completed Unive rsity of VACCINE - (MODERNA) 00:00:00 [facility] SARS-COV-2 COVID-19 2021-08-19 Completed Unive rsity of VACCINE - (MODERNA) 00:00:00 [facility] SARS-COV-2 COVID-19 2021-08-19 Completed Unive rsity of VACCINE - (MODERNA) 00:00:00 [facility] SARS-COV-2 COVID-19 2021-08-19 Completed Unive rsity of VACCINE - (MODERNA) 00:00:00 [facility] SARS-COV-2 COVID-19 2021-08-19 Completed Unive rsity of VACCINE - (MODERNA) 00:00:00 [facility] SARS-COV-2 COVID-19 2021-08-19 Completed Unive rsity of VACCINE - (MODERNA) 00:00:00 [facility] SARS-COV-2 COVID-19 2021-08-19 Completed Unive rsity of VACCINE - (MODERNA) 00:00:00 [facility] SARS-COV-2 COVID-19 2021-08-19 Completed Unive rsity of VACCINE - (MODERNA) 00:00:00 [facility] SARS-COV-2 COVID-19 2021-08-19 Completed Unive rsity of VACCINE - (MODERNA) 00:00:00 [facility] TDAP 2021-03-08 Completed University of 00:00:00 [facility] TDAP 2021-03-08 Completed University of 00:00:00 [facility] TDAP 2021-03-08 Completed University of 00:00:00 [facility] TDAP 2021-03-08 Completed [facility] of 00:00:00 [facility] TDAP 2021-03-08 Completed University of 00:00:00 [facility] TDAP 2021-03-08 Completed [facility] of 00:00:00 [facility] TDAP 2021-03-08 Completed [facility] 00:00:00 [facility] TDAP 2021-03-08 Completed [facility] of 00:00:00 [facility] TDAP 2021-03-08 Completed [facility] of 00:00:00 [facility] TDAP 2021-03-08 Completed [facility] of 00:00:00 [facility] TDAP 2021-03-08 Completed University of 00:00:00 [facility] TDAP 2021-03-08 Completed University of 00:00:00 [facility] TDAP 2021-03-08 Completed [facility] of 00:00:00 [facility] TDAP 2021-03-08 Completed [facility] of 00:00:00 [facility] TDAP 2021-03-08 Completed [facility] of 00:00:00 [facility] TDAP 2021-03-08 Completed [facility] of 00:00:00 [facility] TDAP 2021-03-08 Completed University of 00:00:00 [facility] TDAP 2021-03-08 Completed [facility] of 00:00:00 [facility] TDAP 2021-03-08 Completed [facility] of 00:00:00 [facility] TDAP 2021-03-08 Completed University of 00:00:00 [facility] TDAP 2021-03-08 Completed [facility] of 00:00:00 [facility] TDAP 2021-03-08 Completed University of 00:00:00 [facility] TDAP 2021-03-08 Completed University of 00:00:00 [facility] TDAP 2021-03-08 Completed University of 00:00:00 [facility] TDAP 2021-03-08 Completed [facility] of 00:00:00 [facility] TDAP 2021-03-08 Completed [facility] of 00:00:00 [facility] TDAP 2021-03-08 Completed University of 00:00:00 [facility] TDAP 2021-03-08 Completed [facility] of 00:00:00 [facility] TDAP 2021-03-08 Completed [facility] of 00:00:00 [facility] TDAP 2021-03-08 Completed [facility] of 00:00:00 [facility] TDAP 2021-03-08 Completed [facility] of 00:00:00 [facility] TDAP 2021-03-08 Completed [facility] of 00:00:00 [facility] TDAP 2021-03-08 Completed [facility] of 00:00:00 [facility] TDAP 2021-03-08 Completed [facility] of 00:00:00 [facility] TDAP 2021-03-08 Completed [facility] 00:00:00 [facility] TDAP 2021-03-08 Completed [facility] of 00:00:00 [facility] TDAP 2021-03-08 Completed [facility] of 00:00:00 [facility] TDAP 2021-03-08 Completed [facility] of 00:00:00 [facility] TDAP 2021-03-08 Completed [facility] of 00:00:00 [facility] TDAP 2021-03-08 Completed [facility] of 00:00:00 [facility] TDAP 2021-03-08 Completed [facility] of 00:00:00 [facility] TDAP 2021-03-08 Completed [facility] of 00:00:00 [facility] TDAP 2021-03-08 Completed [facility] of 00:00:00 [facility] TDAP 2021-03-08 Completed [facility] of 00:00:00 [facility] TDAP 2021-03-08 Completed [facility] of 00:00:00 [facility] TDAP 2019-10-31 Completed [facility] of 00:00:00 [facility] TDAP 2019-10-31 Completed [facility] 00:00:00 [facility] TDAP 2019-10-31 Completed [facility] of 00:00:00 [facility] TDAP 2019-10-31 Completed [facility] of 00:00:00 [facility] TDAP 2019-10-31 Completed [facility] of 00:00:00 [facility] TDAP 2019-10-31 Completed [facility] of 00:00:00 [facility] TDAP 2019-10-31 Completed [facility] of 00:00:00 [facility] TDAP 2019-10-31 Completed [facility] of 00:00:00 [facility] TDAP 2019-10-31 Completed [facility] of 00:00:00 [facility] TDAP 2019-10-31 Completed [facility] 00:00:00 [place] [facility] TDAP 2019-10-31 Completed [facility] 00:00:00 [facility] TDAP 2019-10-31 Completed [facility] of 00:00:00 [facility] TDAP 2019-10-31 Completed [facility] of 00:00:00 [facility] TDAP 2019-10-31 Completed [facility] of 00:00:00 [facility] TDAP 2019-10-31 Completed [facility] of 00:00:00 [facility] TDAP 2019-10-31 Completed [facility] 00:00:00 [facility] TDAP 2019-10-31 Completed [facility] 00:00:00 [facility] TDAP 2019-10-31 Completed [facility] 00:00:00 [facility] TDAP 2019-10-31 Completed [facility] of 00:00:00 [facility] TDAP 2019-10-31 Completed [facility] 00:00:00 [facility] TDAP 2019-10-31 Completed [facility] 00:00:00 [facility] TDAP 2019-10-31 Completed [facility] of 00:00:00 [facility] TDAP 2019-10-31 Completed [facility] of 00:00:00 [facility] TDAP 2019-10-31 Completed [facility] 00:00:00 [place] [facility] TDAP 2019-10-31 Completed [facility] of 00:00:00 [facility] TDAP 2019-10-31 Completed [facility] of 00:00:00 [facility] TDAP 2019-10-31 Completed [facility] 00:00:00 [facility] TDAP 2019-10-31 Completed [facility] 00:00:00 [facility] TDAP 2019-10-31 Completed [facility] 00:00:00 [facility] TDAP 2019-10-31 Completed [facility] 00:00:00 [place] [facility] TDAP 2019-10-31 Completed [facility] 00:00:00 [facility] TDAP 2019-10-31 Completed [facility] of 00:00:00 [facility] TDAP 2019-10-31 Completed [facility] of 00:00:00 [facility] TDAP 2019-10-31 Completed [facility] 00:00:00 [place] [facility] TDAP 2019-10-31 Completed [facility] 00:00:00 [facility] TDAP 2019-10-31 Completed [facility] 00:00:00 [place] [facility] TDAP 2019-10-31 Completed [facility] 00:00:00 [place] [facility] TDAP 2019-10-31 Completed [facility] 00:00:00 [facility] TDAP 2019-10-31 Completed [facility] 00:00:00 [facility] TDAP 2019-10-31 Completed [facility] 00:00:00 [facility] TDAP 2019-10-31 Completed [facility] 00:00:00 [facility] TDAP 2019-10-31 Completed [facility] 00:00:00 [facility] TDAP 2019-10-31 Completed [facility] 00:00:00 [facility] TDAP 2019-10-31 Completed [facility] 00:00:00 [facility] TDAP 2019-10-31 Completed [facility] 00:00:00 [facility] HPV 2018-06-03 Completed [facility] 00:00:00 [facility] HPV 2018-06-03 Completed [facility] 00:00:00 [facility] HPV 2018-06-03 Completed [facility] 00:00:00 [facility] HPV 2018-06-03 Completed [facility] 00:00:00 [facility] HPV 2018-06-03 Completed [facility] 00:00:00 [facility] HPV 2018-06-03 Completed [facility] 00:00:00 [facility] HPV 2018-06-03 Completed [facility] 00:00:00 [facility] HPV 2018-06-03 Completed [facility] 00:00:00 [facility] HPV 2018-06-03 Completed [facility] 00:00:00 [facility] HPV 2018-06-03 Completed [facility] 00:00:00 [facility] HPV 2018-06-03 Completed [facility] 00:00:00 [facility] HPV 2018-06-03 Completed [facility] 00:00:00 [facility] HPV 2018-06-03 Completed [facility] 00:00:00 [facility] HPV 2018-06-03 Completed [facility] 00:00:00 [facility] HPV 2018-06-03 Completed [facility] 00:00:00 [facility] HPV 2018-06-03 Completed [facility] 00:00:00 [facility] HPV 2018-06-03 Completed [facility] 00:00:00 [facility] HPV 2018-06-03 Completed [facility] 00:00:00 [facility] HPV 2018-06-03 Completed [facility] 00:00:00 [facility] HPV 2018-06-03 Completed [facility] of 00:00:00 [facility] HPV 2018-06-03 Completed [facility] 00:00:00 [facility] HPV 2018-06-03 Completed [facility] 00:00:00 [facility] HPV 2018-06-03 Completed [facility] 00:00:00 [facility] HPV 2018-06-03 Completed [facility] 00:00:00 [facility] HPV 2018-06-03 Completed [facility] 00:00:00 [facility] HPV 2018-06-03 Completed [facility] 00:00:00 [facility] HPV 2018-06-03 Completed [facility] 00:00:00 [facility] HPV 2018-06-03 Completed [facility] 00:00:00 [facility] HPV 2018-06-03 Completed [facility] 00:00:00 [facility] HPV 2018-06-03 Completed [facility] 00:00:00 [facility] HPV 2018-06-03 Completed [facility] 00:00:00 [facility] HPV 2018-06-03 Completed [facility] 00:00:00 [facility] HPV 2018-06-03 Completed [facility] 00:00:00 [facility] HPV 2018-06-03 Completed [facility] 00:00:00 [facility] HPV 2018-06-03 Completed [facility] 00:00:00 [facility] HPV 2018-06-03 Completed [facility] 00:00:00 [facility] HPV 2018-06-03 Completed [facility] 00:00:00 [facility] HPV 2018-06-03 Completed [facility] 00:00:00 [facility] HPV 2018-06-03 Completed [facility] 00:00:00 [facility] HPV 2018-06-03 Completed [facility] 00:00:00 [facility] HPV 2018-06-03 Completed [facility] 00:00:00 [facility] HPV 2018-06-03 Completed [facility] 00:00:00 [facility] HPV 2018-06-03 Completed [facility] 00:00:00 [facility] HPV 2018-06-03 Completed [facility] 00:00:00 [facility] HPV 2018-06-03 Completed [facility] 00:00:00 [facility] HPV 2018-02-01 Completed [facility] 00:00:00 [facility] HPV 2018-02-01 Completed [facility] 00:00:00 [facility] HPV 2018-02-01 Completed [facility] 00:00:00 [facility] HPV 2018-02-01 Completed [facility] 00:00:00 [facility] HPV 2018-02-01 Completed [facility] 00:00:00 [facility] HPV 2018-02-01 Completed [facility] 00:00:00 [facility] HPV 2018-02-01 Completed [facility] 00:00:00 [facility] HPV 2018-02-01 Completed [facility] 00:00:00 [facility] HPV 2018-02-01 Completed [facility] 00:00:00 [facility] HPV 2018-02-01 Completed [facility] 00:00:00 [facility] HPV 2018-02-01 Completed [facility] 00:00:00 [facility] HPV 2018-02-01 Completed [facility] 00:00:00 [facility] HPV 2018-02-01 Completed [facility] 00:00:00 [facility] HPV 2018-02-01 Completed [facility] 00:00:00 [facility] HPV 2018-02-01 Completed [facility] 00:00:00 [facility] HPV 2018-02-01 Completed [facility] 00:00:00 [facility] HPV 2018-02-01 Completed [facility] 00:00:00 [facility] HPV 2018-02-01 Completed [facility] 00:00:00 [facility] HPV 2018-02-01 Completed [facility] 00:00:00 [facility] HPV 2018-02-01 Completed [facility] 00:00:00 [facility] HPV 2018-02-01 Completed [facility] 00:00:00 [facility] HPV 2018-02-01 Completed [facility] 00:00:00 [facility] HPV 2018-02-01 Completed [facility] 00:00:00 [facility] HPV 2018-02-01 Completed [facility] 00:00:00 [facility] HPV 2018-02-01 Completed [facility] 00:00:00 [facility] HPV 2018-02-01 Completed [facility] 00:00:00 [facility] HPV 2018-02-01 Completed [facility] 00:00:00 [facility] HPV 2018-02-01 Completed [facility] 00:00:00 [facility] HPV 2018-02-01 Completed [facility] 00:00:00 [facility] HPV 2018-02-01 Completed [facility] 00:00:00 [facility] HPV 2018-02-01 Completed [facility] 00:00:00 [facility] HPV 2018-02-01 Completed [facility] 00:00:00 [facility] HPV 2018-02-01 Completed [facility] 00:00:00 [facility] HPV 2018-02-01 Completed [facility] 00:00:00 [facility] HPV 2018-02-01 Completed [facility] 00:00:00 [facility] HPV 2018-02-01 Completed [facility] 00:00:00 [facility] HPV 2018-02-01 Completed [facility] 00:00:00 [facility] HPV 2018-02-01 Completed [facility] 00:00:00 [facility] HPV 2018-02-01 Completed [facility] 00:00:00 [facility] HPV 2018-02-01 Completed [facility] 00:00:00 [facility] HPV 2018-02-01 Completed [facility] 00:00:00 [facility] HPV 2018-02-01 Completed [facility] 00:00:00 [facility] HPV 2018-02-01 Completed [facility] 00:00:00 [facility] HPV 2018-02-01 Completed [facility] 00:00:00 [facility] HPV 2018-02-01 Completed [facility] 00:00:00 [facility] TDAP (ADACEL) 2014-06-15 Completed [facility] of VACCINE 00:00:00 [facility] TDAP (ADACEL) 2014-06-15 Completed [facility] VACCINE 00:00:00 [facility] TDAP (ADACEL) 2014-06-15 Completed [facility] VACCINE 00:00:00 [facility] TDAP (ADACEL) 2014-06-15 Completed [facility] VACCINE 00:00:00 [facility] TDAP (ADACEL) 2014-06-15 Completed [facility] VACCINE 00:00:00 [facility] TDAP (ADACEL) 2014-06-15 Completed [facility] VACCINE 00:00:00 [facility] TDAP (ADACEL) 2014-06-15 Completed [facility] VACCINE 00:00:00 [facility] TDAP (ADACEL) 2014-06-15 Completed [facility] VACCINE 00:00:00 [facility] TDAP (ADACEL) 2014-06-15 Completed [facility] VACCINE 00:00:00 [facility] TDAP (ADACEL) 2014-06-15 Completed [facility] VACCINE 00:00:00 [facility] TDAP (ADACEL) 2014-06-15 Completed [facility] VACCINE 00:00:00 [facility] TDAP (ADACEL) 2014-06-15 Completed [facility] VACCINE 00:00:00 [facility] TDAP (ADACEL) 2014-06-15 Completed [facility] VACCINE 00:00:00 [facility] TDAP (ADACEL) 2014-06-15 Completed [facility] VACCINE 00:00:00 [facility] TDAP (ADACEL) 2014-06-15 Completed [facility] VACCINE 00:00:00 [facility] TDAP (ADACEL) 2014-06-15 Completed [facility] VACCINE 00:00:00 [facility] TDAP (ADACEL) 2014-06-15 Completed [facility] VACCINE 00:00:00 [facility] TDAP (ADACEL) 2014-06-15 Completed [facility] VACCINE 00:00:00 [facility] TDAP (ADACEL) 2014-06-15 Completed [facility] VACCINE 00:00:00 [facility] TDAP (ADACEL) 2014-06-15 Completed [facility] VACCINE 00:00:00 [facility] TDAP (ADACEL) 2014-06-15 Completed [facility] VACCINE 00:00:00 [facility] TDAP (ADACEL) 2014-06-15 Completed [facility] VACCINE 00:00:00 [facility] TDAP (ADACEL) 2014-06-15 Completed [facility] VACCINE 00:00:00 [facility] TDAP (ADACEL) 2014-06-15 Completed [facility] VACCINE 00:00:00 [facility] TDAP (ADACEL) 2014-06-15 Completed [facility] VACCINE 00:00:00 [facility] TDAP (ADACEL) 2014-06-15 Completed [facility] VACCINE 00:00:00 [facility] TDAP (ADACEL) 2014-06-15 Completed [facility] VACCINE 00:00:00 [facility] TDAP (ADACEL) 2014-06-15 Completed [facility] VACCINE 00:00:00 [facility] TDAP (ADACEL) 2014-06-15 Completed [facility] VACCINE 00:00:00 [facility] TDAP (ADACEL) 2014-06-15 Completed [facility] VACCINE 00:00:00 [facility] TDAP (ADACEL) 2014-06-15 Completed [facility] VACCINE 00:00:00 [facility] TDAP (ADACEL) 2014-06-15 Completed [facility] VACCINE 00:00:00 [facility] TDAP (ADACEL) 2014-06-15 Completed [facility] VACCINE 00:00:00 [facility] TDAP (ADACEL) 2014-06-15 Completed [facility] VACCINE 00:00:00 [facility] TDAP (ADACEL) 2014-06-15 Completed [facility] VACCINE 00:00:00 [facility] TDAP (ADACEL) 2014-06-15 Completed [facility] VACCINE 00:00:00 [facility] TDAP (ADACEL) 2014-06-15 Completed [facility] VACCINE 00:00:00 [facility] TDAP (ADACEL) 2014-06-15 Completed [facility] VACCINE 00:00:00 [facility] TDAP (ADACEL) 2014-06-15 Completed [facility] VACCINE 00:00:00 [facility] TDAP (ADACEL) 2014-06-15 Completed [facility] VACCINE 00:00:00 [facility] TDAP (ADACEL) 2014-06-15 Completed [facility] VACCINE 00:00:00 [facility] TDAP (ADACEL) 2014-06-15 Completed [facility] VACCINE 00:00:00 [facility] TDAP (ADACEL) 2014-06-15 Completed [facility] VACCINE 00:00:00 [facility] TDAP (ADACEL) 2014-06-15 Completed [facility] VACCINE 00:00:00 [facility] TDAP (ADACEL) 2014-06-15 Completed [facility] VACCINE 00:00:00 [facility] HPV 2010-12-04 Completed [facility] 00:00:00 [facility] HPV 2010-12-04 Completed [facility] 00:00:00 [facility] HPV 2010-12-04 Completed [facility] 00:00:00 [facility] HPV 2010-12-04 Completed [facility] 00:00:00 [facility] HPV 2010-12-04 Completed [facility] 00:00:00 [facility] HPV 2010-12-04 Completed [facility] 00:00:00 [facility] HPV 2010-12-04 Completed [facility] 00:00:00 [facility] HPV 2010-12-04 Completed [facility] 00:00:00 [facility] HPV 2010-12-04 Completed [facility] 00:00:00 [facility] HPV 2010-12-04 Completed [facility] 00:00:00 [facility] HPV 2010-12-04 Completed [facility] 00:00:00 [facility] HPV 2010-12-04 Completed [facility] 00:00:00 [facility] HPV 2010-12-04 Completed [facility] 00:00:00 [facility] HPV 2010-12-04 Completed [facility] 00:00:00 [facility] HPV 2010-12-04 Completed [facility] 00:00:00 [facility] HPV 2010-12-04 Completed [facility] 00:00:00 [facility] HPV 2010-12-04 Completed [facility] 00:00:00 [facility] HPV 2010-12-04 Completed [facility] 00:00:00 [facility] HPV 2010-12-04 Completed [facility] 00:00:00 [facility] HPV 2010-12-04 Completed [facility] 00:00:00 [facility] HPV 2010-12-04 Completed [facility] 00:00:00 [facility] HPV 2010-12-04 Completed [facility] 00:00:00 [facility] HPV 2010-12-04 Completed [facility] 00:00:00 [facility] HPV 2010-12-04 Completed [facility] 00:00:00 [facility] HPV 2010-12-04 Completed [facility] 00:00:00 [facility] HPV 2010-12-04 Completed [facility] 00:00:00 [facility] HPV 2010-12-04 Completed [facility] 00:00:00 [facility] HPV 2010-12-04 Completed [facility] 00:00:00 [facility] HPV 2010-12-04 Completed [facility] 00:00:00 [facility] HPV 2010-12-04 Completed [facility] 00:00:00 [facility] HPV 2010-12-04 Completed [facility] 00:00:00 [facility] HPV 2010-12-04 Completed [facility] 00:00:00 [facility] HPV 2010-12-04 Completed [facility] 00:00:00 [facility] HPV 2010-12-04 Completed [facility] 00:00:00 [facility] HPV 2010-12-04 Completed [facility] 00:00:00 [facility] HPV 2010-12-04 Completed [facility] 00:00:00 [facility] HPV 2010-12-04 Completed [facility] 00:00:00 [facility] HPV 2010-12-04 Completed [facility] 00:00:00 [facility] HPV 2010-12-04 Completed [facility] 00:00:00 [facility] HPV 2010-12-04 Completed [facility] 00:00:00 [facility] HPV 2010-12-04 Completed [facility] 00:00:00 [facility] HPV 2010-12-04 Completed [facility] 00:00:00 [facility] HPV 2010-12-04 Completed [facility] 00:00:00 [facility] HPV 2010-12-04 Completed [facility] 00:00:00 [facility] HPV 2010-12-04 Completed [facility] 00:00:00 [facility] Vital Signs Vital Name Observation Time Observation Value Comments Source Systolic blood 2023-04-08 20:15:00 147 mm[Hg] [facility] pressure [facility] Diastolic blood 2023-04-08 20:15:00 79 mm[Hg] Unive rsity of pressure [facility] Heart rate 2023-04-08 20:15:00 82 /min [facility] Body temperature 2023-04-08 20:15:00 36.61 Astrid [facility] Respiratory rate 2023-04-08 20:15:00 14 /min [facility] Body height 2023-04-08 20:15:00 165.1 cm [facility] Body weight 2023-04-08 20:15:00 130.636 kg [facility] BMI 2023-04-08 20:15:00 47.93 kg/m2 [facility] Oxygen saturation in 2023-04-08 20:15:00 99 /min [facility] of Arterial blood by [facility] Pulse oximetry Branch Systolic blood 2023-04-06 15:19:00 109 mm[Hg] Univer sity of pressure [facility] Diastolic blood 2023-04-06 15:19:00 79 mm[Hg] Unive rsity of pressure [facility] Heart rate 2023-04-06 15:19:00 74 /min [facility] Body temperature 2023-04-06 15:19:00 36.67 Astrid [facility] Respiratory rate 2023-04-06 15:19:00 18 /min [facility] Body height 2023-04-06 15:19:00 165.1 cm [facility] Body weight 2023-04-06 15:19:00 130.001 kg [facility] BMI 2023-04-06 15:19:00 47.69 kg/m2 [facility] Systolic blood 2023-03-29 16:32:00 115 mm[Hg] [facility] pressure [facility] Diastolic blood 2023-03-29 16:32:00 78 mm[Hg] Unive rsity of pressure [facility] Heart rate 2023-03-29 16:32:00 72 /min [facility] Body temperature 2023-03-29 16:32:00 36.83 Astrid [facility] Respiratory rate 2023-03-29 16:32:00 18 /min [facility] Body height 2023-03-29 16:32:00 165.1 cm [facility] Body weight 2023-03-29 16:32:00 128.549 kg [facility] BMI 2023-03-29 16:32:00 47.16 kg/m2 [facility] Oxygen saturation in 2023-03-29 16:32:00 100 /min [facility] Arterial blood by [facility] Pulse oximetry Branch Systolic blood 2023-03-17 15:51:00 110 mm[Hg] Univer sity of pressure [facility] Diastolic blood 2023-03-17 15:51:00 79 mm[Hg] Unive rsity of pressure [facility] Heart rate 2023-03-17 15:51:00 71 /min [facility] Respiratory rate 2023-03-17 15:51:00 18 /min [facility] Body height 2023-03-17 15:51:00 165.1 cm [facility] Body weight 2023-03-17 15:51:00 129.729 kg [facility] BMI 2023-03-17 15:51:00 47.59 kg/m2 [facility] Systolic blood 2023-03-12 18:04:00 97 mm[Hg] [facility] of pressure [facility] Diastolic blood 2023-03-12 18:04:00 47 mm[Hg] Unive rsity of pressure [facility] Heart rate 2023-03-12 18:04:00 86 /min [facility] Body temperature 2023-03-12 18:04:00 36.44 Astrid [facility] Respiratory rate 2023-03-12 18:04:00 16 /min [facility] Oxygen saturation in 2023-03-12 18:04:00 99 /min [facility] Arterial blood by [facility] Pulse oximetry [facility] Body height 2023-03-11 02:58:00 165.1 cm [facility] Body weight 2023-03-11 02:58:00 135.626 kg [facility] BMI 2023-03-11 02:58:00 49.76 kg/m2 [facility] Systolic blood 2023-03-10 02:07:00 131 mm[Hg] [facility] of pressure [facility] Diastolic blood 2023-03-10 02:07:00 81 mm[Hg] Unive rsity of pressure [facility] Heart rate 2023-03-10 02:07:00 99 /min [facility] Body temperature 2023-03-10 02:07:00 36.89 Astrid [facility] Respiratory rate 2023-03-10 02:07:00 20 /min [facility] Body height 2023-03-10 02:07:00 165.1 cm [facility] Body weight 2023-03-10 02:07:00 136.079 kg [facility] BMI 2023-03-10 02:07:00 49.92 kg/m2 [facility] Oxygen saturation in 2023-03-10 02:07:00 99 /min [facility] Arterial blood by [facility] Pulse oximetry Branch Systolic blood 2023-03-01 18:40:00 107 mm[Hg] [facility] Diastolic blood 2023-03-01 18:40:00 72 mm[Hg] [facility]ive [facility]ity of pressure [facility] Heart rate 2023-03-01 18:40:00 102 /min [facility] Body temperature 2023-03-01 18:40:00 37.06 Astrid [facility] Body height 2023-03-01 18:40:00 165.1 cm [facility] Body weight 2023-03-01 18:40:00 135.988 kg [facility] BMI 2023-03-01 18:40:00 49.89 kg/m2 [facility] Systolic blood 2023-02-13 15:42:00 113 mm[Hg] [facility] pressure [facility] Diastolic blood 2023-02-13 15:42:00 72 mm[Hg] Unive rsity of pressure [facility] Heart rate 2023-02-13 15:42:00 94 /min [facility] Body temperature 2023-02-13 15:42:00 36.78 Astrid [facility] Respiratory rate 2023-02-13 15:42:00 19 /min [facility] Body height 2023-02-13 15:42:00 165.1 cm [facility] Body weight 2023-02-13 15:42:00 136.714 kg [facility] BMI 2023-02-13 15:42:00 50.16 kg/m2 [facility] Systolic blood 2023-01-30 17:34:00 114 mm[Hg] [facility] pressure [facility] Diastolic blood 2023-01-30 17:34:00 74 mm[Hg] [facility]ive rsity of pressure [facility] Heart rate 2023-01-30 17:34:00 63 /min [facility] Body temperature 2023-01-30 17:34:00 37 Astrid [facility] Respiratory rate 2023-01-30 17:34:00 18 /min [facility] Body height 2023-01-30 17:34:00 165.1 cm [facility] Body weight 2023-01-30 17:34:00 135.626 kg [facility] BMI 2023-01-30 17:34:00 49.76 kg/m2 [facility] Systolic blood 2023-01-16 18:28:00 108 mm[Hg] [facility] pressure [facility] Diastolic blood 2023-01-16 18:28:00 69 mm[Hg] Unive rsity of pressure [facility] Heart rate 2023-01-16 18:28:00 87 /min [facility] Body temperature 2023-01-16 18:28:00 36.83 Astrid [facility] Body height 2023-01-16 18:28:00 165.1 cm [facility] Body weight 2023-01-16 18:28:00 134.083 kg [facility] BMI 2023-01-16 18:28:00 49.19 kg/m2 [facility] Systolic blood 2023-01-03 19:53:00 109 mm[Hg] [facility]ity of pressure [facility] Diastolic blood 2023-01-03 19:53:00 74 mm[Hg] Unive rsity of pressure [facility] Heart rate 2023-01-03 19:53:00 85 /min [facility] Body temperature 2023-01-03 19:53:00 36.72 Astrid [facility] Body height 2023-01-03 19:53:00 165.1 cm [facility] Body weight 2023-01-03 19:53:00 133.993 kg [facility] BMI 2023-01-03 19:53:00 49.16 kg/m2 [facility] Systolic blood 2022-11-30 16:44:00 108 mm[Hg] Un[facility] pressure [facility] Diastolic blood 2022-11-30 16:44:00 74 mm[Hg] Unive rsity of pressure [facility] Heart rate 2022-11-30 16:44:00 89 /min [facility] Body temperature 2022-11-30 16:44:00 36.67 Astrid [facility] Respiratory rate 2022-11-30 16:44:00 18 /min [facility] Body height 2022-11-30 16:44:00 165.1 cm [facility] Body weight 2022-11-30 16:44:00 132.722 kg [facility] BMI 2022-11-30 16:44:00 48.69 kg/m2 [facility] Systolic blood 2022-11-02 19:19:00 106 mm[Hg] [facility] of pressure [facility] Diastolic blood 2022-11-02 19:19:00 70 mm[Hg] Unive rsity of pressure [facility] Heart rate 2022-11-02 19:19:00 83 /min [facility] Body temperature 2022-11-02 19:19:00 36.72 Astrid [facility] Respiratory rate 2022-11-02 19:19:00 18 /min [facility] Body height 2022-11-02 19:19:00 165.1 cm [facility] Body weight 2022-11-02 19:19:00 131.09 kg [facility] BMI 2022-11-02 19:19:00 48.09 kg/m2 [facility] Systolic blood 2022-10-05 19:45:00 102 mm[Hg] Un[facility] of pressure [facility] Diastolic blood 2022-10-05 19:45:00 71 mm[Hg] Unive rsity of pressure [facility] Heart rate 2022-10-05 19:45:00 84 /min [facility] Body temperature 2022-10-05 19:45:00 36.94 Astrid [facility] Respiratory rate 2022-10-05 19:45:00 18 /min [facility] Body height 2022-10-05 19:45:00 165.1 cm [facility] Body weight 2022-10-05 19:45:00 131.997 kg [facility] BMI 2022-10-05 19:45:00 48.42 kg/m2 [facility] Systolic blood 2022-09-27 18:41:00 108 mm[Hg] [facility]iver [facility]ity [facility] pressure [facility] Diastolic blood 2022-09-27 18:41:00 73 mm[Hg] [facility]ive rsity of pressure [facility] Heart rate 2022-09-27 18:41:00 82 /min [facility] Body temperature 2022-09-27 18:41:00 37.06 Astrid [facility] Body height 2022-09-27 18:41:00 165.1 cm [facility] Body weight 2022-09-27 18:41:00 129.91 kg [facility] BMI 2022-09-27 18:41:00 47.66 kg/m2 [facility] Systolic blood 2022-09-26 15:43:00 134 mm[Hg] [facility]ity of pressure [facility] Diastolic blood 2022-09-26 15:43:00 82 mm[Hg] [facility]ive rsity of pressure [facility] Heart rate 2022-09-26 15:43:00 74 /min [facility] Respiratory rate 2022-09-26 15:43:00 18 /min [facility] Oxygen saturation in 2022-09-26 15:43:00 98 /min [facility] Arterial blood by [facility] Pulse oximetry Branch Body temperature 2022-09-26 14:27:00 37 Astrid [facility] Body height 2022-09-26 14:27:00 165.1 cm [facility] Body weight 2022-09-26 14:27:00 131.543 kg [facility] BMI 2022-09-26 14:27:00 48.26 kg/m2 [facility] Systolic blood 2022-09-07 16:13:00 99 mm[Hg] Univer sity [facility] Diastolic blood 2022-09-07 16:13:00 60 mm[Hg] [facility] 2022-09-07 16:13:00 87 /min [facility] Body temperature 2022-09-07 16:13:00 36.94 Astrid [facility] Body height 2022-09-07 16:13:00 165.1 cm [facility] Body weight 2022-09-07 16:13:00 129.729 kg [facility] BMI 2022-09-07 16:13:00 47.59 kg/m2 [facility] Procedures Procedure Date / Time Performed Performing Clinician [facility] e ASSIGNMENT OF BENEFITS 2023-04-08 20:37:45 Doctor Unassigned, No [facility] CONSENT/REFUSAL FOR 2023-04-08 20:08:58 Doctor Unassigned, No [facility] DIAGNOSIS AND [facility] TREATMENT POCT TEST 2023-04-06 00:00:00 Cassi Blanco [facility] CENTRAL NEURAXIAL 2023-03-11 18:27:00 Sudhakar Henriquez [facility] BLOCK Medical Branch SGOT (ASPARTATE AMINO 2023-03-11 03:55:00 Leanna Dominguez [facility] TRANSFER) Medical Branch ALANINE AMINO 2023-03-11 03:55:00 AntonietaLeanna Powell [facility] TRANSFERASE(SGPT Medical Branch ADC OR NITHIN ONLY - 2023-03-11 03:55:00 Leanna Dominguez [facility] RPR [facility] HIV 1/2 AG-AB WITH 2023-03-11 03:55:00 [facility]l [facility] CBC WITH DIFF 2023-03-11 03:54:00 Antonieta-June Powellsol [facility] HEPATITIS B SURFACE 2023-03-11 03:54:00 June Dominguezsol [facility] ANTIGEN Medical Branch HB ABO GROUPING 2023-03-11 03:54:00 Fung-June Powellsol [facility] RHO (D) IMMUNE 2023-03-11 03:54:00 Fung-June [facility]ol [facility]LO[facility] Medical Branch PROTEIN CREAT RATIO 2023-03-10 23:11:00 Antonieta[facility]Leanna [facility] RANDOM [facility] CONSENT/REFUSAL FOR 2023-03-10 02:03:08 Doctor Unassigned, No [facility] DI[facility]IS AND Name Medical [place] TREATMENT >14 WEEKS US 2023-03-01 18:55:28 Cassi Blanco [facility] DSU PRE-OP 2023-03-01 05:01:00 Doctor Unassigned, No Univer [facility] POCT URINALYSIS W/O 2023-03-01 00:00:00 Cassi Blanco [facility] SPECIFIC GRAVITY [facility] POCT URINALYSIS W/O 2023-02-13 15:43:00 Cassi Blanco [facility] SPECIFIC GRAVITY [facility] TDAP VACCINE, >11 YRS, 2023-01-30 18:05:35 Jenn Fuentes [facility] POCT URINALYSIS W/O 2023-01-30 00:00:00 Jenn Fuentes [facility] SPECIFIC GRAVITY [facility] POCT URINALYSIS W/O 2023-01-16 00:00:00 Cassi Blanco [facility] SPECIFIC GRAVITY [facility] POCT URINALYSIS W/O 2023-01-03 00:00:00 Cassi Blanco [facility] SPECIFIC GRAVITY [facility] POCT URINALYSIS W/O 2022-11-30 16:46:00 Jenn Fuentes [facility] MEDICAL 2022-11-29 06:01:00 Doctor Unassigned, No [facility] RELEASE/CLEARANCE Name Medical Branch FORMS POCT URINALYSIS W/O 2022-11-02 00:00:00 Cassi Blanco [facility] POCT URINALYSIS W/O 2022-10-05 20:00:00 Jenn Fuentes [facility] GC & CHLAMYDIA 2022-09-27 19:13:00 Cassi Blanco [facility] [place] AMPLIFIED ASSAY [facility] GALV ONLY - VAGINAL 2022-09-27 19:13:00 Cassi Blanco [facility] PATHOGENS BY NUCLEIC Medical Bra nch ACID TESTING POCT URINALYSIS W/O 2022-09-27 00:00:00 Cassi Blanco [facility] URINALYSIS 2022-09-26 14:41:00 Marlena Wang [facility] CONSENT/REFUSAL FOR 2022-09-26 14:22:56 Doctor Unassigned, No [facility] DIAGNOSIS AND Name Medical Branch TREATMENT POCT URINALYSIS W/O 2022-09-07 00:00:00 Cassi Blanco [facility] Encounters Start End Encounter Admission Attending Care Care Encounter Source Date/Time Date/Time Type Type Clinicians Facility Department ID 2021-09-26 Outpatient P [facility] MINDA [id number] Univers 19:51[facility]12 [facility] 2021-09-26 Outpatient P [facility] MINDA [id number] Univers 16:35:23 [facility] 2021-09-26 Outpatient P [facility] MINDA [id number] Univers 16:35:05 [facility] 2023-05-11 2023-05-11 Outpatient R CASSI BLANCO [facility] [id number] Univers 10:00:00 10:00:00 [facility] 2023-04-08 2023-04-08 Emergency X LI WANG ERT [id number] Univers 15:16:00 15:37:00 MARLENA brian [facility] 2023-04-08 2023-04-08 Emergency [facility] 1.2.840.114 [id number] Univers 15:16:00 15:37:00 Marlena PERDOMOTON 350.1.13.10 it[place] [id number] [address] 2023-04-06 2023-04-06 Office Cassi Blanco [facility] 1.2.156.828 [id number] Univers 10:00:00 10:30:00 Visit Cam [place] 350.1.13.10 i ty of [place] [id number] De dical NAL [address] [place] [address] 2023-04-06 2023-04-06 Outpatient R CASSI BLANCO [facility] [id number] Univers 10:00:00 10:00:00 ity of [facility] 2023-04-04 2023-04-04 Telephone [facility] 1.2.840.114 [id number] Univers 00:00:00 00:00:00 Cam [place] 350.1.13.10 i ty of [place] [id number] De dical NAL [address] [place] [address] 2023-03-29 2023-03-29 Outpatient R CASSI BLANCO [facility] [id number] Univers 11:00:00 12:07:34 ity of [facility] 2023-03-29 2023-03-29 Routine [facility] 1.2.081.433 [id number] Univers 11:00:00 12:07:34 Cam [place] 350.1.13.10 ity of [place] [id number] De dical NAL [address] [place] [address] 2023-03-23 2023-03-23 Telephone [facility] 1.2.840.114 10 [id number] Univers 00:00:00 00:00:00 Cam [place] 350.1.13.10 i ty of [place] [id number] De dical NAL [address] [place] [address] 2023-03-22 2023-03-22 Outpatient CASSI CHIANG [facility] [id number] Univers 11:00:00 11:00:00 ity of [facility] 2023-03-17 2023-03-17 Outpatient R CASSI BLANCO [facility] [id number] Univers 10:30:00 10:43:28 ity of [facility] 2023-03-17 2023-03-17 Nurse Nurse, [facility] 1.2.840.114 [id number] Univers 10:30:00 10:43:28 Visit Cassi Blanco 350.1.13.10 it[place] of [place] [facility] [id number] [address] 2023-03-17 2023-03-17 Outpatient R CASSI BLANCO [facility] [id number] Univers 09:30:00 09:30:00 ity of [facility] 2023-03-15 2023-03-15 Outpatient R [facility] [id number] Univers 14:15:00 14:15:00 ity of [facility] 2023-03-10 2023-03-12 [facility] Cassi Blanco [facility] 1.2.840.114 [id number] Univers 16:35:00 17:10:00 Encounter Leanna DominguezTON 350.1 .13.10 it[place] [id number] [address] 2023-03-11 2023-03-11 Anesthesia Henriquez, [facility] 1.2.840.114 1 [id number] Univers 13:27:00 16:19:00 Event Sudhakar Sood [place] 350.1.13.10 it[place] [id number] [address] 2023-03-11 2023-03-11 Anest[facility] 1.2.840.114 1 [id number] Univers 09:43:07 09:43:07 Event Sudhakar Sood [place] 350.1.13.10 ity of [place] 4.2.7.2.686 [facility] [id number] [address] 2023-03-10 2023-03-10 Telephone Francis Cassi [facility] 1.2.840.114 10 [id number] Univers 00:00:00 00:00:00 Cam NORM 350.1.13.10 i ty of [place] [id number] De dical [address] 2023-03-09 2023-03-09 Emergency [facility] [id number] Univers 21:15:00 21:55:00 FABIAN ity [facility] 2023-03-09 2023-03-09 Emergency [facility] 1.2.772.834 [id number] Univers 21:15:00 21:55:00 Fabian ZHENG 350.1.13.10 i ty of [place] 4.2.7.2.686 [facility] [id number] [address] 2023-03-09 2023-03-09 Emergency X [facility] ERT [id number] Univers 21:15:00 21:55:00 FABIAN itbrian [facility] 2023-03-01 2023-03-01 Outpatient R CASSI BLANCO [facility] [id number] Univers 13:45:00 13:55:07 ity of [facility] 2023-03-01 2023-03-01 Routine Cassi Blanco [facility] 1.2.810.706 [id number] Univers 13:45:00 13:55:07 Scott ZHENG 350.1.13.10 ity of [place] [id number] De dical NAL [address] [place] [address] 2023-03-01 2023-03-01 Orders Doctor MACK 1.2.840.114 [id number] Univers 00:00:00 00:00:00 Only Unassigned, ANDRÉS 350.1.13.10 ity of [place] [facility] 4.2.7.2.686 Robert as [id number] [facility] [address] 2023-02-15 2023-02-15 Outpatient SFA SFA [id number] Dustin 13:24:58 13:24:58 0322 [address] [place] 2023-02-14 2023-02-14 Test Evaluator Ultrasound, Adc [facility] 1.2 .840.114 [id number] Univers 08:45:00 09:15:00 Visit Austin Little 350.1 .13.10 ity of [place] [id number] De dical NAL [address] [place] [address] 2023-02-14 2023-02-14 Outpatient P CECELIA [facility] [id number] Univers 08:45:00 08:45:00 KIERRANOEL it y of [place] Sood [facility] 2023-02-13 2023-02-13 Outpatient R FRANCIS CASSI [facility] [id number] Univers 10:15:00 11:01:57 ity of [facility] 2023-02-13 2023-02-13 Routine [facility] 1.2.693.278 [id number] Univers 10:15:00 11:01:57 Cam ANGLEDILCIA 350.1.13.10 ity of [place] [id number] De dical [address] 2023-01-30 2023-01-30 Outpatient R GINA [facility] [id number] Univers 11:30:00 12:04:30 JENN ity [facility] 2023-01-30 2023-01-30 Routine [facility] 1.2.386.940 [id number] Univers 11:30:00 12:04:30 Jenn ANGLEDILCIA 350.1.13.10 ity of [place] [id number] De dical [address] 2023-01-23 2023-01-23 Outpatient R [facility] [id number] Univers 10:10:00 10:10:00 ity of [facility] 2023-01-16 2023-01-16 Outpatient R FRANCIS CASSI [facility] [id number] Univers 11:15:00 12:41:10 ity of [facility] 2023-01-16 2023-01-16 Routine Cassi Blanco [facility] 1.2.663.200 [id number] Univers 11:15:00 12:41:10 Scott ZHENG 350.1.13.10 ity of [place] [id number] [facility] [address] 2023-01-16 2023-01-16 Test Evaluator 2, Adc Lab [facility] 1.2.840.114 [id number] Univers 10:00:00 10:15:00 Visit Cassi Blanco 350.1.13.10 ity of [place] [id number] [facility] [address] 2023-01-03 2023-01-03 Outpatient R CASSI BLANCO [facility] [id number] Univers 13:45:00 14:23:28 ity of [facility] 2023-01-03 2023-01-03 Routine Jenn Fuentes [facility] 1.2.840.11 4 [id number] Univers 13:45:00 14:23:28 Cass[facility] Bl[facility] 350.1.13.10 ity of [place] [id number] De dic[address] 2022-12-30 2022-12-30 Outpatient R BONITA BLANCOEN [facility] [id number] Univers 11:30:00 11:30:00 ity of [facility] 2022-12-14 2022-12-14 Test Evaluator Ultrasound, [facility] 1.2 .840.114 [id number] Univers 08:30:00 09:00:00 Visit Sd Macias NETWORK CONSULTANT 350.1. 13.10 ity of [facility] 4.2.7.2.686 Robert as MATERNAL [id number] [facility] ical & CHILD [address] [place] [address] 2022-12-14 2022-12-14 Outpatient P GILBERTO [facility] [id number] Univers 08:30:00 08:30:00 SD ity of [facility] 2022-11-30 2022-11-30 Test Evaluator 2, Adc Lab [facility] 1.2.840.114 [id number] Univers 11:30:00 11:45:00 Visit Jenn Fuentes 350.1.13.10 ity of [place] [id number] De dical NAL [address] 2022-11-30 2022-11-30 Outpatient R GINA [facility] [id number] Univers 11:00:00 11:17:08 JENN ity [facility] 2022-11-30 2022-11-30 Routine Gina [facility] 1.2.208.745 [id number] Univers 11:00:00 11:17:08 Jenn ZHENG 350.1.13.10 ity of [place] [id number] De dical NAL [address] 2022-11-29 2022-11-29 Telephone Cassi Blanco [facility] 1.2.840.114 [id number] Univers 00:00:00 00:00:00 Cam NORM 350.1.13.10 i ty of [place] [id number] De dical NAL [address] 2022-11-29 2022-11-29 Orders Doctor MACK 1.2.840.114 [id number] Univers 00:00:00 00:00:00 Only Unassigned, ANDRÉS 350.1.13.10 ity of [place] [facility] 4.2.7.2.686 Robert as [id number] [address] 2022-11-14 2022-11-14 Test Evaluator Ultrasound, José-Mfm [facility] 1.2 .840.114 [id number] Univers 08:00:00 09:00:00 Visit Austin Littel NETWORK CONSULTANT 350.1. 13.10 ity of Delicia Garnica [facility] 4.2.7.2.686 [place] MATERNAL [id number] Med ical & CHILD [address] [place] [address] 2022-11-14 2022-11-14 Outpatient P YANG [facility] [id number] Univers 08:00:00 08:00:00 DELICIA itbrian [facility] 2022-11-02 2022-11-02 Test Evaluator 2, Adc Lab [facility] 1.2.840.114 [id number] Univers 14:00:00 14:15:00 Visit Cassi Blanco 350.1.13.10 ity [facility] [place]2.7.2.[place] [id number] De dical NAL [address] 2022-11-02 2022-11-02 Outpatient R CASSI BLANCO [facility] [id number] Univers 13:15:00 13:37:32 ity [facility] 2022-11-02 2022-11-02 Routine Cassi Blanco [facility] 1.2.781.540 [id number] Univers 13:15:00 13:37:32 Scott ZHENG 350.1.13.10 ity of [place] [id number] De dical NAL [address] 2022-11-02 2022-11-02 Outpatient SFA SFA [id number] Dustin 10:09:39 10:09:39 [address] [place] 2022-10-28 2022-10-28 Outpatient SFA SFA [id number] Dustin 14:36:18 14:36:18 [address] [place] 2022-10-12 2022-10-12 Outpatient R [facility] [id number] Univers 11:00:00 11:00:00 [facility] 2022-10-05 2022-10-05 Outpatient R GINA [facility] [id number] Univers 14:00:00 14:16:53 JENN [facility] 2022-10-05 2022-10-05 Routine [facility] 1.2.955.740 [id number] Univers 14:00:00 14:16:53 Jenn ZHENG 350.1.13.10 ity of [place] [id number] De dic[address] 2022-10-04 2022-10-04 Telephone Cassi Blanco [facility] 1.2.840.114 [id number] Univers 00:00:00 00:00:00 Scott ZHENG 350.1.13.10 i ty of [place] [id number] De dic[address] 2022-09-27 2022-09-27 Outpatient R CASSI BLANCO [facility] [id number] Univers 14:15:00 14:22:39 ity of [facility] 2022-09-27 2022-09-27 Routine Cassi Blanco [facility] 1.2.867.925 [id number] Univers 14:15:00 14:22:39 Scott ZHENG 350.1.13.10 ity of [place] [id number] [address] 2022-09-27 2022-09-27 Telephone [facility] 1.2.840.114 [id number] Univers 00:00:00 00:00:00 Jenn ZHENG 350.1.13.10 i ty of [place] [id number] [address] 2022-09-26 2022-09-26 Outpatient R DANYEL [facility] [id number] Univers 11:15:00 11:15:00 BERNARDINO itbrian [facility] 2022-09-26 2022-09-26 Emergency X [facility] ERT [id number] Univers 09:30:00 10:43:00 MARLENA barrientos [facility] 2022-09-26 2022-09-26 Emergency [facility] 1.2.840.114 [id number] Univers 09:30:00 10:43:00 Marlena ZHENG 350.1.13.10 ity of [place]2.[place] [id number] [address] 2022-09-23 2022-09-23 Test Evaluator 2, Adc Lab [facility] 1.2.840.114 [id number] Univers 11:00:00 11:15:00 Visit Cassi Blanco 350.1.13.10 ity of [place] [id number] De dical NAL [address] 2022-09-23 2022-09-23 Outpatient R CASSI BLANCO [facility] [id number] Univers 11:00:00 11:00:00 ity [facility] 2022-09-07 2022-09-07 Outpatient R CASSI BLANCO [facility] [id number] Univers 11:15:00 11:34:33 ity [facility] 2022-09-07 2022-09-07 Routine [facility] 1.2.823.149 [id number] Univers 11:15:00 11:34:33 Scott PERDOMOTON 350.1.13.10 ity of [place] [id number] De dical NAL [address] 2022-08-22 2022-08-22 Outpatient R MANJULAJOSE [facility] [id number] Univers 11:00:00 11:00:00 [facility]ARDINO [facility] 2022-08-15 2022-08-15 Test Evaluator 2, [facility] Lab [facility] 1.2.840.114 [id number] Univers 10:30:00 10:45:00 Visit Cassi Blanco 350.1.13.10 ity of [place] [id number] De dical NAL [address] 2022-08-15 2022-08-15 Outpatient R CASSI BLANCO [facility] [id number] Univers 10:30:00 10:30:00 ity [facility] 2022-08-11 2022-08-12 Emergency X OSWALDO [facility] ERT [id number] Univers 23:11:00 00:54:00 HENRI [facility] 2022-08-11 2022-08-12 Emergency [facility] 1.2.328.297 [id number] Univers 23:11:00 00:54:00 Henri ZHENG 350.1.13.10 i ty of [place] [id number] [facility] [address] 2022-08-10 2022-08-10 Outpatient R CASSI BLANCO [facility] [id number] Univers 14:00:00 14:39:37 ity of [facility] 2022-08-10 2022-08-10 Initial Francis Cassi [facility] 1.2.108.782 [id number] Univers 14:00:00 14:39:37 Scott ZHENG 350.1.13.10 ity of [facility] 4.2.7.2.[place] [facility] [id number] De dical [facility] [address] 2022-07-11 2022-07-11 Outpatient R DANYEL [facility] [id number] Univers 10:45:00 12:08:24 BERNARDINO barrientos [facility] 2022-07-11 2022-07-11 Office CHIKI Todd 1.2.840.114 [id number] Univers 10:45:00 12:08:24 Visit Bernardino Bowman 350.1.13.10 it y of [facility] 4.2.7.2.686 Robert as BANK [id number] [facility] BLDG. [address] 2022-06-25 2022-06-25 Emergency Makishima, TRAUMA 1.2.840.114 9 [id number] Univers 14:52:00 19:07:00 [facility] 350.1.13.10 it y [place] [id number] [facility] [address] 2022-06-25 2022-06-25 Emergency X [facility] ERT [id number] Univers 10:16:00 13:33:00 JONNIE barrientos [facility] 2022-06-25 2022-06-25 Emergency X [facility] ERT [id number] Univers 10:16:00 13:33:00 JONNIE barrientos [facility] 2022-06-25 2022-06-25 Emergency [facility] 1.2.085.469 [id number] Univers 10:16:00 13:33:00 Jonnie ZHENG 350.1.13.10 i ty of [facility] 4.2.7.2.686 [facility] [id number] [facility] [address] 2022-06-25 2022-06-25 Orders Doctor MACK 1.2.840.114 [id number] Univers 00:00:00 00:00:00 Only Unassigned, ANDRÉS 350.1.13.10 ity of [place] [facility] 4.2.7.2.686 Robert [id number] [facility] [address] 2022-03-04 2022-03-04 Outpatient R [facility] [id number] Univers 09:00:00 09:39:33 ity [facility] 2022-03-04 2022-03-04 Office Francis [facility] 1.2.840.114 [id number] Univers 09:00:00 09:39:33 Visit Scott MURRELL 350.1.13.10 it y of [facility] 4.2.7.2.686 [facility] [id number] [facility] [address] 2022-03-04 2022-03-04 Outpatient R [facility] [id number] Univers 09:00:00 09:39:33 ity of [facility] 2021-06-07 2021-06-07 Outpatient R [facility] [id number] Univers 15:30:00 15:30:00 ity of [facility] 2021-05-10 2021-05-10 Telephone [facility] 1.2.840.114 [id number] Univers 00:00:00 00:00:00 Scott Zheng 350.1.13.10 i ty of [place] 4.2.7.2.686 [facility] Professio [id number] De dical [address] 2021-05-10 2021-05-10 Telephone Francis Cassi [facility] 1.2.840.114 [id number] 00:00:00 00:00:00 Scott Scheller 350.1.13.10 [place] 4.2.7.2.686 Professio [id number] [address] 2021-05-05 2021-05-05 Routine Blanco, Cassi [facility] 1.2.035.972 [id number] Univers 11:11:53 12:09:03 Cam Scheller 350.1.13.10 ity of [place]7.2.[place] [phone] [facility] [address] [facility] 2021-05-05 2021-05-05 Routine Cassi Blanco [facility] 1.2.178.890 [id number] 11:11:53 12:09:03 Cam Scheller 350.1.13.10 Visit [place] 4.2.7.2.686 Professio [id number] [address] 2021-05-05 2021-05-05 Outpatient R CASSI BLANCO [facility] [id number] Univers 11:00:00 11:00:00 ity of [facility] 2021-04-19 2021-04-20 [facility] Cassi Blanco [facility] 1.2.840.114 [id number] Univers 03:57:00 17:25:00 Encounter Cam Scheller 350.1.13.10 ity [place] [phone] [address] 2021-04-19 2021-04-20 [facility] Cassi Blanco [facility] 1.2.840.114 [id number] 03:57:00 17:25:00 Encounter Cam Scheller 350.1.13.10 [place] 4.2.7.2.686 [place] [id number] [facility] 2021-04-19 2021-04-19 Anesthesia Viktoria Ludwig [facility] 1.2.840. 114 [id number] [facility] 08:17:00 15:20:00 Event Mack Poon 350.1.13.10 ity of [place] 4.2.7.2.686 [facility] [place] [id number] [address] 2021-04-19 2021-04-19 Anesthesia Viktoria Ludwig [facility] 1.2.840. 114 [id number] 08:17:00 15:20:00 Event Mack Poon 350.1.13.10 [place] 4.2.7.2.686 [place] [id number] 083 2021-04-19 2021-04-19 Orders Doctor MACK 1.2.840.114 [id number] Univers 00:00:00 00:00:00 Only Unassigned, ANDRÉS 350.1.13.10 ity of [facility] 4.2.7.2.686 Robert as [phone] [facility] [address] 2021-04-19 2021-04-19 Orders Doctor MACK 1.2.840.114 [id number] 00:00:00 00:00:00 Only Unassigned, ANDRÉS 350.1.13.10 [facility] 4.2.7.2.686 [id number] [id number] 2021-04-16 2021-04-16 Laboratory Only, [facility] 1.2.840.114 [id number] 11:41:52 11:56:52 Only Test Norm 350.1.13.10 [place] 4.2.7.2.686 [place] [phone] 353 2021-04-16 2021-04-16 Laboratory Only, [facility] Test [facility] 1.2.840. 114 [id number] Univers 11:41:52 11:56:52 Only Chuy Sadler 350.1.13.10 ity of [place] 4.2.7.2.686 [facility] [place] [phone] [facility] [address] 2021-04-16 2021-04-16 Outpatient R [facility] [id number] Univers 11:30:00 11:30:00 ity of [facility] 2021-04-13 2021-04-13 Office Cassi Blanco NJJAZ 1.2.285.881 [id number] 14:30:32 15:00:32 Visit Scott Zheng 350.1.13.10 [place] 4.2.7.2.686 Professio [phone] [address] 2021-04-13 2021-04-13 Office aCssi Blanco NJJAZ 1.2.226.912 [id number] Univers 14:30:32 15:00:32 Visit Scott Zheng 350.1.13.10 i ty of [place] [phone] [facility] [address] [facility] 2021-04-13 2021-04-13 Outpatient R CASSI BLANCO [facility] [id number] Univers 14:30:00 14:30:00 ity of [facility] 2021-04-13 2021-04-13 Orders Doctor MACK 1.2.840.114 [id number] 00:00:00 00:00:00 Only Unassigned, ANDRÉS 350.1.13.10 [place] [facility] 4.2.7.2.686 [id number] 009 2021-04-13 2021-04-13 Orders Doctor MACK 1.2.840.114 [id number] Univers 00:00:00 00:00:00 Only Unassigned, ANDRÉS 350.1.13.[address] [facility] 4.2.7.2.686 Robert as [phone] [facility] [address] 2021-04-09 2021-04-09 Case [place] 1.2.840.114 [id number] Univers 00:00:00 00:00:00 Management , Maryjo Charles 350.1.13.10 ity of [place] [phone] [facility] [address] 2021-04-06 2021-04-06 Routine [facility] 1.2.952.826 [id number] 7459 Univers 14:05:50 14:40:47 Cam Norm 350.1.13.10 ity of [place] [phone] [facility] [address] [facility] 2021-04-06 2021-04-06 Outpatient R CASSI BLANCO [facility] [id number] Univers 14:00:00 14:00:00 ity of [facility] 2021-03-30 2021-03-30 Routine Gina [facility] 1.2.173.201 [id number] Univers 11:05:51 11:47:15 Jenn Zheng 350.1.13.10 ity of [place] [phone] De dical nal [address] [facility] 2021-03-30 2021-03-30 Outpatient Kameron FUENTES [facility] [id number] Univers 11:00:00 11:00:00 JENN [facility] 2021-03-30 2021-03-30 Orders Doctor MACK 1.2.840.114 [id number] Univers 00:00:00 00:00:00 Only Unassigned, ANDRÉS 350.1.13.10 ity of [place] [facility] 4.2.7.2.686 Robert as [phone] [facility] [address] 2021-03-28 2021-03-28 [facility] 1.2.840.114 [id number] Univers 19:43:00 20:54:00 Encounter Carolin Zheng 350.1.13.10 ity of [place] [phone] [facility] [address] 2021-03-22 2021-03-22 Outpatient Kameron FUENTES [facility] [id number] Univers 11:30:00 11:30:00 [facility] 2021-03-08 2021-03-08 Routine Cassi Blanco [facility] 1.2.138.915 [id number] Univers 11:00:47 12:03:01 Scott Zheng 350.1.13.10 ity of [place] [phone] [address] 2021-03-08 2021-03-08 Outpatient R CASSI BLANCO [facility] [id number] Univers 11:00:00 11:00:00 ity of [facility] 2021-02-18 2021-02-18 Outpatient CASSI CHIANG [facility] [id number] Univers 14:45:00 14:45:00 ity [facility] 2021-02-16 2021-02-16 Patient Kp [facility] 1.2.840.114 [id number] Univers 00:00:00 00:00:00 Outreach Isra TITUS 350.1.13.10 i ty of [facility] 4.2.7.2.686 [place] [phone] De dical [address] 2021-02-05 2021-02-05 Test Evaluator Ultrasound, Adc [facility] 1.2 .840.114 [id number] Univers 10:18:30 10:48:30 Visit Austin Little 350.1 .13.10 ity of [place].7.2.[place] [phone] De dical nal [address] [facility] 2021-02-05 2021-02-05 Outpatient R [facility] [id number] Univers 10:30:00 10:30:00 ity of [facility] 2021-02-05 2021-02-05 Case Cassi Blanco [facility] 1.2.050.717 [id number] Univers 00:00:00 00:00:00 Management Scott Zheng 350.1.13.10 ity of [place].2.[place] [phone] De dical nal [address] [facility] 2021-01-21 2021-01-21 Routine Gina [facility] 1.2.884.568 [id number] Univers 11:31:49 11:46:49 Jenn Zheng 350.1.13.10 ity of [place] 4.[place].7.2.[place] [phone] De dical nal 134 [facility] 2021-01-21 2021-01-21 [facility] [id number] Univers 11:30:00 11:30:00 JENN ity [facility] 2021-01-21 2021-01-21 Test Evaluator 2, Adc Lab [facility] 1.2.840.114 [id number] Univers 10:10:04 10:25:04 Visit Jenn Fuentes 350.1.13.10 ity of [place].2.[place] [phone] De dical nal [address] [facility] 2021-01-21 2021-01-21 Case Cassi Blanco [facility] 1.2.999.873 [id number] Univers 00:00:00 00:00:00 Management Cam Scheller 350.1.13.10 ity of [place].2.[place] [phone] [address] 2021-01-13 2021-01-13 Outpatient R GINA [facility] [id number] Univers 11:15:00 11:15:00 JENN ity [facility] 2021-01-05 2021-01-05 Outpatient P [facility] [id number] Univers 10:45:00 10:45:00 ity [facility] 2020-12-24 2020-12-24 Telephone Cassi Blanco [facility] 1.2.840.114 [id number] Univers 00:00:00 00:00:00 Cam Scheller 350.1.13.10 i ty of [place] 4[place].2.[place] [phone] [address] 2020-12-16 2020-12-16 Routine Cassi Blanco [facility] 1.2.275.307 [id number] Univers 13:42:12 14:51:44 Cam Scheller 350.1.13.10 ity of [place].2.[place] [phone] [address] 2020-12-16 2020-12-16 Outpatient R CASSI BLANCO [facility] [id number] Univers 13:45:00 13:45:00 ity [facility] 2020-12-16 2020-12-16 Telephone Cassi Blanco NJJAZ 1.2.840.114 [id number] Univers 00:00:00 00:00:00 Cam Scheller 350.1.13.10 i ty of [place] 4[place].7.2.[place] [phone] [address] 2020-12-11 2020-12-11 Test Evaluator Ultrasound, Adc [facility] 1.2 .840.114 [id number] Univers 12:52:41 13:52:41 Visit Hunter Madrigal Scheller 350.1.13.10 ity of [place].2.[place] [phone] De dical nal [address] [facility] 2020-12-11 2020-12-11 Outpatient P [facility] [id number] Univers 13:00:00 13:00:00 ity of [facility] 2020-11-24 2020-11-24 Test Evaluator 2, Adc Lab [facility] 1.2.840.114 [id number] Univers 14:01:54 14:16:54 Visit Cassi Blanco Scott Zheng 350.1.13.10 ity of [place].2.[place] [phone] [facility] [address] [facility] 2020-11-24 2020-11-24 Routine Jenn Fuentes [facility] 1.2.840.11 [id number] Univers 12:52:06 13:55:17 Blanco Cassi Zheng 350.1.13.10 ity of [place].2.[place] [phone] De dical nal 134 [facility] 2020-11-24 2020-11-24 Outpatient R CASSI BLANCO [facility] [id number] Univers 13:00:00 13:00:00 ity of [facility] 2020-11-09 2020-11-09 Telephone Cassi Blanco [facility] 1.2.840.114 [id number] Univers 00:00:00 00:00:00 Scott Zheng 350.1.13.10 i ty of [place].2.[place] [phone] De dical nal 134 [facility] 2020-10-27 2020-10-27 Outpatient R GINA [facility] [id number] Univers 16:15:00 16:15:00 JENN itbrian [facility] 2020-10-27 2020-10-27 Test Evaluator 2, Adc Lab [facility] 1.2.840.114 [id number] Univers 10:41:28 10:56:28 Visit Jenn Fuentes 350.1.13.10 ity of [place].2.[place] [phone] De dical nal [address] [facility] 2020-10-27 2020-10-27 Routine Peterbrennanteodora [facility] 1.2.208.849 [id number] [id number] Univers 09:58:42 10:35:28 Jennpatricia Zheng 350.1.13.10 ity of [place].2.[place] [phone] De [facility]ical [facility] [address] [facility] 2020-10-27 2020-10-27 Orders Doctor MACK 1.2.840.114 [id number] Univers 00:00:00 00:00:00 Only Unassigned, ANDRÉS 350.1.13.10 ity of [place] [facility] 4.2.7.2.686 Robert as [phone] [address] 2020-10-26 2020-10-26 Outpatient R GINA [facility] [id number] Univers 11:15:00 11:15:00 JENN ity [facility] 2020-10-05 2020-10-05 Test Evaluator 2, Adc Lab [facility] 1.2.840.114 [id number] Univers 10:19:03 10:34:03 Visit Cassi Blanco Scott Zheng 350.1.13.10 ity of [place].2.[place] [phone] De dic[address] 2020-10-05 2020-10-05 Outpatient R FRANCIS CASSI [facility] [id number] Univers 10:15:00 10:15:00 ity of [facility] 2020-10-05 2020-10-05 Patient Cassi Blanco [facility] 1.2.835.215 [id number] Univers 00:00:00 00:00:00 Secure Msg Scott Norm 350.1.13.10 ity of [place].2.[place] [phone] De dic[address] 2020-09-30 2020-09-30 Outpatient R [facility] [id number] Univers 09:15:00 09:15:00 ity of [facility] 2020-09-24 2020-09-24 Outpatient R FRANCSI [facility] [id number] Univers 11:30:00 11:30:00 ity of [facility] 2020-09-24 2020-09-24 Routine [facility] 1.2.304.294 [id number] Univers 09:02:22 10:01:40 Scott Zheng 350.1.13.10 ity of [place]2.[place] [phone] De dical nal [address] [facility] 2020-09-24 2020-09-24 Outpatient R FRANCIS [facility] [id number] Univers 09:00:00 09:00:00 ity of [facility] 2020-09-24 2020-09-24 Orders Doctor MACK 1.2.840.114 [id number] Univers 00:00:00 00:00:00 Only Unassigned, ANDRÉS 350.1.13.10 ity of [place] [facility] 4.2.7.2.686 Robert as [phone] [address] 2020-08-31 2020-08-31 Test Evaluator 2, Adc Lab [facility] 1.2.840.114 [id number] Univers 13:21:05 13:36:05 Visit Cassi Blanco 350.1.13.10 ity of [place].2.[place] [phone] De dical nal [address] [facility] 2020-08-31 2020-08-31 Outpatient R CASSI BLANCO [facility] [id number] Univers 13:15:00 13:15:00 ity of [facility] 2020-08-28 2020-08-28 Test Evaluator 2, Adc Lab [facility] 1.2.840.114 [id number] Univers 13:34:48 13:49:48 Visit Cassi Blanco 350.1.13.10 ity of [place] 4[place].7.2.[place] [phone] De dical nal [address] [place] [address] 2020-08-28 2020-08-28 Outpatient R CASSI BLANCO [facility] [id number] Univers 13:15:00 13:15:00 ity of [facility] 2020-08-27 2020-08-27 Telephone [facility] 1.2.840.114 [id number] Univers 00:00:00 00:00:00 Cam Norm 350.1.13.10 i ty of [place].2.[place] [phone] [facility] [address] [facility] 2020-08-26 2020-08-26 Test Evaluator 2, Adc Lab [facility] 1.2.840.114 [id number] Univers 13:15:24 13:30:24 Visit Cassi Blanco Scott Scheller 350.1.13.10 ity of [place].2.[place] [phone] [facility] [address] [facility] 2020-08-26 2020-08-26 Initial Cassi Blanco [facility] 1.2.257.530 [id number] Univers 11:20:58 12:43:44 Scott Zheng 350.1.13.10 ity of [place].2.[place] [phone] [facility] [address] [facility] 2020-08-26 2020-08-26 Outpatient R CASSI BLANCO [facility] [id number] Univers 11:00:00 11:00:00 ity of [facility] 2020-08-26 2020-08-26 Orders Doctor MACK 1.2.840.114 [id number] Univers 00:00:00 00:00:00 Only Unassigned, ANDRÉS 350.1.13.10 ity of [place] [facility] 4.2.7.2.686 Robert as [phone] [address] 2020-02-12 2020-02-12 Office [facility] 1.2.979.419 [id number] Univers 09:22:02 10:09:12 Visit Ana Perez NETWORK CONSULTANT 350.1.13.10 ity of [facility] 4.2.7.2.686 Robert as MATERNAL [phone] Med ical & CHILD [address] [place] [address] 2020-02-12 2020-02-12 Outpatient [facility] [id number] Univers 09:00:00 09:00:00 ANA barrientos o f [facility] 2020-01-20 2020-01-20 [facility] 1.2.068.309 [id number] Univers 10:42:17 10:57:17 Ana C NETWORK CONSULTANT 350.1.13.10 ity of Visit [place] 4.2.7.2.686 Robert as MATERNAL [phone] [facility] & [address] 2020-01-20 2020-01-20 Outpatient [facility] [id number] Univers 10:30:00 10:30:00 ANA ity o f [facility] 2020-01-13 2020-01-13 Office [facility] 1.2.840.114 [id number] Univers 13:55:26 14:15:26 Visit Дмитрий Zheng 350.1.13.10 ity of [place] [facility] [phone] De dical nal 0[address] [facility] 2020-01-06 2020-01-06 Telephone [facility] 1.2.840.114 [id number] Univers 00:00:00 00:00:00 Ana C NETWORK CONSULTANT 350.1.13.10 ity of [place] 4.2.7.2.686 Robert as MATERNAL [phone] [facility] & CHILD [address] [place] [address] 2020-01-02 2020-01-04 [facility] Jonnie Goodrich [facility] 1.2.840.1 14 [id number] Univers 21:44:53 12:30:00 Encounter Chuy Crowder 350.1.1 3.10 ity of [place] 4.2.7.2.686 [phone] [address] 2019-12-25 2019-12-30 [facility] Cassi Blanco [facility] 1.2.840.114 [id number] Univers 22:11:00 13:55:00 Encounter Scott Zheng 350.1.13.10 ity of [place] 4.2.7.2.686 [facility] [phone] [address] 2019-12-19 2019-12-19 Routine [facility] 1.2.380.253 [id number] Univers 12:45:45 13:37:58 Ana C NETWORK CONSULTANT 350.1.13.10 ity of Visit [place] 4.2.7.2.686 Robert as MATERNAL [phone] [facility] ical & CHILD [address] [place] [address] 2019-12-13 2019-12-13 Abstract Carlota [facility] 1.2.840.114 [id number] Univers 00:00:00 00:00:00 Ana C NETWORK CONSULTANT 350.1.13.10 ity of [place] 4.2.7.2.686 Robert as MATERNAL [phone] [facility] ical & CHILD [address] [place] [address] 2019-11-24 2019-11-28 Inpatient X HUNTER MADRIGAL [facility] MINDA 1 [id number] Univers 19:24:46 18:24:00 [facility] 2019-11-14 2019-11-14 Orders Doctor MACK 1.2.840.114 [id number] Univers 00:00:00 00:00:00 Only Unassigned, ANDRÉS 350.1.13.10 ity of [place] [facility] 4.2.7.2.686 Robert as [phone] [address] 2019-08-09 2019-08-09 Patient [facility] 1.2.124.026 [id number] Univers 00:00:00 00:00:00 Secure Msg Ana C NETWORK CONSULTANT 350.1.13.10 ity of [facility] 4.2.7.2.686 Robert as MATERNAL [phone] [facility] & CHILD [address] [place] [address] 2019-08-09 2019-08-09 Patient Neftalibaldev [facility] 1.2.748.973 [id number] Univers 00:00:00 00:00:00 Secure Msg Ana C NETWORK CONSULTANT 350.1.13.10 ity of [facility] 4.2.7.2.686 Robert as MATERNAL [phone] [facility] & CHILD [address] [place] [address] 2019-08-09 2019-08-09 Telephone Robsonbaldev [facility] 1.2.840.114 [id number] Univers 00:00:00 00:00:00 Ana C NETWORK CONSULTANT 350.1.13.10 ity of [place] 4.2.7.2.686 Robert as MATERNAL [phone] Med ical & CHILD [address] [place] [address] 2019-08-08 2019-08-08 Telephone [facility], [facility] 1.2.840.114 [id number] Univers 00:00:00 00:00:00 Ana C NETWORK CONSULTANT 350.1.13.10 ity of [facility]AL 4.2.7.2.686 Robert as MATERNAL [phone] [facility] ical & CHILD [address] [place] [address] 2019-08-08 2019-08-08 Telephone [facility], [facility] 1.2.840.114 [id number] Univers 00:00:00 00:00:00 Ana C NETWORK CONSULTANT 350.1.13.10 ity of [facility]AL 4.2.7.2.686 Robert as MATERNAL [phone] [facility] ical & CHILD [address] [place] [address] 2019-08-08 2019-08-08 Patient [facility] 1.2.778.645 [id number] Univers 00:00:00 00:00:00 Secure Msg Ana C NETWORK CONSULTANT 350.1.13.10 ity of [facility] 4.2.7.2.686 Robert as MATERNAL [phone] [facility] ical & CHILD [address] [place] [address] 2019-08-08 2019-08-08 Telephone [facility], [facility] 1.2.840.114 [id number] Univers 00:00:00 00:00:00 Ana C NETWORK CONSULTANT 350.1.13.10 ity of [place] 4.2.7.2.686 Robert as MATERNAL [phone] [facility] ical & CHILD [address] [place] [address] 2019-08-07 2019-08-07 Telephone [place], [facility] 1.2.840.114 [id number] Univers 00:00:00 00:00:00 Ana C NETWORK CONSULTANT 350.1.13.10 ity of [place] 4.2.7.2.686 Robert as MATERNAL [phone] Med ical & CHILD [address] [place] [address] 2019-08-07 2019-08-07 Telephone [place], [facility] 1.2.840.114 [id number] Univers 00:00:00 00:00:00 Ana C NETWORK CONSULTANT 350.1.13.10 ity of [place] 4.2.7.2.686 Robert as MATERNAL [phone] [facility] ical & CHILD [address] [place] [address] 2019-07-25 2019-07-25 Telephone [facility] 1.2.840.114 [id number] Univers 00:00:00 00:00:00 Ana C NETWORK CONSULTANT 350.1.13.10 ity of [facility]AL 4.2.7.2.686 Robert as MATERNAL [phone] [facility] ical & CHILD [address] [place] [address] 2019-07-19 2019-07-19 Routine [facility] 1.2.868.862 [id number] Univers 10:57:09 11:58:55 Ana C NETWORK CONSULTANT 350.1.13.10 ity of Visit REGIONAL 4.2.7.2.686 Robert as MATERNAL [phone] [facility] [address] [place] [address] 2019-07-03 2019-07-03 Letter [facility] 1.2.167.034 [id number] Univers 00:00:00 00:00:00 (Out) Ana C NETWORK CONSULTANT 350.1.13.10 ity of [facility]IONAL 4.2.7.2.686 Robert as MATERNAL [phone] [facility] & CHILD [address] [place] [address] 2019-06-25 2019-06-25 Patient [facility] 1.2.851.711 [id number] Univers 00:00:00 00:00:00 Secure Msg Ana C NETWORK CONSULTANT 350.1.13.10 ity of [place] 4.2.7.2.686 Robert as MATERNAL [phone] [facility] [address] [place] [address] 2019-06-21 2019-06-21 Routine [facility] 1.2.448.778 [id number] Univers 09:46:39 10:48:37 Ana C NETWORK CONSULTANT 350.1.13.10 ity of Visit REGIONAL 4.2.7.2.686 Robert as MATERNAL [phone] [facility] ical & CHILD [address] [facility] Results Test Description Test Time Test Comments Results Result Comments Source POCT TEST 2023-04-06 15:27:00 Test Item Value Reference Range Interpretation Comme nts POCT PREG (test code = 1605) Negative On board controls acceptable with C Line (test code = 3574) Yes POCT PREG LOT # (test code = 3575) POCT PREG TEST DATE (test code = 3576) [id number] 15:27:00 Test Item Value Reference Range Interpretation Comments POCT PREG (test code = 1605) Negative On board controls acceptable with C Yes Line (test code = 3574) POCT PREG LOT # (test code = 3575) POCT PREG TEST DATE (test code = 3576) [facility] IMMUNE [id number] 21:22:19 Test Item Value Reference Range Interpretation Comments RHIG CANDIDATE? No- see comment Patient i s not a (test code = candidate for R [facility]- 5188) Patient is Rh Positive.Perfor med at [facility] Laboratory Services - [facility] Blood [address] [place], [place] [id number] Free: [phone] A No. [id number] [facility] Antonio[facility]atitis B Surface [id number] 10:30:24 Test Item Value Reference Range Interpretation Comments HBsAg Semi-Quantitative (test code = 0.13 Negative 5195-3) [facility]ITHIN ONLY - [id number] 09:09:48 Test Item Value Reference Range Interpretation Comments RPR (Qualitative) (test code = Nonreactive Nonreactive 48279-1) Lab Interpretation (test code = Normal 25771-1) [facility]2 AG-AB WITH [id number] 06:13:27 Test Item Value Reference Range Interpretation Comments HIV 0.11 Negative Semi-quantitative (test code = 49453-9) BARON (test code = Non-reactive for HIV-1 BARON) antigen and HIV-1/HIV-2 antibodies. ?No laboratory evidence of HIV infection. ?Repeat in 2-4 weeks if acute HIV infection is suspected. [facility] (Aspartate Amino Transfer ; SGOT) 2023-03-11 05:55:04 Test Item Value Reference Range Interpretation Comments AST(SGOT) (test code = 42 U/L 13-40 H Sligh t hemolysis [id number]) Lab Interpretation (test Abnormal code = 05034-5) [facility] (Alanine Amino Transferase ; SGPT) 2023-03-11 05:55:04 Test Item Value Reference Range Interpretation Comments ALTv (test code = 1742-6) 13 U/L 5-35 Lab Interpretation (test code = Normal 39372-6) [facility] with [id number] 04:43:58 Test Item Value Reference Range Interpretation Comments WBC (test code = 10.94 See_Comment [Automated 6690-2) message] The sy stem which generated this result transmitted reference range : 4.30 - 11.10 10*3/?L. The reference range was not used to interpret this result as normal/abnormal . RBC (test code = 3.88 See_Comment L [Automated 789-8) message] The sy stem which generated this result transmitted reference range : 3.93 - 5.25 10*6/?L. The reference range was not used to interpret this result as normal/abnormal . HGB (test code = 11.4 g/dL 11.6-15.0 L 718-7) HCT (test code = 34.7 % 35.7-45.2 L 4544-3) MCV (test code = 89.4 fL 80.6-95.5 787-2) MCH (test code = 29.4 pg 25.9-32.8 785-6) MCHC (test code = 32.9 g/dL 31.6-35.1 786-4) RDW-SD (test code = 46.6 fL 39.0-49.9 26427-9) RDW-CV (test code = 14.6 % 12.0-15.5 788-0) PLT (test code = 324 See_Comment [Automated 777-3) message] The sy stem which generated this result transmitted reference range : 166 - 358 10*3/ ?L. The reference r hawa was not used to interpret this result as normal/abnormal . MPV (test code = 9.9 fL 9.5-12.9 08506-3) NRBC/100 WBC (test 0.0 See_Comment [Automat ed code = [id number]) message] The system which generated this result transmitted reference range : 0.0 - 10.0 /100 WBCs. The refer ence range was not u sed to interpret th is result as normal/abnormal . NRBC x10^3 (test code See_Comment [Auto mated = [id number]) message] The s ystem which generated this result transmitted reference range : 10*3/?L. The reference range was not used to interpret this result as normal/abnormal . GRAN MAT (NEUT) % 64.6 % (test code = 770-8) IMM GRAN % (test code 0.70 % = [id number]) LYMPH % (test code = 22.5 % 736-9) MONO % (test code = 11.1 % 5905-5) EOS % (test code = 0.8 % 713-8) BASO % (test code = 0.3 % 706-2) GRAN MAT x10^3(ANC) 7.07 10*3/uL 1.88-7.09 (test code = [id number]) IMM GRAN x10^3 (test 0.08 10*3/uL 0.00-0.06 H code = [id number]) LYMPH x10^3 (test code 2.46 10*3/uL 1.32-3.29 = 731-0) MONO x10^3 (test code 1.21 10*3/uL 0.33-0.92 H = 742-7) EOS x10^3 (test code = 0.09 10*3/uL 0.03-0.39 711-2) BASO x10^3 (test code 0.03 10*3/uL 0.01-0.07 = 704-7) Lab Interpretation Abnormal (test code = 95981-2) [facility] - ONCE [id number] 04:40:00 Test Item Value Reference Range Interpretation Comments ABO & RH (test code = 20) O Positive IAT (test code = 1185) Negative [facility]/O SPECIFIC [id number] 18:38:00 Test Item Value Reference Range Interpretation Comments POCT PH U (test code = 3254) n/a 5-8 POCT U LEUK EST (test code = n/a Negative - Negative 3263) POCT U NIT (test code = 3262) n/a Negative - Negative POCT U PROT (test code = 3259) Negative Negative - Negative POCT U GLU (test code = 3256) Normal Negative - Negative POCT U KETONE (test code = 3258) n/a Negative - Negative POCT U BLD (test code = 3257) na Negative - Negative [facility] [id number] 15:43:00 Test Item Value Reference Range Interpretation Comments POCT PH U (test code = 3254) n/a 5-8 POCT U LEUK EST (test code = n/a Negative - Negative 3263) POCT U NIT (test code = 3262) n/a Negative - Negative POCT U PROT (test code = 3259) negative Negative - Negative POCT U GLU (test code = 3256) negative Negative - Negative POCT U KETONE (test code = 3258) n/a Negative - Negative POCT U BLD (test code = 3257) n/a Negative - Negative [facility] URINALYSIS W/O SPECIFIC [id number] 17:46:00 Test Item Value Reference Range Interpretation Comments POCT PH U (test code = 3254) n/a 5-8 POCT U LEUK EST (test code = 3263) n/a Negative - Negative POCT U NIT (test code = 3262) n/a Negative - Negative POCT U PROT (test code = 3259) neg Negative - Negative POCT U GLU (test code = 3256) neg Negative - Negative POCT U KETONE (test code = 3258) n/a Negative - Negative POCT U BLD (test code = 3257) n/a Negative - Negative [facility] [id number] 18:27:00 Test Item Value Reference Range Interpretation Comments POCT PH U (test code = 3254) n/a 5-8 POCT U LEUK EST (test code = n/a Negative - Negative 3263) POCT U NIT (test code = 3262) n/a Negative - Negative POCT U PROT (test code = 3259) Negative Negative - Negative POCT U GLU (test code = 3256) Normal Negative - Negative POCT U KETONE (test code = 3258) n/a Negative - Negative POCT U BLD (test code = 3257) n/a Negative - Negative [facility] URINALYSIS W/O SPECIFIC [id number] 18:27:00 Test Item Value Reference Range Interpretation Comments POCT PH U (test code = 3254) n/a 5-8 POCT U LEUK EST (test code = n/a Negative - Negative 3263) POCT U NIT (test code = 3262) n/a Negative - Negative POCT U PROT (test code = 3259) Negative Negative - Negative POCT U GLU (test code = 3256) Normal Negative - Negative POCT U KETONE (test code = 3258) n/a Negative - Negative POCT U BLD (test code = 3257) n/a Negative - Negative [facility] URINALYSIS W/O SPECIFIC [id number] 18:27:00 Test Item Value Reference Range Interpretation Comments POCT PH U (test code = 3254) n/a 5-8 POCT U LEUK EST (test code = n/a Negative - Negative 3263) POCT U NIT (test code = 3262) n/a Negative - Negative POCT U PROT (test code = 3259) Negative Negative - Negative POCT U GLU (test code = 3256) Normal Negative - Negative POCT U KETONE (test code = 3258) n/a Negative - Negative POCT U BLD (test code = 3257) n/a Negative - Negative [facility] URINALYSIS W/O SPECIFIC [id number] 18:27:00 Test Item Value Reference Range Interpretation Comments POCT PH U (test code = 3254) n/a 5-8 POCT U LEUK EST (test code = n/a Negative - Negative 3263) POCT U NIT (test code = 3262) n/a Negative - Negative POCT U PROT (test code = 3259) Negative Negative - Negative POCT U GLU (test code = 3256) Normal Negative - Negative POCT U KETONE (test code = 3258) n/a Negative - Negative POCT U BLD (test code = 3257) n/a Negative - Negative [facility] [id number] 19:51:00 Test Item Value Reference Range Interpretation Comments POCT PH U (test code = 3254) 7 mg/dl 5-8 POCT U LEUK EST (test code = Negative Negative - Negative 3263) POCT U NIT (test code = 3262) Negative Negative - Negative POCT U PROT (test code = 3259) Negative Negative - Negative POCT U GLU (test code = 3256) Normal Negative - Negative POCT U KETONE (test code = 3258) ++ mod Negative - Negative POCT U BLD (test code = 3257) Negative Negative - Negative [facility] W/O SPECIFIC [id number] 16:46:00 Test Item Value Reference Range Interpretation Comments POCT PH U (test code = 3254) n/a 5-8 POCT U LEUK EST (test code = n/a Negative - Negative 3263) POCT U NIT (test code = 3262) n/a Negative - Negative POCT U PROT (test code = 3259) trace Negative - Negative POCT U GLU (test code = 3256) negative Negative - Negative POCT U KETONE (test code = 3258) n/a Negative - Negative POCT U BLD (test code = 3257) n/a Negative - Negative [facility]/O SPECIFIC [id number] 16:46:00 Test Item Value Reference Range Interpretation Comments POCT PH U (test code = 3254) n/a 5-8 POCT U LEUK EST (test code = n/a Negative - Negative 3263) POCT U NIT (test code = 3262) n/a Negative - Negative POCT U PROT (test code = 3259) trace Negative - Negative POCT U GLU (test code = 3256) negative Negative - Negative POCT U KETONE (test code = 3258) n/a Negative - Negative POCT U BLD (test code = 3257) n/a Negative - Negative [facility] [id number] 19:17:00 Test Item Value Reference Range Interpretation Comments POCT PH U (test code = 3254) n/a 5-8 POCT U LEUK EST (test code = n/a Negative - Negative 3263) POCT U NIT (test code = 3262) n/a Negative - Negative POCT U PROT (test code = 3259) negative Negative - Negative POCT U GLU (test code = 3256) negative Negative - Negative POCT U KETONE (test code = 3258) n/a Negative - Negative POCT U BLD (test code = 3257) n/a Negative - Negative [facility] [id number] 20:00:00 Test Item Value Reference Range Interpretation Comments POCT PH U (test code = 3254) 7 mg/dl 5-8 POCT U LEUK EST (test code = trace Negative - Negative 3263) POCT U NIT (test code = 3262) negative Negative - Negative POCT U PROT (test code = 3259) trace Negative - Negative POCT U GLU (test code = 3256) negative Negative - Negative POCT U KETONE (test code = 3258) negative Negative - Negative POCT U BLD (test code = 3257) Negative - Negative [facility] W/O SPECIFIC [id number] 18:44:00 Test Item Value Reference Range Interpretation Comments POCT PH U (test code = 3254) 6 mg/dl 5-8 POCT U LEUK EST (test code = Negative Negative - Negative 3263) POCT U NIT (test code = 3262) Negative Negative - Negative POCT U PROT (test code = 3259) Negative Negative - Negative POCT U GLU (test code = 3256) Normal Negative - Negative POCT U KETONE (test code = 3258) ++ mod Negative - Negative POCT U BLD (test code = 3257) Negative - Negative [facility] SPECIFIC [id number] 18:44:00 Test Item Value Reference Range Interpretation Comments POCT PH U (test code = 3254) 6 mg/dl 5-8 POCT U LEUK EST (test code = Negative Negative - Negative 3263) POCT U NIT (test code = 3262) Negative Negative - Negative POCT U PROT (test code = 3259) Negative Negative - Negative POCT U GLU (test code = 3256) Normal Negative - Negative POCT U KETONE (test code = 3258) ++ mod Negative - Negative POCT U BLD (test code = 3257) Negative - Negative [facility] W/O SPECIFIC [id number] 16:11:00 Test Item Value Reference Range Interpretation Comments POCT PH U (test code = 3254) n/a 5-8 POCT U LEUK EST (test code = 3263) n/a Negative - Negative POCT U NIT (test code = 3262) n/a Negative - Negative POCT U PROT (test code = 3259) Trace Negative - Negative POCT U GLU (test code = 3256) normal Negative - Negative POCT U KETONE (test code = 3258) n/a Negative - Negative POCT U BLD (test code = 3257) n/a Negative - Negative [facility] W/O SPECIFIC [id number] 16:11:00 Test Item Value Reference Range Interpretation Comments POCT PH U (test code = 3254) n/a 5-8 POCT U LEUK EST (test code = 3263) n/a Negative - Negative POCT U NIT (test code = 3262) n/a Negative - Negative POCT U PROT (test code = 3259) Trace Negative - Negative POCT U GLU (test code = 3256) normal Negative - Negative POCT U KETONE (test code = 3258) n/a Negative - Negative POCT U BLD (test code = 3257) n/a Negative - Negative [facility]
--- NOTE | 2023-06-25 22:43 | ER ---
Nurse's Notes [facility] Name: Dilma Royal Age: 27 yrs Sex: Female : 1995 Arrival Date: 06/25/2023 Time: 22:04 Bed 14 Private MD: Diagnosis: Unspecified acute conjunctivitis, left eye;Hordeolum internum left upper eyelid Presentation: 06/25 22:15 Chief complaint: Patient states: redness and drainage from left eye x3 days. as6 Coronavirus screen: At this time, the client does not indicate any symptoms associated with coronavirus-19. Ebola Screen: No symptoms or risks identified at this time. Initial Sepsis Screen: Does the patient meet any 2 criteria? No. Patient's initial sepsis screen is negative. Does the patient have a suspected source of infection? No. Patient's initial sepsis screen is negative. Risk Assessment: Do you want to hurt yourself or someone else? Patient reports no desire to harm self or others. Onset of symptoms was June 22, 2023. 22:15 Method Of Arrival: Ambulatory as6 22:15 Acuity: GRANT 4 as6 Triage Assessment: 22:15 General: Appears in no apparent distress. obese, Behavior is calm, cooperative, bp appropriate for age. Pain: Complains of pain in left eye. EENT: Eyes with exudate noted from left eye. Neuro: No deficits noted. Cardiovascular: No deficits noted. Respiratory: No deficits noted. GI: No signs and/or symptoms were reported involving the gastrointestinal system. : No signs and/or symptoms were reported regarding the genitourinary system. Derm: No deficits noted. Musculoskeletal: No deficits noted. 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 - Social history:: Smoking status: Patient denies any tobacco usage or history of. Screenin:06 [facility] ED Fall Risk Assessment (Adult) History of falling in the last 3 months, bp including since admission No falls in past 3 months (0 pts). Abuse screen: Denies threats or abuse. Denies injuries from another. Nutritional screening: No deficits noted. Tuberculosis screening: No symptoms or risk factors identified. Assessment: 22:15 General: SEE TRIAGE NOTE. bp 23:06 Reassessment: DC HOME AMBULATORY WITH FAMILY. bp Vital Signs: 22:15 BP 126 / 79; Pulse 78; Resp 18 S; Temp 98.1(TE); Pulse Ox 99% on R/A; Weight 127.01 kg as6 (R); Height 5 ft. 5 in. (R); Pain 5/10; 22:15 Body Mass Index 46.59 (127.01 kg, 165.1 cm) as6 22:15 Pain Scale: Adult as6 ED Course: 22:12 Patient arrived in ED. kj1 22:17 Triage completed. as6 22:17 Arm band placed on. as6 22:18 Marcos Lyon, RN is Primary Nurse. bp 22:19 Warner Moulton PA is PHCP. cp 22:19 Calderon Ivan MD is Attending Physician. cp 22:42 Miranda Matias MD is Referral Physician. cp 23:06 Patient has correct armband on for positive identification. Bed in low position. Call bp light in reach. Side rails up X2. 23:06 No provider procedures requiring assistance completed. Patient did not have IV access bp during this emergency room visit. Administered Medications: 23:00 Drug: Gentamicin Ophthalmic Drops 0.3 % 2 drops Route: Ophthalmic; Site: left eye; bp Medication: 23:06 VIS not applicable for this client. bp Outcome: 22:43 Discharge ordered by MD. cp 23:06 Discharged to home ambulatory, with family. bp 23:06 Condition: stable 23:06 Discharge instructions given to patient, Instructed on discharge instructions, follow up and referral plans. medication usage, Demonstrated understanding of instructions, follow-up care, medications. 23:07 Patient left the ED. bp Signatures: Warner Moulton PA PA cp Peltier, Brian, RN RN Luiza Trejo kj1 Edwin Kidd RN RN as6
--- NOTE | 2023-06-25 22:44 | EDPHYS ---
Physician Documentation [facility] Name: Dilma Royal Age: 27 yrs Sex: Female : 1995 Arrival Date: 06/25/2023 Time: 22:04 Bed 14 Private MD: ED Physician Calderon Ivan HPI: 06/25 22:35 This 27 yrs old Black Female presents to ER via Ambulatory with complaints of Drainage cp From Eye. 22:35 The patient is experiencing matting or discharge, redness, to the left eye, caused by cp an unknown mechanism. 22:35 Onset: The symptoms/episode began/occurred 3 day(s) ago. cp 22:35 Duration: the symptoms are continuous. Associated signs and symptoms: Pertinent cp negatives: ear ache, fever, headache, runny nose. Patient does not utilize any form of vision correction. Severity of symptoms: in the emergency department the symptoms are unchanged despite home interventions. 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 - Social history:: Smoking status: Patient denies any tobacco usage or history of. ROS: 22:40 Constitutional: Negative for body aches, chills, fever, poor PO intake. cp 22:40 ENT: Negative for injury, pain, and discharge. cp 22:40 Eyes: Positive for discharge, redness, of the left eye, Negative for pain. 22:40 Respiratory: Negative for cough, shortness of breath, wheezing. 22:40 Abdomen/GI: Negative for abdominal pain, nausea, vomiting, and diarrhea. 22:40 Skin: Negative for rash. 22:40 All other systems are negative. Exam: 22:41 Constitutional: The patient appears in no acute distress, alert, awake, comfortable, cp non-toxic, well developed, well nourished, obese. 22:41 Head/Face: Normocephalic, atraumatic. cp 22:41 Eyes: Periorbital structures: appear normal, Pupils: equal, round, and reactive to light and accomodation, Extraocular movements: intact throughout, Conjunctiva: injected, in the left eye, mild colored drainage noted. Lids and lashes: stye, medial inner left upper lid. 22:41 ENT: External ear(s): are unremarkable, Nose: is normal, Mouth: Lips: moist, Oral mucosa: pink and intact, moist, Posterior pharynx: is normal, airway is patent, no erythema, no exudate. 22:41 Neck: ROM/movement: is normal, is supple, without pain, no range of motions limitations, Lymph nodes: no appreciated lymphadenopathy. 22:41 Chest/axilla: Inspection: normal. 22:41 Cardiovascular: Rate: normal. 22:41 Respiratory: the patient does not display signs of respiratory distress, Respirations: normal. 22:41 Skin: no rash present. Vital Signs: 22:15 BP 126 / 79; Pulse 78; Resp 18 S; Temp 98.1(TE); Pulse Ox 99% on R/A; Weight 127.01 kg as6 (R); Height 5 ft. 5 in. (R); Pain 5/10; 22:15 Body Mass Index 46.59 (127.01 kg, 165.1 cm) as6 22:15 Pain Scale: Adult as6 MDM: 22:19 Patient medically screened. cp 22:43 Differential diagnosis: Corneal abrasion of left eye. Foreign body in left eye. Acute cp iritis of Allergic conjunctivitis in Infectious conjunctivitis in. 22:43 Data reviewed: vital signs, nurses notes, and as a result, I will discharge patient. cp Counseling: I had a detailed discussion with the patient and/or guardian regarding: the historical points, exam findings, and any diagnostic results supporting the discharge/admit diagnosis. Administered Medications: 23:00 Drug: Gentamicin Ophthalmic Drops 0.3 % 2 drops Route: Ophthalmic; Site: left eye; bp Disposition Summary: 06/25/23 22:43 Discharge Ordered Location: Home cp Problem: new cp Symptoms: have improved cp Condition: Stable cp Diagnosis - Unspecified acute conjunctivitis, left eye cp - Hordeolum internum left upper eyelid cp Followup: cp - With: Miranda Matias MD - When: 2 - 3 days - Reason: Worsening of condition Discharge Instructions: - Discharge Summary Sheet cp - Bacterial Conjunctivitis, Adult cp - Stye cp Forms: - Medication Reconciliation Form cp - Thank You Letter cp - Antibiotic Education cp - Prescription Opioid Use cp - Patient Portal Instructions cp Prescriptions: - Gentamicin 0.3 % Ophthalmic Drops - instill 1 drop by OPHTHALMIC route every 4 hours for 7 days; 1 unit; Refills: cp 0, Product Selection Permitted Addendum: 06/27/2023 05:10 Co-signature as Attending Physician, Calderon Ivan MD I agree with the assessment s p4 and plan of care. I reviewed the patient's care provided by the Advanced Practice Provider and agree with the diagnosis and treatment plan. Signatures: Warner Moulton PA PA cp Marcos Lyon RN RN bp Edwin Kidd RN RN as6 Calderon Ivan MD MD sp4 Corrections: (The following items were deleted from the chart) 06/26 23:02 06/25 22:45 Differential diagnosis: Corneal abrasion of left eye. Foreign body in left cp eye. Acute iritis of Allergic conjunctivitis in Infectious conjunctivitis in cp
[2023-06-25] MEDS ORDERED: GENTAMICIN 0.3% OPTH DROP 5ML ONE (22:59)
[2023-06-25 23:12] VITALS: BP 126/79; TEMP 98.1; O2SAT 99
== END 2023-06-25 23:07 | disposition home or self-care (01) ==
LOC: ER 22:04
DX: H10.32 Unspecified acute conjunctivitis, left eye (principal); H00.024 Hordeolum internum left upper eyelid
CPT/HCPCS: 99283